=== PATIENT | male | born 1970 | race Caucasian/White ===

== ENCOUNTER 2016-10-27 08:25 | Day surgery (SDC) | payer BC, MEDICARE ==
[2016-10-22 11:30] VITALS: BMI 37.7
[~2016-10-27 08:25] MED LIST: LACTATED RINGERS 1,000 ML IV SCH
[2016-10-27 09:23] VITALS: TEMP 97.2
[2016-10-27] MEDS ORDERED: LIDOCAINE 1% 20 ML VIAL (10MG/ML) FOR IV START INTRADERMA ONE (09:33)
[2016-10-27] MEDS ORDERED: PROPOFOL 10 MG/ML 20 ML VIAL IV ONE (09:38)
[2016-10-27] MEDS ORDERED: fentaNYL (PF) 50 MCG/ML 2 ML AMP ONE (09:38)
[2016-10-27] MEDS ORDERED: LIDOCAINE 1% INJ 10MG/ML (20 ML MDV) ONE (09:38)
--- NOTE | 2016-10-27 10:22 | P.PCN ---
Date of Procedure: 10/27/16 Procedure(s) Performed: Procedures: 1. Esophagogastroduodenoscopy and biopsy. 2. Colonoscopy. Preoperative diagnosis: Gastroesophageal reflux disease and change in bowel habits. Postoperative diagnosis: 1. Mild antral gastritis. 2. Poor preparation, but no obvious pathology to the cecum. Preparation: HalfLytely prep. Sedation: Was provided by anesthesia. Brief clinical history: The patient is a 45-year-old male who is scheduled for this evaluation because of history of reflux and change in bowel habits and abdominal pains. Procedure: With the patient on his left lateral decubitus position and after informed consent and adequate sedation, I passed the Olympus-GIF 160 video upper endoscope through the cricopharyngeus down the esophagus. GE junction was around 42-43 cm from the incisors. The esophagus did not show any erosions , ulcers, strictures or Hanna's esophagus. There was no hiatal hernia. The endoscope was then passed into the stomach which was insufflated with air and inspected in detail including the retroflex view in the cardia. There was some mottling and erythema in the antrum but no ulcers or erosions. Pyloric channel , duodenal bulb, post bulbar area and descending duodenum appeared within normal limits. I obtained multiple biopsies from the duodenum, antrum and esophagus then the endoscope was withdrawn and I proceeded with the colonoscopy. Perianal area did not show any fissures or fistulas. There were no masses felt on digital rectal examination. The Olympus CFQ 160L video colonoscope was then inserted in the rectum in the usual fashion and advanced to the cecum. Unfortunately, the preparation was poor but I was able to get to the cecum and rule out any significant pathology such as tumors, obstruction or large polyps. Where visualized, the mucosa appeared healthy. No obvious diverticular disease or other pathology was noted. The patient tolerated the procedure well. Plan: I summarized the findings to the patient and to his family. Will await biopsy results from the upper endoscopy. As far as the colonoscopy is concerned , he would still need a screening exam after adequate preparation at some point before age 51, or sooner if he continues to be symptomatic. He will follow up with you as planned.
[2016-10-27 10:44] VITALS: BP 149/95; PULSE 67; RESP 18
== END 2016-10-27 11:09 | disposition home or self-care (01) ==
LOC: ORWHC2ENDO 08:25
DX: K29.70 Gastritis, unspecified, without bleeding (principal); K31.9 Disease of stomach and duodenum, unspecified; K21.0 Gastro-esophageal reflux disease with esophagitis; I10 Essential (primary) hypertension; E78.5 Hyperlipidemia, unspecified; I25.118 Atherosclerotic heart disease of native coronary artery with other forms of angina pectoris; G47.33 Obstructive sleep apnea (adult) (pediatric); I69.351 Hemiplegia and hemiparesis following cerebral infarction affecting right dominant side; Z79.82 Long term (current) use of aspirin; Z79.899 Other long term (current) drug therapy
CPT/HCPCS: 88305; 88342; 45378; 43239; J2001; J3010; J2704; 99153

== ENCOUNTER → 2016-12-22 | Outpatient (CLI) | payer MEDICARE, OTHER ==
[2016-12-22 07:07] LABS: Blood Urea Nitrogen 12 mg/dL (9-20); Non-African American GFR(MDRD) >60 (>60 ml/min/1.73 sqM)
== END | disposition home or self-care (01) ==
LOC: LABWHC1 06:33
PROVIDERS: ATTEND Psychiatry & Neurology Pain Medicine
DX: Z01.812 Encounter for preprocedural laboratory examination (principal); R51 Headache; I63.9 Cerebral infarction, unspecified
CPT/HCPCS: 36415; 82565; 84520

== ENCOUNTER → 2016-12-22 | Outpatient (CLI) | payer MEDICARE, OTHER ==
--- NOTE | 2016-12-22 09:22 | MR ---
PRE AND POSTCONTRAST ENHANCED MRI OF THE BRAIN: CLINICAL HISTORY: R51 Headaches I63.9 cerebral infarction COMPARISON: 03/15/2015 CONTRAST: 20 ML Multihance Multiplanar and multispin-echo imaging of the brain was performed both before and after the administr ation of contrast. The ventricles, basal cisterns and sulci overlying the cerebral convexities are mildly prominent for the patient's age. There is no evidence for midline shift or mass effect. Acute intracranial hemorrhage or extra-axial collection is not evident. Several small scattered foci of increased signal within the deep white matter of both cerebral hemisp heres may be related to chronic small vessel ischemic change. Following contrast administration, there is no evidence for pathologic enhancement or enhancing mass. Mild chronic maxillary sinusitis. IMPRESSION: 1. Mild generalized atrophic change. 2.Several small scattered foci of increased signal within the deep white matter of both cerebral marbella spheres may be related to chronic small vessel ischemia.
== END | disposition home or self-care (01) ==
LOC: RADMRIMAIN 06:11
PROVIDERS: ATTEND Psychiatry & Neurology Pain Medicine
DX: G31.9 Degenerative disease of nervous system, unspecified (principal); R90.82 White matter disease, unspecified
CPT/HCPCS: 70553; A9577

== ENCOUNTER → 2017-02-15 | Outpatient (CLI) | payer MEDICARE, OTHER ==
[2017-02-15 10:31] LABS: Basophils % (A) 0 %; CH 30.8; CHCM 34.5; Eosinophils # (A) 0.1 k/uL (0-0.7); Eosinophils % (A) 1 %; HCT 46.5 % (39.0-53.0); HDW 2.61; HGB 16.2 gm/dL (13.0-17.5); Luc # (Auto) 0.18; Luc % (Auto) 2; Lymphocytes # (A) 4.1 k/uL (1.0-4.8); Lymphocytes % (A) 36 %; MCH 31.2 pg (25.0-35.0); MCHC 34.8 g/dL (31.0-37.0); MCV 89.7 fL (80.0-100.0); Mean Platelet Volume 6.6; Monocytes # (A) 0.5 k/uL (0-1.0); Monocytes % (A) 5 %; Neutrophils # (A) 6.6 k/uL (1.3-7.7); Neutrophils % (A) 57 %; RBC 5.19 m/uL (4.30-5.90); RDW 13.3 % (11.5-15.5); WBC 11.5 k/uL (3.8-10.6); WBC (Perox) 11.51
[2017-02-15 10:58] LABS: ALT 50 U/L (21-72); AST 28 U/L (17-59); Alkaline Phosphatase 87 U/L (38-126); Anion Gap 8 mmol/L; Blood Urea Nitrogen 10 mg/dL (9-20); Calcium 9.5 mg/dL (8.4-10.2); Carbon Dioxide 24 mmol/L (22-30); Chloride 112 mmol/L (98-107); Glucose 96 mg/dL (74-99); Non-African American GFR(MDRD) >60 (>60 ml/min/1.73 sqM); Potassium 4.3 mmol/L (3.5-5.1); Sodium 144 mmol/L (137-145); Total Bilirubin 0.9 mg/dL (0.2-1.3); Total Protein 6.9 g/dL (6.3-8.2)
== END ==
LOC: LABWHC1 09:55
PROVIDERS: ATTEND Psychiatry & Neurology Pain Medicine
DX: E55.9 Vitamin D deficiency, unspecified (principal); R41.3 Other amnesia
CPT/HCPCS: 36415; 80053; 82306; 84439; 84443; 84481; 85025

== ENCOUNTER 2018-08-14 20:16 | Inpatient (IN) | payer BC, MEDICARE ==
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
[2018-08-14 21:17] LABS: Basophils % (A) 0 %; Eosinophils # (A) 0.1 k/uL (0-0.7); Eosinophils % (A) 1 %; HCT 45.4 % (39.0-53.0); Lymphocytes # (A) 3.9 k/uL (1.0-4.8); Lymphocytes % (A) 35 %; MCH 30.4 pg (25.0-35.0); MCHC 33.1 g/dL (31.0-37.0); Mean Platelet Volume 6.5; Monocytes # (A) 0.4 k/uL (0-1.0); Monocytes % (A) 4 %; Neutrophils # (A) 6.7 k/uL (1.3-7.7); Neutrophils % (A) 60 %; Platelet Count 285 k/uL (150-450); RBC 4.94 m/uL (4.30-5.90); RDW 13.3 % (11.5-15.5); WBC 11.2 k/uL (3.8-10.6)
--- NOTE | 2018-08-14 21:18 | XR ---
EXAMINATION TYPE: XR chest 2V DATE OF EXAM: 08/14/2018 COMPARISON: 07/25/2014 HISTORY: Chest pain TECHNIQUE: Frontal and lateral views of the chest are obtained. FINDINGS: Heart and mediastinum are normal. Lungs are clear. Diaphragm is normal. Bony thorax appear s normal. IMPRESSION: Normal chest. No change.
[2018-08-14 21:25] LABS: INR 1.1 (<1.2); Partial Thromboplastin Time 23.9 sec (22.0-30.0); Prothrombin Time 10.3 sec (9.0-12.0)
[2018-08-14 21:36] LABS: Albumin 4.2 g/dL (3.5-5.0); Calcium 9.6 mg/dL (8.4-10.2); Total Bilirubin 0.4 mg/dL (0.2-1.3)
[2018-08-14 21:50] LABS: Creatine Kinase MB 0.7 ng/mL (0.0-2.4)
[2018-08-14 21:56] LABS: Troponin I 0.069 ng/mL (0.000-0.034)
[2018-08-14] MEDS ORDERED: HEPARIN SODIUM,PORCINE 5,000 UNIT/ML 1 ML VIAL IV ONE (21:58)
[2018-08-14] MEDS ORDERED: HEPARIN SODIUM,PORCINE 5,000 UNIT/ML 1 ML VIAL IV PRN (21:58)
[2018-08-14] MEDS ORDERED: ASPIRIN 81 MG PO STA (21:59)
[2018-08-14] MEDS ORDERED: NITROGLYCERIN SL TABS 0.4 MG TAB SUBLINGUAL PRN (22:21)
[2018-08-14] MEDS: HEPARIN SOD,PORK IN 0.45% NACL 25,000 UNIT in 0.45% NACL 1 500ML.BAG IV SCH (22:28)
[2018-08-14] MEDS ORDERED: ACETAMINOPHEN TAB 325 MG TAB PO STA (22:33)
[2018-08-14 23:11] LABS: Cholesterol 168 mg/dL (<200); HDL Cholesterol 30 mg/dL (40-60); LDL Cholesterol,Calculated 101 mg/dL (0-99); Triglycerides 186 mg/dL (<150)
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
[2018-08-15 01:17] VITALS: BMI 33.9
[2018-08-15] MEDS: NITROGLYCERIN OINT 1 INCH/GM PACKET TOPICAL SCH ×5 (02:30→23:10)
[2018-08-15 02:59] LABS: HCT 43.8 % (39.0-53.0); HGB 14.7 gm/dL (13.0-17.5); MCH 30.8 pg (25.0-35.0); MCHC 33.5 g/dL (31.0-37.0); MCV 91.9 fL (80.0-100.0); Mean Platelet Volume 6.6; Platelet Count 242 k/uL (150-450); RBC 4.77 m/uL (4.30-5.90); RDW 13.3 % (11.5-15.5); WBC 11.5 k/uL (3.8-10.6)
[2018-08-15 03:27] LABS: ALT 36 U/L (21-72); AST 20 U/L (17-59); Albumin 3.8 g/dL (3.5-5.0); Alkaline Phosphatase 65 U/L (38-126); Anion Gap 6 mmol/L; Blood Urea Nitrogen 14 mg/dL (9-20); Calcium 9.2 mg/dL (8.4-10.2); Carbon Dioxide 23 mmol/L (22-30); Chloride 112 mmol/L (98-107); Glucose 99 mg/dL (74-99); Potassium 4.2 mmol/L (3.5-5.1); Sodium 141 mmol/L (137-145); Total Bilirubin 0.4 mg/dL (0.2-1.3); Total Protein 6.5 g/dL (6.3-8.2)
[2018-08-15 03:49] LABS: Creatine Kinase MB 0.8 ng/mL (0.0-2.4)
[2018-08-15 03:59] LABS: Troponin I 0.078 ng/mL (0.000-0.034)
[2018-08-15] MEDS: PANTOPRAZOLE 40 MG TABLET PO SCH (06:30)
[2018-08-15] MEDS: ATORVASTATIN 80 MG TAB PO SCH (07:48)
[2018-08-15] MEDS: ASPIRIN 325 MG TAB PO SCH (07:48)
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
[2018-08-15] MEDS ORDERED: LISINOPRIL 20 MG TAB PO SCH (09:00)
[2018-08-15] MEDS ORDERED: ALPRAZolam 0.25 MG TAB PO PRN (09:09)
[2018-08-15] MEDS ORDERED: SODIUM CHLORIDE 0.9% 1,000 ML in EMPTY BAG 1 BAG IV ONE (09:09)
[2018-08-15] MEDS ORDERED: ATORVASTATIN 80 MG TAB PO STA (09:09)
[2018-08-15] MEDS ORDERED: NITROGLYCERIN SL TABS 0.4 MG TAB SUBLINGUAL PRN (09:09)
[2018-08-15] MEDS ORDERED: ASPIRIN 325 MG TAB PO STA (09:09)
[2018-08-15] MEDS ORDERED: ALPRAZolam 0.5 MG TAB PO PRN (09:09)
--- NOTE | 2018-08-15 09:20 | P.PN ---
Progress Note - Text Progress Note Date: 08/15/18 This is an addendum to the cardiology consultation dictated earlier this morning. The patient's and sister are now present, details of cardiac catheterization were explained to them in detail. Patient did have a cardiac catheterization performed in 2006 and was told at that time to have normal coronary arteries. Patient has been seen and evaluated this morning by Dr. Shine, cardiac catheterization will be performed today. DNP note has been reviewed, I agree with a documented findings and plan of care. Patient was seen and examined.
[2018-08-15] MEDS ORDERED: IV FLUID CONTINUATION 175 ML IV ONE (09:32)
[2018-08-15] MEDS ORDERED: VERAPAMIL 2.5 MG/ML 2 ML AMP ONE (09:38)
[2018-08-15] MEDS ORDERED: MIDAZOLAM 2 MG/2 ML VIAL ONE (09:38)
[2018-08-15] MEDS ORDERED: MIDAZOLAM 2 MG/2 ML VIAL IV ONE (10:03)
[2018-08-15] MEDS ORDERED: LIDOCAINE 2% SYG (PF) 100 MG/5 ML MISCELLANE ONE (10:05)
[2018-08-15] MEDS ORDERED: LIDOCAINE 1% INJ 10MG/ML (20 ML MDV) SQ ONE (10:05)
[2018-08-15] MEDS: VERAPAMIL SYRINGE (5 MG/10 ML) INTRAARTER ONE ×2 (10:06→10:18)
[2018-08-15] MEDS ORDERED: HEPARIN SODIUM 1,000 UN/ML (10ML VL) ONE (10:06)
[2018-08-15] MEDS ORDERED: HEPARIN SODIUM 1,000 UN/ML (10ML VL) IV ONE (10:09)
[2018-08-15] MEDS ORDERED: IOPAMIDOL-370 125ML BTL INJ ONE (10:15)
[2018-08-15] MEDS ORDERED: RX INFO: IV CONTRAST WAS GIVEN 1 EACH MISC MISCELLANE PRN (10:23)
[2018-08-15] MEDS ORDERED: SODIUM CHLORIDE 0.9% 1,000 ML IV SCH (10:30)
--- NOTE | 2018-08-15 11:04 | ECHOF ---
Referral Reason:elevated troponins MEASUREMENTS -------- HEIGHT: 152.4 cm WEIGHT: 113.4 kg BP: RVIDd: 3.2 cm (< 3.3) IVSd: 1.4 cm (0.6 - 1.1) LVIDd: 4.2 cm (3.9 - 5.3) LVPWd: 1.3 cm (0.6 - 1.1) IVSs: 1.8 cm LVIDs: 3.3 cm LVPWs: 1.3 cm LA Diam: 3.5 cm (2.7 - 3.8) LAESV Index (A-L): 22.03 ml/m Ao Diam: 3.3 cm (2.0 - 3.7) AV Cusp: 2.1 cm (1.5 - 2.6) LA Diam: 3.4 cm (2.7 - 3.8) MV EXCURSION: 25.076 mm (> 18.000) MV EF SLOPE: 160 mm/s (70 - 150) EPSS: 0.7 cm MV E Evin: 0.85 m/s MV DecT: 178 ms MV A Evin: 0.58 m/s MV E/A Ratio: 1.46 RAP: 5.00 mmHg RVSP: 30.30 mmHg FINDINGS -------- Sinus rhythm. This was a technically adequate study. The left ventricular size is normal. There is moderate concentric left ventricular hypertrophy. O verall left ventricular systolic function is low-normal with, an EF between 50 - 55 %. The right ventricle is normal in size. The left atrial size is normal. Normal LA size by volume 22+/-6 ml/m2. The right atrial size is normal. The aortic valve is trileaflet, and appears structurally normal. No aortic stenosis or regurgitation. Mild mitral regurgitation is present. Mild tricuspid regurgitation present. There is no evidence of pulmonary hypertension. The right v entricular systolic pressure, as measured by Doppler, is 30.30mmHg. Trace/mild (physiologic) pulmonic regurgitation. The aortic root size is normal. There is no pericardial effusion. CONCLUSIONS -------- 1. The left ventricular size is normal. 2. There is moderate concentric left ventricular hypertrophy. 3. Overall left ventricular systolic function is low-normal with, an EF between 50 - 55 %. 4. The right ventricle is normal in size. 5. The left atrial size is normal. 6. The right atrial size is normal. 7. The aortic valve is trileaflet, and appears structurally normal. No aortic stenosis or regurgitati on. 8. Mild mitral regurgitation is present. 9. Mild tricuspid regurgitation present. 10. There is no evidence of pulmonary hypertension. 11. The right ventricular systolic pressure, as measured by Doppler, is 30.30mmHg. 12. Trace/mild (physiologic) pulmonic regurgitation. 13. The aortic root size is normal. 14. There is no pericardial effusion. DIRECTOR COMPENSATION: Maura West RDCS
[2018-08-15 11:29] LABS: Hemoglobin A1C 5.8 % (4.0-6.0)
--- NOTE | 2018-08-15 11:31 | CC ---
CARDIAC CATHETERIZATION REPORT DATE OF SERVICE: August 15, 2018 PERFORMING PHYSICIAN: Jimmy Mckeon MD, shopping centre manager. PROCEDURE PERFORMED: 1. Selective right and left coronary angiogram. 2. Left heart catheterization. INDICATION: This is a pleasant 47-year-old gentleman with hypertension and dyslipidemia who presented to the hospital with chest discomfort and ruled in for acute non ST elevation myocardial infarction. The decision was made toward heart catheterization to rule out any severe underlying CAD. APPROACH: Right radial artery. COMPLICATION: None LEVEL OF SEDATION: Moderate with sedation length of 15 minutes. PROCEDURE DESCRIPTION: After obtaining an informed consent, the patient was brought to cardiac odd job laborer. The right radial artery was cannulated using micropuncture technique and a micropuncture wire passed easily then I placed a 6-Belgian sheath in the right radial artery. After that I gave the patient 2 mg of verapamil IA and 10,000 units of heparin IV. I did selective right and left coronary angiogram using JR4 and JL3.5 catheters. Left heart catheterization was performed using 5-Belgian pigtail catheter. The procedure was completed without any complication. SELECTIVE CORONARY ANGIOGRAM: 1. The right coronary artery is a large caliber vessel. It is a dominant vessel. It is angiographically normal. It distally bifurcates into PDA and PLV branches both are angiographically normal. 2. The left main is angiographically normal. It bifurcates into left circumflex, ramus intermedius, and left anterior descending artery. 3. The left circumflex is a large caliber vessel. It is a nondominant vessel. The left circumflex is angiographically normal and the midportion gives rise into a large OM branch which appeared to be angiographically normal. 4. The ramus intermedius is angiographically normal. 5. The LAD: The proximal LAD is angiographically normal. It gives rise into first diagonal which appeared to be angiographically normal. The mid LAD is normal and the LAD distally is normal as well. HEMODYNAMICS: The left ventricular end-diastolic pressure was 12 mmHg and no gradient was identified across the aortic valve. CONCLUSION: 1. Normal coronary angiogram. 2. Normal left ventricular end-diastolic pressure. POSTPROCEDURE MANAGEMENT: 1. Follow up on the echocardiogram. 2. Follow up with the patient. MMODL / IJN: [id number] /
--- NOTE | 2018-08-15 11:32 | P.PN ---
Subjective Progress Note Date: 08/15/18 Principal diagnosis: Chest pain, NSTEMI Patient was seen and examined after cardiac cath. No acute events overnight. Patient continues to have chest pain but less so in intensity, /, burning in nature. Associated symptoms includes palpitations, dizziness, diaphoresis when the pain is bad. Objective - Vital Signs Vital signs: Vital Signs Temp 98.1 F 08/15/18 07:50 Pulse 66 08/15/18 10:30 Resp 16 08/15/18 10:30 BP 125/78 08/15/18 10:30 Pulse Ox 99 08/15/18 10:30 Intake & Output 08/14/18 08/15/18 08/15/18 18:59 06:59 18:59 Intake Total 164.333 75 Balance 164.333 75 Weight 113.5 kg Intake: IV 40 75 0.9 20 Heparin Sod,Pork in 0.45% 20 NaCl 25,000 unit In 0.45 % NaCl 1 500ml.bag @ 9 UNITS/KG/HR 20 mls/hr IV .Q24H [facility] Rx#:[id number] Intake, IV Titration 124.333 Amount Heparin Sod,Pork in 0.45% 124.333 NaCl 25,000 unit In 0.45 % NaCl 1 500ml.bag @ 9 UNITS/KG/HR 20 mls/hr IV .Q24H [facility] Rx#:[id number] Other: Voiding Method Toilet Toilet - Exam General: [non toxic], [no distress], [appears aged] Derm: [warm], [dry] Head: [atraumatic], [normocephalic], [symmetric] Eyes: [EOMI], [no lid lag], [anicteric sclera] Mouth: [no lip lesion], [mucus membranes moist] Cardiovascular: [S1S2 reg], [no murmur], [positive DP pulse bilateral] Lungs: [CTA bilateral], [no rhonchi, no rales] , [no accessory muscle use] Abdominal: [soft], [no guarding], [no appreciable organomegaly], [non tender to palpation] Ext: [no gross muscle atrophy], [no edema], [no contractures], [R wrist wrapped , no hematoma] Neuro: [4/5 RL and RUE, 5/5 LL and LUE] Psych: [Alert], [oriented], [appropriate affect] - Labs CBC & Chem 7: 08/15/18 02:48 08/15/18 02:48 Labs: Abnormal Lab Results - Last 24 Hours (Table) 08/14/18 08/14/18 08/14/18 Range/Units 21:00 21:00 21:00 WBC 11.2 H (3.8-10.6) k/uL Chloride 108 H (98-107) mmol/L Glucose 169 H (74-99) mg/dL Total Creatine Kinase 188 H (55-170) U/L Troponin I 0.069 H* (0.000-0.034) ng/mL Triglycerides (<150) mg/dL LDL Cholesterol, Calc (0-99) mg/dL HDL Cholesterol (40-60) mg/dL 08/14/18 08/15/18 08/15/18 Range/Units 21:00 02:48 02:48 WBC 11.5 H (3.8-10.6) k/uL Chloride (98-107) mmol/L Glucose (74-99) mg/dL Total Creatine Kinase 184 H (55-170) U/L Troponin I 0.078 H* (0.000-0.034) ng/mL Triglycerides 186 H (<150) mg/dL LDL Cholesterol, Calc 101 H (0-99) mg/dL HDL Cholesterol 30 L (40-60) mg/dL 08/15/18 Range/Units 02:48 WBC (3.8-10.6) k/uL Chloride 112 H (98-107) mmol/L Glucose (74-99) mg/dL Total Creatine Kinase (55-170) U/L Troponin I (0.000-0.034) ng/mL Triglycerides (<150) mg/dL LDL Cholesterol, Calc (0-99) mg/dL HDL Cholesterol (40-60) mg/dL Assessment and Plan Assessment: Assessment and Plan 1. NSTEMI: Chest pain typical. Trop 0.069, 0.078. EKG shows NSR. Cardiology consulted - cath today. Continue ASA 325 mg PO QD, Lipitor 80 mg PO QHS. Heparin drip pending cath. Telemetry monitoring. FU Cardiology 2. h/o CVA: Stable. Continue ASA 325 mg PO QD, Lipitor 80 mg PO QHS. 3. Hypertension: BP 126/82. On Amlodipine at home, will hold. Monitor vitals, adjust medication as necessary. 4. Sleep apnea: Stable. CPAP QHS. 5. DVT/GI Prophylaxis: Protonix 40 mg PO QAM. Heparin drip.
[2018-08-15 11:53] LABS: D-Dimer <0.17 mg/L FEU (<0.60)
[2018-08-15 12:02] LABS: Partial Thromboplastin Time >200.0 sec (22.0-30.0)
[2018-08-15 12:03] LABS: Creatine Kinase MB 0.7 ng/mL (0.0-2.4); Troponin I 0.033 ng/mL (0.000-0.034)
[2018-08-15] MEDS ORDERED: ACETAMINOPHEN TAB 325 MG TAB PO STA (21:25)
[2018-08-15] MEDS: HEPARIN SOD,PORK IN 0.45% NACL 25,000 UNIT in 0.45% NACL 1 500ML.BAG IV SCH (22:43)
[2018-08-16 06:04] VITALS: RESP 18; TEMP 98.2
[2018-08-16] MEDS: NITROGLYCERIN OINT 1 INCH/GM PACKET TOPICAL SCH ×2 (06:33→11:49)
[2018-08-16] MEDS: PANTOPRAZOLE 40 MG TABLET PO SCH (07:13)
[2018-08-16] MEDS: ATORVASTATIN 80 MG TAB PO SCH (07:32)
[2018-08-16] MEDS: ASPIRIN 325 MG TAB PO SCH (07:32)
[2018-08-16 07:38] VITALS: BP 136/87; PULSE 71
--- NOTE | 2018-08-16 10:01 | P.PN ---
Subjective Progress Note Date: 08/16/18 Principal diagnosis: Acute non-ST elevation [place] This is a pleasant 47-year-old gentleman with hypertension and dyslipidemia and history of stroke and significant family history of coronary artery disease presented to the hospital with chest discomfort and ruled in for acute non-ST patient myocardial infarction. He underwent heart catheterization and that revealed normal coronaries. He underwent an echocardiogram and that showed normal LV function with mild valvular abnormalities. On follow-up with him today, he remains asymptomatic from the cardiovascular standpoint overview. From a cardiac vascular standpoint the patient can be discharged home. Objective - Vital Signs Vital signs: Vital Signs Temp 98.2 F 08/16/18 07:34 Pulse 71 08/16/18 07:34 Resp 18 08/16/18 07:34 BP 136/87 08/16/18 07:34 Pulse Ox 98 08/16/18 07:34 Intake & Output 08/15/18 08/16/18 08/16/18 18:59 06:59 18:59 Intake Total 795 1300 360 Balance 795 1300 360 Weight 113.4 kg Intake: IV 75 Oral 720 1300 360 Other: Voiding Method Toilet Toilet Toilet # Voids 2 1 - Constitutional General appearance: Present: no acute distress - Respiratory Respiratory: bilateral: CTA - Cardiovascular Rhythm: regular Heart sounds: normal: S1, S2 - Labs CBC & Chem 7: 08/15/18 02:48 08/15/18 02:48 Labs: Abnormal Lab Results - Last 24 Hours (Table) 08/15/18 Range/Units 10:52 APTT >200.0 H* (22.0-30.0) sec Assessment and Plan Assessment: Assessment #1 acute non-ST elevation myocardial infarction #2 hypertension #3 dyslipidemia Plan #1 the heart catheterization revealed normal coronaries #2 the echo revealed normal LV function #3 the patient is chest pain-free this morning #4 he can be discharged home.
--- NOTE | 2018-08-17 01:01 | DS ---
DISCHARGE SUMMARY DATE OF ADMISSION: 08/14/2018. DATE OF DISCHARGE: 08/16/2018. FINAL DIAGNOSES: 1. Acute non-ST elevation myocardial infarction. 2. Essential hypertension. 3. Obstructive sleep apnea uses CPAP. 4. Obesity; BMI 33.9. 5. Gastroesophageal reflux disease. 6. Hyperlipidemia. 7. Anxiety and depression, not otherwise specified. HOSPITAL COURSE: This patient presented with acute MS. Cardiac cath showed normal coronaries. The patient's LDL was 101. The 2D echocardiogram showed EF of 50% to 55%. Today patient is up and about. No cardiac pain. PHYSICAL EXAMINATION: Temperature 98.2, pulse 71, respirations 16, blood pressure 136/87. Lungs fair entry. Cardiovascular 1st and 2nd sounds normal. LABS: LDL 101. CONSULTATIONS: Dr. Mckeon from Cardiology. Care was discussed with the patient. DISCHARGE MEDICATIONS: 1. Aspirin 81 mg p.o. b.i.d. 2. Vitamin D3, 1000 units p.o. daily. 3. Plavix 75 mg a day. 4. Multivitamin tab p.o. daily. 5. Omeprazole 20 mg p.o. b.i.d. 6. Zoloft 200 mg p.o. at bedtime. 7. Lipitor 40 mg p.o. daily. 8. Norvasc 5 mg p.o. daily. FOLLOWUP: 1. Follow up with Dr. Mckeon on 08/24/2018. 2. Follow up with Dr. Styles on 08/24/2018. MMSHARIL / IJN: [id number] /
== END 2018-08-16 13:05 | disposition home or self-care (01) | DRG 281 ==
LOC: EC 20:16 → 3SCARD 22:21
PROVIDERS: ADMIT Hospitalist; ATTEND Hospitalist
PROC: B2111ZZ Fluoroscopy of Multiple Coronary Arteries using Low Osmolar Contrast (ICD-10-PCS; 2018-08-15)
PROC: 4A023N7 Measurement of Cardiac Sampling and Pressure, Left Heart, Percutaneous Approach (ICD-10-PCS; principal; 2018-08-15 09:32)
DX: I21.4 Non-ST elevation (NSTEMI) myocardial infarction (principal); I69.351 Hemiplegia and hemiparesis following cerebral infarction affecting right dominant side; K21.9 Gastro-esophageal reflux disease without esophagitis; E78.5 Hyperlipidemia, unspecified; I10 Essential (primary) hypertension; G47.33 Obstructive sleep apnea (adult) (pediatric); Z68.33 Body mass index [BMI] 33.0-33.9, adult; E66.9 Obesity, unspecified; F43.10 Post-traumatic stress disorder, unspecified; F41.9 Anxiety disorder, unspecified; F32.9 Major depressive disorder, single episode, unspecified; Z91.19 Patient's noncompliance with other medical treatment and regimen; I69.398 Other sequelae of cerebral infarction; G43.909 Migraine, unspecified, not intractable, without status migrainosus; R25.1 Tremor, unspecified; Z87.820 Personal history of traumatic brain injury; R41.3 Other amnesia; Z79.01 Long term (current) use of anticoagulants; Z79.82 Long term (current) use of aspirin; Z79.899 Other long term (current) drug therapy; F17.210 Nicotine dependence, cigarettes, uncomplicated; D72.829 Elevated white blood cell count, unspecified; Z82.49 Family history of ischemic heart disease and other diseases of the circulatory system; R73.9 Hyperglycemia, unspecified; I25.2 Old myocardial infarction
CPT/HCPCS: 36415; 71046; 80053; 80061; 82550; 82553; 83036; 83690; 83735; 84484; 85025; 85027; 85379; 85610; 85730; 93005; 93306; 93458; 96365; 96366; 96376; 99285

== ENCOUNTER 2018-12-30 12:28 | Observation (INO) | payer OTHER, MEDICARE ==
[2018-12-30 13:14] LABS: Basophils # (A) 0.1 k/uL (0-0.2); Basophils % (A) 0 %; Eosinophils # (A) 0.1 k/uL (0-0.7); Eosinophils % (A) 1 %; HGB 17.2 gm/dL (13.0-17.5); Lymphocytes # (A) 4.3 k/uL (1.0-4.8); Lymphocytes % (A) 34 %; MCH 29.9 pg (25.0-35.0); MCHC 33.1 g/dL (31.0-37.0); MCV 90.2 fL (80.0-100.0); Mean Platelet Volume 6.3; Monocytes # (A) 0.5 k/uL (0-1.0); Monocytes % (A) 4 %; Neutrophils # (A) 7.7 k/uL (1.3-7.7); Neutrophils % (A) 60 %; Platelet Count 276 k/uL (150-450); RBC 5.76 m/uL (4.30-5.90); RDW 13.3 % (11.5-15.5); WBC 12.8 k/uL (3.8-10.6)
--- NOTE | 2018-12-30 13:17 | XR ---
EXAMINATION TYPE: XR chest 2V DATE OF EXAM: 12/30/2018 COMPARISON: 11/17/2018 HISTORY: Chest pressure with recent history of myocardial infarct TECHNIQUE: Frontal and lateral views of the chest are obtained. FINDINGS: There is no focal air space opacity, pleural effusion, or pneumothorax seen. The cardiac silhouette size is within normal limits. The osseous structures are intact. IMPRESSION: No acute cardiopulmonary process.
[2018-12-30 13:20] LABS: Albumin 5.1 g/dL (3.5-5.0); Calcium 9.9 mg/dL (8.4-10.2); Total Bilirubin 0.9 mg/dL (0.2-1.3); Total Protein 8.2 g/dL (6.3-8.2)
[2018-12-30 13:24] LABS: D-Dimer 0.22 mg/L FEU (<0.60); Partial Thromboplastin Time 27.2 sec (22.0-30.0); Prothrombin Time 10.9 sec (9.0-12.0)
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
[2018-12-30] MEDS: NITROGLYCERIN SL TABS 0.4 MG TAB SUBLINGUAL PRN ×3 (14:07→14:34)
[2018-12-30 14:12] LABS: Potassium 4.8 mmol/L (3.5-5.1)
[2018-12-30] MEDS ORDERED: HEPARIN SODIUM,PORCINE 5,000 UNIT/ML 1 ML VIAL IV PRN (14:50)
[2018-12-30] MEDS ORDERED: HEPARIN SODIUM,PORCINE 5,000 UNIT/ML 1 ML VIAL IV ONE (14:50)
[2018-12-30] MEDS ORDERED: NITROGLYCERIN OINT 1 INCH/GM PACKET TOPICAL STA (14:51)
[2018-12-30] MEDS ORDERED: ACETAMINOPHEN TAB 500 MG TAB PO STA (14:51)
[2018-12-30] MEDS ORDERED: NITROGLYCERIN SL TABS 0.4 MG TAB SUBLINGUAL PRN (14:59)
[2018-12-30] MEDS ORDERED: HEPARIN SOD,PORK IN 0.45% NACL 25,000 UNIT in 0.45% NACL 1 250ML.BAG IV SCH (15:00)
--- NOTE | 2018-12-30 15:03 | ED ---
Medical Decision Making - Lab Data Result diagrams: 12/30/18 12:44 12/30/18 12:44 Lab Results 12/30/18 12/30/18 12/30/18 Range/Units 12:44 12:44 12:44 WBC 12.8 H (3.8-10.6) k/uL RBC 5.76 (4.30-5.90) m/uL Hgb 17.2 (13.0-17.5) gm/dL Hct 52.0 (39.0-53.0) % MCV 90.2 (80.0-100.0) fL MCH 29.9 (25.0-35.0) pg MCHC 33.1 (31.0-37.0) g/dL RDW 13.3 (11.5-15.5) % Plt Count 276 (150-450) k/uL Neutrophils % 60 % Lymphocytes % 34 % Monocytes % 4 % Eosinophils % 1 % Basophils % 0 % Neutrophils # 7.7 (1.3-7.7) k/uL Lymphocytes # 4.3 (1.0-4.8) k/uL Monocytes # 0.5 (0-1.0) k/uL Eosinophils # 0.1 (0-0.7) k/uL Basophils # 0.1 (0-0.2) k/uL PT 10.9 (9.0-12.0) sec INR 1.0 (<1.2) APTT 27.2 (22.0-30.0) sec D-Dimer 0.22 (<0.60) mg/L FEU Sodium 141 (137-145) mmol/L Potassium 4.8 (3.5-5.1) mmol/L Chloride 107 (98-107) mmol/L Carbon Dioxide 24 (22-30) mmol/L Anion Gap 10 mmol/L BUN 16 (9-20) mg/dL Creatinine 1.18 (0.66-1.25) mg/dL Est GFR (CKD-EPI)AfAm 85 (>60 ml/min/1.73 sqM) Est GFR (CKD-EPI)NonAf 73 (>60 ml/min/1.73 sqM) Glucose 93 (74-99) mg/dL Calcium 9.9 (8.4-10.2) mg/dL Magnesium 2.0 (1.6-2.3) mg/dL Total Bilirubin 0.9 (0.2-1.3) mg/dL AST 32 (17-59) U/L ALT 48 (21-72) U/L Alkaline Phosphatase 71 (38-126) U/L Troponin I (0.000-0.034) ng/mL NT-Pro-B Natriuret Pep pg/mL Total Protein 8.2 (6.3-8.2) g/dL Albumin 5.1 H (3.5-5.0) g/dL Amylase 117 H (30-110) U/L Lipase 116 (23-300) U/L 12/30/18 12/30/18 Range/Units 12:44 12:44 WBC (3.8-10.6) k/uL RBC (4.30-5.90) m/uL Hgb (13.0-17.5) gm/dL Hct (39.0-53.0) % MCV (80.0-100.0) fL MCH (25.0-35.0) pg MCHC (31.0-37.0) g/dL RDW (11.5-15.5) % Plt Count (150-450) k/uL Neutrophils % % Lymphocytes % % Monocytes % % Eosinophils % % Basophils % % Neutrophils # (1.3-7.7) k/uL Lymphocytes # (1.0-4.8) k/uL Monocytes # (0-1.0) k/uL Eosinophils # (0-0.7) k/uL Basophils # (0-0.2) k/uL PT (9.0-12.0) sec INR (<1.2) APTT (22.0-30.0) sec D-Dimer (<0.60) mg/L FEU Sodium (137-145) mmol/L Potassium (3.5-5.1) mmol/L Chloride (98-107) mmol/L Carbon Dioxide (22-30) mmol/L Anion Gap mmol/L BUN (9-20) mg/dL Creatinine (0.66-1.25) mg/dL Est GFR (CKD-EPI)AfAm (>60 ml/min/1.73 sqM) Est GFR (CKD-EPI)NonAf (>60 ml/min/1.73 sqM) Glucose (74-99) mg/dL Calcium (8.4-10.2) mg/dL Magnesium (1.6-2.3) mg/dL Total Bilirubin (0.2-1.3) mg/dL AST (17-59) U/L ALT (21-72) U/L Alkaline Phosphatase (38-126) U/L Troponin I <0.012 (0.000-0.034) ng/mL NT-Pro-B Natriuret Pep <11 pg/mL Total Protein (6.3-8.2) g/dL Albumin (3.5-5.0) g/dL Amylase (30-110) U/L Lipase (23-300) U/L Disposition Clinical Impression: Unstable angina pectoris, Chest pain, Acute coronary syndrome Disposition: ADMITTED IP TO THIS HOSP Condition: Stable Referrals: Michael Styles MD [Primary Care Provider] - 1-2 days
[2018-12-30] MEDS ORDERED: ASPIRIN 81 MG PO STA (15:05)
[2018-12-30] MEDS: SODIUM CHLORIDE 0.9% 1,000 ML IV SCH (15:08)
[2018-12-30] MEDS: NITROGLYCERIN OINT 1 INCH/GM PACKET TOPICAL SCH ×2 (17:03→23:39)
[2018-12-30] MEDS ORDERED: ACETAMINOPHEN TAB 325 MG TAB PO PRN (20:19)
[2018-12-30] MEDS: DOXAZOSIN 4 MG TAB PO SCH (20:26)
[2018-12-30] MEDS: amLODIPine 5 MG TAB PO SCH (20:26)
[2018-12-30] MEDS: DONEPEZIL 5 MG TAB PO SCH (20:26)
[2018-12-30] MEDS ORDERED: SERTRALINE 100 MG TAB PO SCH (21:00)
[2018-12-30] MEDS ORDERED: ARIPiprazole 10 MG TAB PO SCH (21:00)
--- NOTE | 2018-12-30 23:37 | HP ---
HISTORY AND PHYSICAL DATE OF ADMISSION: 12/30/2018 DATE OF SERVICE: 12/30/2018 PRESENTING COMPLAINT: Chest pain. HISTORY OF PRESENTING COMPLAINT: This is a pleasant 48-year-old patient of Dr. Styles. The patient said he was up to work last year with chest pain, did undergo cardiac catheterization, following an acute non ST elevation myocardial infarction. Cardiac cath showed normal coronaries. EF was 50-55 percent. The patient other stable medical conditions include hypertension, obstructive sleep apnea, obesity, GERD, hyperlipidemia, anxiety, depression. The patient has continued to smoke. The patient had gone up for his appointment with neurologist. There he informed them that earlier he was having upper chest pain, felt like a pressure. He was dizzy. Perspiring, felt weak and was presented on and off this morning, with being nonsteroidal, he was dizzy, also went a little bit through his back, also radiating down the left arm. He was sent in to rule out a cardiac cause. REVIEW OF SYSTEMS: CONSTITUTIONAL: None. HEENT: None. RESPIRATORY: None. CARDIOVASCULAR: As above GASTROINTESTINAL: None. GENITOURINARY: None. MUSCULOSKELETAL: None. DERMATOLOGICAL/HEMATOLOGY/LYMPHATIC: none. PSYCHIATRY: A bit anxious. NEUROLOGICAL: None. PAST MEDICAL HISTORY: Of ST-elevation myocardial infarction in July 2018, hypertension, obstructive sleep apnea, obesity, GERD, hyperlipidemia, anxiety, depression. Some memory impairment and additionally patient actually has stopped using his CPAP machine, numbness and tingling in both the feet. PAST SURGICAL HISTORY: Cardiac catheterization, tonsillectomy, sinus surgery, dental extractions. PSYCH HISTORY: Depression, anxiety, PTSD. SOCIAL HISTORY: , sometimes uses a cane. His primary language is [place]nian. The patient is smoking half a day for close to 30 years. No alcohol. FAMILY HISTORY: Coronary artery disease. Father of a heart attack at age of 52. HOME MEDICATIONS: 1. Hytrin 5 mg b.i.d. 2. Zoloft 200 mg at bedtime. 3. Protonix 40 mg a day. 4. CO Q 10 200 mg a day. 5. Multivitamin 1 tablet p.o. daily. 6. Singulair 10 mg p.o. daily. 7. Claritin 10 mg p.o. daily. 8. Aricept 5 mg p.o. b.i.d. 9. Plavix 75 mg p.o. daily. 10.Lipitor 40 mg p.o. daily. 11.Aspirin 81 mg p.o. daily. 12.Norvasc 5 mg p.o. b.i.d. 13.Abilify 10 mg q.h.s. ALLERGIES: None. PHYSICAL EXAMINATION: VITAL SIGNS: Temperature 98.1, pulse 51, respiratory 18, blood pressure 143/89, pulse ox 97% on room air. GENERAL APPEARANCE: Well built, BMI 35.4. Lying in bed, somewhat anxious-appearing. EYES: Pupils equal. Conjunctivae normal. HEENT: External appearance of nose and ears normal. Oral cavity normal. NECK: JVD not raised. Mass not palpable. RESPIRATORY: Effort normal. LUNGS: Slightly decreased breath sounds. CARDIOVASCULAR: 1st and 2nd sounds normal. No edema. ABDOMEN: Soft, nontender. Liver and spleen not palpable. LYMPHATICS: No lymph nodes palpable in the neck or axilla. PSYCHIATRY: Alert and oriented x3. Mood and affect slightly anxious-appearing. NEUROLOGICAL: Pupils equal. Cranial nerves grossly intact. Power and sensation grossly intact. INVESTIGATIONS: Reviewed in the clinical context. White count 12.8, hemoglobin 17.2, potassium 4.8 BUN and creatinine normal. Troponin times 2- negative. EKG tracing personally reviewed by me shows normal sinus rhythm. Chest x-ray film personally reviewed by me shows lung hearn to be clear. ASSESSMENT: 1. This is a patient who presented with chest pain on and off since this morning. The patient who has had a non ST elevation myocardial infarction a few months ago with normal cardiac catheterization. We could be dealing with coronary vasospasms or underlying psychosomatic disorder given his underlying anxiety given that he had a doctor's appointment this morning. 2. Essential hypertension. 3. Obstructive sleep apnea, does not use a CPAP machine. 4. Obesity; BMI more than 30. 5. Gastroesophageal reflux disease. 6. Hyperlipidemia. 7. Anxiety and depression, not otherwise specified. 8. Peripheral neuropathy. PLAN: Home medications resumed. Patient is put on IV heparin, nitro paste. The patient is already on Norvasc that should help with any ways of spastic disease. Cardiology was consulted, will get their opinion. Copy to Dr. Styles. MMODL / IJN: [id number] /
[2018-12-30] MEDS ORDERED: MORPHINE SULFATE 2 MG/ML SYRINGE IVP STA (23:52)
[2018-12-31 04:05] VITALS: RESP 18
[2018-12-31 04:26] LABS: Basophils % (A) 0 %; Eosinophils # (A) 0.1 k/uL (0-0.7); Eosinophils % (A) 1 %; HCT 47.8 % (39.0-53.0); HGB 15.9 gm/dL (13.0-17.5); Lymphocytes # (A) 4.8 k/uL (1.0-4.8); Lymphocytes % (A) 50 %; MCH 30.1 pg (25.0-35.0); MCHC 33.4 g/dL (31.0-37.0); MCV 90.2 fL (80.0-100.0); Mean Platelet Volume 6.3; Monocytes # (A) 0.5 k/uL (0-1.0); Monocytes % (A) 5 %; Neutrophils # (A) 3.9 k/uL (1.3-7.7); Neutrophils % (A) 41 %; Platelet Count 240 k/uL (150-450); WBC 9.5 k/uL (3.8-10.6)
[2018-12-31] MEDS: NITROGLYCERIN OINT 1 INCH/GM PACKET TOPICAL SCH ×3 (04:32→10:33)
[2018-12-31 05:04] LABS: Cholesterol 148 mg/dL (<200); HDL Cholesterol 28 mg/dL (40-60); LDL Cholesterol,Calculated 88 mg/dL (0-99); Triglycerides 162 mg/dL (<150)
[2018-12-31] MEDS ORDERED: PANTOPRAZOLE 40 MG TABLET PO SCH (07:30)
[2018-12-31] MEDS ORDERED: NON-FORMULARY DRUG (Ubidecarenone [Co Q-10] 200 MG) PO SCH (09:00)
[2018-12-31] MEDS ORDERED: LORATADINE 10 MG TAB PO SCH (09:00)
[2018-12-31] MEDS ORDERED: MONTELUKAST 10 MG TAB PO SCH (09:00)
[2018-12-31] MEDS ORDERED: CLOPIDOGREL 75 MG TAB PO SCH (09:00)
[2018-12-31] MEDS ORDERED: ATORVASTATIN 40 MG TAB PO SCH (09:00)
[2018-12-31] MEDS ORDERED: ASPIRIN 325 MG TAB PO SCH (09:00)
[2018-12-31] MEDS: DOXAZOSIN 4 MG TAB PO SCH (09:45)
[2018-12-31] MEDS: DONEPEZIL 5 MG TAB PO SCH (09:45)
[2018-12-31] MEDS: amLODIPine 5 MG TAB PO SCH (09:45)
[2018-12-31] MEDS: SODIUM CHLORIDE 0.9% 1,000 ML IV SCH (10:33)
[2018-12-31] MEDS ORDERED: MULTIVITAMINS, THERA 1 EACH TAB PO SCH (12:00)
[2018-12-31 12:08] VITALS: TEMP 98.2
--- NOTE | 2018-12-31 12:26 | P.CRDCN ---
History of Present Illness History of present illness: This is a pleasant 48-year-old male past medical history significant for hypertension, dyslipidemia and recent myocardial infarction. He follows in the office with Dr. Mckeon. We have been asked to see him in consultation for chest pain. He complains of waking up yesterday morning getting up and going to the restroom developing a sharp pain in the left precordial region that radiated up into the left shoulder. He felt as though he was mildly short of breath and diaphoretic at that time. He denies palpitations, nausea or vomiting. Upon arrival to the emergency department he was continuing to have ongoing sharp discomfort in the left precordial region was not related to deep inspiration or movement of his torso. He was given nitroglycerin as well as morphine and his pain subsided. He is seen and examined resting comfortably in bed in no acute distress. She denies any ongoing symptoms of chest discomfort. EKG reveals sinus mechanism with no acute ST or T wave abnormalities noted. Chest x-ray is negative for acute cardiopulmonary process. Laboratory data reviewed, WBC on admission 12.8 repeat this morning 9.5, hemoglobin 15.9, platelets 240, d-dimer 0.22, sodium 141, potassium 4.8, creatinine 1.18, magnesium 2.0, cardiac enzymes negative 3, LDL 88, amylase 117. Current cardiac medications include amlodipine 5 mg twice a day, aspirin 81 mg daily, atorvastatin 40 mg daily, Plavix 75 mg daily. Most recent echocardiogram obtained July 2018 reveals preserved left ventricular systolic function with ejection fraction 50-55%. At the time of my exam: CONSTITUTIONAL: Denies fever. Denies chills. EYES: Denies blurred vision. Denies vision changes. Denies eye pain. EARS, NOSE, MOUTH & THROAT: Denies headache. Denies sore throat. Denies ear pain. CARDIOVASCULAR: Denies chest pain. Denies shortness of breath. Denies orthopnea. Denies PND. Denies palpitations. RESPIRATORY: Denies cough. GASTROINTESTINAL: Denies abdominal pain. Denies diarrhea. Denies constipation. Denies nausea. Denies vomiting. MUSCULOSKELETAL: Denies myalgias. INTEGUMENTARY: Denies pruitis. Denies rash. NEUROLOGIC: Denies numbness. Denies tingling. Denies weakness. PSYCHIATRIC: Denies anxiety. Denies depression. ENDOCRINE: Denies fatigue. Denies weight change. Denies polydipsia. Denies polyurina. GENITOURINARY: Denies burning, hematuria or urgency with micturation. HEMATOLOGIC: Denies history of anemia. Denies bleeding. Blood pressure 129/75 heart rate 91 afebrile maintaining oxygen saturation on room air GENERAL: This is a 48-year-old male in no apparent distress at the time of my examination. HEENT: Head is atraumatic, normocephalic. Pupils are equal, round. Sclerae anicteric. Conjunctivae are clear. Mucous membranes of the mouth are moist. Neck is supple. There is no jugular venous distention. No carotid bruit is heard. LUNGS: Clear to auscultation no wheezes, rales or rhonchi. No chest wall tenderness is noted on palpation or with deep breathing. HEART: Regular rate and rhythm without murmurs, rubs or gallops. S1 and S2 heard. ABDOMEN: Soft, nontender. Bowel sounds are heard. No organomegaly noted. EXTREMITIES: No evidence of peripheral edema and no calf tenderness noted. VASCULAR: Radial and dorsalis pedis pulses palpated, no evidence of clubbing. NEUROLOGIC: Patient is awake, alert and oriented x3. ASSESSMENT Chest pain, atypical for angina. Recent cardiac catheterization revealed normal coronary arteries. Hypertension Dyslipidemia Leukocytosis PLAN An acute coronary event has been ruled out with no EKG evidence of ischemia and negative cardiac enzymes. Check C-reactive protein and ESR. Repeat echocardiogram to assess for change in LV function. If normal he is stable from a cardiac perspective, follow-up with Dr. Mckeon upon discharge. Thank you kindly for this consultation. Nurse Practitioner note has been reviewed, I agree with a documented findings and plan of care. Patient was seen and examined. Past Medical History Past Medical History: Chest Pain / Angina, CVA/TIA, GERD/Reflux, Hyperlipidemia, Hypertension, Memory Impairment, Myocardial Infarction (HI), Sleep Apnea/C PAP/BIPAP Additional Past Medical History / Comment(s): CVAs -pt thinks 4 or 5 with R sided weakness, short term memory loss, balance issures/uses a cane, migraines, bilateral hand tremors, HILTON but no longer uses his device stating "it didn't help", occasional low back pain, numbness/tingling bilateral feet, bilateral carpal tunnel syndrome, recent fall with neck pain after/had cervical injections, sinus problems Last Myocardial Infarction Date:: 07/2018 History of Any Multi-Drug Resistant Organisms: None Reported Past Surgical History: Heart Catheterization, Tonsillectomy Additional Past Surgical History / Comment(s): 07/2018 cardiac cath, sinus surgery, colonoscopy, dental extractions. Past Anesthesia/Blood Transfusion Reactions: No Reported Reaction Smoking Status: Current every day smoker - Past Family History Mother Family Medical History: No Reported History Father Family Medical History: Coronary Artery Disease (CAD), Myocardial Infarction (HI) Additional Family Medical History / Comment(s): Father of a HI at the age of 52 yrs. Medications and Allergies Home Medications Medication Instructions Recorded Confirmed Type Clopidogrel [Plavix] 75 mg PO DAILY 08/15/18 12/30/18 History Sertraline [Zoloft] 200 mg PO HS 08/15/18 12/30/18 History Atorvastatin [Lipitor] 40 mg PO DAILY #30 tablet 08/16/18 12/30/18 Rx ARIPiprazole [Abilify] 10 mg PO HS 11/17/18 12/30/18 History Loratadine [Claritin] 10 mg PO DAILY 11/17/18 12/30/18 History Montelukast [Singulair] 10 mg PO DAILY 11/17/18 12/30/18 History Pantoprazole [Protonix] 40 mg PO DAILY 11/17/18 12/30/18 History amLODIPine [Norvasc] 5 mg PO BID 11/17/18 12/30/18 History Aspirin EC [Ecotrin Low Dose] 81 mg PO DAILY 12/30/18 12/30/18 History Donepezil HCl [Aricept] 5 mg PO BID 12/30/18 12/30/18 History Multivitamins, Thera [Multivitamin 1 tab PO DAILY 12/30/18 12/30/18 History (formulary)] Terazosin [Hytrin] 5 mg PO BID 12/30/18 12/30/18 History Ubidecarenone [Co Q-10] 200 mg PO DAILY 12/30/18 12/30/18 History Allergies Allergy/AdvReac Type Severity Reaction Status Date / Time No Known Allergies Allergy Verified 12/30/18 13:26 Physical Exam Vitals: Vital Signs Temp Pulse Pulse Resp BP BP Pulse Ox 12/31/18 12:00 98.2 F 91 18 129/75 98 12/31/18 08:00 97.9 F 85 18 117/73 98 12/31/18 04:00 97.7 F 79 18 124/85 95 12/31/18 03:30 16 12/31/18 00:00 98.1 F 77 16 116/79 97 12/30/18 20:00 18 12/30/18 19:59 98.2 F 59 L 18 126/77 97 12/30/18 16:00 18 12/30/18 15:35 98.1 F 61 18 143/89 97 12/30/18 15:00 62 11 L 115/95 97 12/30/18 14:30 82 25 H 131/98 98 12/30/18 14:00 63 8 L 133/95 97 12/30/18 13:30 70 12 128/98 97 12/30/18 13:00 71 14 126/100 95 12/30/18 12:42 13 150/103 97 12/30/18 12:32 97.9 F 86 18 146/100 100 Intake and Output 12/30/18 12/31/18 12/31/18 22:59 06:59 14:59 Intake Total 300.859 Balance 300.859 Intake: Intake, IV Titration 64.859 Amount Heparin Sod,Pork in 0.45% 64.859 NaCl 25,000 unit In 0.45 % NaCl 1 250ml.bag @ 8.45 UNITS/KG/HR 10.004 mls/ hr IV .Q24H [facility] Rx#: [id number] Oral 236 Other: Voiding Method Toilet Toilet Toilet # Voids 1 Results 12/31/18 03:58 12/30/18 12:44 Cardiac Enzymes 12/30/18 12/30/18 12/30/18 Range/Units 12:44 12:44 18:18 AST 32 (17-59) U/L Troponin I <0.012 <0.012 (0.000-0.034) ng/mL 12/31/18 Range/Units 00:26 AST (17-59) U/L Troponin I <0.012 (0.000-0.034) ng/mL Coagulation 12/30/18 12/30/18 12/31/18 Range/Units 12:44 21:05 03:58 PT 10.9 (9.0-12.0) sec APTT 27.2 39.0 H 50.5 H (22.0-30.0) sec Lipids 12/31/18 Range/Units 03:58 Triglycerides 162 H (<150) mg/dL Cholesterol 148 (<200) mg/dL HDL Cholesterol 28 L (40-60) mg/dL CBC 12/30/18 12/31/18 Range/Units 12:44 03:58 WBC 12.8 H 9.5 (3.8-10.6) k/uL RBC 5.76 5.30 (4.30-5.90) m/uL Hgb 17.2 15.9 (13.0-17.5) gm/dL Hct 52.0 47.8 (39.0-53.0) % Plt Count 276 240 (150-450) k/uL Comprehensive Metabolic Panel 12/30/18 Range/Units 12:44 Sodium 141 (137-145) mmol/L Potassium 4.8 (3.5-5.1) mmol/L Chloride 107 (98-107) mmol/L Carbon Dioxide 24 (22-30) mmol/L BUN 16 (9-20) mg/dL Creatinine 1.18 (0.66-1.25) mg/dL Glucose 93 (74-99) mg/dL Calcium 9.9 (8.4-10.2) mg/dL AST 32 (17-59) U/L ALT 48 (21-72) U/L Alkaline Phosphatase 71 (38-126) U/L Total Protein 8.2 (6.3-8.2) g/dL Albumin 5.1 H (3.5-5.0) g/dL Current Medications Generic Name Dose Route Start Last Admin Trade Name Freq PRN Reason Stop Dose Admin Acetaminophen 650 mg 12/30/18 20:19 12/30/18 20:25 Tylenol Tab PO 650 mg Q4HR PRN Administration Fever and/ or Pain Amlodipine Besylate 5 mg 12/30/18 21:00 12/31/18 09:45 Norvasc PO 5 mg BID AJITH Administration Aripiprazole 10 mg 12/30/18 21:00 12/30/18 20:26 Abilify PO 10 mg HS AJITH Administration Aspirin 325 mg 12/31/18 09:00 12/31/18 09:44 Aspirin PO 325 mg DAILY [facility] Administration Atorvastatin Calcium 40 mg 12/31/18 09:00 12/31/18 09:45 Lipitor PO 40 mg DAILY AJITH Administration Clopidogrel Bisulfate 75 mg 12/31/18 09:00 12/31/18 09:45 Plavix PO 75 mg DAILY AJITH Administration Donepezil HCl 5 mg 12/30/18 21:00 12/31/18 09:45 Aricept PO 5 mg BID AJITH Administration Doxazosin Mesylate 4 mg 12/30/18 21:00 12/31/18 09:45 Cardura PO 4 mg BID [facility] Administration Sodium Chloride 1,000 mls @ 20 mls/hr 12/30/18 15:00 12/31/18 10:33 Saline 0.9% IV Not Given .Q24H AJITH Loratadine 10 mg 12/31/18 09:00 12/31/18 09:45 Claritin PO 10 mg DAILY AJITH Administration Montelukast Sodium 10 mg 12/31/18 09:00 12/31/18 09:44 Singulair PO 10 mg DAILY [facility] Administration Multivitamins 1 each 12/31/18 12:00 12/31/18 09:44 Theragran PO 1 each DAILY@1200 [facility] Administration Nitroglycerin 0.4 mg 12/30/18 12:55 12/30/18 14:34 Nitrostat SUBLINGUAL 0.4 mg Q5M PRN Administration Chest Pain Nitroglycerin 1 inch 12/30/18 19:00 12/31/18 10:33 Nitro-Bid Oint TOPICAL Not Given Q6HR [facility] Non-Formulary Medication 200 mg 12/31/18 09:00 12/31/18 09:45 Ubidecarenone [Co Q-10] PO Not Given DAILY [facility] Pantoprazole Sodium 40 mg 12/31/18 07:30 12/31/18 09:45 Protonix PO 40 mg [id number] [facility] Administration Sertraline HCl 200 mg 12/30/18 21:00 12/30/18 20:25 Zoloft PO 200 mg HS [facility] Administration Intake and Output 12/30/18 12/31/18 12/31/18 22:59 06:59 14:59 Intake Total 300.859 Balance 300.859 Intake: Intake, IV Titration 64.859 Amount Heparin Sod,Pork in 0.45% 64.859 NaCl 25,000 unit In 0.45 % NaCl 1 250ml.bag @ 8.45 UNITS/KG/HR 10.004 mls/ hr IV .Q24H [facility] Rx#: [id number] Oral 236 Other: Voiding Method Toilet Toilet Toilet # Voids 1 12/31/18 03:58 12/30/18 12:44
[2018-12-31 16:01] VITALS: BP 131/80; PULSE 80
--- NOTE | 2018-12-31 17:14 | ECHOF ---
Referral Reason:cp MEASUREMENTS -------- HEIGHT: 182.9 cm WEIGHT: 118.4 kg BP: 117/73 RVIDd: 2.9 cm (< 3.3) IVSd: 1.2 cm (0.6 - 1.1) LVIDd: 4.9 cm (3.9 - 5.3) LVPWd: 1.1 cm (0.6 - 1.1) IVSs: 1.7 cm LVIDs: 3.4 cm LVPWs: 1.4 cm LA Diam: 3.4 cm (2.7 - 3.8) LAESV Index (A-L): 15.64 ml/m Ao Diam: 3.4 cm (2.0 - 3.7) AV Cusp: 2.5 cm (1.5 - 2.6) MV EXCURSION: 16.594 mm (> 18.000) MV EF SLOPE: 101 mm/s (70 - 150) EPSS: 0.5 cm MV E Evin: 0.86 m/s MV DecT: 225 ms MV A Evin: 0.63 m/s MV E/A Ratio: 1.35 FINDINGS -------- Sinus rhythm. This was a technically adequate study. The left ventricular size is normal. There is borderline concentric left ventricular hypertrophy. Overall left ventricular systolic function is normal with, an EF between 60 - 65 %. The right ventricle is normal in size. Normal LA size by volume 22+/-6 ml/m2. The right atrium is normal in size. The aortic valve is trileaflet and appears structurally normal. The mitral valve is normal. The tricuspid valve appears structurally normal. There is no pulmonic regurgitation present. The aortic root size is normal. IVC Not well visulized. There is no pericardial effusion. CONCLUSIONS -------- 1. Sinus rhythm. 2. This was a technically adequate study. 3. The left ventricular size is normal. 4. There is borderline concentric left ventricular hypertrophy. 5. Overall left ventricular systolic function is normal with, an EF between 60 - 65 %. 6. The right ventricle is normal in size. 7. Normal LA size by volume 22+/-6 ml/m2. 8. The right atrium is normal in size. 9. The aortic valve is trileaflet and appears structurally normal. 10. The mitral valve is normal. 11. The tricuspid valve appears structurally normal. 12. There is no pulmonic regurgitation present. 13. The aortic root size is normal. 14. IVC Not well visulized. 15. There is no pericardial effusion. LOOM OPERATOR: Shana Judge RDCS
--- NOTE | 2018-12-31 20:29 | PN ---
PROGRESS NOTE DATE OF ADMISSION: December 30, 2018 DATE OF DISCHARGE: December 31, 2018. FINAL DIAGNOSES: 1. Chest pain could be vasospasm or psychosomatic. 2. Essential hypertension. 3. Obstructive sleep apnea does not use CPAP machine. 4. Obesity; BMI more than 30. 5. Gastroesophageal reflux disease. 6. Hyperlipidemia. 7. Anxiety and depression, not otherwise specified. 8. Peripheral neuropathy. 9. Chronic nicotine dependence patient is a cigarette smoker. HOSPITAL COURSE: This patient presented anxious, some chest pain. Blood pressure running high when he had gone to see his neurologist when he came in. Symptoms appeared better. Blood pressure did come down. 2D echocardiogram showed EF of 60-65 percent. The patient was seen by Cardiology, Dr. Paniagua. The patient's recent cardiac catheterization a few months ago was normal. I did talk at length to the patient, his , sister, his son, cut back on smoking become a bit more active as some of the symptoms appear to be psychosomatic. PHYSICAL EXAMINATION: Temperature 98.2, pulse 80, respiratory 18, blood pressure 130/80, pulse ox 96% on room air. Lungs: Fair entry. Cardiovascular: 1st and 2nd sounds normal. INVESTIGATIONS: White count 9.5, LDL 88. Discussion and discharge planning more than 35 minutes. DISCHARGE MEDICATIONS: 1. Plavix 75 mg a day. 2. Zoloft 200 mg q.h.s. 3. Lipitor 40 mg p.o. daily. 4. Abilify 10 mg q.h.s. 5. Singulair 10 mg p.o. daily. 6. Protonix 40 mg p.o. daily. 7. Norvasc 5 mg p.o. b.i.d. 8. Aspirin 81 mg daily. 9. Aricept 5 mg b.i.d. 10.Multivitamin 1 tablet p.o. daily. 11.Hytrin 5 mg b.i.d. 12.COQ 10 200 mg p.o. daily. 13.Nicotine 21 mg patch. FOLLOWUP: Follow up with Dr. Mckeon in 1 week. Follow up with Dr. Styles in 3 days. Discussion and discharge planning more than [address] Styles. MMODL / IJN: [id number] /
== END 2018-12-31 16:58 | disposition home or self-care (01) ==
LOC: EC 12:28 → UNDOADMOB 14:59 → 1SOBS 14:59
PROVIDERS: ADMIT Hospitalist; ATTEND Hospitalist
DX: R07.89 Other chest pain (principal); D72.829 Elevated white blood cell count, unspecified; E66.9 Obesity, unspecified; Z68.35 Body mass index [BMI] 35.0-35.9, adult; E78.5 Hyperlipidemia, unspecified; F17.210 Nicotine dependence, cigarettes, uncomplicated; F32.9 Major depressive disorder, single episode, unspecified; G47.33 Obstructive sleep apnea (adult) (pediatric); F43.10 Post-traumatic stress disorder, unspecified; G62.9 Polyneuropathy, unspecified; I10 Essential (primary) hypertension; I25.2 Old myocardial infarction; K21.9 Gastro-esophageal reflux disease without esophagitis; Z71.6 Tobacco abuse counseling; Z79.02 Long term (current) use of antithrombotics/antiplatelets; Z79.82 Long term (current) use of aspirin; Z79.899 Other long term (current) drug therapy; Z82.49 Family history of ischemic heart disease and other diseases of the circulatory system; Z86.73 Personal history of transient ischemic attack (TIA), and cerebral infarction without residual deficits
CPT/HCPCS: 96366 ×2; 96375; 96376; 96365; 99291; 36415; 93005; 93306; 85379; 83880; 80061; 80053; 85652; 82150; 83690; 83735; 84484 ×2; 85025 ×2; 85610; 85730 ×2; 86140; 71046; G0378 ×2; J1644 ×2; J2270

== ENCOUNTER 2019-01-20 | Emergency (ER) | payer OTHER, MEDICARE ==
[2019-01-20] MEDS ORDERED: DIAZEPAM 5 MG TAB PO STA (01:03)
[2019-01-20] MEDS ORDERED: MORPHINE SULFATE 2 MG/ML SYRINGE IM STA (01:03)
--- NOTE | 2019-01-20 01:28 | ED ---
Back Pain HPI - General Source: patient Limitations: no limitations, language barrier <Bailee Dhaliwal - Last Filed: 01/20/19 02:19> <Rashmi Machado - Last Filed: 01/20/19 02:50> - General Chief Complaint: Back Pain/Injury Stated Complaint: Lower Back Pain Time Seen by Provider: 01/20/19 00:21 - History of Present Illness Initial Comments: 48-year-old male with past medical history of right low back pain presenting today for chief complaint of increased low back pain times one day. Patient states that yesterday he was working the yard, lifting various objects of weights, he states some more more heavy than others. Patient states later that evening he began experiencing bilateral low back pain that increased with rotation, induration or bending motions. Patient denies any numbness tingling loss sensation of the lower extremities he denied urinary retention loss of bowel bladder control or muscle weakness of the lower extremity's. Patient states he and bites he does have increased pain in the back. Patient states he's been taking [id number] ibuprofen and Tylenol he states this has not helped alleviate symptoms. When pain persisted and he was unable to sleep U presents emergency department for evaluation. Patient denies any fever, chills night sweats history of cancer, IV drug use. Remaining review of system negative, patient denies any recent shortness of breath, chest pain, back pain, abdominal pain, nausea or vomiting, numbness or tingling, dysuria or hematuria, constipation or diarrhea, headaches or visual changes, or any other complaints. (Bailee Dhaliwal) - Related Data Home Medications Medication Instructions Recorded Confirmed Clopidogrel [Plavix] 75 mg PO DAILY 08/15/18 12/30/18 Sertraline [Zoloft] 200 mg PO HS 08/15/18 12/30/18 ARIPiprazole [Abilify] 10 mg PO HS 11/17/18 12/30/18 Montelukast [Singulair] 10 mg PO DAILY 11/17/18 12/30/18 Pantoprazole [Protonix] 40 mg PO DAILY 11/17/18 12/30/18 amLODIPine [Norvasc] 5 mg PO BID 11/17/18 12/30/18 Aspirin EC [Ecotrin Low Dose] 81 mg PO DAILY 12/30/18 12/30/18 Donepezil HCl [Aricept] 5 mg PO BID 12/30/18 12/30/18 Multivitamins, Thera [Multivitamin 1 tab PO DAILY 12/30/18 12/30/18 (formulary)] Terazosin [Hytrin] 5 mg PO BID 12/30/18 12/30/18 Ubidecarenone [Co Q-10] 200 mg PO DAILY 12/30/18 12/30/18 Previous Rx's Medication Instructions Recorded Atorvastatin [Lipitor] 40 mg PO DAILY #30 tablet 08/16/18 Nicotine 21Mg/24Hr Patch [Habitrol] 1 each TRANSDERM DAILY #30 patch 12/31/18 Cyclobenzaprine [Flexeril] 10 mg PO TID 5 Days #15 tab 01/20/19 Allergies Allergy/AdvReac Type Severity Reaction Status Date / Time No Known Allergies Allergy Verified 01/20/19 00:06 Review of Systems ROS Other: All systems not noted in ROS Statement are negative. <Bailee Dhaliwal L - Last Filed: 01/20/19 02:19> ROS Other: All systems not noted in ROS Statement are negative. <Rashmi Machado P - Last Filed: 01/20/19 02:50> ROS Statement: Those systems with pertinent positive or pertinent negative responses have been documented in the HPI. Past Medical History Past Medical History: Chest Pain / Angina, CVA/TIA, GERD/Reflux, Hyperlipidemia, Hypertension, Memory Impairment, Myocardial Infarction ([place]), Sleep Apnea/CPAP/BIPAP Additional Past Medical History / Comment(s): CVAs -pt thinks 4 or 5 with R sided weakness, short term memory loss, balance issures/uses a cane, migraines, bilateral hand tremors, HILTON but no longer uses his device stating "it didn't help", occasional low back pain, numbness/tingling bilateral feet, bilateral carpal tunnel syndrome, recent fall with neck pain after/had cervical injections, sinus problems Last Myocardial Infarction Date:: 07/2018 History of Any Multi-Drug Resistant Organisms: None Reported Past Surgical History: Heart Catheterization, Tonsillectomy Additional Past Surgical History / Comment(s): 07/2018 cardiac cath, sinus surgery, colonoscopy, dental extractions. Past Anesthesia/Blood Transfusion Reactions: No Reported Reaction Past Psychological History: Anxiety, Depression, PTSD Smoking Status: Current every day smoker Past Alcohol Use History: None Reported Past Drug Use History: None Reported - Past Family History Mother Family Medical History: No Reported History Father Family Medical History: Coronary Artery Disease (CAD), Myocardial Infarction ([place]) Additional Family Medical History / Comment(s): Father of a [place] at the age of 52 yrs. <Bailee Dhaliwal - Last Filed: 01/20/19 02:19> General Exam Limitations: no limitations, language barrier <Bailee Dhaliwal - Last Filed: 01/20/19 02:19> - General Exam Comments Initial Comments: General: The patient is awake and alert, in no distress, and does not appear acutely ill. Eye: +3 mm pupils are equal, round and reactive to light, extra-ocular movements are intact. No nystagmus. There is normal conjunctiva bilaterally. No signs of icterus. Ears, nose, mouth and throat: There are moist mucous membranes and no oral lesions. Neck: The neck is supple, there is no tenderness or JVD. Cardiovascular: There is a regular rate and rhythm. No murmur, rub or gallop is appreciated. Respiratory: Lungs are clear to auscultation, respirations are non-labored, breath sounds are equal. No wheezes, stridor, rales, or rhonchi. Gastrointestinal: Soft, non-distended, non-tender abdomen without masses or organomegaly noted. There is no rebound or guarding present. Musculoskeletal: Upon inspection of the cervical lumbar and thoracic spine no acute abdomen mallet. Patient has tenderness in his paravertebral lumbar, no midline tenderness palpation. Normal ROM, no tenderness of the lower extremities equal and comparison bilaterally. Patient able to ambulate without difficulty. Strength 5/5 of the lower extremities equal comparison bilaterally. Sensation intact of the lower extremities including saddle region equal comparison bilaterally. DP pulses equal bilaterally 2+. No mild clonus or fasciculations. Obvious muscle spasm of the lumbar paravertebral muscles. Neurological: A&O x 3. CN II-XII intact, There are no obvious motor or sensory deficits. Coordination appears grossly intact. Speech is normal. Skin: Skin is warm and dry and no rashes or lesions are noted. Psychiatric: Cooperative, appropriate mood & affect, normal judgment. (MadhuriBailee L) Course Vital Signs 01/20/19 01/20/19 00:02 02:21 Temperature 98.3 F 97.7 F Pulse Rate 84 80 Respiratory 20 18 Rate Blood Pressure 146/94 143/80 O2 Sat by Pulse 98 99 Oximetry Medical Decision Making <Bailee Dhaliwal - Last Filed: 01/20/19 02:19> <Rashmi Machado - Last Filed: 01/20/19 02:50> - Medical Decision Making 48-year-old male presenting for increased low back pain after lifting objects yesterday. Patient has paravertebral tenderness consistent with muscle strain. Patient has no findings concerning for cauda equina. Patient able to ambulate without difficulty. Patient given morphine and Valium. Patient now walks around room instead of sitting in bed stating improvement of symptoms slightly. Patient requesting discharge. At this time feel patient is stable for discharge with low back strain. Patient given medications for pain as well as muscle spasm. I recommend patient follow-up with neurologist who follows him for chronic low back pain for orthopedic surgery for further evaluation and treatment. Patient is agreeable to plan discussed return parameters patient verbalized understanding. (Bailee Dhaliwal) I was available for consultation in the emergency department. The history and physical exam were done by the midlevel provider. I was consulted for this patient's care. I reviewed the case with the midlevel provider and based on their presentation of the patient, I agree with the assessment, medical decision making and plan of care as documented. (Rashmi Machado) Disposition Is patient prescribed a controlled substance at d/c from ED?: No Time of Disposition: 02:03 <Bailee Dhaliwal - Last Filed: 01/20/19 02:19> <Rashmi Machado - Last Filed: 01/20/19 02:50> Clinical Impression: Low back strain Disposition: HOME SELF-CARE Condition: Good Instructions (If sedation given, give patient instructions): Low Back Strain (ED), Acute Low Back Pain (ED) Additional Instructions: Please use medication as discussed. Please follow-up with family doctor in the next 2 days, please follow-up with orthopedic surgery if symptoms persist greater than 1 week. Please return to emergency room if the symptoms increase or worsen or for any other concerns. Prescriptions: Cyclobenzaprine [Flexeril] 10 mg PO TID 5 Days #15 tab Referrals: Michael Styles MD [Primary Care Provider] - 1-2 days Bipin Oliva DO [Doctor of Osteopathic Medicine] - 1-2 days
[2019-01-20] MEDS ORDERED: ACET/COD 300 MG/30 MG STARTER PACK 6 TAB BTL PO STA (02:03)
[2019-01-20 02:23] VITALS: BP 143/80; PULSE 80; RESP 18; TEMP 97.7
== END 2019-01-20 02:23 | disposition home or self-care (01) ==
LOC: EC
DX: S39.012A Strain of muscle, fascia and tendon of lower back, initial encounter (principal); K21.9 Gastro-esophageal reflux disease without esophagitis; E78.5 Hyperlipidemia, unspecified; I10 Essential (primary) hypertension; I25.2 Old myocardial infarction; F32.9 Major depressive disorder, single episode, unspecified; F43.10 Post-traumatic stress disorder, unspecified; F17.200 Nicotine dependence, unspecified, uncomplicated; Z86.73 Personal history of transient ischemic attack (TIA), and cerebral infarction without residual deficits; Z79.01 Long term (current) use of anticoagulants; Z79.82 Long term (current) use of aspirin; Z79.899 Other long term (current) drug therapy; Z95.818 Presence of other cardiac implants and grafts; X50.0XXA Overexertion from strenuous movement or load, initial encounter
CPT/HCPCS: 96372; 99283

== ENCOUNTER 2019-01-21 14:02 | Emergency (ER) | payer OTHER, MEDICARE ==
[2019-01-21] MEDS ORDERED: MORPHINE SULFATE 4 MG/ML SYRINGE IV STA (14:24)
[2019-01-21] MEDS ORDERED: SODIUM CHLORIDE 0.9% 1,000 ML IV STA ×2 (14:24)
--- NOTE | 2019-01-21 14:29 | ED ---
Back Pain HPI - General Chief Complaint: Back Pain/Injury Stated Complaint: back pain Time Seen by Provider: 01/21/19 14:19 Source: patient, family, RN notes reviewed, old records reviewed Limitations: no limitations - History of Present Illness Initial Comments: This is a 48-year-old male the ER for evaluation. Patient has a for evaluation of back pain. Patient was lifting some soil 3 days ago. The pain in his back, pain was worse the second day he came the ER the third day 0 medication did feel better. He woke up this morning and this afternoon the pain is persisted. No specific trauma no fevers no loss of bowel or bladder. Patient does have history of stroke with right-sided weakness. He is having difficulty walking secondary to the pain. MD Complaint: back pain, back injury (Lifting injury) -: days(s) (3) Place: home Radiation: none Severity: moderate Severity scale (1-10): 7 Quality: aching Consistency: constant Improves With: immobilization Worsens With: movement Context: while lifting, turning/twisting Associated Symptoms: denies other symptoms - Related Data Home Medications Medication Instructions Recorded Confirmed Clopidogrel [Plavix] 75 mg PO DAILY 08/15/18 01/21/19 Sertraline [Zoloft] 200 mg PO HS 08/15/18 01/21/19 ARIPiprazole [Abilify] 10 mg PO HS 11/17/18 01/21/19 Montelukast [Singulair] 10 mg PO DAILY 11/17/18 01/21/19 Pantoprazole [Protonix] 40 mg PO DAILY 11/17/18 01/21/19 amLODIPine [Norvasc] 5 mg PO BID 11/17/18 01/21/19 Aspirin EC [Ecotrin Low Dose] 81 mg PO DAILY 12/30/18 01/21/19 Donepezil HCl [Aricept] 5 mg PO BID 12/30/18 01/21/19 Multivitamins, Thera [Multivitamin 1 tab PO DAILY 12/30/18 01/21/19 (formulary)] Terazosin [Hytrin] 5 mg PO BID 12/30/18 01/21/19 Ubidecarenone [Co Q-10] 200 mg PO DAILY 12/30/18 01/21/19 Previous Rx's Medication Instructions Recorded Atorvastatin [Lipitor] 40 mg PO DAILY #30 tablet 08/16/18 Cyclobenzaprine [Flexeril] 10 mg PO TID 5 Days #15 tab 01/20/19 Allergies Allergy/AdvReac Type Severity Reaction Status Date / Time No Known Allergies Allergy Verified 01/21/19 14:22 Review of Systems ROS Statement: Those systems with pertinent positive or pertinent negative responses have been documented in the HPI. ROS Other: All systems not noted in ROS Statement are negative. Past Medical History Past Medical History: Chest Pain / Angina, CVA/TIA, GERD/Reflux, Hyperlipidemia, Hypertension, Memory Impairment, Myocardial Infarction ([place]), Sleep A pnea/CPAP/BIPAP Additional Past Medical History / Comment(s): CVAs -pt thinks 4 or 5 with R sided weakness, short term memory loss, balance issures/uses a cane, migraines, bilateral hand tremors, HIL[place] but no longer uses his device stating "it didn't help", occasional low back pain, numbness/tingling bilateral feet, bilateral carpal tunnel syndrome, recent fall with neck pain after/had cervical injections, sinus problems Last Myocardial Infarction Date:: 07/2018 History of Any Multi-Drug Resistant Organisms: None Reported Past Surgical History: Heart Catheterization, Tonsillectomy Additional Past Surgical History / Comment(s): 07/2018 cardiac cath, sinus surgery, colonoscopy, dental extractions. Past Anesthesia/Blood Transfusion Reactions: No Reported Reaction Past Psychological History: Anxiety, Depression, PTSD Smoking Status: Current every day smoker Past Alcohol Use History: None Reported Past Drug Use History: None Reported - Past Family History Mother Family Medical History: No Reported History Father Family Medical History: Coronary Artery Disease (CAD), Myocardial Infarction ([place]) Additional Family Medical History / Comment(s): Father of a [place] at the age of 52 yrs. General Exam - General Exam Comments Initial Comments: Back pain paraspinal tenderness Limitations: no limitations General appearance: alert, in no apparent distress Head exam: Present: atraumatic, normocephalic, normal inspection Eye exam: Present: normal appearance, PERRL, EOMI. Absent: scleral icterus, conjunctival injection, periorbital swelling ENT exam: Present: normal exam, mucous membranes moist Neck exam: Present: normal inspection. Absent: tenderness, meningismus, lymphadenopathy Respiratory exam: Present: normal lung sounds bilaterally. Absent: respiratory distress, wheezes, rales, rhonchi, stridor Cardiovascular Exam: Present: regular rate, normal rhythm, normal heart sounds. Absent: systolic murmur, diastolic murmur, rubs, gallop, clicks GI/Abdominal exam: Present: soft, normal bowel sounds. Absent: distended, tenderness, guarding, rebound, rigid Extremities exam: Present: normal inspection, full ROM, normal capillary refill. Absent: tenderness, pedal edema, joint swelling, calf tenderness Back exam: Present: normal inspection Neurological exam: Present: alert, oriented X3, CN II-XII intact Psychiatric exam: Present: normal affect, normal mood Skin exam: Present: warm, dry, intact, normal color. Absent: rash Course Vital Signs 01/21/19 01/21/19 14:08 15:26 Temperature 97.7 F Pulse Rate 89 73 Respiratory 16 18 Rate Blood Pressure 136/92 134/85 O2 Sat by Pulse 98 97 Oximetry - Reevaluation(s) Reevaluation #1: 01/21/19 14:28 Record and ER visit from yesterday is reviewed Reevaluation #2: 01/21/19 16:06 Patient currently able daily with pain improved Medical Decision Making - Medical Decision Making 48 male the ER for evaluation of back pain, back pain occurring while lifting. Second ER evaluation for same. Back pain is resolved. Patient can be discharged home - Lab Data Result diagrams: 01/21/19 14:44 01/21/19 14:44 Lab Results 01/21/19 01/21/19 01/21/19 Range/Units 14:44 14:44 14:44 WBC 7.8 (3.8-10.6) k/uL RBC 5.18 (4.30-5.90) m/uL Hgb 15.7 (13.0-17.5) gm/dL Hct 46.1 (39.0-53.0) % MCV 88.9 (80.0-100.0) fL MCH 30.3 (25.0-35.0) pg MCHC 34.1 (31.0-37.0) g/dL RDW 14.3 (11.5-15.5) % Plt Count 262 (150-450) k/uL Neutrophils % 53 % Lymphocytes % 39 % Monocytes % 4 % Eosinophils % 2 % Basophils % 0 % Neutrophils # 4.2 (1.3-7.7) k/uL Lymphocytes # 3.1 (1.0-4.8) k/uL Monocytes # 0.3 (0-1.0) k/uL Eosinophils # 0.1 (0-0.7) k/uL Basophils # 0.0 (0-0.2) k/uL Sodium 142 (137-145) mmol/L Potassium 4.1 (3.5-5.1) mmol/L Chloride 110 H (98-107) mmol/L Carbon Dioxide 24 (22-30) mmol/L Anion Gap 8 mmol/L BUN 11 (9-20) mg/dL Creatinine 0.93 (0.66-1.25) mg/dL Est GFR (CKD-EPI)AfAm >90 (>60 ml/min/1.73 sqM) Est GFR (CKD-EPI)NonAf >90 (>60 ml/min/1.73 sqM) Glucose 114 H (74-99) mg/dL Plasma Lactic Acid Fan 1.7 (0.7-2.0) mmol/L Calcium 9.8 (8.4-10.2) mg/dL Phosphorus 2.8 (2.5-4.5) mg/dL Magnesium 1.9 (1.6-2.3) mg/dL Total Bilirubin 0.6 (0.2-1.3) mg/dL AST 27 (17-59) U/L ALT 44 (21-72) U/L Alkaline Phosphatase 65 (38-126) U/L Total Protein 7.1 (6.3-8.2) g/dL Albumin 4.3 (3.5-5.0) g/dL Urine Color Urine Appearance (Clear) Urine pH (5.0-8.0) Ur Specific [place] (1.001-1.035) Urine Protein (Negative) Urine Glucose (UA) (Negative) Urine Ketones (Negative) Urine Blood (Negative) Urine Nitrite (Negative) Urine Bilirubin (Negative) Urine Urobilinogen (<2.0) mg/dL Ur Leukocyte Esterase (Negative) 01/21/19 Range/Units 15:23 WBC (3.8-10.6) k/uL RBC (4.30-5.90) m/uL Hgb (13.0-17.5) gm/dL Hct (39.0-53.0) % MCV (80.0-100.0) fL MCH (25.0-35.0) pg MCHC (31.0-37.0) g/dL RDW (11.5-15.5) % Plt Count (150-450) k/uL Neutrophils % % Lymphocytes % % Monocytes % % Eosinophils % % Basophils % % Neutrophils # (1.3-7.7) k/uL Lymphocytes # (1.0-4.8) k/uL Monocytes # (0-1.0) k/uL Eosinophils # (0-0.7) k/uL Basophils # (0-0.2) k/uL Sodium (137-145) mmol/L Potassium (3.5-5.1) mmol/L Chloride (98-107) mmol/L Carbon Dioxide (22-30) mmol/L Anion Gap mmol/L BUN (9-20) mg/dL Creatinine (0.66-1.25) mg/dL Est GFR (CKD-EPI)AfAm (>60 ml/min/1.73 sqM) Est GFR (CKD-EPI)NonAf (>60 ml/min/1.73 sqM) Glucose (74-99) mg/dL Plasma Lactic Acid Fan (0.7-2.0) mmol/L Calcium (8.4-10.2) mg/dL Phosphorus (2.5-4.5) mg/dL Magnesium (1.6-2.3) mg/dL Total Bilirubin (0.2-1.3) mg/dL AST (17-59) U/L ALT (21-72) U/L Alkaline Phosphatase (38-126) U/L Total Protein (6.3-8.2) g/dL Albumin (3.5-5.0) g/dL Urine Color Light Yellow Urine Appearance Clear (Clear) Urine pH 6.5 (5.0-8.0) Ur Specific [place] 1.014 (1.001-1.035) Urine Protein Negative (Negative) Urine Glucose (UA) Negative (Negative) Urine Ketones Negative (Negative) Urine Blood Negative (Negative) Urine Nitrite Negative (Negative) Urine Bilirubin Negative (Negative) Urine Urobilinogen <2.0 (<2.0) mg/dL Ur Leukocyte Esterase Negative (Negative) - Radiology Data Radiology results: report reviewed (CT abdomen pelvis is lumbosacral spine is negative for acute disease), image reviewed Disposition Clinical Impression: Mechanical back pain, Lumbar radiculopathy, Low back strain Disposition: HOME SELF-CARE Condition: Good Instructions (If sedation given, give patient instructions): Acute Low Back Pain (ED) Is patient prescribed a controlled substance at d/c from ED?: No Referrals: Michael Styles MD [Primary Care Provider] - 1-2 days
[2019-01-21 15:19] LABS: ALT 44 U/L (21-72); AST 27 U/L (17-59); Albumin 4.3 g/dL (3.5-5.0); Alkaline Phosphatase 65 U/L (38-126); Anion Gap 8 mmol/L; Blood Urea Nitrogen 11 mg/dL (9-20); Calcium 9.8 mg/dL (8.4-10.2); Carbon Dioxide 24 mmol/L (22-30); Chloride 110 mmol/L (98-107); Glucose 114 mg/dL (74-99); Magnesium 1.9 mg/dL (1.6-2.3); Phosphorus 2.8 mg/dL (2.5-4.5); Potassium 4.1 mmol/L (3.5-5.1); Sodium 142 mmol/L (137-145); Total Bilirubin 0.6 mg/dL (0.2-1.3); Total Protein 7.1 g/dL (6.3-8.2)
[2019-01-21 15:20] LABS: Basophils % (A) 0 %; Eosinophils # (A) 0.1 k/uL (0-0.7); Eosinophils % (A) 2 %; HCT 46.1 % (39.0-53.0); HGB 15.7 gm/dL (13.0-17.5); Lymphocytes # (A) 3.1 k/uL (1.0-4.8); Lymphocytes % (A) 39 %; MCH 30.3 pg (25.0-35.0); MCHC 34.1 g/dL (31.0-37.0); MCV 88.9 fL (80.0-100.0); Mean Platelet Volume 7.3; Monocytes # (A) 0.3 k/uL (0-1.0); Monocytes % (A) 4 %; Neutrophils # (A) 4.2 k/uL (1.3-7.7); Neutrophils % (A) 53 %; Platelet Count 262 k/uL (150-450); RBC 5.18 m/uL (4.30-5.90); RDW 14.3 % (11.5-15.5); WBC 7.8 k/uL (3.8-10.6)
[2019-01-21 15:26] VITALS: PULSE 73; RESP 18
--- NOTE | 2019-01-21 15:27 | CT ---
EXAMINATION TYPE: CT abdomen pelvis w con DATE OF EXAM: 01/21/2019 COMPARISON: None. HISTORY: Lower back pain CT DLP: 1634 mGycm Automated exposure control for dose reduction was used. TECHNIQUE: Helical acquisition of images was performed from the lung bases through the pelvis. CONTRAST: Performed without Oral Contrast and with IV Contrast, patient injected with 100 mL of Isovue 300. FINDINGS: LUNG BASES: No significant abnormality is appreciated. LIVER/GB: No significant abnormality is appreciated. PANCREAS: No significant abnormality is seen. SPLEEN: No significant abnormality is seen. ADRENALS: No significant abnormality is seen. KIDNEYS: No significant abnormality is seen. FREE AIR: No free air is visualized. RETROPERITONEAL ADENOPATHY: None visualized REPRODUCTIVE ORGANS: No significant abnormality is seen URINARY BLADDER: No significant abnormality is seen. PELVIC ADENOPATHY: None visualized. OSSEOUS STRUCTURES: No significant abnormality is seen. BOWEL: No significant abnormality is seen. Normal appendix. IMPRESSION: NO ACUTE INTRA-ABDOMINAL OR PELVIC PROCESS.
[2019-01-21 15:34] LABS: Appearance,Urine Clear (Clear); Bilirubin,Urine Negative (Negative); Blood,Urine Negative (Negative); Color,Urine Light Yellow; Glucose,Urine (UA) Negative (Negative); Ketones,Urine Negative (Negative); Leukocyte Esterase,Urine Negative (Negative); Nitrite,Urine Negative (Negative); PH, Urine 6.5 (5.0-8.0); Protein,Urine Negative (Negative); Specific Gravity,Urine 1.014 (1.001-1.035); Urobilinogen,Urine <2.0 mg/dL (<2.0)
[2019-01-21 16:39] VITALS: BP 120/81; TEMP 97.9
== END 2019-01-21 16:39 | disposition home or self-care (01) ==
LOC: EC 14:02
DX: S39.012A Strain of muscle, fascia and tendon of lower back, initial encounter (principal); M54.16 Radiculopathy, lumbar region; I10 Essential (primary) hypertension; I25.2 Old myocardial infarction; G47.30 Sleep apnea, unspecified; F32.9 Major depressive disorder, single episode, unspecified; F41.9 Anxiety disorder, unspecified; F43.10 Post-traumatic stress disorder, unspecified; F17.200 Nicotine dependence, unspecified, uncomplicated; Z79.02 Long term (current) use of antithrombotics/antiplatelets; Z79.82 Long term (current) use of aspirin; Z79.899 Other long term (current) drug therapy; Z95.5 Presence of coronary angioplasty implant and graft; Z86.73 Personal history of transient ischemic attack (TIA), and cerebral infarction without residual deficits; Z99.89 Dependence on other enabling machines and devices; X50.9XXA Other and unspecified overexertion or strenuous movements or postures, initial encounter
CPT/HCPCS: 36415; 80053; 83605; 83735; 84100; 85025; 81003; 74177; 99284; 96374; 96361 ×2; J2270; Q9967

== ENCOUNTER → 2019-01-27 | Outpatient (CLI) | payer OTHER, MEDICARE ==
--- NOTE | 2019-01-27 11:07 | US ---
EXAMINATION TYPE: US liver DATE OF EXAM: 01/27/2019 COMPARISON: Prior ultrasound 06/11/2011, CT abdomen pelvis 01/21/2019 CLINICAL HISTORY: R74.8 ABN LEVELS OF OTHER SERUM ENZYMES. Elevated liver enzymes EXAM MEASUREMENTS: Liver Length: 16.7 cm Gallbladder Wall: 0.2 cm CBD: 0.4 cm Right Kidney: 11.2 x 5.9 x 5.0 cm Technical limitations due to overlying bowel content Pancreas: Obscured by bowel gas Liver: attenuating, heterogeneous Gallbladder: no evidence of stones Evidence for sonographic Hernandez's sign: no CBD: appears wnl Right Kidney: no evidence of hydronephrosis No ascites. IMPRESSION: Somewhat limited exam. Findings suggest hepatic steatosis, liver at upper end of normal f or size
== END ==
LOC: RADUSWWP 08:05
PROVIDERS: ATTEND Family Medicine
DX: R74.8 Abnormal levels of other serum enzymes (principal)
CPT/HCPCS: 76705

== ENCOUNTER 2019-08-16 00:23 | Observation (INO) | payer OTHER, MEDICARE ==
[2019-08-16] MEDS ORDERED: ASPIRIN 81 MG PO STA (00:31)
--- NOTE | 2019-08-16 00:41 | ED ---
Chest Pain HPI - General Chief Complaint: Chest Pain Stated Complaint: Chest pain Time Seen by Provider: 08/16/19 00:31 Source: patient, RN notes reviewed Mode of arrival: wheelchair Limitations: no limitations - History of Present Illness Initial Comments: 48-year-old male presents emergency Department with chief complaint of chest pain. Patient states this started a few hours ago. Patient states the pain is worsened. Patient states that he does feel short of breath has pain with deep inspiration. He does admit that he had a heart attack approximately one year ago. Patient denies any vomiting states she's nauseated, diaphoretic. Patient has no mental abdominal pain no fevers chills denies any URI symptoms.patient has a history of hyperlipidemia, hypertension - Related Data Home Medications Medication Instructions Recorded Confirmed Clopidogrel [Plavix] 75 mg PO DAILY 08/15/18 01/21/19 Sertraline [Zoloft] 200 mg PO HS 08/15/18 01/21/19 ARIPiprazole [Abilify] 10 mg PO HS 11/17/18 01/21/19 Montelukast [Singulair] 10 mg PO DAILY 11/17/18 01/21/19 Pantoprazole [Protonix] 40 mg PO DAILY 11/17/18 01/21/19 amLODIPine [Norvasc] 5 mg PO BID 11/17/18 01/21/19 Aspirin EC [Ecotrin Low Dose] 81 mg PO DAILY 12/30/18 01/21/19 Donepezil HCl [Aricept] 5 mg PO BID 12/30/18 01/21/19 Multivitamins, Thera [Multivitamin 1 tab PO DAILY 12/30/18 01/21/19 (formulary)] Terazosin [Hytrin] 5 mg PO BID 12/30/18 01/21/19 Ubidecarenone [Co Q-10] 200 mg PO DAILY 12/30/18 01/21/19 Previous Rx's Medication Instructions Recorded Atorvastatin [Lipitor] 40 mg PO DAILY #30 tablet 08/16/18 Cyclobenzaprine [Flexeril] 10 mg PO TID 5 Days #15 tab 01/20/19 Allergies Allergy/AdvReac Type Severity Reaction Status Date / Time No Known Allergies Allergy Verified 08/16/19 00:29 Review of Systems ROS Statement: Those systems with pertinent positive or pertinent negative responses have been documented in the HPI. ROS Other: All systems not noted in ROS Statement are negative. EKG Findings - EKG Comments: EKG Findings:: EKG interpreted by me at 0:34 normal sinus rhythm rate of 94 LA 138 QRS 98 QT/QTC 360/450 Past Medical History Past Medical History: Chest Pain / Angina, CVA/TIA, GERD/Reflux, Hyperlipidemia, Hypertension, Memory Impairment, Myocardial Infarction (VT), Sleep Apnea/CPAP/BIPAP Additional Past Medical History / Comment(s): CVAs -pt thinks 4 or 5 with R sided weakness, short term memory loss, balance issures/uses a cane, migraines, bilateral hand tremors, HILTON but no longer uses his device stating "it didn't help", occasional low back pain, numbness/tingling bilateral feet, bilateral carpal tunnel syndrome, recent fall with neck pain after/had cervical injections, sinus problems Last Myocardial Infarction Date:: 07/2018 History of Any Multi-Drug Resistant Organisms: None Reported Past Surgical History: Heart Catheterization, Tonsillectomy Additional Past Surgical History / Comment(s): 07/2018 cardiac cath, sinus surgery, colonoscopy, dental extractions. Past Anesthesia/Blood Transfusion Reactions: No Reported Reaction Past Psychological History: Anxiety, Depression, PTSD Smoking Status: Current every day smoker Past Alcohol Use History: None Reported Past Drug Use History: None Reported - Past Family History Mother Family Medical History: No Reported History Father Family Medical History: Coronary Artery Disease (CAD), Myocardial Infarction (VT) Additional Family Medical History / Comment(s): Father of a VT at the age of 52 yrs. General Exam Limitations: no limitations General appearance: alert, in no apparent distress Head exam: Present: atraumatic, normocephalic, normal inspection Eye exam: Present: normal appearance, PERRL, EOMI. Absent: scleral icterus, conjunctival injection, periorbital swelling ENT exam: Present: normal exam, normal oropharynx, mucous membranes moist Neck exam: Present: normal inspection, full ROM. Absent: tenderness, meningismus, lymphadenopathy Respiratory exam: Present: normal lung sounds bilaterally. Absent: respiratory distress, wheezes, rales, rhonchi, stridor Cardiovascular Exam: Present: normal rhythm, tachycardia, normal heart sounds. Absent: systolic murmur, diastolic murmur, rubs, gallop, clicks GI/Abdominal exam: Present: soft, normal bowel sounds. Absent: distended, tenderness, guarding, rebound, rigid Neurological exam: Present: alert, oriented X3 Skin exam: Present: warm, dry, intact, normal color. 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 Patient has a significant past medical history for coronary artery disease. Patient be admitted on heparin. Patient will have repeat troponin, cardiology evaluation. Disposition Clinical Impression: Chest pain Disposition: ADMITTED IP TO THIS HOSP Condition: Fair Referrals: Michael Styles MD [Primary Care Provider] - 1-2 days
[2019-08-16 01:05] LABS: Basophils # (A) 0.2 k/uL (0-0.2); Basophils % (A) 2 %; Eosinophils # (A) 0.2 k/uL (0-0.7); Eosinophils % (A) 2 %; HCT 45.6 % (39.0-53.0); HGB 15.4 gm/dL (13.0-17.5); Lymphocytes # (A) 3.9 k/uL (1.0-4.8); Lymphocytes % (A) 41 %; MCHC 33.7 g/dL (31.0-37.0); MCV 88.8 fL (80.0-100.0); Monocytes # (A) 0.7 k/uL (0-1.0); Monocytes % (A) 7 %; Neutrophils # (A) 4.3 k/uL (1.3-7.7); Neutrophils % (A) 46 %; Platelet Count 285 k/uL (150-450); RBC 5.14 m/uL (4.30-5.90); WBC 9.4 k/uL (3.8-10.6)
--- NOTE | 2019-08-16 01:11 | XR ---
EXAMINATION TYPE: XR chest 2V DATE OF EXAM: 08/16/2019 COMPARISON: 12/30/2018 HISTORY: Chest pain TECHNIQUE: Frontal and lateral views of the chest are obtained. FINDINGS: Heart and mediastinum are normal. Lungs are clear. Diaphragm is normal. Bony thorax appear s normal. There are chest leads. IMPRESSION: Normal chest. No change.
[2019-08-16 01:14] LABS: Albumin 4.5 g/dL (3.5-5.0); Calcium 9.5 mg/dL (8.4-10.2); Magnesium 1.8 mg/dL (1.6-2.3); Total Bilirubin 0.4 mg/dL (0.2-1.3); Total Protein 7.3 g/dL (6.3-8.2)
[2019-08-16 01:21] LABS: D-Dimer 0.33 mg/L FEU (<0.60); Partial Thromboplastin Time 26.5 sec (22.0-30.0); Prothrombin Time 10.4 sec (9.0-12.0)
[2019-08-16] MEDS ORDERED: HEPARIN SODIUM,PORCINE 5,000 UNIT/ML 1 ML VIAL IV ONE (01:36)
[2019-08-16] MEDS ORDERED: NITROGLYCERIN SL TABS 0.4 MG TAB SUBLINGUAL PRN (01:36)
[2019-08-16] MEDS ORDERED: KETOROLAC 30 MG/ML 1 ML VIAL IVP STA (01:41)
[2019-08-16] MEDS ORDERED: HEPARIN SOD,PORK IN 0.45% NACL 25,000 UNIT in 0.45% NACL 1 250ML.BAG IV SCH (01:45)
[2019-08-16 03:06] VITALS: TEMP 97
[2019-08-16 07:00] LABS: Mean Platelet Volume 5.9; Platelet Count 251 k/uL (150-450)
[2019-08-16] MEDS ORDERED: HEPARIN SODIUM,PORCINE 5,000 UNIT/ML 1 ML VIAL IV PRN (07:59)
[2019-08-16] MEDS ORDERED: NON FORMULARY DRUG (Ubidecarenone [Co Q-10] 200 MG) PO SCH (09:00)
[2019-08-16] MEDS ORDERED: PANTOPRAZOLE 40 MG TABLET PO SCH (09:00)
[2019-08-16] MEDS ORDERED: CLOPIDOGREL 75 MG TAB PO SCH (09:00)
[2019-08-16] MEDS ORDERED: MULTIVITAMINS, THERA 1 EACH TAB PO SCH (09:00)
[2019-08-16] MEDS ORDERED: MONTELUKAST 10 MG TAB PO SCH (09:00)
[2019-08-16] MEDS ORDERED: DOXAZOSIN 4 MG TAB PO SCH (09:00)
[2019-08-16] MEDS ORDERED: amLODIPine 5 MG TAB PO SCH (09:00)
[2019-08-16] MEDS ORDERED: ATORVASTATIN 40 MG TAB PO SCH (09:00)
[2019-08-16] MEDS: CYCLOBENZAPRINE 10 MG TAB PO SCH ×2 (09:24→16:14)
[2019-08-16] MEDS: DONEPEZIL 5 MG TAB PO SCH (09:24)
--- NOTE | 2019-08-16 12:54 | P.STRESS ---
- Stress Test Note Stress Test Results/Findings: Exam Performed: stress echo exercise with con Exam Date: 08/16/19 Reason for Exam: CHEST PAIN / SOB Height: 6 ft Weight: 122.924 kg Protocol: GABRIELE Stage: 2 Duration of Exercise: 6:00 Resting Heart Rate: 63 Resting Blood Pressure: 109/64 Maximum Achieved Heart Rate: 153 Maximum Achieved Blood Pressure: 177/47 85% PMHR: 147 100% PMHR: 173 METS: 7.1 Technologist Comment: Stress Test Results/Findings: This is a 48-year-old man with history of hypercholesteremia, family history and smoking being evaluated for symptoms of chest pain and shortness of breath. Stress data: Baseline EKG showed sinus rhythm with normal ME interval, QRS duration with nonspecific ST-T changes. Blood pressure at rest is on 9/64 with pulse rate of 63. Patient exercised on Gabriele protocol for 6 minutes achieving a maximum rate of 153 with a blood pressure 177/47. EKGs taken during and after exercise did not reveal any changes of ischemia. Echo data: Baseline echo images showed normal wall motion and thickening. Exercise echo images showed augmentation of the wall motion and thickening in all the segments. Final impression: #1. Negative stress test #2. Negative stress echo.
[2019-08-16 13:44] VITALS: BP 108/63; PULSE 77; RESP 18
--- NOTE | 2019-08-16 16:29 | CT ---
EXAMINATION TYPE: CT chest angio for PE DATE OF EXAM: 08/16/2019 COMPARISON: CT chest November 17, 2018. HISTORY: Chest pain CT DLP: 1054.4 mGycm. Automated Exposure Control for Dose Reduction was Utilized. CONTRAST: CTA scan of the thorax is performed with IV Contrast, patient injected with 100 mL of Isovue 370, pul monary embolism protocol. MIP Images are created on CT scanner and reviewed. FINDINGS: LUNGS: Mild scattered linear atelectasis bilateral lower lungs is redemonstrated. There is no pleural effusion or pneumothorax seen. The tracheobronchial tree is patent. MEDIASTINUM: There is slightly suboptimal study with near equal contrast in right and left heart syst ems but there is no CT evidence for pulmonary embolism. There are no greater than 1 cm hilar or medi astinal lymph nodes. No cardiomegaly or pericardial effusion is seen. OTHER: Liver is diffusely low dense consistent with fatty infiltration. Bony lesion left T9 level cor onal image 117 favors hemangioma or other benign etiology. IMPRESSION: No CT evidence for acute pulmonary embolism. No suspicious acute pulmonary process. No si gnificant change from prior.
[2019-08-16] MEDS ORDERED: ARIPiprazole 10 MG TAB PO SCH (21:00)
[2019-08-16] MEDS ORDERED: SERTRALINE 100 MG TAB PO SCH (21:00)
--- NOTE | 2019-08-17 00:15 | P.HPIM ---
History of Present Illness H&P Date: 08/16/19 Chief Complaint: Sharp chest pain History of presenting complaint: This is a very pleasant 48-year-old patient who from [facility]. Chronic stable medical conditions include hypertension, GERD, hyperlipidemia and anxiety, peripheral neuropathy. In July 2018 patient is an acute [place]. Cardiac catheterization did show normal coronaries. Patient states he's under stress. Presented with sharp pains below the left breast area. Was a bit short of breath. Feels weak and is always the legs. Very anxious. No dizziness no lightheadedness. No perspiration. Presented to ER to rule out a cardiac cause. Review of systems: GEN.: None EYES: None HEENT: None NECK: None RESPIRATORY: None CARDIOVASCULAR: As above GASTROINTESTINAL: [facility] GENITOURINARY: None MUSCULOSKELETAL: None LYMPHATICS: None HEMATOLOGICAL: None PSYCHIATRY: [Anxious NEUROLOGICAL: None Past medical history to include: Hypertension, GERD, hyperlipidemia, anxiety, acute MO in July 2018, with a ne gative cardiac catheterization, peripheral neuropathy Social history: Smokes half a pack a day over 30 years, . No alcohol. Physical examination: VITAL SIGNS: 97.8, 64, 16, 142/88, 98% room air upon presentation GENERAL: BMI of 36.8, sitting up a bit anxious. EYES: Pupils equal. Conjunctiva normal. HEENT: External appearance of nose and ears normal, oral cavity grossly normal. NECK: JVD not raised; masses not palpable. HEART: First and second heart sounds are normal; no edema. LUNGS: Respiratory rate normal; clear to auscultation. ABDOMEN: Soft, nontender, liver spleen not palpable, no masses palpable. PSYCH: [Alert and oriented x3; mood and affect slightly anxious l. NEUROLOGICAL: Cranial nerves grossly intact; no facial asymmetry, power and sensation grossly intact. LYMPHATICS: No lymph nodes palpable in the axilla and neck INVESTIGATIONS, reviewed in the clinical context: White count 11.2 hemoglobin 15 potassium 4 creatinine 1.21 Troponin I 0.06%, 0.078, 0.033 LDL 101 EKG tracing personally reviewed by me-normal sinus rhythm Chest x-ray film personally reviewed by me-lung hearn clear Assessment: -Unstable angina in a patient with known acute MO in July 2018 with a negative cardiac catheterization -Obesity BMI 36.8 -Essential hypertension -GERD -Hyperlipidemia -Anxiety not otherwise specified -Peripheral neuropathy idiopathic -Chronic nicotine dependence patient cigarette smoker Plan: Patient started on IV heparin cardiogenic was consulted. They ordered a stress test. Care was discussed the patient and at the bedside. We'll also do a chest CTA to rule out PE. Smoke cessation counseling: This was done with the patient. Nicotine patch is being given. More than 3 minutes was spent for this Past Medical History Past Medical History: Chest Pain / Angina, CVA/TIA, GERD/Reflux, Hyperlipidemia, Hypertension, Memory Impairment, Myocardial Infarction ([place]), Sleep Apnea/CPAP/BIPAP Additional Past Medical History / Comment(s): CVAs -pt thinks 4 or 5 with R sided weakness, short term memory loss, balance issures/uses a cane, migraines, bilateral hand tremors, HILTON but no longer uses his device stating "it didn't help", occasional low back pain, numbness/tingling bilateral feet, bilateral carpal tunnel syndrome, recent fall with neck pain after/had cervical injecti ons, sinus problems Last Myocardial Infarction Date:: 07/2018 History of Any Multi-Drug Resistant Organisms: None Reported Past Surgical History: Heart Catheterization, Tonsillectomy Additional Past Surgical History / Comment(s): 07/2018 cardiac cath, sinus surgery, colonoscopy, dental extractions. Past Anesthesia/Blood Transfusion Reactions: No Reported Reaction Past Psychological History: Anxiety, Depression, PTSD Additional Psychological History / Comment(s): Pt resides with his spouse. He uses a cane to ambulate. He drives very little-his spouse drives. He speaks Bengali quite well. His primary language is Bosn[place] and [facility]. Smoking Status: Current every day smoker Past Alcohol Use History: None Reported Additional Past Alcohol Use History / Comment(s): Pt started smoking in 1988 and is a half ppd smoker. Past Drug Use History: None Reported - Past Family History Mother Family Medical History: No Reported History Father Family Medical History: Coronary Artery Disease (CAD), Myocardial Infarction (MO) Additional Family Medical History / Comment(s): Father of a MO at the age of 52 yrs. Medications and Allergies Home Medications Medication Instructions Recorded Confirmed Type Clopidogrel [Plavix] 75 mg PO DAILY 08/15/18 08/16/19 History Sertraline [Zoloft] 200 mg PO HS 08/15/18 08/16/19 History Atorvastatin [Lipitor] 40 mg PO DAILY #30 tablet 08/16/18 08/16/19 Rx ARIPiprazole [Abilify] 10 mg PO HS 11/17/18 08/16/19 History Montelukast [Singulair] 10 mg PO DAILY 11/17/18 08/16/19 History Pantoprazole [Protonix] 40 mg PO DAILY 11/17/18 08/16/19 History amLODIPine [Norvasc] 5 mg PO BID 11/17/18 08/16/19 History Aspirin EC [Ecotrin Low Dose] 81 mg PO DAILY 12/30/18 08/16/19 History Donepezil HCl [Aricept] 5 mg PO HS 12/30/18 08/16/19 History Multivitamins, Thera [Multivitamin 1 tab PO DAILY 12/30/18 08/16/19 History (formulary)] Terazosin [Hytrin] 5 mg PO BID 12/30/18 08/16/19 History Ubidecarenone [Co Q-10] 200 mg PO DAILY 12/30/18 08/16/19 History Cholecalciferol [Vitamin D3 (25 5,000 unit PO DAILY 08/16/19 08/16/19 History Mcg = 1000 Iu)] Cyclobenzaprine [Flexeril] 5 mg PO TID PRN 08/16/19 08/16/19 History Diazepam 10 mg PO DAILY PRN 08/16/19 08/16/19 History Loratadine 10 mg PO DAILY 08/16/19 08/16/19 History Vitamin E (Dl,Tocopheryl Acet) 400 unit PO DAILY 08/16/19 08/16/19 History [Vitamin E] buPROPion XL [Wellbutrin XL] 150 mg PO DAILY 08/16/19 08/16/19 History lamoTRIgine [LaMICtal] 25 mg PO DAILY 08/16/19 08/16/19 History Allergies Allergy/AdvReac Type Severity Reaction Status Date / Time No Known Allergies Allergy Verified 08/16/19 08:38 Physical Exam Vitals: Vital Signs Temp Pulse Pulse Resp BP BP Pulse Ox 08/16/19 17:54 97 F L 77 18 108/63 97 08/16/19 13:42 77 18 108/63 97 08/16/19 05:18 62 16 110/72 10/23/19 03:12 83 16 08/16/19 03:04 97 F L 83 16 116/76 99 08/16/19 00:34 92 08/16/19 00:27 99.3 F 112 H 22 168/106 98 Intake and Output 08/16/19 08/16/19 08/17/19 14:59 22:59 06:59 Intake Total 54.906 Balance 54.906 Intake: Intake, IV Titration 54.906 Amount Heparin Sod,Pork in 0.45% 54.906 NaCl 25,000 unit In 0.45 % NaCl 1 250ml.bag @ 8 UNITS/KG/HR 9.834 mls/hr IV .Q[facility] Rx#: [id number] Results CBC & Chem 7: 08/16/19 06:12 08/16/19 00:41 Labs: Abnormal Lab Results - Last 24 Hours (Table) 08/16/19 08/16/19 08/16/19 Range/Units 00:41 06:16 14:14 APTT 38.4 H 30.4 H (22.0-30.0) sec Chloride 110 H (98-107) mmol/L Glucose 107 H (74-99) mg/dL Thrombosis Risk Factor Assmnt - Choose All That Apply Each Factor Represents 1 point: Age 41-60 years Thrombosis Risk Factor Assessment Total Risk Factor Score: 1 Thrombosis Risk Factor Assessment Level: Low Risk
--- NOTE | 2019-08-17 00:19 | P.DS ---
Providers Date of admission: 08/16/19 02:04 Expected date of discharge: 08/16/19 Attending physician: Mike Veronica Consults: 08/16/19 01:36 Consult Physician Urgent Consulting Provider: Jimmy Mckeon Consult Reason/Comments: chest pain Do you want consulting provider notified?: Yes, Notify in am Primary care physician: Michael Styles [facility] Course: Chief Complaint: Sharp chest pain Hospital course: This is a very pleasant 48-year-old patient who from [facility]. Chronic stable medical conditions include hypertension, GERD, hyperlipidemia and anxiety, p eripheral neuropathy. In July 2018 patient is an acute [place]. Cardiac catheterization did show normal coronaries. Patient states he's under stress. Presented with sharp pains below the left breast area. Was a bit short of breath. Feels weak and is always the legs. Very anxious. No dizziness no lightheadedness. No perspiration. Presented to ER to rule out a cardiac cause.patient is a slight bump in troponin. Seen by cardiogenic Dr. Paniagua.patient had a negative stress echocardiogram. Okay to be discharged. Chest CT was negative for PE. Patient was counseled about weight loss and smoke cessation.patient will follow with cardiology as an outpatient. consultation: Dr. Paniagua from cardiology Physical examination: VITAL SIGNS:97, 77, 18, 108/63, 97% on room air GENERAL: BMI of 36.8, sitting up comfortables. EYES: Pupils equal. Conjunctiva normal. HEENT: External appearance of nose and ears normal, oral cavity grossly normal. NECK: JVD not raised; masses not palpable. HEART: First and second heart sounds are normal; no edema. LUNGS: Respiratory rate normal; clear to auscultation. ABDOMEN: Soft, nontender, liver spleen not palpable, no masses palpable. PSYCH: [Alert and oriented x3; mood and affect slightly anxious l. INVESTIGATIONS, reviewed in the clinical context: White count 11.2 hemoglobin 15 potassium 4 creatinine 1.21 Troponin I 0.06%, 0.078, 0.033 LDL 101 EKG tracing personally reviewed by me-normal sinus rhythm Chest x-ray film personally reviewed by me-lung hearn clear stress echocardiogram discharge diagnosis: -anterior chest wall pain could be musculoskeletal -Obesity BMI 36.8 -Essential hypertension -GERD -Hyperlipidemia -Anxiety not otherwise specified -Peripheral neuropathy idiopathic -Chronic nicotine dependence patient cigarette smoker disposition: Home Patient Condition at Discharge: Stable Plan - Discharge Summary New Discharge Prescriptions: Continue Clopidogrel [Plavix] 75 mg PO DAILY Sertraline [Zoloft] 200 mg PO HS Atorvastatin [Lipitor] 40 mg PO DAILY #30 tablet Montelukast [Singulair] 10 mg PO DAILY ARIPiprazole [Abilify] 10 mg PO HS Pantoprazole [Protonix] 40 mg PO DAILY amLODIPine [Norvasc] 5 mg PO BID Terazosin [Hytrin] 5 mg PO BID Ubidecarenone [Co Q-10] 200 mg PO DAILY Multivitamins, Thera [Multivitamin (formulary)] 1 tab PO DAILY Donepezil HCl [Aricept] 5 mg PO HS Aspirin EC [Ecotrin Low Dose] 81 mg PO DAILY buPROPion XL [Wellbutrin XL] 150 mg PO DAILY Diazepam 10 mg PO DAILY PRN PRN Reason: Anxiety Cholecalciferol [Vitamin D3 (25 Mcg = 1000 Iu)] 5,000 unit PO DAILY lamoTRIgine [LaMICtal] 25 mg PO DAILY Vitamin E (Dl,Tocopheryl Acet) [Vitamin E] 400 unit PO DAILY Loratadine 10 mg PO DAILY Cyclobenzaprine [Flexeril] 5 mg PO TID PRN PRN Reason: Muscle Spasm Discontinued Lisinopril [Zestril] 20 mg PO BID Labetalol HCl [Trandate] 600 mg PO BID Discharge Medication List Clopidogrel [Plavix] 75 mg PO DAILY 08/15/18 [History] Sertraline [Zoloft] 200 mg PO HS 08/15/18 [History] Atorvastatin [Lipitor] 40 mg PO DAILY #30 tablet 08/16/18 [Rx] ARIPiprazole [Abilify] 10 mg PO HS 11/17/18 [History] Montelukast [Singulair] 10 mg PO DAILY 11/17/18 [History] Pantoprazole [Protonix] 40 mg PO DAILY 11/17/18 [History] amLODIPine [Norvasc] 5 mg PO BID 11/17/18 [History] Aspirin EC [Ecotrin Low Dose] 81 mg PO DAILY 12/30/18 [History] Donepezil HCl [Aricept] 5 mg PO HS 12/30/18 [History] Multivitamins, Thera [Multivitamin (formulary)] 1 tab PO DAILY 12/30/18 [History] Terazosin [Hytrin] 5 mg PO BID 12/30/18 [History] Ubidecarenone [Co Q-10] 200 mg PO DAILY 12/30/18 [History] Cholecalciferol [Vitamin D3 (25 Mcg = 1000 Iu)] 5,000 unit PO DAILY 08/16/19 [History] Cyclobenzaprine [Flexeril] 5 mg PO TID PRN 08/16/19 [History] Diazepam 10 mg PO DAILY PRN 08/16/19 [History] Loratadine 10 mg PO DAILY 08/16/19 [History] Vitamin E (Dl,Tocopheryl Acet) [Vitamin E] 400 unit PO DAILY 08/16/19 [History] buPROPion XL [Wellbutrin XL] 150 mg PO DAILY 08/16/19 [History] lamoTRIgine [LaMICtal] 25 mg PO DAILY 08/16/19 [History] Follow up Appointment(s)/Referral(s): Michael Styles MD [Primary Care Provider] - 1-2 days (call tomorrow for appt) Ian Paniagua MD [STAFF PHYSICIAN] - 2 Weeks (call tomorrow for appt) Discharge Disposition: HOME SELF-CARE
[2019-08-17] MEDS ORDERED: ASPIRIN 325 MG TAB PO SCH (09:00)
[2019-08-17] MEDS ORDERED: ASPIRIN 81 MG PO SCH (09:00)
--- NOTE | 2019-08-17 12:32 | P.CRDCN ---
History of Present Illness History of present illness: This is Dr. Baca dictating a consult on this patient The patient was interviewed and examined by me IMPRESSION / ASSESSMENT: Progressive shortness of breath for several days Intermittent chest discomfort, no other associated symptoms like nausea or diaphoresis Known coronary artery disease Fluctuating blood pressures and complains of dizziness Initial blood pressure was elevated now his blood pressures in the normal range Cardiac enzymes are normal normal ECG PLAN: Blood pressure management Stress testing today HPI Patient presenting with shortness of breath on exertion with some chest discomfort number tightness fatigue on walking Fluctuating blood pressures Recurrent dizzy spells Pain is somewhat similar to what weeks. His last year prior to the coronary angiogram Lying comfortably in bed at this time ROS: No fever chills or rigors, no cough, phlegm or expectoration, no nausea, vomiting or diarrhea, no hematuria, dysuria, no musculoskeletal complaints, no strokes or seizures, no skin lesions. EXAMINATION: Elevated blood pressure readings Normal heart rates Breath sounds are clear no rhonchi no crackles Normal heart sounds no murmurs or gallop. Abdomen soft nontender Extremity is warm no edema No JVD REVIEW OF LABS, ECG & MEDICAL DATA Patient Dr. Mckeon Preserved LV systolic function in December 2018 Normal coronary angiogram last year with normal LVEDP Gen. [address] did not show any pulmonary embolism Normal white count normal hemoglobin and normal d-dimer Past Medical History Past Medical History: Chest Pain / Angina, CVA/TIA, GERD/Reflux, Hyperlipidemia, Hypertension, Memory Impairment, Myocardial Infarction (NE), Sleep Apnea/CPAP/BIPAP Additional Past Medical History / Comment(s): CVAs -pt thinks 4 or 5 with R sided weakness, short term memory loss, balance issures/uses a cane, migraines, bilateral hand tremors, HILTON but no longer uses his device stating "it didn't help", occasional low back pain, numbness/tingling bilateral feet, bilateral carpal tunnel syndrome, recent fall with neck pain after/had cervical injections, sinus problems Last Myocardial Infarction Date:: 07/2018 History of Any Multi-Drug Resistant Organisms: None Reported Past Surgical History: Heart Catheterization, Tonsillectomy Additional Past Surgical History / Comment(s): 07/2018 cardiac cath, sinus surgery, colonoscopy, dental extractions. Past Anesthesia/Blood Transfusion Reactions: No Reported Reaction Past Psychological History: Anxiety, Depression, PTSD Additional Psychological History / Comment(s): Pt resides with his spouse. He uses a cane to ambulate. He drives very little-his spouse drives. He speaks Slovak quite well. His primary language is Bosnian and prefers literature in Bosnian. Smoking Status: Current every day smoker Past Alcohol Use History: None Reported Additional Past Alcohol Use History / Comment(s): Pt started smoking in 1988 and is a half ppd smoker. Past Drug Use History: None Reported - Past Family History Mother Family Medical History: No Reported History Father Family Medical History: Coronary Artery Disease (CAD), Myocardial Infarction (NE) Additional Family Medical History / Comment(s): Father of a NE at the age of 52 yrs. Medications and Allergies Home Medications Medication Instructions Recorded Confirmed Type Clopidogrel [Plavix] 75 mg PO DAILY 08/15/18 08/16/19 History Sertraline [Zoloft] 200 mg PO HS 08/15/18 08/16/19 History Atorvastatin [Lipitor] 40 mg PO DAILY #30 tablet 08/16/18 08/16/19 Rx ARIPiprazole [Abilify] 10 mg PO HS 11/17/18 08/16/19 History Montelukast [Singulair] 10 mg PO DAILY 11/17/18 08/16/19 History Pantoprazole [Protonix] 40 mg PO DAILY 11/17/18 08/16/19 History amLODIPine [Norvasc] 5 mg PO BID 11/17/18 08/16/19 History Aspirin EC [Ecotrin Low Dose] 81 mg PO DAILY 12/30/18 08/16/19 History Donepezil HCl [Aricept] 5 mg PO HS 12/30/18 08/16/19 History Multivitamins, Thera [Multivitamin 1 tab PO DAILY 12/30/18 08/16/19 History (formulary)] Terazosin [Hytrin] 5 mg PO BID 12/30/18 08/16/19 History Ubidecarenone [Co Q-10] 200 mg PO DAILY 12/30/18 08/16/19 History Cholecalciferol [Vitamin D3 (25 5,000 unit PO DAILY 08/16/19 08/16/19 History Mcg = 1000 Iu)] Cyclobenzaprine [Flexeril] 5 mg PO TID PRN 08/16/19 08/16/19 History Diazepam 10 mg PO DAILY PRN 08/16/19 08/16/19 History Loratadine 10 mg PO DAILY 08/16/19 08/16/19 History Vitamin E (Dl,Tocopheryl Acet) 400 unit PO DAILY 08/16/19 08/16/19 History [Vitamin E] buPROPion XL [Wellbutrin XL] 150 mg PO DAILY 08/16/19 08/16/19 History lamoTRIgine [LaMICtal] 25 mg PO DAILY 08/16/19 08/16/19 History Allergies Allergy/AdvReac Type Severity Reaction Status Date / Time No Known Allergies Allergy Verified 08/16/19 08:38 Physical Exam Vitals: Vital Signs Temp Pulse Pulse Resp BP BP Pulse Ox 08/16/19 05:18 62 16 110/72 08/16/19 03:12 83 16 08/16/19 03:04 97 F L 83 16 116/76 99 08/16/19 00:34 92 08/16/19 00:27 99.3 F 112 H 22 168/106 98 Intake and Output 08/15/19 08/16/19 08/16/19 22:59 06:59 14:59 Intake Total 160 54.906 Balance 160 54.906 Intake: IV 160 0.9% Normal Saline KVO 160 Intake, IV Titration 54.906 Amount Heparin Sod,Pork in 0.45% 54.906 NaCl 25,000 unit In 0.45 % NaCl 1 250ml.bag @ 8 UNITS/KG/HR 9.834 mls/hr IV .Q24H [facility] Rx#: [id number] Other: Weight 122.924 kg Results 08/16/19 06:12 08/16/19 00:41 Cardiac Enzymes 08/16/19 08/16/19 08/16/19 Range/Units 00:41 00:41 06:12 AST 28 (17-59) U/L Troponin I <0.012 <0.012 (0.000-0.034) ng/mL Coagulation 08/16/19 08/16/19 Range/Units 00:41 06:16 PT 10.4 (9.0-12.0) sec APTT 26.5 38.4 H (22.0-30.0) sec CBC 08/16/19 08/16/19 Range/Units 00:41 06:12 WBC 9.4 (3.8-10.6) k/uL RBC 5.14 (4.30-5.90) m/uL Hgb 15.4 (13.0-17.5) gm/dL Hct 45.6 (39.0-53.0) % Plt Count 285 251 (150-450) k/uL Comprehensive Metabolic Panel 08/16/19 Range/Units 00:41 Sodium 141 (137-145) mmol/L Potassium 4.0 (3.5-5.1) mmol/L Chloride 110 H (98-107) mmol/L Carbon Dioxide 25 (22-30) mmol/L BUN 13 (9-20) mg/dL Creatinine 1.18 (0.66-1.25) mg/dL Glucose 107 H (74-99) mg/dL Calcium 9.5 (8.4-10.2) mg/dL AST 28 (17-59) U/L ALT 41 (21-72) U/L Alkaline Phosphatase 72 (38-126) U/L Total Protein 7.3 (6.3-8.2) g/dL Albumin 4.5 (3.5-5.0) g/dL Current Medications Generic Name Dose Route Start Last Admin Trade Name Freq PRN Reason Stop Dose Admin Amlodipine Besylate 5 mg 08/16/19 09:00 08/16/19 09:25 Norvasc PO 5 mg BID AJITH Administration Aripiprazole 10 mg 08/16/19 21:00 Abilify PO HS AJITH Atorvastatin Calcium 40 mg 08/16/19 09:00 08/16/19 09:25 Lipitor PO 40 mg DAILY AJITH Administration Clopidogrel Bisulfate 75 mg 08/16/19 09:00 08/16/19 09:24 Plavix PO 75 mg DAILY AJITH Administration Cyclobenzaprine HCl 10 mg 08/16/19 09:00 08/16/19 09:24 Flexeril PO 10 mg TID AJITH Administration Donepezil HCl 5 mg 08/16/19 09:00 08/16/19 09:24 Aricept PO 5 mg BID AJITH Administration Doxazosin Mesylate 8 mg 08/16/19 09:00 08/16/19 09:25 Cardura PO 8 mg DAILY AJITH Administration Heparin Sodium (Porcine) 0 unit 08/16/19 07:59 08/16/19 08:12 Heparin IV 4,000 unit PER PROTOCOL PRN Administration Low PTT Protocol Heparin Sodium/Sodium Chloride 250 mls @ 9.834 mls/hr 08/16/19 01:45 08/16/19 08:13 25,000 unit/ Sodium Chloride IV 11 units/kg/hr .Q24H AJITH 13.522 mls/hr Titration Protocol 8 UNITS/KG/HR Montelukast Sodium 10 mg 08/16/19 09:00 08/16/19 09:25 Singulair PO 10 mg DAILY AJITH Administration Multivitamins 1 each 08/16/19 09:00 08/16/19 09:25 Theragran PO 1 each DAILY AJITH Administration Nitroglycerin 0.4 mg 08/16/19 01:36 Nitrostat SUBLINGUAL Q5M PRN Chest Pain Pantoprazole Sodium 40 mg 08/16/19 09:00 08/16/19 09:25 Protonix PO 40 mg DAILY AJITH Administration Sertraline HCl 200 mg 08/16/19 21:00 Zoloft PO HS AJITH Intake and Output 08/15/19 08/16/19 08/16/19 22:59 06:59 14:59 Intake Total 160 54.906 Balance 160 54.906 Intake: IV 160 0.9% Normal Saline KVO 160 Intake, IV Titration 54.906 Amount Heparin Sod,Pork in 0.45% 54.906 NaCl 25,000 unit In 0.45 % NaCl 1 250ml.bag @ 8 UNITS/KG/HR 9.834 mls/hr IV .Q24H [facility] Rx#: [id number] Other: Weight 122.924 kg 08/16/19 06:12 08/16/19 00:41
--- NOTE | 2019-08-18 12:07 | ECHOS ---
- Stress Test Note Stress Test Results/Findings: Exam Performed: stress echo exercise with con Exam Date: 08/16/19 Reason for Exam: CHEST PAIN / SOB Height: 6 ft Weight: 122.924 kg Protocol: GABRIELE Stage: 2 Duration of Exercise: 6:00 Resting Heart Rate: 63 Resting Blood Pressure: 109/64 Maximum Achieved Heart Rate: 153 Maximum Achieved Blood Pressure: 177/47 85% PMHR: 147 100% PMHR: 173 METS: 7.1 Technologist Comment: Stress Test Results/Findings: This is a 48-year-old man with history of hypercholesteremia, family history and smoking being evaluated for symptoms of chest pain and shortness of breath. Stress data: Baseline EKG showed sinus rhythm with normal WA interval, QRS duration with nonspecific ST-T changes. Blood pressure at rest is on 9/64 with pulse rate of 63. Patient exercised on Gabriele protocol for 6 minutes achieving a maximum rate of 153 with a blood pressure 177/47. EKGs taken during and after exercise did not reveal any changes of ischemia. Echo data: Baseline echo images showed normal wall motion and thickening. Exercise echo images showed augmentation of the wall motion and thickening in all the segments. Final impression: #1. Negative stress test #2. Negative stress echo. JUANA
== END 2019-08-16 16:46 | disposition home or self-care (01) ==
LOC: EC 00:23 → 3SCARD 02:04
PROVIDERS: ADMIT Hospitalist; ATTEND Hospitalist
DX: R07.89 Other chest pain (principal); R06.02 Shortness of breath; R61 Generalized hyperhidrosis; R11.0 Nausea; R53.83 Other fatigue; I25.10 Atherosclerotic heart disease of native coronary artery without angina pectoris; I10 Essential (primary) hypertension; E66.9 Obesity, unspecified; Z68.36 Body mass index [BMI] 36.0-36.9, adult; I25.2 Old myocardial infarction; F17.210 Nicotine dependence, cigarettes, uncomplicated; E78.5 Hyperlipidemia, unspecified; G62.9 Polyneuropathy, unspecified; K21.9 Gastro-esophageal reflux disease without esophagitis; G47.33 Obstructive sleep apnea (adult) (pediatric); F32.9 Major depressive disorder, single episode, unspecified; F43.10 Post-traumatic stress disorder, unspecified; F41.9 Anxiety disorder, unspecified; M62.838 Other muscle spasm; R26.89 Other abnormalities of gait and mobility; G43.909 Migraine, unspecified, not intractable, without status migrainosus; G56.03 Carpal tunnel syndrome, bilateral upper limbs; R41.3 Other amnesia; R25.1 Tremor, unspecified; Z79.02 Long term (current) use of antithrombotics/antiplatelets; Z79.82 Long term (current) use of aspirin; Z79.899 Other long term (current) drug therapy; Z86.73 Personal history of transient ischemic attack (TIA), and cerebral infarction without residual deficits; Z82.49 Family history of ischemic heart disease and other diseases of the circulatory system
CPT/HCPCS: 96376; 96365; 96366; 96375; 99285; 36415; 93005; 93351; 85379; 83880; 80053; 83690; 83735; 84484; 85025; 85049; 85610; 85730; 71046; 71275; G0378; J1644 ×2; J1885; Q9950; Q9967

== ENCOUNTER 2019-08-28 06:10 | Observation (INO) | payer OTHER, MEDICARE ==
[2019-08-28] MEDS ORDERED: ASPIRIN 81 MG PO STA (06:23)
[2019-08-28] MEDS ORDERED: MAG HYDROX/AL HYDROX/SIMETH 30 ML, HYOSCYAMINE ELIXIR 10 ML PO STA ×2 (06:39)
[2019-08-28 06:52] LABS: Basophils # (A) 0.1 k/uL (0-0.2); Basophils % (A) 1 %; Eosinophils # (A) 0.3 k/uL (0-0.7); Eosinophils % (A) 2 %; HGB 15.6 gm/dL (13.0-17.5); Lymphocytes # (A) 4.9 k/uL (1.0-4.8); Lymphocytes % (A) 39 %; MCHC 34.7 g/dL (31.0-37.0); MCV 89.4 fL (80.0-100.0); Mean Platelet Volume 6.2; Monocytes # (A) 0.7 k/uL (0-1.0); Monocytes % (A) 5 %; Neutrophils # (A) 6.6 k/uL (1.3-7.7); Neutrophils % (A) 51 %; Platelet Count 286 k/uL (150-450); RBC 5.03 m/uL (4.30-5.90); WBC 12.8 k/uL (3.8-10.6)
[2019-08-28] MEDS ORDERED: amLODIPine 5 MG TAB PO STA (06:55)
[2019-08-28 06:59] LABS: ALT 57 U/L (21-72); AST 31 U/L (17-59); African American GFR (CKD) >90 (>60 ml/min/1.73 sqM); Albumin 4.3 g/dL (3.5-5.0); Alkaline Phosphatase 82 U/L (38-126); Anion Gap 9 mmol/L; Blood Urea Nitrogen 10 mg/dL (9-20); Calcium 9.7 mg/dL (8.4-10.2); Carbon Dioxide 25 mmol/L (22-30); Chloride 110 mmol/L (98-107); Glucose 109 mg/dL (74-99); Magnesium 1.9 mg/dL (1.6-2.3); Non-African American GFR(CKD) 80 (>60 ml/min/1.73 sqM); Potassium 4.3 mmol/L (3.5-5.1); Sodium 144 mmol/L (137-145); Total Bilirubin 0.4 mg/dL (0.2-1.3); Total Protein 7.3 g/dL (6.3-8.2)
--- NOTE | 2019-08-28 06:59 | ED ---
Chest Pain HPI - General Source: patient, RN notes reviewed Mode of arrival: ambulatory Limitations: no limitations <Praneeth Betancur - Last Filed: 08/28/19 07:55> <Vineet Terrazas - Last Filed: 08/28/19 08:30> - General Chief Complaint: Chest Pain Stated Complaint: abd pain Time Seen by Provider: 08/28/19 06:21 - History of Present Illness Initial Comments: 48-year-old male presents emergency Department with chief complaint of epigastric, chest pain. Patient states this started earlier this morning. Patient does have a history of an AR approximately one year ago. Patient also was admitted 2 weeks ago for similar complaints. Patient states the pain starts in his epigastric and radiates up into his chest denies any increased reflux does take medications for her. Patient states that he does feel short of breath at this time. Patient denies any nausea vomiting diarrhea constipation no fevers or chills. Patient has a history of hypertension and hyperlipidemia. (Praneeth Betancur) - Related Data Home Medications Medication Instructions Recorded Confirmed Clopidogrel [Plavix] 75 mg PO DAILY 08/15/18 08/28/19 Sertraline [Zoloft] 200 mg PO HS 08/15/18 08/28/19 ARIPiprazole [Abilify] 10 mg PO HS 11/17/18 08/28/19 Montelukast [Singulair] 10 mg PO DAILY 11/17/18 08/28/19 Pantoprazole [Protonix] 40 mg PO DAILY 11/17/18 08/28/19 amLODIPine [Norvasc] 5 mg PO BID 11/17/18 08/28/19 Aspirin EC [Ecotrin Low Dose] 81 mg PO DAILY 12/30/18 08/28/19 Donepezil HCl [Aricept] 5 mg PO HS 12/30/18 08/28/19 Multivitamins, Thera [Multivitamin 1 tab PO DAILY 12/30/18 08/28/19 (formulary)] Terazosin [Hytrin] 5 mg PO BID 12/30/18 08/28/19 Ubidecarenone [Co Q-10] 200 mg PO DAILY 12/30/18 08/28/19 Cholecalciferol [Vitamin D3 (25 5,000 unit PO DAILY 08/16/19 08/28/19 Mcg = 1000 Iu)] Cyclobenzaprine [Flexeril] 5 mg PO TID PRN 08/16/19 08/28/19 Diazepam 10 mg PO DAILY PRN 08/16/19 08/28/19 Loratadine 10 mg PO DAILY 08/16/19 08/28/19 Vitamin E (Dl,Tocopheryl Acet) 400 unit PO DAILY 08/16/19 08/28/19 [Vitamin E] buPROPion XL [Wellbutrin XL] 150 mg PO DAILY 08/16/19 08/28/19 lamoTRIgine [LaMICtal] 25 mg PO DAILY 08/16/19 08/28/19 Previous Rx's Medication Instructions Recorded Atorvastatin [Lipitor] 40 mg PO DAILY #30 tablet 08/16/18 Allergies Allergy/AdvReac Type Severity Reaction Status Date / Time No Known Allergies Allergy Verified 08/28/19 07:47 Review of Systems ROS Other: All systems not noted in ROS Statement are negative. <Praneeth Betancur - Last Filed: 08/28/19 07:55> ROS Other: All systems not noted in ROS Statement are negative. <Vineet Terrazas - Last Filed: 08/28/19 08:30> ROS Statement: Those systems with pertinent positive or pertinent negative responses have been documented in the HPI. EKG Findings - EKG Comments: EKG Findings:: EKG performed at 6:22 normal sinus rhythm with a rate of 72 GA 1:30 QRS 94 QT/QTC 390/[address] elevation or depression normal axis. <Praneeth Betancur - Last Filed: 08/28/19 07:55> Past Medical History Past Medical History: Chest Pain / Angina, CVA/TIA, GERD/Reflux, Hyperlipidemia, Hypertension, Memory Impairment, Myocardial Infarction (AR), Sleep Apnea/CPAP/BIPAP Additional Past Medical History / Comment(s): CVAs -pt thinks 4 or 5 with R sided weakness, short term memory loss, balance issures/uses a cane, migraines, bilateral hand tremors, HILTON but no longer uses his device stating "it didn't help", occasional low back pain, numbness/tingling bilateral feet, bilateral carpal tunnel syndrome, recent fall with neck pain after/had cervical injections, sinus problems Last Myocardial Infarction Date:: 07/2018 History of Any Multi-Drug Resistant Organisms: None Reported Past Surgical History: Heart Catheterization, Tonsillectomy Additional Past Surgical History / Comment(s): 07/2018 cardiac cath, sinus surgery, colonoscopy, dental extractions. Past Anesthesia/Blood Transfusion Reactions: No Reported Reaction Past Psychological History: Anxiety, Depression, PTSD Smoking Status: Current every day smoker Past Alcohol Use History: None Reported Past Drug Use History: None Reported - Past Family History Mother Family Medical History: No Reported History Father Family Medical History: Coronary Artery Disease (CAD), Myocardial Infarction (AR) Additional Family Medical History / Comment(s): Father of a AR at the age of 52 yrs. <Praneeth Betancur - Last Filed: 08/28/19 07:55> General Exam Limitations: no limitations General appearance: alert, in no apparent distress Head exam: Present: atraumatic, normocephalic, normal inspection Eye exam: Present: normal appearance, PERRL, EOMI. Absent: scleral icterus, conjunctival injection, periorbital swelling ENT exam: Present: normal exam, normal oropharynx, mucous membranes moist Neck exam: Present: normal inspection, full ROM. Absent: tenderness, meningismus, lymphadenopathy Respiratory exam: Present: normal lung sounds bilaterally. Absent: respiratory distress, wheezes, rales, rhonchi, stridor Cardiovascular Exam: Present: regular rate, normal rhythm, normal heart sounds. Absent: systolic murmur, diastolic murmur, rubs, gallop, clicks GI/Abdominal exam: Present: soft, tenderness (Mild epigastric), normal bowel sounds. Absent: distended, guarding, rebound, rigid Back exam: Absent: CVA tenderness (R), CVA tenderness (L) Neurological exam: Present: alert, oriented X3, CN II-XII intact Skin exam: Present: warm, dry, intact, normal color. Absent: rash <Praneeth Betancur - Last Filed: 08/28/19 07:55> Course <Vineet Terrazas - Last Filed: 08/28/19 08:30> Vital Signs 08/28/19 06:13 Temperature 98.1 F Pulse Rate 84 Respiratory 20 Rate Blood Pressure 151/103 O2 Sat by Pulse 98 Oximetry - Reevaluation(s) Reevaluation #1: 08/28/19 08:29 Patient reexamined and reevaluated by myself, Dr. Terrazas. I do agree with the findings. This includes diagnostic interpretation and treatment plan. Patient still has discomfort. Patient complains of discomfort in his chest as well as his back. Patient also has discomfort in the epigastric region. There is mild tenderness to palpation of the epigastric region. Patient still has some symptoms. Review previous visits were patient did have computed tomography scan and stress test done as well as previous visit from one year ago. Case was discussed in detail with Dr. morrison. Case was also discussed in detail with Dr. Comer who will have somebody evaluate patient in observation. (Vineet Terrazas) Chest Pain MDM <Praneeth Betancur - Last Filed: 08/28/19 07:55> - MDM Patient no improvement GI cocktail, chest pain is persistent. Patient will be admitted given significant past medical history. (Praneeth Betancur) Disposition <Praneeth Betancur - Last Filed: 08/28/19 07:55> <Vineet Terrazas - Last Filed: 08/28/19 08:30> Clinical Impression: Chest pain, Epigastric pain Disposition: ADMITTED IP TO THIS [facility] Condition: Fair Referrals: Michael Styles MD [Primary Care Provider] - 1-2 days
[2019-08-28 07:13] LABS: Partial Thromboplastin Time 25.7 sec (22.0-30.0); Prothrombin Time 10.6 sec (9.0-12.0)
--- NOTE | 2019-08-28 07:26 | XR ---
EXAMINATION TYPE: XR chest 2V DATE OF EXAM: 08/28/2019 COMPARISON: 08/16/2019 HISTORY: Chest pain TECHNIQUE: Frontal and lateral views of the chest are obtained. FINDINGS: There is no focal air space opacity, pleural effusion, or pneumothorax seen. The cardiac silhouette size is within normal limits. The osseous structures are intact. IMPRESSION: No acute cardiopulmonary process.
[2019-08-28] MEDS ORDERED: NITROGLYCERIN SL TABS 0.4 MG TAB SUBLINGUAL PRN (07:56)
[2019-08-28] MEDS ORDERED: HEPARIN SODIUM,PORCINE 5,000 UNIT/ML 1 ML VIAL IV ONE (07:56)
[2019-08-28] MEDS ORDERED: HEPARIN SOD,PORK IN 0.45% NACL 25,000 UNIT in 0.45% NACL 1 250ML.BAG IV SCH (08:00)
[2019-08-28] MEDS ORDERED: FAMOTIDINE 20 MG/2 ML VIAL IV STA (08:30)
--- NOTE | 2019-08-28 10:10 | CT ---
EXAMINATION TYPE: CT ChestAbdPelvis w con DATE OF EXAM: 08/28/2019 COMPARISON: 08/16/2019 and 01/21/2019 HISTORY: 48-year-old male epigastric pain TECHNIQUE: Contiguous axial scanning of the chest, abdomen, and pelvis performed with IV Contrast, pa tient injected with 100 mL of Isovue 300. Delayed images through the kidneys were obtained. Coronal/s agittal reconstructions performed. CT DLP: 2192.4 mGycm Automated exposure control for dose reduction was used. FINDINGS: CHEST: Heart normal size without pericardial effusion. Aorta normal caliber with conventional branching anatomy. No thoracic lymphadenopathy by CT size criteria. Some hazy dependent atelectasis. No consolidation or pleural effusion. ABDOMEN: Liver upper limits of normal in size at 17.8 cm with low attenuation. No focal liver lesion or biliar y ductal dilatation. Portal venous system is patent. Borderline distended gallbladder and 4.1 cm with a small amount of layering gravel. No surrounding in flammatory change seen. Adrenal glands, kidneys, spleen with hilar splenule, and pancreas appear within normal limits. No dilated small bowel, free fluid, or free air. No mesenteric or retroperitoneal lymphadenopathy. Normal appendix. Mild/moderate stool burden. No pericolonic inflammatory change. Pelvis: Bladder partially distended. Prostate gland measures 3.8 cm wide. Pelvic phleboliths particularly on the left. No abnormal fluid collection in the pelvis or pelvic lymphadenopathy. BONES: Mild degenerative changes of the hips. No osseous destructive process. IMPRESSION: 1. NO ACUTE INFLAMMATORY PROCESS IDENTIFIED IN THE CHEST, ABDOMEN, OR PELVIS TO EXPLAIN THE PATIENT'S SYMPTOMS. 2. BORDERLINE HEPATOMEGALY (17.8 CM) WITH LITTLE ATTENUATION SUGGESTING UNDERLYING FATTY INFILTRATION . 3. BORDERLINE HYDROPIC GALLBLADDER WITH SOME LAYERING GRAVEL. FINDINGS MAY RELATE TO FASTING STATE. I F CONCERN FOR EARLY ACUTE CHOLECYSTITIS, FOLLOW-UP ULTRASOUND OR HIDA SCAN.
[2019-08-28 16:14] VITALS: TEMP 97.3
[2019-08-28] MEDS ORDERED: CYCLOBENZAPRINE 5 MG TAB PO PRN (16:16)
[2019-08-28] MEDS ORDERED: DIAZEPAM 5 MG TAB PO PRN (16:16)
--- NOTE | 2019-08-28 16:32 | P.HPIM ---
History of Present Illness H&P Date: 08/28/19 Chief Complaint: Epigastric pain History of presenting complaint: This is a very pleasant 48-year-old patient originally from [facility]. Chronic stable medical conditions include hypertension, GERD, hyperlipidemia and anxiety, peripheral neuropathy. In July 2018 patient is an acute OR. Cardiac catheterization did show normal coronaries. Patient was here 2 weeks ago with chest pain. Had a negative stress echocardiogram. Every morning patient takes Protonix. Gets epigastric discomfort. Does feel better with Protonix. Patient is on aspirin and Plavix. This morning patient developed severe pain in the epigastrium. Going to the back. Some radiated chest tube. No fever or chills. No nausea vomiting. Presented to the ER. Patient does not remember when his last inhaler EGD. It feels more like a heartburn time. No precordial pain. Review of systems: GEN.: None EYES: None HEENT: None NECK: None RESPIRATORY: None CARDIOVASCULAR: As above GASTROINTESTINAL: As above GENITOURINARY: None MUSCULOSKELETAL: None LYMPHATICS: None HEMATOLOGICAL: None PSYCHIATRY: [Anxious NEUROLOGICAL: None Past medical history to include: Hypertension, GERD, hyperlipidemia, anxiety, acute OR in July 2018, with a negative cardiac catheterization, peripheral neuropathy Social history: Smokes half a pack a day over 30 years, . No alcohol. Physical examination: VITAL SIGNS: 98.1, 84, 20, 151/103, 98% room air GENERAL: BMI of 6.6, laying in bed, anxious. EYES: Pupils equal. Conjunctiva normal. HEENT: External appearance of nose and ears normal, oral cavity grossly normal. NECK: JVD not raised; masses not palpable. HEART: First and second heart sounds are normal; no edema. LUNGS: Respiratory rate normal; decreased breath sounds ABDOMEN: Soft, some epigastric tenderness, no guarding or rigidity, liver spleen not palpable, no masses palpable. PSYCH: Alert and oriented x3; mood and affect slightly anxious NEUROLOGICAL: Cranial nerves grossly intact; no facial asymmetry, power and sensation grossly intact. LYMPHATICS: No lymph nodes palpable in the axilla and neck INVESTIGATIONS, reviewed in the clinical context: White count 12.8 hemoglobin 15.6 potassium 4.3 crit 1.09 Troponin I 2 negative EKG tracing personally reviewed by me-normal sinus rhythm Chest x-ray film personally reviewed by me-lung hearn are clear Assessment: -Acute on chronic epigastric pain in a patient with known GERD. Patient does take aspirin and Plavix both and is a smoker. Most likely from flareup of gastritis the to rule out peptic ulcer disease. - acute OR in July 2018 with a negative cardiac catheterization. About 10 days ago patient had a negative stress echocardiogram. -Obesity BMI 36.8 -Essential hypertension -GERD -Hyperlipidemia -Anxiety not otherwise specified -Peripheral neuropathy idiopathic -Chronic nicotine dependence patient cigarette smoker Plan: Consultation is made to GI with view to EGD. Highly doubt this to be cardiac. Recent stress echocardiogram was negative. Care was discussed with the patient. Home medications reviewed. Both cardiology and GI were consulted. Past Medical History Past Medical History: Chest Pain / Angina, CVA/TIA, GERD/Reflux, Hyperlipidemia, Hypertension, Memory Impairment, Myocardial Infarction (OR), Sleep Apnea/CPAP/BIPAP Additional Past Medical History / Comment(s): Pt recently admitted to [facility] on 08/16/19 with anterior chest pain. Other hx: CVAs -pt thinks 4 or 5 with R sided weakness, short term memory loss, balance issures/uses a cane, migraines, bilateral hand tremors, HILTON but no longer uses his device stating "it didn't help", occasional low back pain, numbness/tingling bilateral hands/feet, bilateral carpal tunnel syndrome, sinus problems Last Myocardial Infarction Date:: 07/2018 History of Any Multi-Drug Resistant Organisms: None Reported Past Surgical History: Heart Catheterization, Tonsillectomy Additional Past Surgical History / Comment(s): 07/2018 cardiac cath-normal, sinus surgery, colonoscopy, dental extractions. Past Anesthesia/Blood Transfusion Reactions: No Reported Reaction Smoking Status: Current every day smoker - Past Family History Mother Family Medical History: No Reported History Additional Family Medical History / Comment(s): Mother is healthy Father Family Medical History: Coronary Artery Disease (CAD), Myocardial Infarction (OR) Additional Family Medical History / Comment(s): Father of a OR at the age of 52 yrs. Medications and Allergies Home Medications Medication Instructions Recorded Confirmed Type Clopidogrel [Plavix] 75 mg PO DAILY 08/15/18 08/28/19 History Sertraline [Zoloft] 200 mg PO HS 08/15/18 08/28/19 History Atorvastatin [Lipitor] 40 mg PO DAILY #30 tablet 08/16/18 08/28/19 Rx ARIPiprazole [Abilify] 10 mg PO HS 11/17/18 08/28/19 History Montelukast [Singulair] 10 mg PO DAILY 11/17/18 08/28/19 History Pantoprazole [Protonix] 40 mg PO DAILY 11/17/18 08/28/19 History amLODIPine [Norvasc] 5 mg PO BID 11/17/18 08/28/19 History Aspirin EC [Ecotrin Low Dose] 81 mg PO DAILY 12/30/18 08/28/19 History Donepezil HCl [Aricept] 5 mg PO HS 12/30/18 08/28/19 History Multivitamins, Thera [Multivitamin 1 tab PO DAILY 12/30/18 08/28/19 History (formulary)] Terazosin [Hytrin] 5 mg PO BID 12/30/18 08/28/19 History Ubidecarenone [Co Q-10] 200 mg PO DAILY 12/30/18 08/28/19 History Cholecalciferol [Vitamin D3 (25 5,000 unit PO DAILY 08/16/19 08/28/19 History Mcg = 1000 Iu)] Cyclobenzaprine [Flexeril] 5 mg PO TID PRN 08/16/19 08/28/19 History Diazepam 10 mg PO DAILY PRN 08/16/19 08/28/19 History Loratadine 10 mg PO DAILY 08/16/19 08/28/19 History Vitamin E (Dl,Tocopheryl Acet) 400 unit PO DAILY 08/16/19 08/28/19 History [Vitamin E] buPROPion XL [Wellbutrin XL] 150 mg PO DAILY 08/16/19 08/28/19 History lamoTRIgine [LaMICtal] 25 mg PO DAILY 08/16/19 08/28/19 History Allergies Allergy/AdvReac Type Severity Reaction Status Date / Time No Known Allergies Allergy Verified 08/28/19 07:47 Physical Exam Vitals: Vital Signs Temp Pulse Resp BP Pulse Ox 08/28/19 10:28 75 18 126/82 98 08/28/19 08:50 81 18 150/109 98 08/28/19 06:13 98.1 F 84 20 151/103 98 Intake and Output 08/27/19 08/28/19 08/28/19 22:59 06:59 14:59 Other: Weight 122.47 kg Results CBC & Chem 7: 08/28/19 06:33 08/28/19 06:33 Labs: Abnormal Lab Results - Last 24 Hours (Table) 08/28/19 08/28/19 Range/Units 06:33 06:33 WBC 12.8 H (3.8-10.6) k/uL Lymphocytes # 4.9 H (1.0-4.8) k/uL Chloride 110 H (98-107) mmol/L Glucose 109 H (74-99) mg/dL Thrombosis Risk Factor Assmnt - Choose All That Apply Any of the Below Risk Factors Present?: Yes Each Factor Represents 1 point: Age 41-60 years, Obesity (BMI >25) Other Risk Factors: No Other congenital or acquired thrombophilia - If yes, enter type in comment: No Thrombosis Risk Factor Assessment Total Risk Factor Score: 2 Thrombosis Risk Factor Assessment Level: Low Risk
[2019-08-28] MEDS: PANTOPRAZOLE 40 MG TABLET PO SCH (16:44)
[2019-08-28] MEDS: amLODIPine 5 MG TAB PO SCH (20:52)
[2019-08-28] MEDS ORDERED: FAMOTIDINE 20 MG TAB PO SCH (21:00)
[2019-08-28] MEDS ORDERED: DONEPEZIL 5 MG TAB PO SCH (21:00)
[2019-08-28] MEDS ORDERED: ARIPiprazole 10 MG TAB PO SCH (21:00)
[2019-08-28] MEDS ORDERED: DOXAZOSIN 4 MG TAB PO SCH (21:00)
[2019-08-28] MEDS ORDERED: SERTRALINE 100 MG TAB PO SCH (21:00)
--- NOTE | 2019-08-28 22:15 | CONS ---
CONSULTATION CHIEF COMPLAINT: Epigastric pain. Florian is a 48-year-old gentleman with history of hypertension, dyslipidemia who comes to hospital complaining of epigastric discomfort. He describes it as a pressure- like sensation in the epigastric area that spreads. up his chest in between his shoulder blades, mild intensity without clear-cut relieving or exacerbating factors. There is no prior history of coronary artery disease, congestive heart failure. The patient had a cardiac catheterization in 2018 when he presented with chest discomfort and apparently had mild troponin elevation. His cardiac catheterization revealed normal coronary. He had recently been admitted to hospital with chest pain and ruled out for myocardial infarction. He underwent a stress echo that was negative for ischemia. At the time of my evaluation, patient appears comfortable at rest. He has had a CT scan of the chest that was negative for pulmonary embolism at last admission. He had a CT scan of the abdomen and pelvis on this admission that was negative for any acute abnormalities. EKG does not reveal any ischemic changes. Cardiac enzymes have been negative. I am going to stop the IV heparin that the patient is on. PAST MEDICAL HISTORY: Significant for hypertension and dyslipidemia. MEDICATIONS: Include Zoloft, Aricept, Lamictal, Wellbutrin, Norvasc 5 b.i.d., Protonix, Singulair, Flexeril, Plavix, Lipitor and Abilify. ALLERGIES: There are no known drug allergies. FAMILY HISTORY: Negative for premature coronary artery disease. SOCIAL HISTORY: Negative for current smoking, EtOH abuse, or drug abuse. REVIEW OF SYSTEMS: HEENT is unremarkable. Cardiac as described above. Respiratory negative. GI negative. Genitourinary negative. Allergy/Immunology: None. Skin negative. Musculoskeletal negative. Endocrine negative. Derm negative. Constitutional: Negative. Oncological negative. Rest of the system review is not relevant. EXAM: Patient is comfortable at rest. Vital signs are stable. There is no jugular venous distention. Carotid upstroke is normal. There is no bruit. Chest exam reveals good air entry bilaterally. Heart exam reveals first and second heart sounds. No gallop. No murmur. No rub. Abdomen is soft, nontender. Exam of extremities did not reveal any edema. Peripheral pulses are felt. LAB: Show a hemoglobin of 15.6, platelet count is 286, potassium is 4.3, creatinine is 1. Tropes are negative. ASSESSMENT: 1. Atypical chest pain. 2. Hypertension. 3. Dyslipidemia. PLAN: Patient's chest discomfort is atypical, probably noncardiac. I am going to stop the IV heparin at this time. We will consult GI and hopefully patient can be discharged home tomorrow after an EGD if necessary. KEITH / DIVNIE: [id number] /
[2019-08-28 23:59] LABS: Cholesterol 171 mg/dL (<200); HDL Cholesterol 26 mg/dL (40-60); LDL Cholesterol,Calculated 95 mg/dL (0-99); Triglycerides 250 mg/dL (<150)
[2019-08-29] MEDS ORDERED: PROPOFOL 10 MG/ML 20 ML VIAL IV ONE (07:55)
[2019-08-29] MEDS ORDERED: MIDAZOLAM 2 MG/2 ML VIAL ONE (07:55)
[2019-08-29] MEDS ORDERED: fentaNYL (PF) 50 MCG/ML 2 ML AMP ONE (07:55)
[2019-08-29] MEDS ORDERED: LIDOCAINE 1% INJ 10MG/ML (20 ML MDV) ONE (07:55)
[2019-08-29] MEDS ORDERED: SODIUM CHLORIDE 0.9% 500 ML 500 ML IV ONE ×2 (07:59)
--- NOTE | 2019-08-29 08:22 | P.CONS ---
History of Present Illness - Reason for Consult Consult date: 08/29/19 Chest and abdominal pain Requesting physician: Mike Veronica - Chief Complaint Chest and abdominal pain - History of Present Illness Pleasant 48-year-old male with a medical history significant for hypertension, GERD, hyperlipidemia, anxiety and peripheral neuropathy who presented to the hospital with complaints of chest and epigastric pain. He reports pain starting earlier in the day. He states the pain was in the chest and epigastric region with radiation into his shoulder blades. He does report chronic medications including pantoprazole but is had intermittent episodes of this pain. He was recently admitted to the hospital with a negative cardiac evaluation including a stress test. On current admission is been seen by the cardiology service with feel this pain is atypical in nature. Currently he is denying any nausea or vomiting, change in bowel habits. He denies any prior endoscopic evaluation. Review of Systems REVIEW OF SYSTEMS: CONSTITUTIONAL: Denies any fevers, chills, weight change or fatigue. CARDIOVASCULAR: Denies any palpitations but does report chest pain and difficulty controlling his blood pressure. RESPIRATORY: Denies any shortness of breath, hemoptysis or cough. GENITOURINARY: No dysuria or hematuria. MUSCULOSKELETAL: No weakness reported. SKIN: Denies any new rashes or lesions, jaundice or pallor. PSYCHIATRIC: Denies any depression but does have a reported history of anxiety. NEUROLOGY: Denies headache, denies any new focal deficits. EARS/NOSE/THROAT: No recent hearing change, congestion, nasal discharge or sore throat. EYES: No pain in eyes, discharge or change in vision. GASTROINTESTINAL: As per HPI. Past Medical History Past Medical History: Chest Pain / Angina, CVA/TIA, GERD/Reflux, Hyperlipidemia, Hypertension, Memory Impairment, Myocardial Infarction (HI), Sleep Apnea/CPAP/BIPAP Additional Past Medical History / Comment(s): Pt recently admitted to [facility] on 08/16/19 with anterior chest pain. Other hx: CVAs -pt thinks 4 or 5 with R sided weakness, short term memory loss, balance issures/uses a cane, migraines, bilateral hand tremors, HILTON but no longer uses his device stating "it didn't help", occasional low back pain, numbness/tingling bilateral hands/feet, bilater al carpal tunnel syndrome, sinus problems Last Myocardial Infarction Date:: 07/2018 History of Any Multi-Drug Resistant Organisms: None Reported Past Surgical History: Heart Catheterization, Tonsillectomy Additional Past Surgical History / Comment(s): 07/2018 cardiac cath-normal, sinus surgery, colonoscopy, dental extractions. Past Anesthesia/Blood Transfusion Reactions: No Reported Reaction Smoking Status: Current every day smoker - Past Family History Mother Family Medical History: No Reported History Additional Family Medical History / Comment(s): Mother is healthy Father Family Medical History: Coronary Artery Disease (CAD), Myocardial Infarction (HI) Additional Family Medical History / Comment(s): Father of a HI at the age of 52 yrs. Medications and Allergies Home Medications Medication Instructions Recorded Confirmed Type Clopidogrel [Plavix] 75 mg PO DAILY 08/15/18 08/28/19 History Sertraline [Zoloft] 200 mg PO HS 08/15/18 08/28/19 History Atorvastatin [Lipitor] 40 mg PO DAILY #30 tablet 08/16/18 08/28/19 Rx ARIPiprazole [Abilify] 10 mg PO HS 11/17/18 08/28/19 History Montelukast [Singulair] 10 mg PO DAILY 11/17/18 08/28/19 History Pantoprazole [Protonix] 40 mg PO DAILY 11/17/18 08/28/19 History amLODIPine [Norvasc] 5 mg PO BID 11/17/18 08/28/19 History Aspirin EC [Ecotrin Low Dose] 81 mg PO DAILY 12/30/18 08/28/19 History Donepezil HCl [Aricept] 5 mg PO HS 12/30/18 08/28/19 History Multivitamins, Thera [Multivitamin 1 tab PO DAILY 12/30/18 08/28/19 History (formulary)] Terazosin [Hytrin] 5 mg PO BID 12/30/18 08/28/19 History Ubidecarenone [Co Q-10] 200 mg PO DAILY 12/30/18 08/28/19 History Cholecalciferol [Vitamin D3 (25 5,000 unit PO DAILY 08/16/19 08/28/19 History Mcg = 1000 Iu)] Cyclobenzaprine [Flexeril] 5 mg PO TID PRN 08/16/19 08/28/19 History Diazepam 10 mg PO DAILY PRN 08/16/19 08/28/19 History Loratadine 10 mg PO DAILY 08/16/19 08/28/19 History Vitamin E (Dl,Tocopheryl Acet) 400 unit PO DAILY 08/16/19 08/28/19 History [Vitamin E] buPROPion XL [Wellbutrin XL] 150 mg PO DAILY 08/16/19 08/28/19 History lamoTRIgine [LaMICtal] 25 mg PO DAILY 08/16/19 08/28/19 History Allergies Allergy/AdvReac Type Severity Reaction Status Date / Time No Known Allergies Allergy Verified 08/28/19 07:47 Physical Exam Vitals: Vital Signs Temp Pulse Pulse Resp BP BP Pulse Ox 08/29/19 04:00 87 16 117/71 100 08/29/19 00:00 59 L 08/28/19 20:00 65 16 109/71 96 08/28/19 16:00 97.3 F L 60 20 127/72 97 08/28/19 12:00 65 20 134/89 98 08/28/19 11:25 61 18 137/95 98 08/28/19 10:28 75 18 126/82 98 08/28/19 08:50 81 18 150/109 98 Intake and Output 08/28/19 08/29/19 08/29/19 22:59 06:59 14:59 Other: # Voids 1 2 Weight 122.2 kg On physical examination, patient appears comfortable in no apparent distress. HEAD: Normocephalic, atraumatic. EYES: No scleral icterus. No conjunctival injection. MOUTH: No lesions, tongue midline. NECK: Trachea midline, no gross abnormalities. CHEST: Clear to auscultation with no wheezing or rhonchi appreciated. HEART: Regular rate and rhythm. ABDOMEN: Soft, obese. Bowel sounds are positive. No organomegaly. No guarding o r rigidity. EXTREMITIES: No pedal edema. SKIN: No rashes, no jaundice. NEUROLOGIC: Alert and oriented x3. No focal deficits. Results CBC & Chem 7: 08/28/19 06:33 08/28/19 06:33 Labs: Abnormal Lab Results - Last 24 Hours (Table) 08/28/19 08/28/19 Range/Units 06:33 15:08 APTT 34.1 H (22.0-30.0) sec Triglycerides 250 H (<150) mg/dL HDL Cholesterol 26 L (40-60) mg/dL CT scan - abdomen: report reviewed (computed tomography scan of the abdomen with borderline hepatomegaly and evidence of possible hydropic gallbladder) Assessment and Plan (1) Epigastric pain Narrative/Plan: 48-year-old male who presented to the hospital due to chest and abdominal pain. He does have a history of gastroesophageal reflux disease and is on Protonix daily. He denies any nausea or vomiting. Pain was in the epigastric region and chest with radiation to her shoulder blades. He recently underwent cardiac evaluation including stress test which was negative for any ischemia. It is felt that his chest pain is atypical in nature. At this time unclear if secondary to reflux, functional bowel disorder, musculoskeletal or other etiology. Current Visit: Yes Status: Acute Code(s): R10.13 - EPIGASTRIC PAIN SNOMED Code(s): 55857709 (2) GERD (gastroesophageal reflux disease) Current Visit: Yes Status: Acute Code(s): K21.9 - GASTRO-ESOPHAGEAL REFLUX DISEASE WITHOUT ESOPHAGITIS SNOMED Code(s): 513631449 (3) Chest pain Current Visit: Yes Status: Acute Code(s): R07.9 - CHEST PAIN, UNSPECIFIED SNOMED Code(s): 94018561 Plan: supportive care Okay for diet Nothing by mouth for EGD Upper endoscopy for further evaluation We'll increase Protonix to twice daily Avoid NSAID use Thank you for allowing us to participate in the care of the patient we will c gee to follow
--- NOTE | 2019-08-29 08:26 | P.PCN ---
Date of Procedure: 08/29/19 Description of Procedure: BRIEF HISTORY: 48-year-old male with a medical history significant for hypertension, GERD, hyperlipidemia, anxiety and peripheral neuropathy who presented to the hospital with complaints of chest and epigastric pain. He reports pain starting earlier in the day. He states the pain was in the chest and epigastric region with radiation into his shoulder blades. He does report chronic medications including pantoprazole but is had intermittent episodes of this pain. He was recently admitted to the hospital with a negative cardiac evaluation including a stress test. On current admission is been seen by the cardiology service with feel this pain is atypical in nature. Currently he is denying any nausea or vomiting, change in bowel habits. He denies any prior endoscopic evaluation. PROCEDURE PERFORMED: Esophagogastroduodenoscopy with biopsy. PREOPERATIVE DIAGNOSIS: Epigastric abdominal. ESTIMATED BLOOD LOSS: Minimal. IV sedation per anesthesia. PROCEDURE: After informed consent was obtained, the patient was brought into the endoscopy unit. IV sedation was administered by Anesthesia under continuous monitoring. Initially the Olympus GIF-190 video endoscope was inserted into the mouth. Esophagus intubated without any difficulty. It was gradually advanced into the stomach and duodenum and carefully examined. The bulb and the second part of the duodenum appeared normal, with biopsy. The scope at this time was withdrawn to the stomach, adequately insufflated with air, and upon careful examination, mucosa of the antrum, body, cardia and the fundus appeared normal, except for moderate linear erythema in the antrum suggestive of moderate antritis with biopsies of antrum and body taken. The scope was then withdrawn into the esophagus. The GE junction was located at 45 cm from the incisors, biopsied. The esophagus appeared normal. There were no erosions or ulcerations seen and the patient tolerated the procedure well. IMPRESSION: 1. Moderate antritis, biopsies of antrum and body taken. 2. Biopsies of the duodenum and GE junction. RECOMMENDATIONS: The findings of this examination were discussed with the patient. Okay to resume diet. Would increase Protonix to twice daily. Await pathology from biopsies. Okay for discharge from gastroenterology standpoint if otherwise stable.
[2019-08-29] MEDS ORDERED: MONTELUKAST 10 MG TAB PO SCH (09:00)
[2019-08-29] MEDS ORDERED: ATORVASTATIN 40 MG TAB PO SCH (09:00)
[2019-08-29] MEDS ORDERED: ASPIRIN 81 MG PO SCH (09:00)
[2019-08-29] MEDS ORDERED: lamoTRIgine 25 MG TAB PO SCH (09:00)
[2019-08-29] MEDS ORDERED: CLOPIDOGREL 75 MG TAB PO SCH (09:00)
[2019-08-29] MEDS ORDERED: MULTIVITAMINS, THERA 1 EACH TAB PO SCH (09:00)
[2019-08-29] MEDS ORDERED: LORATADINE 10 MG TAB PO SCH (09:00)
[2019-08-29] MEDS ORDERED: ASPIRIN 325 MG TAB PO SCH (09:00)
[2019-08-29] MEDS ORDERED: buPROPion XL 150 MG TAB.ER.24H PO SCH (09:00)
[2019-08-29] MEDS: amLODIPine 5 MG TAB PO SCH (09:25)
[2019-08-29] MEDS: PANTOPRAZOLE 40 MG TABLET PO SCH (09:26)
--- NOTE | 2019-08-29 11:12 | P.PN ---
Subjective Progress Note Date: 08/29/19 This is a pleasant 48-year-old gentleman with history of hypertension, hyperlipidemia, who initially presented to the hospital with symptoms of epigastric discomfort. He also complains of some discomfort between his shoulder blades. He has no prior documented history of coronary artery disease, he had a cardiac catheterization performed in 2018 which revealed normal coronary arteries at that time. He also recently underwent a stress echo that was negative for any reversible ischemia. Patient was seen yesterday in consultation by Dr. Workman, recommendation was made for a GI consultation. His EKG did not reveal any ischemic changes. Troponins have been negative 3. Patient underwent a CT of the abdomen which did not reveal any acute inflammatory process in chest abdomen or pelvis, borderline hepatomegaly, 17.8 cm, with little attenuation suggesting underlying fatty infiltration. Borderline hydrophilic gallbladder with some layering, may suggest early acute cholecystitis. Patient also underwent an EGD with biopsy which revealed moderate antritis, biopsies of the antrum and body taken. Biopsies of the duodenum and GE junction also taken. Mild epigastric discomfort but does state that it's better than when he came in. He was initiated on some Protonix twice a day. He was also given IV Pepcid. Objective - Vital Signs Vital signs: Vital Signs Temp 97.3 F L 08/28/19 16:00 Pulse 74 08/29/19 08:00 Resp 17 08/29/19 08:00 BP 142/96 08/29/19 08:00 Pulse Ox 99 08/29/19 08:00 Intake & Output 08/28/19 08/29/19 08/29/19 18:59 06:59 18:59 Intake Total 150 Balance 150 Weight 122.2 kg Intake: IV 150 Other: # Voids 1 2 - Exam PHYSICAL EXAMINATION: GENERAL: 48-year-old gentleman in no acute distress at the time of my examination HEENT: Head is atraumatic, normocephalic. Pupils equal, round. Sclera anicter ic. Conjunctiva are clear. Mucous membranes of the mouth are moist. Neck is supple. There is no elevated jugular venous pressure. No carotid bruit is heard. HEART EXAMINATION: Heart S1, S2 normal. No murmur or gallop heard. CHEST EXAMINATION: Lungs are clear to auscultation and precussion. Mild midepigastric tenderness on palpation . ABDOMEN: Soft, nontender. Bowel sounds are heard. No organomegaly noted. EXTREMITIES: 2+ peripheral pulses with no evidence of peripheral edema and no calf tenderness noted. NEUROLOGIC patient is awake, alert and oriented 3 . . - Labs CBC & Chem 7: 08/28/19 06:33 08/28/19 06:33 Labs: Abnormal Lab Results - Last 24 Hours (Table) 08/28/19 08/28/19 Range/Units 06:33 15:08 APTT 34.1 H (22.0-30.0) sec Triglycerides 250 H (<150) mg/dL HDL Cholesterol 26 L (40-60) mg/dL Assessment and Plan Plan: Assessment and plan #1 atypical chest pain, troponins negative 3. EKG shows normal sinus rhythm with no acute changes. Patient had a cardiac catheterization in 2018 which revealed normal coronary arteries, and recently underwent a stress echo which was negative for any reversible ischemia. #2 epigastric discomfort, status post EGD of yesterday which revealed moderate antritis, biopsies of the antrum and body taken. Biopsies also taken of the duodenum and GE junction. Patient started on Protonix twice a day #3 hypertension #4 hyperlipidemia Plan Patient had an echocardiogram with Doppler study performed in December of this year which revealed a normal left ventricular systolic function. From cardiology's perspective, patient may be able to be discharged home once cleared by primary. Appointment in the office post discharge. DNP note has been reviewed, I agree with a documented findings and plan of care. Patient was seen and examined.
[2019-08-29 12:15] VITALS: BP 129/73; PULSE 71; RESP 20
--- NOTE | 2019-08-29 23:22 | P.DS ---
Providers Date of admission: 08/28/19 08:28 Expected date of discharge: 08/29/19 Attending physician: Mike Veronica Consults: 08/28/19 07:56 Consult Physician Urgent Consulting Provider: Jimmy Mckeon Consult Reason/Comments: chest pain Do you want consulting provider notified?: Yes 08/28/19 15:00 Consult Physician Urgent Consulting Provider: Rajni Workman Consult Reason/Comments: Abdominal pain relieved with GI [place] in ER. Do you want consulting provider notified?: Yes Primary care physician: [facility] Course: Chief Complaint: Epigastric pain History of presenting complaint: This is a very pleasant 48-year-old patient originally from [facility]. Chronic stable medical conditions include hypertension, GERD, hyperlipidemia and anxi ety, peripheral neuropathy. In July 2018 patient is an acute LA. Cardiac catheterization did show normal coronaries. Patient was here 2 weeks ago with chest pain. Had a negative stress echocardiogram. Every morning patient takes Protonix. Gets epigastric discomfort. Does feel better with Protonix. Patient is on aspirin and Plavix. This morning patient developed severe pain in the epigastrium. Going to the back.. No fever or chills. No nausea vomiting. Presented to the ER. Patient does not remember when his last EGD. It feels more like a heartburn time. No precordial pain. Patient did undergo EGD. Found to have significant antritis/gastritis. Presentation was not felt to be cardiac. Patient is again counseled heavily about not to smoke. Patient's Plavix is being discontinued. Consultation: Dr. Mares from GI Dr. Hector Workman from cardiology Physical examination: VITAL SIGNS: 97.3, 60, 16, 127% at 2, 97% room air GENERAL: Laying bed, comfortable EYES: Pupils equal. Conjunctiva normal. HEENT: External appearance of nose and ears normal, oral cavity grossly normal. NECK: JVD not raised; masses not palpable. HEART: First and second heart sounds are normal; no edema. LUNGS: Respiratory rate normal; decreased breath sounds ABDOMEN: Soft, some epigastric tenderness, no guarding or rigidity, liver spleen not palpable, no masses palpable. PSYCH: Alert and oriented x3; mood and affect slightly anxious INVESTIGATIONS, reviewed in the clinical context: White count 12.8 hemoglobin 15.6 potassium 4.3 crit 1.09 Troponin I 2 negative EKG tracing personally reviewed by me-normal sinus rhythm Chest x-ray film personally reviewed by me-lung hearn are clear EGD-showing antritis Assessment: -Acute on chronic epigastric pain from acute on chronic gastritis, secondary to patient taking aspirin and Plavix and also smoker.. - acute LA in July 2018 with a negative cardiac catheterization. About 10 days ago patient had a negative stress echocardiogram. -Obesity BMI 36.8 -Essential hypertension -GERD -Hyperlipidemia -Anxiety not otherwise specified -Peripheral neuropathy idiopathic -Chronic nicotine dependence patient cigarette smoker Disposition: Home Patient Condition at Discharge: Stable Plan - Discharge Summary Discharge Rx Participant: No New Discharge Prescriptions: Continue Sertraline [Zoloft] 200 mg PO HS Atorvastatin [Lipitor] 40 mg PO DAILY #30 tablet Montelukast [Singulair] 10 mg PO DAILY ARIPiprazole [Abilify] 10 mg PO HS amLODIPine [Norvasc] 5 mg PO BID Terazosin [Hytrin] 5 mg PO BID Ubidecarenone [Co Q-10] 200 mg PO DAILY Multivitamins, Thera [Multivitamin (formulary)] 1 tab PO DAILY Donepezil HCl [Aricept] 5 mg PO HS Aspirin EC [Ecotrin Low Dose] 81 mg PO DAILY buPROPion XL [Wellbutrin XL] 150 mg PO DAILY Diazepam 10 mg PO DAILY PRN PRN Reason: Anxiety Cholecalciferol [Vitamin D3 (25 Mcg = 1000 Iu)] 5,000 unit PO DAILY lamoTRIgine [LaMICtal] 25 mg PO DAILY Vitamin E (Dl,Tocopheryl Acet) [Vitamin E] 400 unit PO DAILY Loratadine 10 mg PO DAILY Cyclobenzaprine [Flexeril] 5 mg PO TID PRN PRN Reason: Muscle Spasm Changed Pantoprazole [Protonix] 40 mg PO BID #60 tab Discontinued Clopidogrel [Plavix] 75 mg PO DAILY Discharge Medication List Sertraline [Zoloft] 200 mg PO HS 08/15/18 [History] Atorvastatin [Lipitor] 40 mg PO DAILY #30 tablet 08/16/18 [Rx] ARIPiprazole [Abilify] 10 mg PO HS 11/17/18 [History] Montelukast [Singulair] 10 mg PO DAILY 11/17/18 [History] amLODIPine [Norvasc] 5 mg PO BID 11/17/18 [History] Aspirin EC [Ecotrin Low Dose] 81 mg PO DAILY 12/30/18 [History] Donepezil HCl [Aricept] 5 mg PO HS 12/30/18 [History] Multivitamins, Thera [Multivitamin (formulary)] 1 tab PO DAILY 12/30/18 [History] Terazosin [Hytrin] 5 mg PO BID 12/30/18 [History] Ubidecarenone [Co Q-10] 200 mg PO DAILY 12/30/18 [History] Cholecalciferol [Vitamin D3 (25 Mcg = 1000 Iu)] 5,000 unit PO DAILY 08/16/19 [History] Cyclobenzaprine [Flexeril] 5 mg PO TID PRN 08/16/19 [History] Diazepam 10 mg PO DAILY PRN 08/16/19 [History] Loratadine 10 mg PO DAILY 08/16/19 [History] Vitamin E (Dl,Tocopheryl Acet) [Vitamin E] 400 unit PO DAILY 08/16/19 [History] buPROPion XL [Wellbutrin XL] 150 mg PO DAILY 08/16/19 [History] lamoTRIgine [LaMICtal] 25 mg PO DAILY 08/16/19 [History] Pantoprazole [Protonix] 40 mg PO BID #60 tab 08/29/19 [Rx] Follow up Appointment(s)/Referral(s): Jimmy Mckeon MD [STAFF PHYSICIAN] - 09/25/19 9:45 am (Wednesday -previously scheduled appointment) Michael Styles MD [Primary Care Provider] - 09/01/19 8:45 am (Wednesday with PA) Fer Aguero MD [STAFF PHYSICIAN] - 09/26/19 1:45 pm (Wednesday -earliest available appointment) Patient Instructions/Handouts: Gastritis (DC), Upper Endoscopy (DC) Discharge Disposition: HOME SELF-CARE
== END 2019-08-29 13:47 | disposition home or self-care (01) ==
LOC: EC 06:10 → 1SOBS 08:28 → 3SCARD 11:42
PROVIDERS: ADMIT Hospitalist; ATTEND Hospitalist
DX: K29.00 Acute gastritis without bleeding (principal); R07.89 Other chest pain; K29.50 Unspecified chronic gastritis without bleeding; T39.015A Adverse effect of aspirin, initial encounter; T45.525A Adverse effect of antithrombotic drugs, initial encounter; F17.210 Nicotine dependence, cigarettes, uncomplicated; G89.29 Other chronic pain; K21.0 Gastro-esophageal reflux disease with esophagitis; Z68.36 Body mass index [BMI] 36.0-36.9, adult; I10 Essential (primary) hypertension; E66.9 Obesity, unspecified; E78.5 Hyperlipidemia, unspecified; F41.9 Anxiety disorder, unspecified; G60.9 Hereditary and idiopathic neuropathy, unspecified; G47.33 Obstructive sleep apnea (adult) (pediatric); I69.911 Memory deficit following unspecified cerebrovascular disease; I69.951 Hemiplegia and hemiparesis following unspecified cerebrovascular disease affecting right dominant side; Z99.89 Dependence on other enabling machines and devices; G56.03 Carpal tunnel syndrome, bilateral upper limbs; R25.1 Tremor, unspecified; G43.909 Migraine, unspecified, not intractable, without status migrainosus; F43.10 Post-traumatic stress disorder, unspecified; F32.9 Major depressive disorder, single episode, unspecified; I25.2 Old myocardial infarction; Z79.02 Long term (current) use of antithrombotics/antiplatelets; Z79.82 Long term (current) use of aspirin; Z79.899 Other long term (current) drug therapy; Z82.49 Family history of ischemic heart disease and other diseases of the circulatory system
CPT/HCPCS: 96366 ×3; 96376; 96365; 96375; 99285; 36415; 93005; 88305; 80061; 80053; 83690; 83735; 84484; 85025; 85610; 85730; 71046; 71260; 74177; 43239; G0378 ×3; J2250; J1644 ×2; J2001; J3010; J2704; Q9967

== ENCOUNTER 2019-09-02 07:45 | Observation (INO) | payer OTHER, MEDICARE ==
[2019-09-02] MEDS ORDERED: HYDROmorphone 0.5 MG/0.5 ML SYRINGE IVP STA (08:05)
[2019-09-02] MEDS ORDERED: SODIUM CHLORIDE 0.9% 1,000 ML IV STA (08:05)
[2019-09-02] MEDS ORDERED: ONDANSETRON 4 MG/2 ML VIAL IVP STA (08:05)
--- NOTE | 2019-09-02 08:13 | ED ---
Abdominal Pain HPI - General Chief Complaint: Abdominal Pain Stated Complaint: Stomach pain Time Seen by Provider: 09/02/19 07:51 Source: patient, RN notes reviewed Mode of arrival: ambulatory Limitations: no limitations - History of Present Illness Initial Comments: 48-year-old male presents emergency Department chief complaint of right upper quadrant, chest pain. Patient states it woke him up around 4 AM. Patient states severe pain but does wax and wane. Patient states that he was admitted a few days ago for similar complaints for chest pain rule out chest pain observation along with an EGD and biopsies. Patient found to have gastritis no evidence of cancer, there is also evidence of esophagitis. Patient's Protonix was increased to twice a day. Patient denies any back pain. Patient denies any chest pain, shortness breath he does state that he feels pressure stomach states is the way he felt the other day. Patient denies any diarrhea, constipation does admit to nausea vomiting as well. Patient denies any prior cholecystectomy. - Related Data Home Medications Medication Instructions Recorded Confirmed Sertraline [Zoloft] 200 mg PO HS 08/15/18 08/28/19 ARIPiprazole [Abilify] 10 mg PO HS 11/17/18 08/28/19 Montelukast [Singulair] 10 mg PO DAILY 11/17/18 08/28/19 amLODIPine [Norvasc] 5 mg PO BID 11/17/18 08/28/19 Aspirin EC [Ecotrin Low Dose] 81 mg PO DAILY 12/30/18 08/28/19 Donepezil HCl [Aricept] 5 mg PO HS 12/30/18 08/28/19 Multivitamins, Thera [Multivitamin 1 tab PO DAILY 12/30/18 08/28/19 (formulary)] Terazosin [Hytrin] 5 mg PO BID 12/30/18 08/28/19 Ubidecarenone [Co Q-10] 200 mg PO DAILY 12/30/18 08/28/19 Cholecalciferol [Vitamin D3 (25 5,000 unit PO DAILY 08/16/19 08/28/19 Mcg = 1000 Iu)] Cyclobenzaprine [Flexeril] 5 mg PO TID PRN 08/16/19 08/28/19 Diazepam 10 mg PO DAILY PRN 08/16/19 08/28/19 Loratadine 10 mg PO DAILY 08/16/19 08/28/19 Vitamin E (Dl,Tocopheryl Acet) 400 unit PO DAILY 08/16/19 08/28/19 [Vitamin E] buPROPion XL [Wellbutrin XL] 150 mg PO DAILY 08/16/19 08/28/19 lamoTRIgine [LaMICtal] 25 mg PO DAILY 08/16/19 08/28/19 Previous Rx's Medication Instructions Recorded Atorvastatin [Lipitor] 40 mg PO DAILY #30 tablet 08/16/18 Pantoprazole [Protonix] 40 mg PO BID #60 tab 08/29/19 Allergies Allergy/AdvReac Type Severity Reaction Status Date / Time No Known Allergies Allergy Verified 09/02/19 07:46 Review of Systems ROS Statement: Those systems with pertinent positive or pertinent negative responses have been documented in the HPI. ROS Other: All systems not noted in ROS Statement are negative. Past Medical History Past Medical History: Chest Pain / Angina, CVA/TIA, GERD/Reflux, Hyperlipidemia, Hypertension, Memory Impairment, Myocardial Infarction (AR), Sleep Apnea/CPAP/BIPAP Additional Past Medical History / Comment(s): Pt recently admitted to [facility] on 08/16/19 with anterior chest pain. Other hx: CVAs -pt thinks 4 or 5 with R sided weakness, short term memory loss, balance issures/uses a cane, migraines, bilateral hand tremors, HILTON but no longer uses his device stating "it didn't help", occasional low back pain, numbness/tingling bilateral hands/feet, bilateral carpal tunnel syndrome, sinus problems Last Myocardial Infarction Date:: 07/2018 History of Any Multi-Drug Resistant Organisms: None Reported Past Surgical History: Heart Catheterization, Tonsillectomy Additional Past Surgical History / Comment(s): 07/2018 cardiac cath-normal, sinus surgery, colonoscopy, dental extractions. Past Anesthesia/Blood Transfusion Reactions: No Reported Reaction Past Psychological History: Anxiety, Depression, PTSD Smoking Status: Current every day smoker - Past Family History Mother Family Medical History: No Reported History Additional Family Medical History / Comment(s): Mother is healthy Father Family Medical History: Coronary Artery Disease (CAD), Myocardial Infarction (AR) Additional Family Medical History / Comment(s): Father of a AR at the age of 52 yrs. General Exam Limitations: no limitations General appearance: alert, in no apparent distress Head exam: Present: atraumatic, normocephalic, normal inspection ENT exam: Present: normal exam, mucous membranes moist Neck exam: Present: normal inspection, full ROM. Absent: tenderness, meningismus, lymphadenopathy Respiratory exam: Present: normal lung sounds bilaterally. Absent: respiratory distress, wheezes, rales, rhonchi, stridor Cardiovascular Exam: Present: regular rate, normal rhythm, normal heart sounds. Absent: systolic murmur, diastolic murmur, rubs, gallop, clicks GI/Abdominal exam: Present: soft, tenderness (Moderate right upper quadrant epigastric tenderness), normal bowel sounds. Absent: distended, guarding, rebound, rigid Back exam: Absent: CVA tenderness (R), CVA tenderness (L) Neurological exam: Present: alert, oriented X3 Skin exam: Present: warm, dry, intact, normal color. Absent: rash Course Vital Signs 09/02/19 09/02/19 07:46 08:25 Temperature 98 F Pulse Rate 90 71 Respiratory 18 16 Rate Blood Pressure 180/90 138/90 O2 Sat by Pulse 100 99 Oximetry Medical Decision Making - Medical Decision Making Labs, ultrasound and urinalysis were reviewed. SHOWS POSSIBILITY OF ACALCULOUS CHOLECYSTITIS. CASE DISCUSSED WITH DR. HENDERSON WHO WILL ADMIT THE PATIENT ON ANTIBIOTICS, NOTHING BY MOUTH. - Lab Data Result diagrams: 09/02/19 08:03 09/02/19 08:03 Lab Results 09/02/19 09/02/19 09/02/19 Range/Units 08:03 08:03 08:03 WBC 12.5 H (3.8-10.6) k/uL RBC 5.31 (4.30-5.90) m/uL Hgb 15.9 (13.0-17.5) gm/dL Hct 47.6 (39.0-53.0) % MCV 89.6 (80.0-100.0) fL MCH 29.9 (25.0-35.0) pg MCHC 33.4 (31.0-37.0) g/dL RDW 13.1 (11.5-15.5) % Plt Count 277 (150-450) k/uL Neutrophils % 60 % Lymphocytes % 31 % Monocytes % 5 % Eosinophils % 2 % Basophils % 1 % Neutrophils # 7.5 (1.3-7.7) k/uL Lymphocytes # 3.9 (1.0-4.8) k/uL Monocytes # 0.6 (0-1.0) k/uL Eosinophils # 0.2 (0-0.7) k/uL Basophils # 0.1 (0-0.2) k/uL Sodium 141 (137-145) mmol/L Potassium 4.2 (3.5-5.1) mmol/L Chloride 107 (98-107) mmol/L Carbon Dioxide 23 (22-30) mmol/L Anion Gap 11 mmol/L BUN 14 (9-20) mg/dL Creatinine 1.14 (0.66-1.25) mg/dL Est GFR (CKD-EPI)AfAm 89 (>60 ml/min/1.73 sqM) Est GFR (CKD-EPI)NonAf 77 (>60 ml/min/1.73 sqM) Glucose 138 H (74-99) mg/dL Plasma Lactic Acid Fan 1.9 (0.7-2.0) mmol/L Calcium 9.9 (8.4-10.2) mg/dL Total Bilirubin 0.5 (0.2-1.3) mg/dL AST 37 (17-59) U/L ALT 56 (21-72) U/L Alkaline Phosphatase 81 (38-126) U/L Troponin I (0.000-0.034) ng/mL Total Protein 7.4 (6.3-8.2) g/dL Albumin 4.5 (3.5-5.0) g/dL Amylase 105 (30-110) U/L Lipase 152 (23-300) U/L Urine Color Urine Appearance (Clear) Urine pH (5.0-8.0) Ur Specific Murdock (1.001-1.035) Urine Protein (Negative) Urine Glucose (UA) (Negative) Urine Ketones (Negative) Urine Blood (Negative) Urine Nitrite (Negative) Urine Bilirubin (Negative) Urine Urobilinogen (<2.0) mg/dL Ur Leukocyte Esterase (Negative) 09/02/19 09/02/19 Range/Units 08:03 08:54 WBC (3.8-10.6) k/uL RBC (4.30-5.90) m/uL Hgb (13.0-17.5) gm/dL Hct (39.0-53.0) % MCV (80.0-100.0) fL MCH (25.0-35.0) pg MCHC (31.0-37.0) g/dL RDW (11.5-15.5) % Plt Count (150-450) k/uL Neutrophils % % Lymphocytes % % Monocytes % % Eosinophils % % Basophils % % Neutrophils # (1.3-7.7) k/uL Lymphocytes # (1.0-4.8) k/uL Monocytes # (0-1.0) k/uL Eosinophils # (0-0.7) k/uL Basophils # (0-0.2) k/uL Sodium (137-145) mmol/L Potassium (3.5-5.1) mmol/L Chloride (98-107) mmol/L Carbon Dioxide (22-30) mmol/L Anion Gap mmol/L BUN (9-20) mg/dL Creatinine (0.66-1.25) mg/dL Est GFR (CKD-EPI)AfAm (>60 ml/min/1.73 sqM) Est GFR (CKD-EPI)NonAf (>60 ml/min/1.73 sqM) Glucose (74-99) mg/dL Plasma Lactic Acid Fan (0.7-2.0) mmol/L Calcium (8.4-10.2) mg/dL Total Bilirubin (0.2-1.3) mg/dL AST (17-59) U/L ALT (21-72) U/L Alkaline Phosphatase (38-126) U/L Troponin I <0.012 (0.000-0.034) ng/mL Total Protein (6.3-8.2) g/dL Albumin (3.5-5.0) g/dL Amylase (30-110) U/L Lipase (23-300) U/L Urine Color Yellow Urine Appearance Clear (Clear) Urine pH 6.0 (5.0-8.0) Ur Specific [place] 1.019 (1.001-1.035) Urine Protein Negative (Negative) Urine Glucose (UA) Negative (Negative) Urine Ketones Negative (Negative) Urine Blood Negative (Negative) Urine Nitrite Negative (Negative) Urine Bilirubin Negative (Negative) Urine Urobilinogen 2.0 (<2.0) mg/dL Ur Leukocyte Esterase Negative (Negative) Disposition Clinical Impression: Acute acalculous cholecystitis Disposition: ADMITTED IP TO THIS HOSP Condition: Stable Referrals: Michael Styles MD [Primary Care Provider] - 1-2 days
[2019-09-02 08:21] LABS: Basophils # (A) 0.1 k/uL (0-0.2); Basophils % (A) 1 %; Eosinophils # (A) 0.2 k/uL (0-0.7); Eosinophils % (A) 2 %; HCT 47.6 % (39.0-53.0); HGB 15.9 gm/dL (13.0-17.5); Lymphocytes # (A) 3.9 k/uL (1.0-4.8); Lymphocytes % (A) 31 %; MCH 29.9 pg (25.0-35.0); MCHC 33.4 g/dL (31.0-37.0); MCV 89.6 fL (80.0-100.0); Mean Platelet Volume 6.6; Monocytes # (A) 0.6 k/uL (0-1.0); Monocytes % (A) 5 %; Neutrophils # (A) 7.5 k/uL (1.3-7.7); Neutrophils % (A) 60 %; Platelet Count 277 k/uL (150-450); RBC 5.31 m/uL (4.30-5.90); RDW 13.1 % (11.5-15.5); WBC 12.5 k/uL (3.8-10.6)
[2019-09-02 08:29] LABS: Albumin 4.5 g/dL (3.5-5.0); Calcium 9.9 mg/dL (8.4-10.2); Potassium 4.2 mmol/L (3.5-5.1); Total Bilirubin 0.5 mg/dL (0.2-1.3); Total Protein 7.4 g/dL (6.3-8.2)
--- NOTE | 2019-09-02 08:57 | US ---
EXAMINATION TYPE: US gallbladder DATE OF EXAM: 09/02/2019 COMPARISON: Previous study dated 01/27/2019. CLINICAL HISTORY: pain. epigastric pain EXAM MEASUREMENTS: Liver Length: 16.1 cm Gallbladder Wall: 0.2 cm CBD: 0.5 cm Right Kidney: 11.3 x 6.4 x 5.2 cm Pancreas: not well visualized due to midline bowel gas Liver: difficult to penetrate Gallbladder: measures 9.1 cm, no stones seen. Evidence for sonographic Hernandez's sign: Yes CBD: wnl Right Kidney: No hydronephrosis or masses seen Very Limited views of the pancreas are unremarkable. The liver is normal in size without biliary dilatation. It is difficult to penetrate and may be fatty infiltrated. The gallbladder is unremarkable without evidence cholelithiasis. The distal common hepatic duct measu res 5 mm. The gallbladder wall measures 2 mm. There is a positive sonographic Hernandez's sign. Right kidney is unremarkable. IMPRESSION: SLIGHTLY DISTENDED AND TENDER GALLBLADDER WITHOUT DEFINITE CHOLELITHIASIS. CONSIDER ACALCULOUS CHOLEC YSTITIS.
[2019-09-02 09:17] LABS: Appearance,Urine Clear (Clear); Bilirubin,Urine Negative (Negative); Blood,Urine Negative (Negative); Color,Urine Yellow; Glucose,Urine (UA) Negative (Negative); Ketones,Urine Negative (Negative); Leukocyte Esterase,Urine Negative (Negative); Nitrite,Urine Negative (Negative); Protein,Urine Negative (Negative); Specific Gravity,Urine 1.019 (1.001-1.035)
[2019-09-02] MEDS ORDERED: PIPERACILLIN-TAZOBACTAM 3.375 GM in SODIUM CHLORIDE 0.9% 100 ML IVPB STA (10:28)
[2019-09-02] MEDS ORDERED: ONDANSETRON 4 MG/2 ML VIAL IVP PRN (10:29)
[2019-09-02] MEDS ORDERED: NALOXONE 0.4 MG/ML 1 ML VIAL IV PRN (10:29)
[2019-09-02] MEDS ORDERED: HYDROmorphone 0.5 MG/0.5 ML SYRINGE IVP PRN (10:29)
[2019-09-02] MEDS: SODIUM CHLORIDE 0.9% 1,000 ML IV SCH (10:51)
[2019-09-02 11:45] VITALS: BMI 36.7
[2019-09-02] MEDS: HYDROmorphone 1 MG/ML 1 ML SYRINGE IVP PRN ×2 (12:15→23:27)
[2019-09-02] MEDS ORDERED: INDOCYANINE GREEN 25 MG VIAL IV STA (14:51)
--- NOTE | 2019-09-02 14:51 | P.GSHP ---
History of Present Illness H&P Date: 09/02/19 CHIEF COMPLAINT: Cholecystitis HISTORY OF PRESENT ILLNESS: The patient is a 48-year-old male who presented acutely to the emergency room secondary to epigastric and right upper quadrant pain stabbing in nature nature after eating fatty foods. He has previous workup less than one month ago for similar chest pain whereby his complete cardiac workup was unremarkable for acute myocardial infarction. He has a baseline history of previous strokes. He has a family history of gallbladder disease in his grandmother. He had additional studies done in the emergency room now consistent with acute cholecystitis. He has been admitted for acute cholecystitis. PAST MEDICAL HISTORY: Please see list PAST SURGICAL HISTORY: Please see list MEDICATIONS: Please see list ALLERGIES: Denies. SOCIAL HISTORY: Please see list FAMILY HISTORY: Pertinent for gallbladder disease REVIEW OF ORGAN SYSTEMS: CONSTITUTIONAL: No reports of fevers or chills. HEENT: Denies any troubles with the vision or hearing. ENDOCRINE: No reports of hypothyroidism. No diabetes. RESPIRATORY: No recent pneumonias. Has obstructive sleep apnea. CARDIOVASCULAR: Denies chest pain or palpitations GI: No blood in stools or constipation. MUSCULOSKELETAL: Has occasional joint pain including back pain. NEURO: No seizure disorders or headaches. Past transient ischemic attack PSYCH: No depression or suicidal ideation. Has memory impairment. GENITOURINARY: No active blood in urine. No urinary hesitancy. HEMATOLOGIC: No personal or family history of DVTs or pulmonary emboli. SKIN: No skin cancer. PHYSICAL EXAM: VITAL SIGNS: Afebrile vital signs stable GENERAL: Well-developed pleasant in no acute distress. HEENT: No scleral icterus. Extraocular movements grossly intact. Moist buccal mucosa. NECK: Supple without lymphadenopathy. CHEST: Unlabored respirations. Equal bilateral excursions. CARDIOVASCULAR: Regular rate regular rhythm rhythm. Distal 2+ pulses. ABDOMEN: Soft, nondistended. Tender along the epigastrium and right upper quadrant. MUSCULOSKELETAL: No clubbing, cyanosis, or edema. NEURO: Cranial nerves II to XII within normal limits. No focal or lateralizing signs. PSYCH: Alert and oriented to person, place and time. SKIN: Well-perfused good skin turgor. STUDIES: Ultrasound of gallbladder independent review demonstrated taking gallbladder wall consistent with acute cholecystitis. ASSESSMENT: 1. Epigastric and right upper quadrant abdominal pain 2. Acute cholecystitis 3. Symptomatic gallstones. 4. Negative cardiac workup for atypical chest pain PLAN: 1. Will need a robotic cholecystectomy possible open. Benefits and risks were described. 2. Heparin for DVT prophylaxis 5000 units. 3. Antibiotic prophylaxis. Past Medical History Past Medical History: Chest Pain / Angina, CVA/TIA, GERD/Reflux, Hyperlipidemia, Hypertension, Memory Impairment, Myocardial Infarction (HI), Sleep Apnea/CPAP/BIPAP Additional Past Medical History / Comment(s): Pt recently admitted to [facility] on 08/16/19 with anterior chest pain. Other hx: CVAs -pt thinks 4 or 5 with R sided weakness, short term memory loss, balance issures/uses a cane, migraines, bilateral hand tremors, HILTON but no longer uses his device stating "it didn't help", occasional low back pain, numbness/tingling bilateral hands/feet, bilateral carpal tunnel syndrome, sinus problems Last Myocardial Infarction Date:: 07/2018 History of Any Multi-Drug Resistant Organisms: None Reported Past Surgical History: Heart Catheterization, Tonsillectomy Additional Past Surgical History / Comment(s): 07/2018 cardiac cath-normal, sinus surgery, colonoscopy, dental extractions. Past Anesthesia/Blood Transfusion Reactions: No Reported Reaction Past Psychological History: Anxiety, Depression, PTSD Additional Psychological History / Comment(s): Pt resides with his spouse. He uses a cane to ambulate. He drives very little-his spouse drives. He speaks Micronesian quite well. His primary language is Bos[place]ian and prefers literature in [facility]. Smoking Status: Current every day smoker Past Alcohol Use History: None Reported Additional Past Alcohol Use History / Comment(s): Pt started smoking in 1988 and is a half ppd smoker. Past Drug Use History: None Reported - Past Family History Mother Family Medical History: No Reported History Additional Family Medical History / Comment(s): Mother is healthy Father Family Medical History: Coronary Artery Disease (CAD), Myocardial Infarction (HI) Additional Family Medical History / Comment(s): Father of a HI at the age of 52 yrs. Medications and Allergies Home Medications Medication Instructions Recorded Confirmed Type Sertraline [Zoloft] 200 mg PO HS 08/15/18 09/02/19 History Atorvastatin [Lipitor] 40 mg PO DAILY #30 tablet 08/16/18 09/02/19 Rx ARIPiprazole [Abilify] 10 mg PO HS 11/17/18 09/02/19 History Montelukast [Singulair] 10 mg PO DAILY 11/17/18 09/02/19 History amLODIPine [Norvasc] 5 mg PO BID 11/17/18 09/02/19 History Aspirin EC [Ecotrin Low Dose] 81 mg PO DAILY 12/30/18 09/02/19 History Terazosin [Hytrin] 5 mg PO BID 12/30/18 09/02/19 History Cyclobenzaprine [Flexeril] 5 mg PO TID PRN 08/16/19 09/02/19 History Loratadine 10 mg PO DAILY 08/16/19 09/02/19 History buPROPion XL [Wellbutrin XL] 150 mg PO DAILY 08/16/19 09/02/19 History lamoTRIgine [LaMICtal] 25 mg PO DAILY 08/16/19 09/02/19 History Pantoprazole [Protonix] 40 mg PO BID #60 tab 08/29/19 09/02/19 Rx Donepezil HCl [Aricept] 5 mg PO BID 09/02/19 09/02/19 History Allergies Allergy/AdvReac Type Severity Reaction Status Date / Time No Known Allergies Allergy Verified 09/02/19 10:34 Surgical - Exam Vital Signs Temp Pulse Resp BP Pulse Ox 98 F 90 18 180/90 100 09/02/19 07:46 09/02/19 07:46 09/02/19 07:46 09/02/19 07:46 09/02/19 07:46 Results - Labs 09/02/19 08:03 09/02/19 08:03 Abnormal Lab Results - Last 24 Hours (Table) 09/02/19 09/02/19 Range/Units 08:03 08:03 WBC 12.5 H (3.8-10.6) k/uL Glucose 138 H (74-99) mg/dL Diabetes panel 09/02/19 Range/Units 08:03 Sodium 141 (137-145) mmol/L Potassium 4.2 (3.5-5.1) mmol/L Chloride 107 (98-107) mmol/L Carbon Dioxide 23 (22-30) mmol/L BUN 14 (9-20) mg/dL Creatinine 1.14 (0.66-1.25) mg/dL Glucose 138 H (74-99) mg/dL Calcium 9.9 (8.4-10.2) mg/dL AST 37 (17-59) U/L ALT 56 (21-72) U/L Alkaline Phosphatase 81 (38-126) U/L Total Protein 7.4 (6.3-8.2) g/dL Albumin 4.5 (3.5-5.0) g/dL Calcium panel 09/02/19 Range/Units 08:03 Calcium 9.9 (8.4-10.2) mg/dL Albumin 4.5 (3.5-5.0) g/dL Pituitary panel 09/02/19 Range/Units 08:03 Sodium 141 (137-145) mmol/L Potassium 4.2 (3.5-5.1) mmol/L Chloride 107 (98-107) mmol/L Carbon Dioxide 23 (22-30) mmol/L BUN 14 (9-20) mg/dL Creatinine 1.14 (0.66-1.25) mg/dL Glucose 138 H (74-99) mg/dL Calcium 9.9 (8.4-10.2) mg/dL Adrenal panel 09/02/19 Range/Units 08:03 Sodium 141 (137-145) mmol/L Potassium 4.2 (3.5-5.1) mmol/L Chloride 107 (98-107) mmol/L Carbon Dioxide 23 (22-30) mmol/L BUN 14 (9-20) mg/dL Creatinine 1.14 (0.66-1.25) mg/dL Glucose 138 H (74-99) mg/dL Calcium 9.9 (8.4-10.2) mg/dL Total Bilirubin 0.5 (0.2-1.3) mg/dL AST 37 (17-59) U/L ALT 56 (21-72) U/L Alkaline Phosphatase 81 (38-126) U/L Total Protein 7.4 (6.3-8.2) g/dL Albumin 4.5 (3.5-5.0) g/dL Assessment and Plan (1) Acute acalculous cholecystitis Current Visit: Yes Status: Acute Code(s): K81.0 - ACUTE CHOLECYSTITIS SNOMED Code(s): 93843044
[2019-09-02] MEDS ORDERED: SODIUM CHLORIDE 0.9% 2,000 ML IV ONE (14:52)
[2019-09-02] MEDS ORDERED: CYCLOBENZAPRINE 5 MG TAB PO PRN (14:53)
[2019-09-02] MEDS ORDERED: HEPARIN SODIUM,PORCINE 5,000 UNIT/ML 1 ML VIAL SQ ONE (15:00)
[2019-09-02] MEDS ORDERED: ceFAZolin 3 GM in SODIUM CHLORIDE 0.9% 100 ML IVPB ONE (15:00)
[2019-09-02] MEDS ORDERED: LIDOCAINE 1% 20 ML VIAL (10MG/ML) FOR IV START INTRADERMA PRN (16:14)
[2019-09-02] MEDS ORDERED: METOCLOPRAMIDE 5 MG/ML 2 ML VIAL IVP PRN (16:14)
[2019-09-02] MEDS ORDERED: DEXAMETHASONE SOD PHOSPHATE 10 MG/ML 1 ML VIAL IV ONE (16:14)
[2019-09-02] MEDS ORDERED: ONDANSETRON 4 MG/2 ML VIAL IVP ONE (16:14)
[2019-09-02] MEDS ORDERED: LACTATED RINGERS 1,000 ML IV SCH (16:15)
[2019-09-02] MEDS ORDERED: KETOROLAC 30 MG/ML 1 ML VIAL IVP SCH (18:00)
[2019-09-02] MEDS ORDERED: GLYCOPYRROLATE 0.2 MG/ML 2 ML VIAL ONE (18:16)
[2019-09-02] MEDS ORDERED: NEOSTIGMINE 1 MG/ML 10 ML VIAL ONE (18:16)
[2019-09-02] MEDS ORDERED: hydrALAZINE HCL 20 MG/ML 1 ML VIAL ONE (18:16)
[2019-09-02] MEDS ORDERED: PROPOFOL 10 MG/ML 20 ML VIAL IV ONE (18:16)
[2019-09-02] MEDS ORDERED: MIDAZOLAM 2 MG/2 ML VIAL ONE (18:16)
[2019-09-02] MEDS ORDERED: KETOROLAC 30 MG/ML 1 ML VIAL ONE (18:16)
[2019-09-02] MEDS ORDERED: ROCURONIUM BROMIDE 10 MG/ML 10 ML VIAL IV ONE (18:16)
[2019-09-02] MEDS ORDERED: LIDOCAINE 1% INJ 10MG/ML (20 ML MDV) ONE (18:16)
[2019-09-02] MEDS ORDERED: fentaNYL (PF) 50 MCG/ML 2 ML AMP ONE (18:16)
[2019-09-02] MEDS ORDERED: IV FLUID CONTINUATION 800 ML IV ONE (18:18)
[2019-09-02] MEDS ORDERED: BUPIVACAINE (PF) 0.25% 30 ML VIAL SQ ONE (18:45)
[2019-09-02] MEDS ORDERED: LACTATED RINGERS 1,000 ML IV ONE ×3 (19:15→21:00)
[2019-09-02] MEDS ORDERED: ACETAMINOPHEN IV (For NPO) 1,000 MG in EMPTY BAG 1 BAG IVPB ONE (20:12)
[2019-09-02] MEDS ORDERED: ACETAMINOPHEN TAB 325 MG TAB PO PRN (20:12)
[2019-09-02] MEDS ORDERED: HYDROcodone/APAP 5-325MG 1 EACH TAB PO PRN (20:12)
--- NOTE | 2019-09-02 20:12 | P.OP ---
Date of Procedure: 09/02/19 Estimated Blood Loss (ml): 30 Description of Procedure: SURGEON: KUN BEONIT MD PREOPERATIVE DIAGNOSES: 1. Right upper quadrant abdominal pain 2. Acute cholecystitis 3. Gallstones 4. Depressive disorder 5. Seizure disorder 6. Hypertensive heart disease 7. Gastroesophageal reflux disease 8. Chronic obstructive pulmonary disease 9. Hyperlipidemia 10. Memory impairment 11. History of angina 12. History of myocardial infarction 13. Obstructive sleep apnea 14. Morbid obesity due to excess calories, BMI 36.8 15. Anxiety 16. Posttraumatic stress disorder POSTOPERATIVE DIAGNOSES: 1. Right upper quadrant abdominal pain 2. Acute cholecystitis 3. Gallstones 4. Depressive disorder 5. Seizure disorder 6. Hypertensive heart disease 7. Gastroesophageal reflux disease 8. Chronic obstructive pulmonary disease 9. Hyperlipidemia 10. Memory impairment 11. History of angina 12. History of myocardial infarction 13. Obstructive sleep apnea 14. Morbid obesity due to excess calories, BMI 36.8 15. Anxiety 16. Posttraumatic stress disorder 17. Fatty liver disease with hepatomegaly OPERATION: Robotic-assisted da Deloris Xi laparoscopic cholecystectomy, multiport with FIREFLY COMPLICATIONS: None. Anesthesia: GETA local Estimated Blood Loss (ml): 30 Pathology: other (Gallbladder) Condition: stable Disposition: floor Description of Procedure: 1. Moderately distended gallbladder with pericholecystic edema and fluid consistent with acute cholecystitis 2. Moderate inflammation including omental adhesions at the body infundibulum and cystic structures of the gallbladder 3. Indocyanine green used to illuminate gallbladder and cystic duct identified 4. Dome down technique performed for safe removal of gallbladder including critical view obtained 5. Case contaminated INDICATIONS: The patient is a 48-year-old male who presents with cholelcystitis. Surgical intervention with a laparoscopic cholecystectomy was described at length including injury to the biliary tree, bleeding, infection, need for further surgery. Informed consent was obtained. Robotic assisted laparoscopic approach was described. Benefits and risks of the procedure including but not limited to bleeding, infection, injury to the biliary tree was described. Informed consent was obtained. DESCRIPTION OF PROCEDURE: Patient was brought to the operating room, placed in supine position. After general induction, the abdomen had been prepped and draped in standard sterile fashion. The robotic da Deloris XI system was primed. After a timeout protocol was performed, the patient had been prepped and draped in standard sterile fashion. The patient was injected with indocyanine green. A 5 mm 0 degrees laparoscopic trocar entry was performed along the left upper quadrant. The abdomen insufflated to 15 mmHg pressure which was tolerated well. Diagnostic laparoscopy demonstrated no injury to bowel viscera or mesentery. The liver surface was remarkable for fatty liver disease and hepatomegaly. Next, two 8 mm robotic ports were placed along the right upper abdomen. The camera 8- mm port was maintained along the epigastrium. Another 8 mm port was placed along the left upper abdominal wall after exchanging the 5 mm port. Please note that the ports were placed at least 10 to 15 cm away from the target anatomy of the gallbladder. The robot was docked along the left lateral abdomen. The patient was repositioned in reverse Trendelenburg position. Using a grasper for arm 3, a grasper for arm 4, including hook cautery for arm 1, the robotic system was docked and primed as described. Instruments were interchanged by the medical records assistant including hook cautery, Bovie cautery and clip appliers. I had sat at the console. A dome down technique was performed. Features found include moderately distended gallbladder with pericholecystic edema and fluid consistent with acute cholecystitis. Moderate inflammation including omental adhesions at the body, infundibulum and cystic structures of the gallbladder were found. Indocyanine green was used to illuminate the gallbladder and cystic duct that was identified. The dome down technique was performed for safe removal of gallbladder including critical view obtained. The gallbladder fundus was retracted over the dome of the liver. Attention was brought to the infundibulum which was gently retracted in the inferior lateral approach. Using a grasper, the cystic duct including the cystic artery was carefully skeletonized. FIREFLY was used to identify the cystic artery and cystic structures. A critical view of safety was obtained. Large PLASTIC clips were used throughout the entire case. Using a clip community services coordinator 2 clips were placed proximally, and 1 clip was placed between the infundibulum and cystic duct and divided using cautery. Next, the cystic artery was similarly clipped and cauterized. Electro-Bovie cautery was used to remove the gallbladder from the hepatic fossa. Hemostasis was checked and found to be adequate. The robot was undocked. I re-scrubbed into the case. Using a 10 mm Endo Catch bag via the left upper quadrant incision, the specimen was removed from the abdominal cavity. All pneumoperitoneum instruments were evacuated from the abdominal cavity. The incisions were reapproximated using 4-0 Monocryl in an interrupted subcuticular fashion. The fascia on the left upper quadrant was widened 2 to 3 cm to accommodate the removal of large gallbladder. Lauri Mendes and 0 Vicryl was used to close the fascia. Please note along the trocar sites, local anesthetic was placed as a field block prior to insertion of all instruments. Liquid glue was applied to the skin. At the end of the procedure needle, sponge, and instrument count had been verified correct by the surgical corsetier. The patient was transferred to postanesthesia care unit in stable condition. Intraoperative films were shared with the patient's family who were very pleased with the level of care.
[2019-09-02] MEDS: HYDROmorphone 0.5 MG/0.5 ML SYRINGE IVP PRN ×2 (20:22→20:29)
[2019-09-02] MEDS ORDERED: PROMETHAZINE INJ 25 MG/ML 1 ML VIAL IVPB ONE (20:38)
[2019-09-02] MEDS ORDERED: DEXAMETHASONE SOD PHOSPHATE 10 MG/ML 1 ML VIAL IV PRN (20:45)
[2019-09-02] MEDS ORDERED: SERTRALINE 100 MG TAB PO SCH (21:00)
[2019-09-02] MEDS ORDERED: SCOPOLAMINE 1.5MG/72HR PATCH TRANSDERM SCH (21:00)
[2019-09-02] MEDS ORDERED: ARIPiprazole 10 MG TAB PO SCH (21:00)
[2019-09-02] MEDS ORDERED: PANTOPRAZOLE 40 MG/10 ML VIAL IV SCH (21:00)
[2019-09-02] MEDS: PANTOPRAZOLE 40 MG TABLET PO SCH (21:09)
[2019-09-02] MEDS: PIPERACILLIN-TAZOBACTAM 3.375 GM in SODIUM CHLORIDE 0.9% 100 ML IVPB SCH (21:39)
[2019-09-02] MEDS: amLODIPine 5 MG TAB PO SCH (22:20)
[2019-09-02] MEDS: DONEPEZIL 5 MG TAB PO SCH (22:20)
[2019-09-02] MEDS: DEXAMETHASONE SOD PHOSPHATE 4 MG/ML 1 ML VIAL IV SCH (23:24)
[2019-09-03] MEDS ORDERED: DEXAMETHASONE SOD PHOSPHATE 4 MG/ML 1 ML VIAL IV SCH
[2019-09-03] MEDS: SODIUM CHLORIDE 0.9% 1,000 ML IV SCH ×2 (01:06→14:43)
[2019-09-03 02:22] VITALS: RESP 16
[2019-09-03] MEDS: PIPERACILLIN-TAZOBACTAM 3.375 GM in SODIUM CHLORIDE 0.9% 100 ML IVPB SCH ×2 (04:13→14:42)
[2019-09-03] MEDS: HYDROmorphone 1 MG/ML 1 ML SYRINGE IVP PRN (04:18)
[2019-09-03] MEDS: DEXAMETHASONE SOD PHOSPHATE 4 MG/ML 1 ML VIAL IV SCH ×2 (05:35→14:42)
[2019-09-03 07:28] LABS: Basophils % (A) 0 %; Eosinophils % (A) 0 %; HCT 44.8 % (39.0-53.0); HGB 14.8 gm/dL (13.0-17.5); Lymphocytes # (A) 0.9 k/uL (1.0-4.8); Lymphocytes % (A) 9 %; MCH 30.1 pg (25.0-35.0); MCV 91.2 fL (80.0-100.0); Mean Platelet Volume 6.5; Monocytes # (A) 0.1 k/uL (0-1.0); Monocytes % (A) 1 %; Neutrophils # (A) 9.1 k/uL (1.3-7.7); Neutrophils % (A) 90 %; Platelet Count 255 k/uL (150-450); RBC 4.91 m/uL (4.30-5.90); RDW 13.2 % (11.5-15.5); WBC 10.2 k/uL (3.8-10.6)
[2019-09-03 07:38] LABS: Calcium 9.6 mg/dL (8.4-10.2); Potassium 4.6 mmol/L (3.5-5.1); Total Bilirubin 0.9 mg/dL (0.2-1.3); Total Protein 6.9 g/dL (6.3-8.2)
[2019-09-03] MEDS ORDERED: TAMSULOSIN 0.4 MG CAP.ER.24H PO SCH (08:30)
[2019-09-03] MEDS: PANTOPRAZOLE 40 MG TABLET PO SCH (08:44)
[2019-09-03] MEDS: DONEPEZIL 5 MG TAB PO SCH (08:46)
[2019-09-03] MEDS: ASPIRIN 81 MG PO SCH ×2 (08:46→08:47)
[2019-09-03] MEDS: amLODIPine 5 MG TAB PO SCH (08:47)
[2019-09-03] MEDS ORDERED: LORATADINE 10 MG TAB PO SCH (09:00)
[2019-09-03] MEDS ORDERED: buPROPion XL 150 MG TAB.ER.24H PO SCH (09:00)
[2019-09-03] MEDS ORDERED: DOXAZOSIN 4 MG TAB PO SCH (09:00)
[2019-09-03] MEDS ORDERED: MONTELUKAST 10 MG TAB PO SCH (09:00)
[2019-09-03] MEDS ORDERED: lamoTRIgine 25 MG TAB PO SCH (09:00)
[2019-09-03] MEDS ORDERED: ENOXAPARIN 30 MG/0.3 ML SYRINGE SQ SCH (09:00)
[2019-09-03] MEDS ORDERED: ATORVASTATIN 40 MG TAB PO SCH (09:00)
[2019-09-03 10:17] VITALS: BP 127/71; PULSE 95; TEMP 98.2
--- NOTE | 2019-09-03 10:59 | P.PN ---
Subjective Progress Note Date: 09/03/19 CHIEF COMPLAINT: Acute hydrops cholecystitis HISTORY OF PRESENT ILLNESS: The patient is a 48-year-old male postop day 1 status post cholecystectomy for acute cholecystitis. "I feel very good today." Moderate improvement of right upper quadrant epigastric abdominal pain compared to yesterday. He only complains of mild incisional pain of the left upper quadrant to be expected. He only required 1 dose of pain meds. Nausea completely resolved. He is urinating and ambulating. He's tolerating diet. He wants to go home. ROS: No reports of nausea and vomiting. No bowel movements. No fevers or ch ills. No new chest pain. No productive sputum PHYSICAL EXAM: VITAL SIGNS: Reviewed CONSTITUTIONAL: Well developed and in no acute distress. EYES: Conjuctivae without sclera icterus. Extraocular movements grossly intact. HEAD, EARS, NOSE, THROAT: Moist buccal mucosa. Head is atraumatic, normo cephalic. Hears conversational speech. No nasal drainage. NECK: Supple. No thyroidomegaly. RESPIRATORY: Non-labored respirations and equal bilateral excursions. CARDIOVASCULAR: Palpable 2+ radial pulses. ABDOMEN: Dressing clean dry and intact. Minimal tenderness left upper quadrant to be expected. MUSCULOSKELETAL: No gross deformity of the lower extremities noted. No clubbing. No cyanosis. SKIN: Good skin turgor. Well perfused. NEUROLOGIC: Cranial nerves I through XII grossly intact. No focal or lateralizing signs. PSYCH: Appropriate affect. Alert and oriented to person, place and time. LABS: Reviewed with mild elevation of AST ALT and liver enzymes. ASSESSMENT: 1. Acute cholecystitis with cystic duct obstruction PLAN: 1. Continue IV antibiotics. 2. February discharge after lunch. 3. Dressing instructions including follow-up in the office in 48-72 hours described. Objective - Vital Signs Vital signs: Vital Signs Temp 98.2 F 09/03/19 07:00 Pulse 95 09/03/19 07:00 Resp 16 09/03/19 07:00 BP 127/71 09/03/19 07:00 Pulse Ox 96 09/03/19 07:00 Intake & Output 09/02/19 09/03/19 09/03/19 18:59 06:59 18:59 Intake Total 1050 1000 750 Output Total 95 Balance 1050 905 750 Weight 122.924 kg Intake: IV 900 1000 Intake, IV Titration 150 750 Amount Sodium Chloride 0.9% 1, 150 750 000 ml @ 75 mls/hr IV . [id number] [facility] Rx#:[id number] Output: Urine 75 Estimated Blood Loss 20 Other: # Voids 2 2 - Labs CBC & Chem 7: 09/03/19 06:27 09/03/19 06:27 Labs: Abnormal Lab Results - Last 24 Hours (Table) 09/03/19 09/03/19 Range/Units 06:27 06:27 Neutrophils # 9.1 H (1.3-7.7) k/uL Lymphocytes # 0.9 L (1.0-4.8) k/uL Chloride 108 H (98-107) mmol/L Glucose 119 H (74-99) mg/dL AST 63 H (17-59) U/L ALT 121 H (21-72) U/L Assessment and Plan (1) Acute acalculous cholecystitis Status: Acute Code(s): K81.0 - ACUTE CHOLECYSTITIS SNOMED Code(s): 03947859 (2) Morbid obesity due to excess calories Status: Acute Code(s): E66.01 - MORBID (SEVERE) OBESITY DUE TO EXCESS CALORIES SNOMED Code(s): 493758899 (3) BMI 36.0-36.9,adult Status: Acute Code(s): Z68.36 - BODY MASS INDEX (BMI) 36.0-36.9, ADULT SN OMED Code(s): 057278858 (4) Fatty liver Status: Acute Code(s): K76.0 - FATTY (CHANGE OF) LIVER, NOT ELSEWHERE CLASSIFI ED SNOMED Code(s): 903113561 (5) Hepatomegaly Status: Acute Code(s): R16.0 - HEPATOMEGALY, NOT ELSEWHERE CLASSIFIED SNOMED Code(s): 46105345 (6) Depression Status: Acute Code(s): F32.9 - MAJOR DEPRESSIVE DISORDER, SINGLE EPISODE, UNSPECIFIED SNOMED Code(s): 84801085 (7) Epigastric pain Status: Acute Code(s): R10.13 - EPIGASTRIC PAIN SNOMED Code(s): 16792391 (8) GERD (gastroesophageal reflux disease) Status: Acute Code(s): K21.9 - GASTRO-ESOPHAGEAL REFLUX DISEASE WITHOUT ESOPHAGITIS SNOMED Code(s): 714244839 (9) Hyperlipidemia Status: Acute Code(s): E78.5 - HYPERLIPIDEMIA, UNSPECIFIED SNOMED Code(s): 64216644
--- NOTE | 2019-09-03 11:05 | P.DS ---
Providers Date of admission: 09/02/19 10:29 Expected date of discharge: 09/03/19 Attending physician: Lisbeth Boykin Primary care physician: Michael Styles - Discharge Diagnosis(es) (1) Acute acalculous cholecystitis Status: Acute (2) BMI 36.0-36.9,adult Status: Acute (3) Chest pain Status: Acute (4) Epigastric pain Status: Acute (5) Fatty liver Status: Acute (6) GERD (gastroesophageal reflux disease) Status: Acute (7) Hepatomegaly Status: Acute (8) Hyperlipidemia Status: Acute (9) Hypertension Status: Acute (10) Morbid obesity due to excess calories Status: Acute Hospital Course: POSTOPERATIVE DIAGNOSES: 1. Right upper quadrant abdominal pain 2. Acute cholecystitis 3. Gallstones 4. Depressive disorder 5. Seizure disorder 6. Hypertensive heart disease 7. Gastroesophageal reflux disease 8. Chronic obstructive pulmonary disease 9. Hyperlipidemia 10. Memory impairment 11. History of angina 12. History of myocardial infarction 13. Obstructive sleep apnea 14. Morbid obesity due to excess calories, BMI 36.8 15. Anxiety 16. Posttraumatic stress disorder 17. Fatty liver disease with hepatomegaly COURSE: The patient is a 48-year-old male who presented with acute cholelcystiti s. He underwent robotic cholecystectomy for acute cholecystitis. Post op, he was tolerating diet. He was able to ambulate. Pain was controlled. Procedures: OPERATION: Robotic-assisted da Deloris Xi laparoscopic cholecystectomy, multiport with FIREFLY Patient Condition at Discharge: Stable Plan - Discharge Summary Discharge Rx Participant: Yes New Discharge Prescriptions: New Ibuprofen [Motrin] 600 mg PO Q8HR PRN #30 tab PRN Reason: Pain Acetaminophen [Tylenol] 325 mg PO Q4H #30 tab Continue Sertraline [Zoloft] 200 mg PO HS Atorvastatin [Lipitor] 40 mg PO DAILY #30 tablet Montelukast [Singulair] 10 mg PO DAILY ARIPiprazole [Abilify] 10 mg PO HS amLODIPine [Norvasc] 5 mg PO BID Terazosin [Hytrin] 5 mg PO BID Aspirin EC [Ecotrin Low Dose] 81 mg PO DAILY buPROPion XL [Wellbutrin XL] 150 mg PO DAILY lamoTRIgine [LaMICtal] 25 mg PO DAILY Loratadine 10 mg PO DAILY Cyclobenzaprine [Flexeril] 5 mg PO TID PRN PRN Reason: Muscle Spasm Pantoprazole [Protonix] 40 mg PO BID #60 tab Donepezil HCl [Aricept] 5 mg PO BID Discharge Medication List Sertraline [Zoloft] 200 mg PO HS 08/15/18 [History] Atorvastatin [Lipitor] 40 mg PO DAILY #30 tablet 08/16/18 [Rx] ARIPiprazole [Abilify] 10 mg PO HS 11/17/18 [History] Montelukast [Singulair] 10 mg PO DAILY 11/17/18 [History] amLODIPine [Norvasc] 5 mg PO BID 11/17/18 [History] Aspirin EC [Ecotrin Low Dose] 81 mg PO DAILY 12/30/18 [History] Terazosin [Hytrin] 5 mg PO BID 12/30/18 [History] Cyclobenzaprine [Flexeril] 5 mg PO TID PRN 08/16/19 [History] Loratadine 10 mg PO DAILY 08/16/19 [History] buPROPion XL [Wellbutrin XL] 150 mg PO DAILY 08/16/19 [History] lamoTRIgine [LaMICtal] 25 mg PO DAILY 08/16/19 [History] Pantoprazole [Protonix] 40 mg PO BID #60 tab 08/29/19 [Rx] Donepezil HCl [Aricept] 5 mg PO BID 09/02/19 [History] Acetaminophen [Tylenol] 325 mg PO Q4H #30 tab 09/03/19 [Rx] Ibuprofen [Motrin] 600 mg PO Q8HR PRN #30 tab 09/03/19 [Rx] Follow up Appointment(s)/Referral(s): Michael Styles MD [Primary Care Provider] - 1-2 days (Office closed at time of discharge. Please call to make appointment) Lisbeth Boykin MD [STAFF PHYSICIAN] - 09/05/19 (office closed at tiem of discharge. Please call to make appointment.) Patient Instructions/Handouts: Cholecystitis (GEN), Laparoscopic Cholecystectomy (DC) Activity/Diet/Wound Care/Special Instructions: No lifting over 10 pounds in 2 weeks, until September 16. May shower. No bath tub soaks until September 16. Diet as tolerated. DO NOT REMOVE DRESSING. Surgeon to remove in office WednesdaySep 05. Discharge Disposition: HOME SELF-CARE
== END 2019-09-03 13:37 | disposition home or self-care (01) ==
LOC: EC 07:45 → 4SSUR 10:29
PROVIDERS: ADMIT Surgery Plastic and Reconstructive Surgery; ATTEND Surgery Plastic and Reconstructive Surgery
DX: K81.2 Acute cholecystitis with chronic cholecystitis (principal); K83.1 Obstruction of bile duct; I11.9 Hypertensive heart disease without heart failure; I25.10 Atherosclerotic heart disease of native coronary artery without angina pectoris; K82.1 Hydrops of gallbladder; K66.0 Peritoneal adhesions (postprocedural) (postinfection); K29.70 Gastritis, unspecified, without bleeding; K21.0 Gastro-esophageal reflux disease with esophagitis; E78.5 Hyperlipidemia, unspecified; G47.33 Obstructive sleep apnea (adult) (pediatric); G40.909 Epilepsy, unspecified, not intractable, without status epilepticus; J44.9 Chronic obstructive pulmonary disease, unspecified; R25.1 Tremor, unspecified; G43.909 Migraine, unspecified, not intractable, without status migrainosus; G56.03 Carpal tunnel syndrome, bilateral upper limbs; I69.951 Hemiplegia and hemiparesis following unspecified cerebrovascular disease affecting right dominant side; I69.911 Memory deficit following unspecified cerebrovascular disease; F43.10 Post-traumatic stress disorder, unspecified; F32.9 Major depressive disorder, single episode, unspecified; F17.210 Nicotine dependence, cigarettes, uncomplicated; K76.0 Fatty (change of) liver, not elsewhere classified; Z99.89 Dependence on other enabling machines and devices; Z68.36 Body mass index [BMI] 36.0-36.9, adult; E66.01 Morbid (severe) obesity due to excess calories; R20.2 Paresthesia of skin; R20.0 Anesthesia of skin; Z79.82 Long term (current) use of aspirin; Z79.899 Other long term (current) drug therapy; I25.2 Old myocardial infarction; Z82.49 Family history of ischemic heart disease and other diseases of the circulatory system; Z83.79 Family history of other diseases of the digestive system
CPT/HCPCS: 47562; S2900; 36415; 76705; 80053; 81003; 82150; 83605; 83690; 84484; 85025; 88304; 96361; 96372; 96374; 96375; 99285

== ENCOUNTER → 2020-10-31 | Outpatient (CLI) | payer OTHER, MEDICARE ==
[2020-10-31 18:07] LABS: African American GFR (CKD) 91.5 (60.0-200.0); Anion Gap 9.1 mmol/L (4.00-12.00); BUN/Creat Ratio 14.55 Ratio (12.00-20.00); Calcium 9.2 mg/dL (8.7-10.3); Carbon Dioxide 22.9 mmol/L (21.6-31.8); Potassium 4.2 mmol/L (3.5-5.5)
== END | disposition home or self-care (01) ==
LOC: LABWHC1 08:31
PROVIDERS: ATTEND Nurse Practitioner Adult Health
DX: I10 Essential (primary) hypertension (principal)
CPT/HCPCS: 36415; 80048; 83735

== ENCOUNTER 2021-02-22 23:41 | Observation (INO) | payer OTHER, MEDICARE ==
[2021-02-22] MEDS ORDERED: NITROGLYCERIN SL TABS 0.4 MG TAB SUBLINGUAL STA (23:55)
[2021-02-22] MEDS ORDERED: ASPIRIN 81 MG PO STA (23:55)
[2021-02-23] MEDS ORDERED: METOPROLOL TARTRATE 25 MG TAB PO STA (00:15)
--- NOTE | 2021-02-23 00:15 | ED ---
Chest Pain HPI - General Chief Complaint: Chest Pain Stated Complaint: Chest pain Time Seen by Provider: 02/22/21 23:49 Source: patient Mode of arrival: wheelchair Limitations: no limitations - History of Present Illness Initial Comments: Patient is a 50-year-old man with history of previous OR/stenting. He presents with a couple of days of progressive substernal and left chest discomfort. He notes that he has some exertional dyspnea. Tonight he was also having some sweating and nausea associated. MD Complaint: chest pain Onset/Timin -: days(s) Onset: during rest Pain Location: substernal, left chest Pain Radiation: none Severity: moderate Quality: tightness Consistency: constant Improves With: nothing Worsens With: exertion Anginal Symptoms: nausea, diaphoresis, dyspnea Treatments Prior to Arrival: none - Related Data Home Medications Medication Instructions Recorded Confirmed Montelukast [Singulair] 10 mg PO DAILY 11/17/18 02/23/21 Loratadine 10 mg PO DAILY 08/16/19 02/23/21 Atorvastatin [Lipitor] 80 mg PO HS 02/23/21 02/23/21 Clopidogrel Bisulfate [Plavix] 75 mg PO DAILY 02/23/21 02/23/21 DULoxetine HCL [Cymbalta] 60 mg PO DAILY 02/23/21 02/23/21 Fluocinolone Acetonide [Lidex Soln] 1 applic TOPICAL HS PRN 02/23/21 02/23/21 Ketoconazole 2% Shampoo [Nizoral] 1 applic TOPICAL Q48H 02/23/21 02/23/21 Labetalol HCl [Trandate] 300 mg PO BID 02/23/21 02/23/21 Valsartan/Hydrochlorothiazide 1 tab PO DAILY 02/23/21 02/23/21 [Valsartan-Hctz 320-25 mg Tab] Vitamin D3(Unknown) 1 tab PO DAILY 02/23/21 02/23/21 lamoTRIgine [LaMICtal Xr] 50 mg PO BID 02/23/21 02/23/21 Previous Rx's Medication Instructions Recorded Pantoprazole [Protonix] 40 mg PO BID #60 tab 08/29/19 Allergies Allergy/AdvReac Type Severity Reaction Status Date / Time No Known Allergies Allergy Verified 02/23/21 08:24 Review of Systems ROS Statement: Those systems with pertinent positive or pertinent negative responses have been documented in the HPI. ROS Other: All systems not noted in ROS Statement are negative. Constitutional: Denies: fever, chills Respiratory: Reports: dyspnea. Denies: cough Cardiovascular: Reports: chest pain, dyspnea on exertion. Denies: palpitations, edema, syncope Gastrointestinal: Reports: nausea. Denies: abdominal pain, vomiting, diarrhea, melena, hematochezia Genitourinary: Denies: dysuria, hematuria Musculoskeletal: Denies: back pain Skin: Denies: rash Neurological: Denies: headache, weakness, numbness EKG Findings - EKG Results: EKG: interpreted by ERMD, sinus rhythm (Rate 88 bpm), normal axis, normal QRS, normal ST/T, no acute changes Past Medical History Past Medical History: Chest Pain / Angina, CVA/TIA, GERD/Reflux, Hyperlipidemia, Hypertension, Memory Impairment, Myocardial Infarction (OR), Sleep Apnea/CPAP/BIPAP Additional Past Medical History / Comment(s): Pt recently admitted to [facility] on 08/16/19 with anterior chest pain. Other hx: CVAs -pt thinks 4 or 5 with R sided weakness, short term memory loss, balance issures/uses a cane, migraines, bilateral hand tremors, [place] but no longer uses his device stating "it didn't help", occasional low back pain, numbness/tingling bilateral hands/feet, bilateral carpal tunnel syndrome, sinus problems Last Myocardial Infarction Date:: 07/2018 History of Any Multi-Drug Resistant Organisms: None Reported Past Surgical History: Cholecystectomy, Heart Catheterization, Tonsillectomy Additional Past Surgical History / Comment(s): 07/2018 cardiac cath-normal, sinus surgery, colonoscopy, dental extractions. Past Anesthesia/Blood Transfusion Reactions: No Reported Reaction Past Psychological History: Anxiety, Depression, PTSD Smoking Status: Former smoker Past Alcohol Use History: None Reported Past Drug Use History: None Reported - Past Family History Mother Family Medical History: No Reported History Additional Family Medical History / Comment(s): Mother is healthy Father Family Medical History: Coronary Artery Disease (CAD), Myocardial Infarction (OR) Additional Family Medical History / Comment(s): Father of a OR at the age of 52 yrs. General Exam Limitations: no limitations General appearance: alert, in no apparent distress Head exam: Present: atraumatic, normocephalic Eye exam: Present: normal appearance. Absent: scleral icterus, conjunctival injection ENT exam: Present: normal oropharynx Neck exam: Present: normal inspection Respiratory exam: Present: normal lung sounds bilaterally. Absent: respiratory distress, wheezes, rales, rhonchi, stridor Cardiovascular Exam: Present: regular rate, normal rhythm, normal heart sounds. Absent: systolic murmur, diastolic murmur, rubs, gallop GI/Abdominal exam: Present: soft. Absent: distended, tenderness, guarding, rebound, rigid, mass Extremities exam: Present: normal inspection, normal capillary refill. Absent: pedal edema, calf tenderness Back exam: Present: normal inspection Neurological exam: Present: alert Skin exam: Present: warm, dry, intact, normal color. Absent: rash Course Vital Signs 02/22/21 02/23/21 02/23/21 23:45 01:47 02:12 Temperature 97.8 F Pulse Rate 102 H 80 Respiratory 18 18 16 Rate Blood Pressure 183/124 129/83 O2 Sat by Pulse 97 98 98 Oximetry Disposition Clinical Impression: Chest pain, COVID-19 Disposition: ADMITTED IP TO THIS HOSP Condition: Stable
[2021-02-23 00:16] LABS: Basophils # (A) 0.1 k/uL (0-0.2); Basophils % (A) 1 %; Eosinophils # (A) 0.2 k/uL (0-0.7); Eosinophils % (A) 2 %; HCT 44.3 % (39.0-53.0); HGB 15.7 gm/dL (13.0-17.5); Lymphocytes # (A) 4.7 k/uL (1.0-4.8); Lymphocytes % (A) 39 %; MCH 31.8 pg (25.0-35.0); MCHC 35.5 g/dL (31.0-37.0); MCV 89.7 fL (80.0-100.0); Mean Platelet Volume 6.9; Monocytes # (A) 0.7 k/uL (0-1.0); Monocytes % (A) 6 %; Neutrophils # (A) 6.4 k/uL (1.3-7.7); Neutrophils % (A) 53 %; Platelet Count 257 k/uL (150-450); RBC 4.94 m/uL (4.30-5.90); RDW 12.8 % (11.5-15.5); WBC 12.1 k/uL (3.8-10.6)
[2021-02-23] MEDS ORDERED: MORPHINE SULFATE 4 MG/ML SYRINGE IV STA (00:16)
[2021-02-23 00:30] LABS: Albumin 4.5 g/dL (3.5-5.0); Calcium 10.1 mg/dL (8.4-10.2); Potassium 4.1 mmol/L (3.5-5.1); Total Bilirubin 0.3 mg/dL (0.2-1.3); Total Protein 7.4 g/dL (6.3-8.2)
--- NOTE | 2021-02-23 00:34 | XR ---
EXAM: XR Chest, 2 Views CLINICAL HISTORY: ITS.REASON XR Reason: Chest Pain TECHNIQUE: Frontal and lateral views of the chest. COMPARISON: 10/09/2020. FINDINGS: Lungs: No consolidative change or pleural Pleural space: Unremarkable. No pneumothorax. Heart: Cardiomediastinal silhouette unremarkable. Mediastinum: See above. Bones/joints: Osteopenia. Mild to moderate degenerative disc disease of the thoracic spine. Other findings: Mild hypoaeration. IMPRESSION: 1. Mild hypoaeration. 2. No active disease. 3. Osteopenia.
[2021-02-23] MEDS ORDERED: NITROGLYCERIN OINT 1 INCH/GM PACKET TOPICAL STA (01:28)
[2021-02-23 01:31] LABS: D-Dimer 0.34 mg/L FEU (<0.60); Partial Thromboplastin Time 24.2 sec (22.0-30.0); Prothrombin Time 10.3 sec (9.0-12.0)
[2021-02-23] MEDS ORDERED: NITROGLYCERIN SL TABS 0.4 MG TAB SUBLINGUAL PRN (01:57)
--- NOTE | 2021-02-23 02:59 | P.HPIM ---
History of Present Illness H&P Date: 02/23/21 Patient is a 50-year-old male with a PMH of coronary artery disease status post [place] 1 stent (2017), history of CVA with residual right-sided deficits (2013), hypertension, and hyperlipidemia who presented to the emergency room with complaints of chest pain. The patient reports that he initially noticed a substernal sharp and pressure-like discomfort 3 days ago gradually worsened. He reports that today, he noticed that the pain was constant, 7 out of 10, nonradiating, with associated shortness of breath. He notes that his symptoms are far milder than his initial AZ and somewhat different since there is also a sharp nature to his chest discomfort. Patient also noted that roughly 10 days ago he had 1-2 days of mild to moderate right upper quadrant abdominal pain which resolved spontaneously. He denied alleviating or exacerbating features to the pain. Denied additional complaints. Denied dizziness, weakness, numbness, tingling. Denied fever, chills, cough, abdominal pain, diarrhea. He underwent an extensive evaluation in the emergency room with EKG showing normal sinus rhythm at [address]/T-wave changes noted as reviewed by me. Chest x-ray revealed a mild hypoaeration with osteopenia with no acute intrathoracic abnormalities. Laboratory evaluation was remarkable for WBC count 12.1, ALT 54, troponin less than 0.012, d-dimer 0.34, and lipase 328. Review of Systems Pertinent positives and negatives as discussed in HPI, a complete review of systems was performed and all other systems are negative. Past Medical History Past Medical History: Chest Pain / Angina, CVA/TIA, GERD/Reflux, Hyperlipidemia, Hypertension, Memory Impairment, Myocardial Infarction ([place]), Sleep Apnea/CPAP/BIPAP Additional Past Medical History / Comment(s): Pt recently admitted to [facility] on 08/16/19 with anterior chest pain. Other hx: CVAs -pt thinks 4 or 5 with R sided weakness, short term memory loss, balance issures/uses a cane, migraines, bilateral hand tremors, HILTON but no longer uses his device stating "it didn't help", occasional low back pain, numbness/tingling bilateral hands/feet, bilateral carpal tunnel syndrome, sinus problems Last Myocardial Infarction Date:: 07/2018 History of Any Multi-Drug Resistant Organisms: None Reported Past Surgical History: Cholecystectomy, Heart Catheterization, Tonsillectomy Additional Past Surgical History / Comment(s): 07/2018 cardiac cath-normal, sinus surgery, colonoscopy, dental extractions. Past Anesthesia/Blood Transfusion Reactions: No Reported Reaction Past Psychological History: Anxiety, Depression, PTSD Smoking Status: Former smoker Past Alcohol Use History: None Reported Past Drug Use History: None Reported - Past Family History Mother Family Medical History: No Reported History Additional Family Medical History / Comment(s): Mother is healthy Father Family Medical History: Coronary Artery Disease (CAD), Myocardial Infarction ([place]) Additional Family Medical History / Comment(s): Father of a [place] at the age of 52 yrs. Medications and Allergies Home Medications Medication Instructions Recorded Confirmed Type Sertraline [Zoloft] 200 mg PO HS 08/15/18 09/02/19 History Atorvastatin [Lipitor] 40 mg PO DAILY #30 tablet 08/16/18 09/02/19 Rx ARIPiprazole [Abilify] 10 mg PO HS 11/17/18 09/02/19 History Montelukast [Singulair] 10 mg PO DAILY 11/17/18 09/02/19 History amLODIPine [Norvasc] 5 mg PO BID 11/17/18 09/02/19 History Aspirin EC [Ecotrin Low Dose] 81 mg PO DAILY 12/30/18 09/02/19 History Terazosin [Hytrin] 5 mg PO BID 12/30/18 09/02/19 History Cyclobenzaprine [Flexeril] 5 mg PO TID PRN 08/16/19 09/02/19 History Loratadine 10 mg PO DAILY 08/16/19 09/02/19 History buPROPion XL [Wellbutrin XL] 150 mg PO DAILY 08/16/19 09/02/19 History lamoTRIgine [LaMICtal] 25 mg PO DAILY 08/16/19 09/02/19 History Pantoprazole [Protonix] 40 mg PO BID #60 tab 08/29/19 09/02/19 Rx Donepezil HCl [Aricept] 5 mg PO BID 09/02/19 09/02/19 History Acetaminophen [Tylenol] 325 mg PO Q4H #30 tab 09/03/19 Rx Ibuprofen [Motrin] 600 mg PO Q8HR PRN #30 tab 09/03/19 Rx Allergies Allergy/AdvReac Type Severity Reaction Status Date / Time No Known Allergies Allergy Verified 02/22/21 23:48 Physical Exam Vitals: Vital Signs Temp Pulse Resp BP Pulse Ox 02/23/21 01:47 80 18 129/83 98 02/22/21 23:45 97.8 F 102 H 18 183/124 97 Intake and Output 02/22/21 02/22/21 02/23/21 14:59 22:59 06:59 Other: Weight 108.862 kg General: non toxic, no distress, appears at stated age, morbidly obese Derm: no unusual rashes/lesions no unusual ecchymoses, warm, dry Head: atraumatic, normocephalic, symmetric Eyes: EOMI, no lid lag, anicteric sclera, pupils equal round reactive to light ENT: Nose and ears atraumatic, no thrush, no pharyngeal erythema Neck: No thyromegaly, no cervical lymphadenopathy, trachea midline, supple Mouth: no lip lesion, mucus membranes moist Cardiovascular: S1S2 reg, no murmur, positive posterior tibial pulse bilateral, no edema, capillary refill less than 2 seconds Lungs: CTA bilateral, no rhonchi, no rales , no accessory muscle use Abdominal: soft, nontender to palpation, no guarding, no appreciable organomegaly, normal bowel sounds Ext: no gross muscle atrophy, muscle strength 4 out of 5 in right upper and lower extremities, with strength 5 out of 5 in the left extremities, no contractures Neuro: CN II-XI grossly intact, light touch intact all 4 extremities, finger to nose within normal limits, Psych: Alert, oriented, appropriate affect Results CBC & Chem 7: 02/23/21 00:07 02/23/21 00:07 Labs: Abnormal Lab Results - Last 24 Hours (Table) 02/23/21 02/23/21 Range/Units 00:07 00:07 WBC 12.1 H (3.8-10.6) k/uL Chloride 108 H (98-107) mmol/L Glucose 100 H (74-99) mg/dL ALT 54 H (4-49) U/L Amylase 142 H (30-110) U/L Lipase 328 H (23-300) U/L Assessment and Plan Plan: Chest pain with atypical features -Trend troponin -Cardiac monitoring -Cardiology consult -Continue with aspirin -Nitroglycerin prn Leukocytosis -Likely secondary to acute stressor -No signs of active infection at this time Elevated lipase and ALT -Possibly due to a gallstone that passed -Monitor for now Chronic conditions: Hypertension, history of CVA -Continue with home meds DVT prophylaxis -Heparin subq The patient is admitted with an anticipated less than 2 midnight stay for evaluation of chest pain CODE STATUS: Full Code Discussed with: Patient Anticipated discharge date: in am Anticipated discharge place: home A total of 40 minutes was spent on the care of this complex patient more than 50% of the time was spent in counseling and care coordination.
[2021-02-23] MEDS: ACETAMINOPHEN TAB 325 MG TAB PO PRN ×2 (03:40→13:49)
[2021-02-23] MEDS: NITROGLYCERIN OINT 1 INCH/GM PACKET TOPICAL SCH ×4 (05:45→21:53)
[2021-02-23] MEDS: HEPARIN SODIUM,PORCINE/PF 5,000 UNIT/0.5 ML SYRINGE SQ SCH ×3 (09:29→21:44)
[2021-02-23] MEDS: METOPROLOL TARTRATE 25 MG TAB PO SCH ×2 (09:29→21:43)
[2021-02-23 09:36] LABS: HCT 42.7 % (39.6-50.0); HGB 14.2 g/dL (13.0-17.0); MCH 30.3 pg (27.0-32.0); MCHC 33.3 g/dL (32.0-37.0); MCV 91.2 fL (80.0-97.0); Platelet Count 270 X 10*3/uL (140-440); RBC 4.68 X 10*6/uL (4.40-5.60); RDW 13.6 % (11.5-14.5); WBC 11.64 X 10*3/uL (4.50-10.00)
[2021-02-23 09:49] LABS: African American GFR (CKD) 74.3 (60.0-200.0); Albumin 4.4 g/dL (3.80-4.90); Albumin/Globulin Ratio 2.1 (1.60-3.17); Anion Gap 5.2 mmol/L (4.00-12.00); BUN/Creat Ratio 13.85 Ratio (12.00-20.00); Calcium 9.2 mg/dL (8.7-10.3); Carbon Dioxide 27.8 mmol/L (21.6-31.8); Chol/HDL Ratio 5.7; Globulin 2.1 g/dL (1.6-3.3); LDL Cholesterol,Calculated 115.6 mg/dL (0.0-131.0); Non-African American GFR(CKD) 64.1 (60.0-200.0); Potassium 4.6 mmol/L (3.5-5.5); Total Bilirubin 0.4 mg/dL (0.2-1.2); Total Protein 6.5 g/dL (6.2-8.2); VLDL Calculation 39.4 mg/dL (5.00-40.00)
--- NOTE | 2021-02-23 09:59 | P.CRDCN ---
History of Present Illness Consult date: 02/23/21 History of present illness: This is a 50-year-old gentleman with history of previous admission for chest pain. Patient had a cardiac cath in 2018 and was not found to have any obstructive coronary artery disease. He had a normal stress echo in 2019. Patient is admitted to the hospital with complaints of chest pain and abdominal pain. There were no aggravating or relieving factors. Denies any dizziness, weakness and tingling and numbness. No fever chills or diarrhea. EKG did not reveal any acute changes. Cardiac enzyme studies are negative. His COVID came back positive. Chest x-ray was reported not showing any significant pathology. Given his history of abnormal cardiac And normal stress test and negative EKGs and cardiac enzymes, it doesn't appear to be cardiac in nature. I will continue treatment for his Covid infection. We'll negative echocardiogram to assess LV function. This patient is not personally examined. Most of the information is gathered from chart and also from consultants notes. Nurses were contacted and advised to contact me if there are any changes. Review of Systems Not obtained Past Medical History Past Medical History: Chest Pain / Angina, CVA/TIA, GERD/Reflux, Hyperlipidemia, Hypertension, Memory Impairment, Myocardial Infarction ([place]), Sleep Apne a/CPAP/BIPAP Additional Past Medical History / Comment(s): Pt recently admitted to [facility] on 08/16/19 with anterior chest pain. Other hx: CVAs -pt thinks 4 or 5 with R sided weakness, short term memory loss, balance issures/uses a cane, migraines, bilateral hand tremors, HIL[place] but no longer uses his device stating "it didn't help", occasional low back pain, numbness/tingling bilateral hands/feet, bilateral carpal tunnel syndrome, sinus problems Last Myocardial Infarction Date:: 07/2018 History of Any Multi-Drug Resistant Organisms: None Reported Past Surgical History: Cholecystectomy, Heart Catheterization, Tonsillectomy Additional Past Surgical History / Comment(s): 07/2018 cardiac cath-normal, sinus surgery, colonoscopy, dental extractions. Past Anesthesia/Blood Transfusion Reactions: No Reported Reaction Past Psychological History: Anxiety, Depression, PTSD Smoking Status: Former smoker Past Alcohol Use History: None Reported Past Drug Use History: None Reported - Past Family History Mother Family Medical History: No Reported History Additional Family Medical History / Comment(s): Mother is healthy Father Family Medical History: Coronary Artery Disease (CAD), Myocardial Infarction ([place]) Additional Family Medical History / Comment(s): Father of a [place] at the age of 52 yrs. Medications and Allergies Home Medications Medication Instructions Recorded Confirmed Type Montelukast [Singulair] 10 mg PO DAILY 11/17/18 02/23/21 History Loratadine 10 mg PO DAILY 08/16/19 02/23/21 History Pantoprazole [Protonix] 40 mg PO BID #60 tab 08/29/19 02/23/21 Rx Atorvastatin [Lipitor] 80 mg PO HS 02/23/21 02/23/21 History Clopidogrel Bisulfate [Plavix] 75 mg PO DAILY 02/23/21 02/23/21 History DULoxetine HCL [Cymbalta] 60 mg PO DAILY 02/23/21 02/23/21 History Fluocinolone Acetonide [Lidex Soln] 1 applic TOPICAL HS PRN 02/23/21 02/23/21 History Ketoconazole 2% Shampoo [Nizoral] 1 applic TOPICAL Q48H 02/23/21 02/23/21 History Labetalol HCl [Trandate] 300 mg PO BID 02/23/21 02/23/21 History Meloxicam [Mobic] 15 mg PO BID 02/23/21 02/23/21 History Valsartan/Hydrochlorothiazide 1 tab PO DAILY 02/23/21 02/23/21 History [Valsartan-Hctz 320-25 mg Tab] Vitamin D3(Unknown) 1 tab PO DAILY 02/23/21 02/23/21 History lamoTRIgine [LaMICtal Xr] 50 mg PO BID 02/23/21 02/23/21 History Allergies Allergy/AdvReac Type Severity Reaction Status Date / Time No Known Allergies Allergy Verified 02/23/21 08:24 Physical Exam Vitals: Vital Signs Temp Pulse Pulse Resp BP BP Pulse Ox 02/23/21 07:00 97.7 F 73 16 105/66 99 02/23/21 02:12 16 98 02/23/21 01:47 80 18 129/83 98 02/22/21 23:45 97.8 F 102 H 18 183/124 97 Intake and Output 05/01/21 05/02/21 05/02/21 22:59 06:59 14:59 Other: # Voids 2 Weight 108.862 kg This patient has not personally examined. Information is gathered from the consultants notes Results 02/23/21 06:06 02/23/21 06:06 Cardiac Enzymes 02/23/21 02/23/21 02/23/21 Range/Units 00:07 00:07 02:22 AST 40 (17-59) U/L Troponin I <0.012 <0.012 (0.000-0.034) ng/mL 02/23/21 02/23/21 Range/Units 06:06 06:06 AST 36 H (17-59) U/L Troponin I <0.012 (0.000-0.034) ng/mL Coagulation 02/23/21 Range/Units 00:07 PT 10.3 (9.0-12.0) sec APTT 24.2 (22.0-30.0) sec Lipids 02/23/21 Range/Units 06:06 Triglycerides 197.0 H (0.0-149.0) mg/dL Cholesterol 188 (0-200) mg/dL HDL Cholesterol 33.0 L (40.0-60.0) mg/dL Cholesterol/HDL Ratio 5.70 CBC 02/23/21 02/23/21 Range/Units 00:07 06:06 WBC 12.1 H 11.64 H (3.8-10.6) k/uL RBC 4.94 4.68 (4.30-5.90) m/uL Hgb 15.7 14.2 (13.0-17.5) gm/dL Hct 44.3 42.7 (39.0-53.0) % Plt Count 257 270 (150-450) k/uL Comprehensive Metabolic Panel 02/23/21 02/23/21 Range/Units 00:07 06:06 Sodium 142 143 (137-145) mmol/L Potassium 4.1 4.6 (3.5-5.1) mmol/L Chloride 108 H 110 H (98-107) mmol/L Carbon Dioxide 26 27.8 (22-30) mmol/L BUN 16 18.0 (9-20) mg/dL Creatinine 1.24 1.3 (0.66-1.25) mg/dL Glucose 100 H 93 (74-99) mg/dL Calcium 10.1 9.2 (8.4-10.2) mg/dL AST 40 36 H (17-59) U/L ALT 54 H 56 H (4-49) U/L Alkaline Phosphatase 88 82 (38-126) U/L Total Protein 7.4 6.5 (6.3-8.2) g/dL Albumin 4.5 4.40 (3.5-5.0) g/dL Current Medications Generic Name Dose Route Start Last Admin Trade Name Freq PRN Reason Stop Dose Admin Acetaminophen 650 mg 02/23/21 03:31 02/23/21 03:40 Acetaminophen Tab 325 Mg Tab PO 650 mg Q6HR PRN Administration Fever and/ or Pain Aspirin 325 mg 02/24/21 09:00 Aspirin 325 Mg Tab PO DAILY AJITH Heparin Sodium (Porcine) 5,000 unit 02/23/21 08:00 02/23/21 09:29 Heparin Sodium,Porcine/Pf 5,000 Unit/0.5 Ml Syringe SQ 5,000 unit Q8HR AJITH Administration Metoprolol Tartrate 25 mg 02/23/21 09:00 02/23/21 09:29 Metoprolol Tartrate 25 Mg Tab PO 25 mg BID AJITH Administration Nitroglycerin 0.4 mg 02/23/21 01:57 Nitroglycerin Sl Tabs 0.4 Mg Tab SUBLINGUAL Q5M PRN Chest Pain Nitroglycerin 1 inch 02/23/21 06:00 02/23/21 05:45 Nitroglycerin Oint 1 Inch/Gm Packet TOPICAL Not Given Q6HR AJITH Intake and Output 02/22/21 02/23/21 02/23/21 22:59 06:59 14:59 Other: # Voids 2 Weight 108.862 kg 02/23/21 06:06 02/23/21 06:06 EKG Interpretations (text) Sinus rhythm Assessment and Plan (1) COVID-19 Current Visit: Yes Status: Acute Code(s): U07.1 - COVID-19 SNOMED Code(s): 997131236 (2) Atypical chest pain Current Visit: Yes Status: Acute Code(s): R07.89 - OTHER CHEST PAIN SNOMED Code(s): 430122484 Plan: Continue treatment for COVID infection. Echocardiogram. Further recom mendations depend upon clinical course
[2021-02-23] MEDS ORDERED: BETAMETHASONE DIPROPIONATE 0.05% OINTMENT 45 GM TUBE TOPICAL PRN (15:02)
--- NOTE | 2021-02-23 15:04 | P.PN ---
Subjective Progress Note Date: 02/23/21 (delayed charting seen at 1145) Principal diagnosis: chest pain Patient is a 50-year-old male complex medical history consistent of prior coronary artery disease with 1 stent in 2018, CVA with residual right-sided deficits, hypertension and dyslipidemia who presented to the emergency department with complaints of chest pain. Patient had cold-like symptoms approximately 4-6 weeks ago when his , daughter, and mother were POSITIVE for COVID. He did not proceed with testing at that point in time. When tested for COVID-19 infection in our ER he came back positive, I believe this is secondary to prolonged viral shedding and not pocketed COVID-19 infection. Initial EKG was nonischemic and troponin was negative. He is admitted for chest pain observation. The remainder of the troponins were negative. He was seen by cardiology who recommended echocardiogram. Patient seen and examined at bedside. He denies any further chest pain, no shortness of breath, no cough, no nausea, no vomiting, no diarrhea, no recent fevers. He is surprised that he tested positive for Covid in the emergency department. He states he assumed he had an infection approximately one month ago to 6 weeks ago. At that point in time his daughter was exposed to Covid at school and subsequently tested positive, his mother and and both developed Covid. He then had symptoms but never went for testing and assumed he had Covid. At this point in time his taste and smell has returned and he is not having any prolonged shortness of breath or cough. General: non toxic, no distress, appears at stated age, obese Derm: warm, dry Head: atraumatic, normocephalic, symmetric Eyes: EOMI, no lid lag, anicteric sclera Mouth: no lip lesion, mucus membranes moist Cardiovascular: S1S2 reg, no murmur, positive posterior tibial pulse bilateral, Lungs: CTA bilateral, no rhonchi, no rales , no accessory muscle use Abdominal: soft, nontender to palpation, no guarding, no appreciable organom egaly Ext: no gross muscle atrophy, no edema, no contractures Neuro: CN II-XI grossly intact, no focal neuro deficits Psych: Alert, oriented, appropriate affect Chest pain with history of coronary artery disease and PCI 1 -Acute coronary syndrome ruled out with 3 negative troponins a nonischemic EKG -Aspirin, statin -Cardiology recommendations: Echocardiogram in a.m. Recent COVID-19 infection - Patient had Covid infection approximately 4-6 weeks ago. -Assumed positive is from prolonged viral shedding Hypertension, controlled -Continue with Lopressor -Follow blood pressures Dyslipidemia -statin at mas dose with inadeuqte control - outpatient follow-up with cardio Chronic: History of multiple CVA GERD Objective - Vital Signs Vital signs: Vital Signs Temp 97.6 F 02/23/21 14:21 Pulse 69 02/23/21 14:21 Resp 20 02/23/21 14:21 BP 103/53 02/23/21 14:21 Pulse Ox 97 02/23/21 14:21 Intake & Output 02/22/21 02/23/21 02/23/21 18:59 06:59 18:59 Intake Total 240 Balance 240 Weight 108.862 kg Intake: Oral 240 Other: # Voids 2 1 - Labs CBC & Chem 7: 02/23/21 06:06 02/23/21 06:06 Labs: Abnormal Lab Results - Last 24 Hours (Table) 02/23/21 02/23/21 02/23/21 Range/Units 00:07 00:07 02:12 WBC 12.1 H (3.8-10.6) k/uL Absolute Nucleated RBC (0.00-0.00) X 10*3/uL NRBC/100 WBC Diff (0.0-0.0) /100 WBCS Chloride 108 H (98-107) mmol/L Glucose 100 H (74-99) mg/dL AST (14-35) U/L ALT 54 H (4-49) U/L Triglycerides (0.0-149.0) mg/dL HDL Cholesterol (40.0-60.0) mg/dL Amylase 142 H (30-110) U/L Lipase 328 H (23-300) U/L SARS-CoV-2 (PCR) Detected A (Not Detectd) 02/23/21 02/23/21 Range/Units 06:06 06:06 WBC 11.64 H (3.8-10.6) k/uL Absolute Nucleated RBC 0.02 H (0.00-0.00) X 10*3/uL NRBC/100 WBC Diff 0.2 H (0.0-0.0) /100 WBCS Chloride 110 H (98-107) mmol/L Glucose (74-99) mg/dL AST 36 H (14-35) U/L ALT 56 H (4-49) U/L Triglycerides 197.0 H (0.0-149.0) mg/dL HDL Cholesterol 33.0 L (40.0-60.0) mg/dL Amylase (30-110) U/L Lipase (23-300) U/L SARS-CoV-2 (PCR) (Not Detectd)
[2021-02-23] MEDS ORDERED: ATORVASTATIN 80 MG TAB PO SCH (21:00)
[2021-02-23] MEDS: lamoTRIgine 25 MG TAB PO SCH (21:43)
[2021-02-23] MEDS: PANTOPRAZOLE 40 MG TABLET PO SCH (21:43)
[2021-02-23] MEDS ORDERED: DULoxetine HCL 60 MG CAPSULE.DR PO STA (22:42)
[2021-02-24] MEDS: NITROGLYCERIN OINT 1 INCH/GM PACKET TOPICAL SCH ×2 (06:10→12:28)
[2021-02-24] MEDS ORDERED: hydroCHLOROthiazide 25 MG TAB PO SCH (09:00)
[2021-02-24] MEDS ORDERED: ZINC SULFATE 220 MG CAP PO SCH (09:00)
[2021-02-24] MEDS ORDERED: LORATADINE 10 MG TAB PO SCH (09:00)
[2021-02-24] MEDS ORDERED: DULoxetine HCL 60 MG CAPSULE.DR PO SCH (09:00)
[2021-02-24] MEDS ORDERED: MONTELUKAST 10 MG TAB PO SCH (09:00)
[2021-02-24] MEDS ORDERED: CLOPIDOGREL 75 MG TAB PO SCH (09:00)
[2021-02-24] MEDS ORDERED: ASPIRIN 325 MG TAB PO SCH (09:00)
[2021-02-24] MEDS ORDERED: ASCORBIC ACID 500 MG TAB PO SCH (09:00)
[2021-02-24] MEDS ORDERED: CHOLECALCIFEROL 25 MCG (1000 IU) TABLET PO SCH (09:00)
[2021-02-24] MEDS ORDERED: VALSARTAN 160 MG TAB PO SCH (09:00)
[2021-02-24 09:18] LABS: Chol/HDL Ratio 6.45; LDL Cholesterol,Calculated 117.8 mg/dL (0.0-131.0); VLDL Calculation 51.2 mg/dL (5.00-40.00)
[2021-02-24] MEDS: PANTOPRAZOLE 40 MG TABLET PO SCH (09:36)
[2021-02-24] MEDS: METOPROLOL TARTRATE 25 MG TAB PO SCH (09:37)
[2021-02-24] MEDS: lamoTRIgine 25 MG TAB PO SCH (09:38)
[2021-02-24] MEDS: HEPARIN SODIUM,PORCINE/PF 5,000 UNIT/0.5 ML SYRINGE SQ SCH (09:40)
[2021-02-24 15:39] VITALS: BP 131/70; PULSE 16; RESP 16; TEMP 98
--- NOTE | 2021-02-24 19:36 | P.DS ---
Providers Date of admission: 02/23/21 01:59 Expected date of discharge: 02/24/21 Attending physician: Katharina Viramontes MD Consults: 02/23/21 01:58 Consult Physician Routine Consulting Provider: Ian Paniagua Consult Reason/Comments: Chest pain Do you want consulting provider notified?: Yes Primary care physician: Michael Styles Hospital Course: Discharge Diagnosis: Chest pain Recent COVID-19 infection HTN HLD Hx of CVA GERD Mild lipase elevation Hospital Course: Patient is a 50-year-old male complex medical history consistent of prior coronary artery disease with 1 stent in 2018, CVA with residual right-sided deficits, hypertension and dyslipidemia who presented to the emergency department with complaints of chest pain. Patient had cold-like symptoms approximately 4-6 weeks ago when his , daughter, and mother were POSITIVE for COVID. He did not proceed with testing at that point in time. When tested for COVID-19 infection in our ER he came back positive, I believe this is secondary to prolonged viral shedding and not active COVID-19 infection. During this stay his troponins remiened negative, EKG was non ischemic. He was seen by cardiology who felt this was best addressed with an echo given he was positive for COVID-19. Verbal report echo was normal.Arian did not have any recurrent chest pain during his hospital stay. Follow-up: Dr. Styles 1-[address] Mckeon in 1 week. Return if chest pain recurs. Patient seen and examined at bedside. No additional chest pain, no nuasea, no shortness of breath. Feeling well and agreeable to discharge. Vital signs reviewed and stable. General: non toxic, no distress, appears at stated age Derm: warm, dry Head: atraumatic, normocephalic, symmetric Eyes: EOMI, no lid lag, anicteric sclera Mouth: no lip lesion, mucus membranes moist Cardiovascular: S1S2 reg, no murmur, positive posterior tibial pulse bilateral, chest pain no reproducible Lungs: CTA bilateral, no rhonchi, no rales , no accessory muscle use Abdominal: soft, nontender to palpation, no guarding, no appreciable organomegaly Ext: no gross muscle atrophy, no edema, no contractures Neuro: CN II-XI grossly intact, no focal neuro deficits Psych: Alert, oriented, appropriate affect A total of 25 minutes of time were spent preparing this complex discharge summary . Patient Condition at Discharge: Stable Plan - Discharge Summary Discharge Rx Participant: No New Discharge Prescriptions: Continue Montelukast [Singulair] 10 mg PO DAILY Loratadine 10 mg PO DAILY Pantoprazole [Protonix] 40 mg PO BID #60 tab Labetalol HCl [Trandate] 300 mg PO BID Ketoconazole 2% Shampoo [Nizoral] 1 applic TOPICAL Q48H Fluocinolone Acetonide [Lidex Soln] 1 applic TOPICAL HS PRN PRN Reason: SCALP DULoxetine HCL [Cymbalta] 60 mg PO DAILY Clopidogrel Bisulfate [Plavix] 75 mg PO DAILY Atorvastatin [Lipitor] 80 mg PO HS Valsartan/Hydrochlorothiazide [Valsartan-Hctz 320-25 mg Tab] 1 tab PO DAILY lamoTRIgine [LaMICtal Xr] 50 mg PO BID Vitamin D3(Unknown) 1 tab PO DAILY Discontinued Meloxicam [Mobic] 15 mg PO BID Discharge Medication List Montelukast [Singulair] 10 mg PO DAILY 11/17/18 [History] Loratadine 10 mg PO DAILY 08/16/19 [History] Pantoprazole [Protonix] 40 mg PO BID #60 tab 08/29/19 [Rx] Atorvastatin [Lipitor] 80 mg PO HS 02/23/21 [History] Clopidogrel Bisulfate [Plavix] 75 mg PO DAILY 02/23/21 [History] DULoxetine HCL [Cymbalta] 60 mg PO DAILY 02/23/21 [History] Fluocinolone Acetonide [Lidex Soln] 1 applic TOPICAL HS PRN 02/23/21 [History] Ketoconazole 2% Shampoo [Nizoral] 1 applic TOPICAL Q48H 02/23/21 [History] Labetalol HCl [Trandate] 300 mg PO BID 02/23/21 [History] Valsartan/Hydrochlorothiazide [Valsartan-Hctz 320-25 mg Tab] 1 tab PO DAILY 02/23/21 [History] Vitamin D3(Unknown) 1 tab PO DAILY 02/23/21 [History] lamoTRIgine [LaMICtal Xr] 50 mg PO BID 02/23/21 [History] Follow up Appointment(s)/Referral(s): Jimmy Mckeon MD [STAFF PHYSICIAN] - 1 Week Michael Styles MD [Primary Care Provider] - 1-2 days Patient Instructions/Handouts: Chest Pain (DC) Discharge Disposition: HOME SELF-CARE
--- NOTE | 2021-02-25 07:36 | ECHOF ---
Referral Reason:chest pain MEASUREMENTS -------- HEIGHT: 182.9 cm WEIGHT: 108.9 kg BP: 108/66 IVSd: 1.3 cm (0.6 - 1.1) LVIDd: 4.0 cm (3.9 - 5.3) LVPWd: 1.5 cm (0.6 - 1.1) IVSs: 1.8 cm LVIDs: 2.8 cm LVPWs: 2.1 cm LAESV Index (A-L): 23.59 ml/m Ao Diam: 2.5 cm (2.0 - 3.7) AV Cusp: 1.8 cm (1.5 - 2.6) MV E Evin: 0.84 m/s MV DecT: 235 ms MV A Evin: 0.42 m/s MV E/A Ratio: 2.01 RAP: 5.00 mmHg RVSP: 21.75 mmHg FINDINGS -------- Sinus rhythm. This was a technically difficult study with suboptimal views. The left ventricular size is normal. There is mild concentric left ventricular hypertrophy. Overa ll left ventricular systolic function is normal with, an EF between 55 - 60 %. The diastolic fillin g pattern is normal for the age of the patient 10.15. The right ventricle is normal in size. Normal LA size by volume 22+/-6 ml/m2. The right atrium was not well visualized. 5.0mg of Lumason was utilized for enhancement of images Interatrial and interventricular septum intact. The aortic valve was not well visualized. There is no evidence of aortic regurgitation. There is no evidence of aortic stenosis. The mitral valve is normal. No mitral regurgitation. The tricuspid valve appears structurally normal. Mild tricuspid regurgitation present. Right vent ricular systolic pressure is normal at < 35 mmHg. The right ventricular systolic pressure, as measu red by Doppler, is 21.75mmHg. The pulmonic valve was not well visualized. There is no pulmonic regurgitation present. The aortic root size is normal. IVC Not well visulized. There is no pericardial effusion. CONCLUSIONS -------- 1. This was a technically difficult study with suboptimal views. 2. There is mild concentric left ventricular hypertrophy. 3. Overall left ventricular systolic function is normal with, an EF between 55 - 60 %. 4. The diastolic filling pattern is normal for the age of the patient 10.15 5. Normal LA size by volume 22+/-6 ml/m2. 6. Mild tricuspid regurgitation present. NEURO OPHTHALMOLOGIST: Kassie Gonzalez RDCS
== END 2021-02-24 16:48 | disposition home or self-care (01) ==
LOC: EC 23:41 → 6NMEDSUR 02-23 01:59
PROVIDERS: ADMIT Internal Medicine; ATTEND Internal Medicine
DX: R07.89 Other chest pain (principal); U07.1 COVID-19; I10 Essential (primary) hypertension; I25.10 Atherosclerotic heart disease of native coronary artery without angina pectoris; E78.5 Hyperlipidemia, unspecified; K21.9 Gastro-esophageal reflux disease without esophagitis; G47.33 Obstructive sleep apnea (adult) (pediatric); G43.909 Migraine, unspecified, not intractable, without status migrainosus; I69.951 Hemiplegia and hemiparesis following unspecified cerebrovascular disease affecting right dominant side; M85.80 Other specified disorders of bone density and structure, unspecified site; D72.829 Elevated white blood cell count, unspecified; R74.8 Abnormal levels of other serum enzymes; G56.03 Carpal tunnel syndrome, bilateral upper limbs; M51.34 Other intervertebral disc degeneration, thoracic region; I69.911 Memory deficit following unspecified cerebrovascular disease; R25.1 Tremor, unspecified; M54.5 Low back pain; R26.9 Unspecified abnormalities of gait and mobility; R20.0 Anesthesia of skin; R20.2 Paresthesia of skin; F32.9 Major depressive disorder, single episode, unspecified; F43.10 Post-traumatic stress disorder, unspecified; F41.9 Anxiety disorder, unspecified; Z79.02 Long term (current) use of antithrombotics/antiplatelets; Z79.1 Long term (current) use of non-steroidal anti-inflammatories (NSAID); Z79.82 Long term (current) use of aspirin; Z79.899 Other long term (current) drug therapy; Z99.89 Dependence on other enabling machines and devices; I25.2 Old myocardial infarction; Z95.5 Presence of coronary angioplasty implant and graft; Z90.49 Acquired absence of other specified parts of digestive tract; Z87.891 Personal history of nicotine dependence; Z98.890 Other specified postprocedural states; Z82.49 Family history of ischemic heart disease and other diseases of the circulatory system; Z91.19 Patient's noncompliance with other medical treatment and regimen
CPT/HCPCS: 96372 ×2; 93005 ×2; 96374; 99285; 36415; 93306; 85379; 83880; 80061 ×2; 80053; 82150; 83690; 83735; 84484; 85025; 85027; 85610; 85730; 87636; 71046; G0378 ×2; J2270; Q9950; J1644 ×2

== ENCOUNTER 2021-06-25 15:08 | Emergency (ER) | payer OTHER, MEDICARE ==
[2021-06-25 15:36] VITALS: BP 161/95; PULSE 96; RESP 20; TEMP 98.1
[2021-06-25] MEDS ORDERED: KETOROLAC 15 MG/ML 1 ML VIAL IM STA (16:07)
--- NOTE | 2021-06-25 16:11 | ED ---
General Adult HPI - General Chief complaint: ENT Stated complaint: Bilateral Ear Pain Time Seen by Provider: 06/25/21 15:58 Source: patient, family, RN notes reviewed, Caregiver Mode of arrival: ambulatory Limitations: no limitations - History of Present Illness Initial comments: 50-year-old well-appearing white male presents to the emergency room alert and oriented complaining of hearing loss in his right ear for the past couple of days. Patient denies any pain or drainage. He denies any headaches or recent head injuries. Does have a history of strokes x5, hypertension, sinus problems and memory impairment. He is a nonsmoker. -: days(s) (2) Radiation: non-radiation Severity scale (1-10): 0 Consistency: constant Improves with: none Worsens with: none Associated Symptoms: denies other symptoms Treatments Prior to Arrival: none - Related Data Home Medications Medication Instructions Recorded Confirmed Montelukast [Singulair] 10 mg PO DAILY 11/17/18 02/23/21 Loratadine 10 mg PO DAILY 08/16/19 02/23/21 Atorvastatin [Lipitor] 80 mg PO HS 02/23/21 02/23/21 Clopidogrel Bisulfate [Plavix] 75 mg PO DAILY 02/23/21 02/23/21 DULoxetine HCL [Cymbalta] 60 mg PO DAILY 02/23/21 02/23/21 Fluocinolone Acetonide [Lidex 1 applic TOPICAL HS PRN 02/23/21 02/23/21 0.01% Soln] Ketoconazole 2% Shampoo [Nizoral] 1 applic TOPICAL Q48H 02/23/21 02/23/21 Labetalol HCl [Trandate] 300 mg PO BID 02/23/21 02/23/21 Valsartan/Hydrochlorothiazide 1 tab PO DAILY 02/23/21 02/23/21 [Valsartan-Hctz 320-25 mg Tab] Vitamin D3(Unknown) 1 tab PO DAILY 02/23/21 02/23/21 lamoTRIgine [LaMICtal Xr] 50 mg PO BID 02/23/21 02/23/21 Previous Rx's Medication Instructions Recorded Pantoprazole [Protonix] 40 mg PO BID #60 tab 08/29/19 Allergies Allergy/AdvReac Type Severity Reaction Status Date / Time No Known Allergies Allergy Verified 06/25/21 15:34 Review of Systems ROS Statement: Those systems with pertinent positive or pertinent negative responses have been documented in the HPI. ROS Other: All systems not noted in ROS Statement are negative. Past Medical History Past Medical History: Chest Pain / Angina, CVA/TIA, GERD/Reflux, Hyperlipidemia, Hypertension, Memory Impairment, Myocardial Infarction ([place]), Sleep Apnea/CPAP/BIPAP Additional Past Medical History / Comment(s): Pt recently admitted to [facility] on 08/16/19 with anterior chest pain. Other hx: CVAs -pt thinks 4 or 5 with R sided weakness, short term memory loss, balance issures/uses a cane, migraines, bilateral hand tremors, HILTON but no longer uses his device stating "it didn't help", occasional low back pain, numbness/tingling bilateral hands/feet, bilateral carpal tunnel syndrome, sinus problems Last Myocardial Infarction Date:: 07/2018 History of Any Multi-Drug Resistant Organisms: None Reported Past Surgical History: Cholecystectomy, Heart Catheterization, Tonsillectomy Additional Past Surgical History / Comment(s): 07/2018 cardiac cath-normal, sinus surgery, colonoscopy, dental extractions. Past Anesthesia/Blood Transfusion Reactions: No Reported Reaction Past Psychological History: Anxiety, Depression, PTSD Smoking Status: Former smoker Past Alcohol Use History: None Reported Past Drug Use History: None Reported - Past Family History Mother Family Medical History: No Reported History Additional Family Medical History / Comment(s): Mother is healthy Father Family Medical History: Coronary Artery Disease (CAD), Myocardial Infarction ([place]) Additional Family Medical History / Comment(s): Father of a [place] at the age of 52 yrs. General Exam Limitations: no limitations General appearance: alert, in no apparent distress Head exam: Present: atraumatic, normocephalic, normal inspection Eye exam: Present: normal appearance, PERRL, EOMI. Absent: scleral icterus, conjunctival injection, periorbital swelling ENT exam: Present: normal exam, normal oropharynx, mucous membranes moist, TM's normal bilaterally, normal external ear exam Neck exam: Present: normal inspection, full ROM. Absent: tenderness, meningismus, lymphadenopathy Respiratory exam: Present: normal lung sounds bilaterally. Absent: respiratory distress, wheezes, rales, rhonchi, stridor, chest wall tenderness, accessory muscle use, decreased breath sounds Cardiovascular Exam: Present: regular rate, normal rhythm, normal heart sounds. Absent: systolic murmur, diastolic murmur, rubs, gallop, clicks GI/Abdominal exam: Present: soft, normal bowel sounds. Absent: distended, tenderness, guarding, rebound, rigid Extremities exam: Present: normal inspection, full ROM, normal capillary refill. Absent: tenderness, pedal edema, joint swelling, calf tenderness Back exam: Present: normal inspection, full ROM. Absent: tenderness, CVA tenderness (R), CVA tenderness (L), muscle spasm, paraspinal tenderness, vertebral tenderness, rash noted Neurological exam: Present: alert, CN II-XII intact, normal gait Psychiatric exam: Present: normal affect, normal mood Skin exam: Present: warm, dry, intact, normal color. Absent: rash, cyanosis, diaphoretic, erythema, petechiae, pallor, mottled Course Vital Signs 06/25/21 15:34 Temperature 98.1 F Pulse Rate 96 Respiratory 20 Rate Blood Pressure 161/95 O2 Sat by Pulse 98 Oximetry Medical Decision Making - Medical Decision Making Patient presents to the emergency room with hearing loss in his right ear for the past 2 days. He denies any pain or discharge. There is no fevers. He sustained no head trauma. He does have a history of strokes. Bilateral tympanic membranes are clear without erythema or effusion. He'll be referred to ENT for sensory hearing loss. Case discussed with Dr. Red Disposition Clinical Impression: Hearing loss Disposition: HOME SELF-CARE Condition: Good Instructions (If sedation given, give patient instructions): Hearing Loss (ED) Additional Instructions: Return to the emergency room with any new or worsening symptoms including drainage, fever or pain. Follow-up with ear, nose and throat doctor this week. Is patient prescribed a controlled substance at d/c from ED?: No Referrals: Michael Styles MD [Primary Care Provider] - 1-2 days Leo Wagner MD [STAFF PHYSICIAN] - 1-2 days Time of Disposition: 16:12
== END 2021-06-25 16:30 | disposition home or self-care (01) ==
LOC: EC 15:08
DX: H91.91 Unspecified hearing loss, right ear (principal); I10 Essential (primary) hypertension; I25.2 Old myocardial infarction; J45.909 Unspecified asthma, uncomplicated; E78.5 Hyperlipidemia, unspecified; Z87.891 Personal history of nicotine dependence; Z86.73 Personal history of transient ischemic attack (TIA), and cerebral infarction without residual deficits; Z79.51 Long term (current) use of inhaled steroids; Z79.899 Other long term (current) drug therapy
CPT/HCPCS: 99282; 96372; J1885

== ENCOUNTER 2021-07-08 13:11 | Observation (INO) | payer OTHER, MEDICARE ==
[2021-07-08] MEDS ORDERED: SODIUM CHLORIDE 0.9% 500 ML 500 ML IV STA (13:34)
[2021-07-08] MEDS ORDERED: NITROGLYCERIN OINT 1 INCH/GM PACKET TOPICAL STA (13:34)
[2021-07-08] MEDS ORDERED: ASPIRIN 81 MG PO STA (13:34)
--- NOTE | 2021-07-08 13:37 | ED ---
General Adult HPI - General Chief complaint: Chest Pain Stated complaint: chest pain Time Seen by Provider: 07/08/21 13:15 Source: patient, RN notes reviewed, old records reviewed Mode of arrival: wheelchair Limitations: no limitations - History of Present Illness Initial comments: This is a 50-year-old male with a past medical history significant for stroke with right-sided residual deficit. Patient also had a heart attack in 2018. He denies any stents. Patient comes in today because about 3 hours ago started having chest pain became diaphoretic and was very short of breath. Patient states his right arm started feeling somewhat different when the chest pain started he doesn't think it's any weaker than normal but he states it's difficult to tell. Patient denies any nausea vomiting. Patient denies any recent fever chills or cough. Patient denies being lightheaded or dizzy. Patient denies abdominal pain patient denies nausea vomiting or diarrhea. - Related Data Home Medications Medication Instructions Recorded Confirmed Montelukast [Singulair] 10 mg PO DAILY 11/17/18 07/08/21 Loratadine 10 mg PO DAILY 08/16/19 07/08/21 Atorvastatin [Lipitor] 80 mg PO DAILY 02/23/21 07/08/21 Clopidogrel Bisulfate [Plavix] 75 mg PO DAILY 02/23/21 07/08/21 DULoxetine HCL [Cymbalta] 60 mg PO DAILY 02/23/21 07/08/21 Valsartan/Hydrochlorothiazide 1 tab PO DAILY 02/23/21 07/08/21 [Valsartan-Hctz 320-25 mg Tab] ARIPiprazole [Abilify] 10 mg PO DAILY 07/08/21 07/08/21 Aspirin EC [Ecotrin Low Dose] 81 mg PO DAILY 07/08/21 07/08/21 Cholecalciferol (Vitamin D3) 125 mcg PO DAILY 07/08/21 07/08/21 [Vitamin D3 (125 MCG = 5,000 IU)] Fluticasone Nasal [place] [Flonase 1 spr EA NOSTRIL DAILY 07/08/21 07/08/21 Nasal [place]] Multivitamins, Thera [Multivitamin 1 tab PO DAILY 07/08/21 07/08/21 (formulary)] Pantoprazole [Protonix] 40 mg PO DAILY 07/08/21 07/08/21 Umeclidinium Brm/Vilanterol Tr 1 puff INHALATION RT-DAILY 07/08/21 07/08/21 [Anoro Ellipta 62.5-25 Mcg INH] amLODIPine [Norvasc] 5 mg PO BID 07/08/21 07/08/21 busPIRone HCL [Buspar] 30 mg PO BID 07/08/21 07/08/21 lamoTRIgine [LaMICtal] 25 mg PO DAILY 07/08/21 07/08/21 Allergies Allergy/AdvReac Type Severity Reaction Status Date / Time No Known Allergies Allergy Verified 07/08/21 13:14 Review of Systems ROS Statement: Those systems with pertinent positive or pertinent negative responses have been documented in the HPI. ROS Other: All systems not noted in ROS Statement are negative. Past Medical History Past Medical History: Chest Pain / Angina, CVA/TIA, GERD/Reflux, Hyperlipidemia, Hypertension, Memory Impairment, Myocardial Infarction ([place]), Sleep Apnea/C PAP/BIPAP Additional Past Medical History / Comment(s): Pt recently admitted to [facility] on 08/16/19 with anterior chest pain. Other hx: CVAs -pt thinks 4 or 5 with R sided weakness, short term memory loss, balance issures/uses a cane, migraines, bilateral hand tremors, [place] but no longer uses his device stating "it didn't help", occasional low back pain, numbness/tingling bilateral hands/feet, bilateral carpal tunnel syndrome, sinus problems Last Myocardial Infarction Date:: 07/2018 History of Any Multi-Drug Resistant Organisms: None Reported Past Surgical History: Cholecystectomy, Heart Catheterization, Tonsillectomy Additional Past Surgical History / Comment(s): 07/2018 cardiac cath-normal, sinus surgery, colonoscopy, dental extractions. Past Anesthesia/Blood Transfusion Reactions: No Reported Reaction Past Psychological History: Anxiety, Depression, PTSD Smoking Status: Former smoker Past Alcohol Use History: None Reported Past Drug Use History: None Reported - Past Family History Mother Family Medical History: No Reported History Additional Family Medical History / Comment(s): Mother is healthy Father Family Medical History: Coronary Artery Disease (CAD), Myocardial Infarction ([place]) Additional Family Medical History / Comment(s): Father of a [place] at the age of 52 yrs. General Exam - General Exam Comments Initial Comments: GENERAL: Patient is well-developed and well-nourished. Patient is nontoxic and well-hydrated and is in mild distress. ENT: Neck is soft and supple. No significant lymphadenopathy is noted. Oropharynx is clear. Moist mucous membranes. Neck has full range of motion without eliciting any pain. EYES: The sclera were anicteric and conjunctiva were pink and moist. Extraocular movements were intact and pupils were equal round and reactive to light. Eyelids were unremarkable. PULMONARY: Unlabored respirations. Good breath sounds bilaterally. No audible rales rhonchi or wheezing was noted. CARDIOVASCULAR: There is a regular rate and rhythm without any murmurs gallops or rubs. ABDOMEN: Soft and nontender with normal bowel sounds. SKIN: Skin is clear with no lesions or rashes and otherwise unremarkable. NEUROLOGIC: Patient is alert and oriented x3. Cranial nerves II through XII are grossly intact. Patient has some weakness on the right side arm with the shellfish sorter and it is about a 4 out of 5 and the dorsi and plantar flexion are somewhat weaker compared to the left side again probably 4-5 however patient states this is typical for him and he thinks he is at his baseline.. Normal speech, volume and content. Symmetrical smile. MUSCULOSKELETAL: Normal extremities with adequate strength and full range of motion. No lower extremity swelling or edema. No calf tenderness. LYMPHATICS: No significant lymphadenopathy is noted PSYCHIATRIC: Normal psychiatric evaluation. Limitations: no limitations Course Vital Signs 07/08/21 07/08/21 07/08/21 13:12 13:35 15:00 Temperature 98.2 F Pulse Rate 99 89 66 Respiratory 20 20 18 Rate Blood Pressure 144/94 120/85 O2 Sat by Pulse 98 97 98 Oximetry Medical Decision Making - Medical Decision Making EKG shows normal sinus rhythm at 84 bpm IN interval is 156 QRS is 90 QT interval 360 QTC is 434. Patient's EKG shows no ST segment elevation or depression. CT of the brain shows no acute abnormality. Chest x-ray shows no acute abnormality. I spoke with some physicians agreed to admit the patient admitted the patient wrote admitting orders. I started the patient on heparin because the unstable angina picture. I continued heparin Nitropaste and floor. - Lab Data Result diagrams: 07/08/21 13:39 07/08/21 13:39 Lab Results 09/14/21 09/14/21 09/14/21 Range/Units 13:39 13:39 13:39 WBC 9.5 (3.8-10.6) k/uL RBC 5.14 (4.30-5.90) m/uL Hgb 16.6 (13.0-17.5) gm/dL Hct 47.2 (39.0-53.0) % MCV 91.9 (80.0-100.0) fL MCH 32.2 (25.0-35.0) pg MCHC 35.1 (31.0-37.0) g/dL RDW 12.5 (11.5-15.5) % Plt Count 248 (150-450) k/uL MPV 7.3 Neutrophils % 54 % Lymphocytes % 38 % Monocytes % 5 % Eosinophils % 1 % Basophils % 0 % Neutrophils # 5.1 (1.3-7.7) k/uL Lymphocytes # 3.6 (1.0-4.8) k/uL Monocytes # 0.5 (0-1.0) k/uL Eosinophils # 0.1 (0-0.7) k/uL Basophils # 0.0 (0-0.2) k/uL PT 10.8 (9.0-12.0) sec INR 1.0 (<1.2) APTT 24.2 (22.0-30.0) sec Sodium 141 (137-145) mmol/L Potassium 4.0 (3.5-5.1) mmol/L Chloride 109 H (98-107) mmol/L Carbon Dioxide 23 (22-30) mmol/L Anion Gap 9 mmol/L BUN 9 (9-20) mg/dL Creatinine 1.05 (0.66-1.25) mg/dL Est GFR (CKD-EPI)AfAm >90 (>60 ml/min/1.73 sqM) Est GFR (CKD-EPI)NonAf 84 (>60 ml/min/1.73 sqM) Glucose 107 H (74-99) mg/dL Calcium 9.6 (8.4-10.2) mg/dL Magnesium 1.9 (1.6-2.3) mg/dL Total Bilirubin 0.8 (0.2-1.3) mg/dL AST 50 (17-59) U/L ALT 68 H (4-49) U/L Alkaline Phosphatase 79 (38-126) U/L Troponin I (0.000-0.034) ng/mL Total Protein 7.3 (6.3-8.2) g/dL Albumin 4.4 (3.5-5.0) g/dL 07/08/21 Range/Units 13:39 WBC (3.8-10.6) k/uL RBC (4.30-5.90) m/uL Hgb (13.0-17.5) gm/dL Hct (39.0-53.0) % MCV (80.0-100.0) fL MCH (25.0-35.0) pg MCHC (31.0-37.0) g/dL RDW (11.5-15.5) % Plt Count (150-450) k/uL MPV Neutrophils % % Lymphocytes % % Monocytes % % Eosinophils % % Basophils % % Neutrophils # (1.3-7.7) k/uL Lymphocytes # (1.0-4.8) k/uL Monocytes # (0-1.0) k/uL Eosinophils # (0-0.7) k/uL Basophils # (0-0.2) k/uL PT (9.0-12.0) sec INR (<1.2) APTT (22.0-30.0) sec Sodium (137-145) mmol/L Potassium (3.5-5.1) mmol/L Chloride (98-107) mmol/L Carbon Dioxide (22-30) mmol/L Anion Gap mmol/L BUN (9-20) mg/dL Creatinine (0.66-1.25) mg/dL Est GFR (CKD-EPI)AfAm (>60 ml/min/1.73 sqM) Est GFR (CKD-EPI)NonAf (>60 ml/min/1.73 sqM) Glucose (74-99) mg/dL Calcium (8.4-10.2) mg/dL Magnesium (1.6-2.3) mg/dL Total Bilirubin (0.2-1.3) mg/dL AST (17-59) U/L ALT (4-49) U/L Alkaline Phosphatase (38-126) U/L Troponin I <0.012 (0.000-0.034) ng/mL Total Protein (6.3-8.2) g/dL Albumin (3.5-5.0) g/dL Critical Care Time Critical Care Time: Yes Total Critical Care Time: 35 Disposition Clinical Impression: Unstable angina Disposition: ADMITTED IP TO THIS HOSP Referrals: Michael Styles MD [Primary Care Provider] - 1-2 days Time of Disposition: 16:15
[2021-07-08 13:57] LABS: Basophils % (A) 0 %; Eosinophils # (A) 0.1 k/uL (0-0.7); Eosinophils % (A) 1 %; HCT 47.2 % (39.0-53.0); HGB 16.6 gm/dL (13.0-17.5); Lymphocytes # (A) 3.6 k/uL (1.0-4.8); Lymphocytes % (A) 38 %; MCH 32.2 pg (25.0-35.0); MCHC 35.1 g/dL (31.0-37.0); MCV 91.9 fL (80.0-100.0); Mean Platelet Volume 7.3; Monocytes # (A) 0.5 k/uL (0-1.0); Monocytes % (A) 5 %; Neutrophils # (A) 5.1 k/uL (1.3-7.7); Neutrophils % (A) 54 %; Platelet Count 248 k/uL (150-450); RBC 5.14 m/uL (4.30-5.90); RDW 12.5 % (11.5-15.5); WBC 9.5 k/uL (3.8-10.6)
[2021-07-08 14:07] LABS: ALT 68 U/L (4-49); AST 50 U/L (17-59); African American GFR (CKD) >90 (>60 ml/min/1.73 sqM); Albumin 4.4 g/dL (3.5-5.0); Alkaline Phosphatase 79 U/L (38-126); Anion Gap 9 mmol/L; Blood Urea Nitrogen 9 mg/dL (9-20); Calcium 9.6 mg/dL (8.4-10.2); Carbon Dioxide 23 mmol/L (22-30); Chloride 109 mmol/L (98-107); Glucose 107 mg/dL (74-99); Magnesium 1.9 mg/dL (1.6-2.3); Non-African American GFR(CKD) 84 (>60 ml/min/1.73 sqM); Partial Thromboplastin Time 24.2 sec (22.0-30.0); Prothrombin Time 10.8 sec (9.0-12.0); Sodium 141 mmol/L (137-145); Total Bilirubin 0.8 mg/dL (0.2-1.3); Total Protein 7.3 g/dL (6.3-8.2)
--- NOTE | 2021-07-08 14:08 | XR ---
EXAMINATION TYPE: XR chest 2V DATE OF EXAM: 07/08/2021 COMPARISON: 02/23/2021 TECHNIQUE: PA and lateral views submitted. HISTORY: Chest pain FINDINGS: The lungs are clear and there is no pneumothorax, pleural effusion, or focal pneumonia. Slightly coa rsened interstitium. Biapical pleural thickening. Heart size normal. Hypertrophic change of the spine . IMPRESSION: 1. Slightly coarsened interstitium could be associated with a bronchitis or interstitial pneumonitis.
--- NOTE | 2021-07-08 14:13 | CT ---
EXAMINATION TYPE: CT brain wo con DATE OF EXAM: 07/08/2021 COMPARISON: CT brain 10/15/2016 HISTORY: Rt sided weakness CT DLP: 1099.4 mGycm. Automated Exposure Control for Dose Reduction was Utilized. TECHNIQUE: CT scan of the head is performed without contrast. FINDINGS: There is no acute intracranial hemorrhage, mass effect, or midline shift identified. The ventricles and sulci are within normal limits in size. The globes are intact and the visualized sin uses are remarkable for some inflammatory change in the frontal ethmoidal region. There are basal renny glia calcifications noted incidentally. IMPRESSION: No acute intracranial hemorrhage, mass effect, or midline shift is seen.
[2021-07-08] MEDS ORDERED: ACETAMINOPHEN TAB 500 MG TAB PO PRN (14:51)
[2021-07-08] MEDS ORDERED: HEPARIN SODIUM 1,000 UN/ML (10ML VL) IV ONE (16:13)
[2021-07-08] MEDS ORDERED: HEPARIN SOD,PORK IN 0.45% NACL 25,000 UNIT in 0.45% NACL 1 250ML.BAG IV SCH (16:15)
[2021-07-08] MEDS ORDERED: NITROGLYCERIN SL TABS 0.4 MG TAB SUBLINGUAL PRN (16:16)
--- NOTE | 2021-07-08 16:18 | P.HPIM ---
<Varinder Stack - Last Filed: 07/08/21 16:25> History of Present Illness H&P Date: 07/08/21 History of Presenting Illness: Patient is a 50-year-old male with a past medical history of CAD with previous RI, hypertension, hyperlipidemia, COPD/chronic bronchitis, history of CVA with right-sided deficits on dual antiplatelet therapy with aspirin and Plavix. Patient presented to the emergency department with a chief complaint of chest pain, shortness of breath, and diaphoresis. Patient reports this chest pain initially began last night accompanied by increased weakness and a tingling almost like a "loss of power" in his right upper extremity. Patient reports that he does have a slight weakness in his right upper extremity due to his previous CVA and goes to physical therapy for treatment, but this feeling was different. patient states these symptoms seem to somewhat improve last night, but states came back with a vengeance this morning. Patient reports upon awakening this morning his chest pain was much worse and describes it as a pressure-like to his left anterior chest. Patient states this pain was accompanied by shortness of breath and diaphoresis and so he came to the emergency department for evaluation. In the emergency department an EKG was completed revealing normal sinus rhythm. Troponins were negative. Patient underwent a chest x-ray revealing bronchitis versus interstitial pneumonitis and a CT on his head without contrast which was negative for acute intracranial process. patient was given aspirin, nitroglycerin paste and started on heparin infusion for treatment of unstable angina. Patient admitted under our services with consultation to cardiology and neurology. Upon physical examination patient reports improvement of his chest pain since receiving nitro paste. Patient reports pain has improved from previous 8 out of 10 to now 5 out of 10 but remains a pressure-like nonradiating feeling to his left anterior chest. Patient reports shortness of breath and diaphoresis have subsided. Patient reports he continues to have a strange feeling in his right hand and arm different from how he felt with his previous stroke. Patient denies having any headache, lightheadedness, dizziness, changes in his vision or hearing, dysphagia, changes in her difficulties with his speech, palpitations, abdominal pain, nausea, vomiting, or experiencing any other numbness/tingling/weakness in his extremities. Review of systems: Pertinent positives and negatives as discussed in HPI, a complete review of systems was performed and all other systems are negative. Physical exam: Vital signs reviewed and stable. General: Nontoxic, no distress and appears stated age. Derm: Skin warm and dry, normal coloration for ethnicity. Head: Atraumatic, normocephalic and symmetric. Eyes: EOMs intact, no lid lag, and anicteric sclera Mouth: no lip lesions, mucus membranes moist Cardiovascular: regular rate and rhythm with normal S1S2, no murmur, positive posterior tibial pulses bilaterally, and cap refill < 2 seconds. Lungs: Respirations even, regular, and unlabored on room air. Lungs CTA bilaterally, no rhonchi, no rales, no wheezing, and no accessory muscle usage. Abdominal: soft, nontender to palpation, no guarding, no appreciable organomegaly Ext: ROM intact. No gross muscle atrophy, no edema, no contractures. patient with full range of motion in bilateral upper and lower extremities. Negative arm drop. Patient does have slight weakness in right upper extremity when compared to left. Neuro: Speech clear, face symmetrical and CN II-XII grossly intact with no noted focal neuro deficits Psych: Alert and oriented to person, place, time, and situation. Appropriate and pleasant affect. Assessment and Plan of Care: Chest pain accompanied by shortness of breath and diaphoresis in patient with history of CAD and previous RI -Cardiology consult -initial EKG normal sinus rhythm and troponin negative at less than 0.012 -Telemetry monitoring -Trend troponins -Echocardiogram -Cardiac diet, NPO At midnight -Aspirin, atorvastatin, and metoprolol -Continuation of daily medications including: aspirin, atorvastatin, Plavix, valsartan, hydrochlorothiazide, and amlodipine -Lipid profile and Hgb A1c with a.m. labs. previous lipid profile drawn 02/24/21 revealed an elevated VLDL of 51.20 and triglycerides of 256. Increased tingling/weakness in right upper extremity with history of CVA with right-sided deficits -CT brain without contrast negative for acute intracranial process. -Neurology consult -Neuro checks every 4 hours. -Continue daily aspirin, atorvastatin, and Plavix. -Echocardiogram -Lipid profile and Hgb A1c with a.m. labs. previous lipid profile drawn 02/24/21 revealed an elevated VLDL of 51.20 and triglycerides of 256. Hypertension Monitor vital signs and continue daily medication regimen. Hyperlipidemia Continue daily medication regimen with atorvastatin 80 mg nightly. -Lipid profile with a.m. labs. -Heart healthy diet. COPD/chronic bronchitis -Continue daily medication regimen with Ellipta and Singulair. The patient is admitted with an anticipated less than 2 midnight stay for evaluation of Chest pain. CODE STATUS: full code DVT prophylaxis: Heparin Discussed with: Patient and RN Anticipated discharge date: 1-[address]: Home A total of 45 minutes was spent on the care of this complex patient more than 50% of the time was spent in counseling and care coordination. Past Medical History Past Medical History: Chest Pain / Angina, CVA/TIA, GERD/Reflux, Hyperlipidemia, Hypertension, Memory Impairment, Myocardial Infarction ([place]), Sleep Apnea/CPAP/BIPAP Additional Past Medical History / Comment(s): Pt recently admitted to [facility] on 08/16/19 with anterior chest pain. Other hx: CVAs -pt thinks 4 or 5 with R sided weakness, short term memory loss, balance issures/uses a cane, migraines, bilateral hand tremors, HILTON but no longer uses his device stating "it didn't help", occasional low back pain, numbness/tingling bilateral hands/feet, bilateral carpal tunnel syndrome, sinus problems Last Myocardial Infarction Date:: 07/2018 History of Any Multi-Drug Resistant Organisms: None Reported Past Surgical History: Cholecystectomy, Heart Catheterization, Tonsillectomy Additional Past Surgical History / Comment(s): 07/2018 cardiac cath-normal, sinus surgery, colonoscopy, dental extractions. Past Anesthesia/Blood Transfusion Reactions: No Reported Reaction Past Psychological History: Anxiety, Depression, PTSD Smoking Status: Former smoker Past Alcohol Use History: None Reported Past Drug Use History: None Reported - Past Family History Mother Family Medical History: No Reported History Additional Family Medical History / Comment(s): Mother is healthy Father Family Medical History: Coronary Artery Disease (CAD), Myocardial Infarction ([place]) Additional Family Medical History / Comment(s): Father of a RI at the age of 52 yrs. Medications and Allergies Home Medications Medication Instructions Recorded Confirmed Type Montelukast [Singulair] 10 mg PO DAILY 11/17/18 07/08/21 History Loratadine 10 mg PO DAILY 08/16/19 07/08/21 History Atorvastatin [Lipitor] 80 mg PO DAILY 02/23/21 07/08/21 History Clopidogrel Bisulfate [Plavix] 75 mg PO DAILY 02/23/21 07/08/21 History DULoxetine HCL [Cymbalta] 60 mg PO DAILY 02/23/21 07/08/21 History Valsartan/Hydrochlorothiazide 1 tab PO DAILY 02/23/21 07/08/21 History [Valsartan-Hctz 320-25 mg Tab] ARIPiprazole [Abilify] 10 mg PO DAILY 07/08/21 07/08/21 History Aspirin EC [Ecotrin Low Dose] 81 mg PO DAILY 07/08/21 07/08/21 History Cholecalciferol (Vitamin D3) 125 mcg PO DAILY 07/08/21 07/08/21 History [Vitamin D3 (125 MCG = 5,000 IU)] Fluticasone Nasal [place] [Flonase 1 spr EA NOSTRIL DAILY 07/08/21 07/08/21 History Nasal [place]] Multivitamins, Thera [Multivitamin 1 tab PO DAILY 07/08/21 07/08/21 History (formulary)] Pantoprazole [Protonix] 40 mg PO DAILY 07/08/21 07/08/21 History Umeclidinium Brm/Vilanterol Tr 1 puff INHALATION RT-DAILY 07/08/21 07/08/21 His tory [Anoro Ellipta 62.5-25 Mcg INH] amLODIPine [Norvasc] 5 mg PO BID 07/08/21 07/08/21 History busPIRone HCL [Buspar] 30 mg PO BID 07/08/21 07/08/21 History lamoTRIgine [LaMICtal] 25 mg PO DAILY 07/08/21 07/08/21 History Allergies Allergy/AdvReac Type Severity Reaction Status Date / Time No Known Allergies Allergy Verified 07/08/21 13:14 Physical Exam Vitals: Vital Signs Temp Pulse Resp BP Pulse Ox 07/08/21 15:00 66 18 120/85 98 07/08/21 13:35 89 20 97 07/08/21 13:12 98.2 F 99 20 144/94 98 Intake and Output 07/08/21 07/08/21 07/08/21 06:59 14:59 22:59 Other: Weight 117.934 kg Results CBC & Chem 7: 07/08/21 13:39 07/08/21 13:39 Labs: Abnormal Lab Results - Last 24 Hours (Table) 07/08/21 Range/Units 13:39 Chloride 109 H (98-107) mmol/L Glucose 107 H (74-99) mg/dL ALT 68 H (4-49) U/L <Sarah Norris - Last Filed: 07/08/21 18:53> History of Present Illness Chief Complaint: chest pain Physical Exam Osteopathic Statement: *. No significant issues noted on an osteopathic structural exam other than those noted in the History and Physical/Consult. Vitals: Vital Signs Temp Pulse Pulse Resp BP BP Pulse Ox 07/08/21 18:05 97.6 F 73 17 109/70 98 07/08/21 17:25 70 20 100/65 98 07/08/21 15:00 66 18 120/85 98 07/08/21 13:35 89 20 97 07/08/21 13:12 98.2 F 99 20 144/94 98 Intake and Output 07/08/21 07/08/21 07/08/21 06:59 14:59 22:59 Other: Weight 117.934 kg 117.934 kg Results CBC & Chem 7: 07/08/21 13:39 07/08/21 13:39 Labs: Abnormal Lab Results - Last 24 Hours (Table) 07/08/21 Range/Units 13:39 Chloride 109 H (98-107) mmol/L Glucose 107 H (74-99) mg/dL ALT 68 H (4-49) U/L Assessment and Plan Assessment: Patient seen and evaluated by me independently. Patient was also seen by MACKENZIE, the original author of this note. I am in agreement with the subjective, physical exam, and assessment and plan as documented with the addition/changes of my exam and assessment below. Gen: awake, alert HEENT: normocephalic, atraumatic, good hearing acuity, moist mucous membranes Resp: good air exchange, breathing comfortably with no accessory muscle use, clear to auscultation bilaterally no wheezes no crackles CVS: good distal perfusion x 4, regular rate and rhythm without murmurs GI: soft, NTTP, ND : no SPT, no CVAT, link catheter not present MSK: no pitting edema, no clubbing Neuro: non-focal, moving all extremities Psych: cooperative, euthymic mood Plan: Trend troponins Azithromycin 500 daily Cardiology consult
[2021-07-08] MEDS: NITROGLYCERIN OINT 1 INCH/GM PACKET TOPICAL SCH ×2 (17:23→23:14)
[2021-07-08] MEDS: amLODIPine 5 MG TAB PO SCH (20:49)
[2021-07-08] MEDS: busPIRone HCl 10 MG TAB PO SCH (20:49)
[2021-07-08 21:45] VITALS: RESP 18
[2021-07-09] MEDS: NITROGLYCERIN OINT 1 INCH/GM PACKET TOPICAL SCH ×2 (05:26→12:45)
[2021-07-09 06:31] LABS: African American GFR (CKD) >90 (>60 ml/min/1.73 sqM); Anion Gap 6 mmol/L; Blood Urea Nitrogen 10 mg/dL (9-20); Calcium 9.2 mg/dL (8.4-10.2); Carbon Dioxide 26 mmol/L (22-30); Chloride 110 mmol/L (98-107); Glucose 114 mg/dL (74-99); Non-African American GFR(CKD) 86 (>60 ml/min/1.73 sqM); Potassium 4.4 mmol/L (3.5-5.1); Sodium 142 mmol/L (137-145)
[2021-07-09] MEDS: IPRATROPIUM 0.5 MG/2.5 ML NEBU INHALATION SCH ×3 (07:45→15:37)
[2021-07-09] MEDS ORDERED: FORMOTEROL FUMARATE 20 MCG/2 ML NEBU INHALATION SCH (08:00)
[2021-07-09] MEDS ORDERED: CAFFEINE CITRATE 60 MG/3 ML VIAL IV PRN (08:27)
[2021-07-09] MEDS ORDERED: AMINOPHYLLINE 500 MG/20 ML VIAL IV PRN (08:27)
[2021-07-09] MEDS ORDERED: REGADENOSON 0.4 MG/5 ML SYRINGE IV PRN (08:27)
--- NOTE | 2021-07-09 08:29 | P.CRDCN ---
History of Present Illness Consult date: 07/09/21 Chief complaint: Chest pain History of present illness: This is 50-year-old gentleman with hypertension and dyslipidemia and history of CVA as well as history of sleep apnea was admitted to the hospital with a chest discomfort. The patient describes intermittent episodes of chest discomfort, in the middle of the chest, as a sharp kind of discomfort, without any radiation to the arms or neck or shoulders and without any associated symptoms. No shortness of breath or dizziness or lightheadedness or any feeling of heart racing or fluttering or bruit syncope or syncope. The chest discomfort started a few days ago. He underwent a workup came in to be unremarkable. The chest x-ray did not show any acute abnormalities. The EKG showed sinus rhythm without any significant ST or T-wave abnormalities. The troponin came in to be unremarkable as well. He underwent a heart catheterization in 2018 and that revealed normal coronaries. The patient is concerned about his chest discomfort. I do feel that the chest discomfort is not cardiac related but I'm going to obtain a stress test to rule out severe CAD giving the patient's own concern. Past Medical History Past Medical History: Chest Pain / Angina, CVA/TIA, GERD/Reflux, Hyperlipidemia, Hypertension, Memory Impairment, Myocardial Infarction ([place]), Sleep Apnea/CPAP/BIPAP Additional Past Medical History / Comment(s): Pt recently admitted to [facility] on 08/16/19 with anterior chest pain. Other hx: CVAs -pt thinks 4 or 5 with R sided weakness, short term memory loss, balance issures/uses a cane, migraines, bilateral hand tremors, HIL[place] but no longer uses his device stating "it didn't help", occasional low back pain, numbness/tingling bilateral hands/feet, bilateral carpal tunnel syndrome, sinus problems Last Myocardial Infarction Date:: 07/2018 History of Any Multi-Drug Resistant Organisms: None Reported Past Surgical History: Cholecystectomy, Heart Catheterization, Tonsillectomy Additional Past Surgical History / Comment(s): 07/2018 cardiac cath-normal, sinus surgery, colonoscopy, dental extractions. Past Anesthesia/Blood Transfusion Reactions: No Reported Reaction Past Psychological History: Anxiety, Depression, PTSD Additional Psychological History / Comment(s): Pt resides with his spouse. He uses a cane to ambulate. He drives very little-his spouse drives. He speaks Ukrainian quite well. His primary language is [place]ian and prefers literature in [facility]. Smoking Status: Current some day smoker Past Alcohol Use History: None Reported Additional Past Alcohol Use History / Comment(s): Pt started smoking in 1988 and is a half ppd smoker. Past Drug Use History: None Reported - Past Family History Mother Family Medical History: No Reported History Additional Family Medical History / Comment(s): Mother is healthy Father Family Medical History: Coronary Artery Disease (CAD), Myocardial Infarction ([place]) Additional Family Medical History / Comment(s): Father of a [place] at the age of 52 yrs. Medications and Allergies Home Medications Medication Instructions Recorded Confirmed Type Montelukast [Singulair] 10 mg PO DAILY 11/17/18 07/08/21 History Loratadine 10 mg PO DAILY 08/16/19 07/08/21 History Atorvastatin [Lipitor] 80 mg PO DAILY 02/23/21 07/08/21 History Clopidogrel Bisulfate [Plavix] 75 mg PO DAILY 02/23/21 07/08/21 History DULoxetine HCL [Cymbalta] 60 mg PO DAILY 02/23/21 07/08/21 History Valsartan/Hydrochlorothiazide 1 tab PO DAILY 02/23/21 07/08/21 History [Valsartan-Hctz 320-25 mg Tab] ARIPiprazole [Abilify] 10 mg PO DAILY 07/08/21 07/08/21 History Aspirin EC [Ecotrin Low Dose] 81 mg PO DAILY 07/08/21 07/08/21 History Cholecalciferol (Vitamin D3) 125 mcg PO DAILY 07/08/21 07/08/21 History [Vitamin D3 (125 MCG = 5,000 IU)] Fluticasone Nasal [place] [Flonase 1 spr EA NOSTRIL DAILY 07/08/21 07/08/21 History Nasal [place]] Multivitamins, Thera [Multivitamin 1 tab PO DAILY 07/08/21 07/08/21 History (formulary)] Pantoprazole [Protonix] 40 mg PO DAILY 07/08/21 07/08/21 History Umeclidinium Brm/Vilanterol Tr 1 puff INHALATION RT-DAILY 07/08/21 07/08/21 History [Anoro Ellipta 62.5-25 Mcg INH] amLODIPine [Norvasc] 5 mg PO BID 07/08/21 07/08/21 History busPIRone HCL [Buspar] 30 mg PO BID 07/08/21 07/08/21 History lamoTRIgine [LaMICtal] 25 mg PO DAILY 07/08/21 07/08/21 History Allergies Allergy/AdvReac Type Severity Reaction Status Date / Time No Known Allergies Allergy Verified 07/08/21 13:14 Physical Exam Vitals: Vital Signs Temp Pulse Pulse Pulse Resp BP BP 07/09/21 08:04 89 07/09/21 07:58 88 07/09/21 07:57 88 07/09/21 07:49 88 07/09/21 07:00 97.5 F L 67 18 110/62 07/09/21 00:23 97.8 F 69 18 105/64 07/08/21 19:54 98.6 F 72 18 117/68 07/08/21 18:05 97.6 F 73 17 109/70 07/08/21 17:25 70 20 100/65 07/08/21 15:00 66 18 120/85 07/08/21 13:35 89 20 07/08/21 13:12 98.2 F 99 20 144/94 Pulse Ox 07/09/21 08:04 07/09/21 07:58 07/09/21 07:57 07/09/21 07:49 07/09/21 07:00 98 07/09/21 00:23 97 07/08/21 19:54 97 07/08/21 18:05 98 07/08/21 17:25 98 07/08/21 15:00 98 07/08/21 13:35 97 07/08/21 13:12 98 Intake and Output 07/08/21 07/09/21 07/09/21 22:59 06:59 14:59 Intake Total 236 Balance 236 Intake: Oral 236 Other: Voiding Method Toilet Toilet # Voids 1 2 Weight 117.934 kg - Constitutional General appearance: no acute distress - Respiratory Respiratory: bilateral: CTA - Cardiovascular Rhythm: regular Heart sounds: normal: S1, S2 Results 07/08/21 13:39 07/09/21 05:29 Cardiac Enzymes 07/08/21 07/08/21 07/08/21 Range/Units 13:39 13:39 17:10 AST 50 (17-59) U/L Troponin I <0.012 <0.012 (0.000-0.034) ng/mL 07/08/21 Range/Units 20:11 AST (17-59) U/L Troponin I <0.012 (0.000-0.034) ng/mL Coagulation 07/08/21 07/09/21 Range/Units 13:39 05:29 PT 10.8 (9.0-12.0) sec APTT 24.2 30.0 (22.0-30.0) sec CBC 07/08/21 Range/Units 13:39 WBC 9.5 (3.8-10.6) k/uL RBC 5.14 (4.30-5.90) m/uL Hgb 16.6 (13.0-17.5) gm/dL Hct 47.2 (39.0-53.0) % Plt Count 248 (150-450) k/uL Comprehensive Metabolic Panel 07/08/21 07/09/21 Range/Units 13:39 05:29 Sodium 141 142 (137-145) mmol/L Potassium 4.0 4.4 (3.5-5.1) mmol/L Chloride 109 H 110 H (98-107) mmol/L Carbon Dioxide 23 26 (22-30) mmol/L BUN 9 10 (9-20) mg/dL Creatinine 1.05 1.02 (0.66-1.25) mg/dL Glucose 107 H 114 H (74-99) mg/dL Calcium 9.6 9.2 (8.4-10.2) mg/dL AST 50 (17-59) U/L ALT 68 H (4-49) U/L Alkaline Phosphatase 79 (38-126) U/L Total Protein 7.3 (6.3-8.2) g/dL Albumin 4.4 (3.5-5.0) g/dL Current Medications Generic Name Dose Route Start Last Admin Trade Name Freq PRN Reason Stop Dose Admin Acetaminophen 1,000 mg 07/08/21 14:51 07/08/21 14:58 Acetaminophen Tab 500 Mg Tab PO 1,000 mg Q6HR PRN Administration Fever and/ or Pain Amlodipine Besylate 5 mg 07/08/21 21:00 07/08/21 20:49 Amlodipine 5 Mg Tab PO 5 mg BID [facility] Administration Aripiprazole 10 mg 07/09/21 09:00 Aripiprazole 10 Mg Tab PO DAILY [facility] Aspirin 81 mg 07/09/21 09:00 Aspirin 81 Mg PO DAILY [facility] Atorvastatin Calcium 80 mg 07/09/21 09:00 Atorvastatin 80 Mg Tab PO DAILY [facility] Azithromycin 500 mg 07/09/21 09:00 Azithromycin 500 Mg Tab PO DAILY [facility] Buspirone HCl 30 mg 07/08/21 21:00 07/08/21 20:49 Buspirone Hcl 10 Mg Tab PO 30 mg BID [facility] Administration Cholecalciferol 125 mcg 07/09/21 09:00 Cholecalciferol 25 Mcg (1000 Iu) Tablet PO DAILY [facility] Clopidogrel Bisulfate 75 mg 07/09/21 09:00 Clopidogrel 75 Mg Tab PO DAILY [facility] Duloxetine HCl 60 mg 07/09/21 09:00 Duloxetine Hcl 60 Mg Capsule.Dr PO DAILY [facility] Fluticasone Propionate 1 spray 07/09/21 09:00 Fluticasone 50mcg/Letts Nasal 16gm EA NOSTRIL DAILY [facility] Formoterol Fumarate 20 mcg 07/09/21 08:00 07/09/21 07:45 Formoterol Fumarate 20 Mcg/2 Ml Nebu INHALATION 20 mcg RT-BID [facility] Administration Hydrochlorothiazide 25 mg 07/09/21 09:00 Hydrochlorothiazide 25 Mg Tab PO DAILY [facility] Heparin Sodium/Sodium Chloride 250 mls @ 10.001 mls/hr 07/08/21 16:15 07/08/21 16:47 25,000 unit/ Sodium Chloride IV 8.48 units/kg/hr .Q24H AJITH 10.001 mls/hr Administration Protocol 8.48 UNITS/KG/HR Ipratropium [place] 0.5 mg 07/09/21 08:00 07/09/21 07:45 Ipratropium 0.5 Mg/2.5 Ml Nebu INHALATION 0.5 mg RT-QID [facility] Administration Lamotrigine 25 mg 07/09/21 09:00 Lamotrigine 25 Mg Tab PO DAILY [facility] Montelukast Sodium 10 mg 07/09/21 09:00 Montelukast 10 Mg Tab PO DAILY [facility] Multivitamins 1 each 07/09/21 09:00 Multivitamins, Thera 1 Each Tab PO DAILY [facility] Nitroglycerin 0.4 mg 07/08/21 16:16 Nitroglycerin Sl Tabs 0.4 Mg Tab SUBLINGUAL Q5M PRN Chest Pain Nitroglycerin 1 inch 07/08/21 18:00 07/09/21 05:26 Nitroglycerin Oint 1 Inch/Gm Packet TOPICAL Not Given Q6HR [facility] Pantoprazole Sodium 40 mg 07/09/21 09:00 Pantoprazole 40 Mg Tablet PO DAILY [facility] Valsartan 320 mg 07/09/21 09:00 Valsartan 160 Mg Tab PO DAILY [facility] Intake and Output 07/08/21 07/09/21 07/09/21 22:59 06:59 14:59 Intake Total 236 Balance 236 Intake: Oral 236 Other: Voiding Method Toilet Toilet # Voids 1 2 Weight 117.934 kg 07/08/21 13:39 07/09/21 05:29 Assessment and Plan Assessment: Assessment #1 atypical chest discomfort #2 history of stroke #3 hypertension #4 dyslipidemia Plan #1 acute coronary event was ruled out #2 I will obtain Lexiscan R Stress test #3 further recommendation to follow that
[2021-07-09] MEDS ORDERED: CLOPIDOGREL 75 MG TAB PO SCH (09:00)
[2021-07-09] MEDS ORDERED: ATORVASTATIN 80 MG TAB PO SCH (09:00)
[2021-07-09] MEDS ORDERED: VALSARTAN 160 MG TAB PO SCH (09:00)
[2021-07-09] MEDS ORDERED: PANTOPRAZOLE 40 MG TABLET PO SCH (09:00)
[2021-07-09] MEDS ORDERED: MULTIVITAMINS, THERA 1 EACH TAB PO SCH (09:00)
[2021-07-09] MEDS ORDERED: hydroCHLOROthiazide 25 MG TAB PO SCH (09:00)
[2021-07-09] MEDS ORDERED: ARIPiprazole 10 MG TAB PO SCH (09:00)
[2021-07-09] MEDS ORDERED: ASPIRIN 325 MG TAB PO SCH (09:00)
[2021-07-09] MEDS ORDERED: ASPIRIN 81 MG PO SCH (09:00)
[2021-07-09] MEDS ORDERED: CHOLECALCIFEROL 25 MCG (1000 IU) TABLET PO SCH (09:00)
[2021-07-09] MEDS ORDERED: DULoxetine HCL 60 MG CAPSULE.DR PO SCH (09:00)
[2021-07-09] MEDS ORDERED: AZITHROMYCIN 500 MG TAB PO SCH (09:00)
[2021-07-09] MEDS ORDERED: MONTELUKAST 10 MG TAB PO SCH (09:00)
[2021-07-09] MEDS ORDERED: lamoTRIgine 25 MG TAB PO SCH (09:00)
[2021-07-09] MEDS ORDERED: FLUTICASONE 50MCG/SPRAY NASAL 16GM EA NOSTRIL SCH (09:00)
[2021-07-09] MEDS: amLODIPine 5 MG TAB PO SCH (09:01)
[2021-07-09 09:42] LABS: HCT 44.3 % (39.6-50.0); HGB 14.6 g/dL (13.0-17.0); MCH 30.7 pg (27.0-32.0); MCV 93.1 fL (80.0-97.0); Platelet Count 239 X 10*3/uL (140-440); RBC 4.76 X 10*6/uL (4.40-5.60); RDW 13.1 % (11.5-14.5); WBC 7.95 X 10*3/uL (4.50-10.00)
[2021-07-09 11:08] LABS: Chol/HDL Ratio 6.52; Cholesterol 176 mg/dL (0-200); LDL Cholesterol,Calculated 111.6 mg/dL (0.0-131.0)
--- NOTE | 2021-07-09 11:35 | ECHOF ---
Referral Reason:CP, RUE numbness tingling hx CVA w/ r-side deficit MEASUREMENTS -------- HEIGHT: 180.3 cm WEIGHT: 117.9 kg BP: RVIDd: 3.2 cm (< 3.3) IVSd: 1.3 cm (0.6 - 1.1) LVIDd: 3.3 cm (3.9 - 5.3) LVPWd: 1.9 cm (0.6 - 1.1) IVSs: 1.9 cm LVIDs: 1.8 cm LVPWs: 2.2 cm Ao Diam: 3.6 cm (2.0 - 3.7) AV Cusp: 2.4 cm (1.5 - 2.6) LA Diam: 3.1 cm (2.7 - 3.8) MV EXCURSION: 29.848 mm (> 18.000) MV EF SLOPE: 91 mm/s (70 - 150) EPSS: 1.5 cm MV E Evin: 0.82 m/s MV DecT: 222 ms MV A Evin: 0.59 m/s MV E/A Ratio: 1.38 RAP: 5.00 mmHg RVSP: 14.31 mmHg FINDINGS -------- This was a technically difficult study with suboptimal views. The left ventricular size is normal. There is moderate concentric left ventricular hypertrophy. O verall left ventricular systolic function is normal with, an EF between 55 - 60 %. The right ventricle is normal in size. The left atrial size is normal. The right atrial size is normal. Lumason used The aortic valve is trileaflet and appears structurally normal. The mitral valve is normal. There is trace mitral regurgitation. The tricuspid valve appears structurally normal. Trace tricuspid regurgitation present. Right allison tricular systolic pressure is normal at < 35 mmHg. There is no pulmonic regurgitation present. The aortic root size is normal. IVC Not well visulized. There is no pericardial effusion. CONCLUSIONS -------- 1. The left ventricular size is normal. 2. There is moderate concentric left ventricular hypertrophy. 3. Overall left ventricular systolic function is normal with, an EF between 55 - 60 %. 4. There is trace mitral regurgitation. 5. Trace tricuspid regurgitation present. 6. There is no pericardial effusion. CONTRACTS ANALYST: Soniya Fontenot [facility]
[2021-07-09 12:41] LABS: Hemoglobin A1C 5.5 % (4.0-6.0)
[2021-07-09] MEDS: busPIRone HCl 10 MG TAB PO SCH (12:43)
--- NOTE | 2021-07-09 13:41 | NM ---
EXAMINATION TYPE: NM stress lexiscan cardiolite DATE OF EXAM: 07/09/2021 COMPARISON: NONE HISTORY: Chest pain TECHNIQUE: After the intravenous administration of 9.7 mCi Tc 99m Sestamibi - Cardiolite resting SPE CT images acquired 45 minutes post injection. The patient received 0.4mg Lexiscan, 22.6 mCi Tc 99m Sestamibi - Stress images obtained [address] injection FINDINGS: Review of stress and rest SPECT images demonstrates no distinct perfusion abnormality. Gated analysi s shows normal wall motion with an estimated left ventricular ejection fraction of 52 %. IMPRESSION: No scintigraphic evidence for reversible ischemia.
--- NOTE | 2021-07-09 14:07 | EST ---
EXERCISE STRESS DATE OF STUDY: 07/09/2021 AGE: 50 SEX: M HT: 6' WT: 259 lbs. PROTOCOL: Lexiscan Cardiolite STAGE: NA DURATION OF EXERCISE: NA HEART RATE REST: 57 BLOOD PRESSURE REST: 130/84 MAXIMUM HEART RATE ACHIEVED: 96 MAXIMUM BLOOD PRESSURE: 134/89 85% MPHR: 96 100% MPHR: 171 METS: NA INDICATIONS: Chest pain CLINICAL INFORMATION: STRESS DATA: Heart rate 57, pressure 130/84 mmHg. Baseline EKG showed sinus mechanism. Lexiscan in the amount of 0.4 mg was given over 15 seconds per protocol. Max heart rate was 96 beats per minute. Maximum pressure was 134/89 mmHg. Clinically the patient did not have any symptoms. The EKG did not show any significant ST or T-wave abnormalities concerning for ischemia. CONCLUSION: 1. Nondiagnostic electrocardiogram stress testing in response to Lexiscan. 2. Please follow up on the Cardiolite portion in a separate report from Radiology Department. MMODL / IJN: [id number] /
[2021-07-09 14:19] VITALS: BP 103/62; TEMP 97.4
[2021-07-09] MEDS ORDERED: methylPREDNISolone SOD SUCCI 40 MG/ML 1 ML VIAL IV STA (15:13)
[2021-07-09 15:48] VITALS: PULSE 88
--- NOTE | 2021-07-09 17:04 | CT ---
EXAMINATION TYPE: CT angio head neck DATE OF EXAM: 07/09/2021 COMPARISON: None HISTORY: Worsening RT side deficit resolved CT DLP: 488.30 mGycm Automated exposure control for dose reduction was used. CONTRAST: Performed with IV Contrast, patient injected with 65 mL of Isovue 370. Images obtained from the aortic arch to the vertex of the brain with IV contrast. There are 3-D post processed images. There is normal branching pattern of the great vessels on the aortic arch. There is bilateral arteria l flow in the subclavian arteries. There is arterial flow in the common internal and external carotid arteries bilaterally. There is arterial flow in the vertebral arteries bilaterally. Left vertebral a rtery is larger than the right. There is wide patency of the carotid artery bifurcations. There is arterial flow in the vertebrobasilar artery system. Basilar artery fills mostly from the lef t side. There is arterial flow in the anterior middle and posterior cerebral arteries. There is no mass effec t. I see no evidence of intracranial aneurysm or neovascularity. I see no intracranial arterial steno sis. There is no mass effect. There is normal enhancement of the venous sinuses. IMPRESSION: Negative CT angiogram of the neck. Negative CT angiogram of the brain.
--- NOTE | 2021-07-09 18:21 | P.DS ---
<Varinder Stack - Last Filed: 07/09/21 18:04> Providers Expected date of discharge: 07/09/21 Hospital Course: Discharge Diagnosis: Atypical chest pain, acute coronary event ruled out. Increased tingling/weakness in right upper extremity with history of CVA with right-sided deficits, resolved Cervical arthritis Hypertension Hyperlipidemia COPD/chronic bronchitis History of CAD with previous TX Hospital Course: Patient is a 50-year-old male with a past medical history of CAD with previous TX, hypertension, hyperlipidemia, COPD/chronic bronchitis, history of CVA with right-sided deficits on dual antiplatelet therapy with aspirin and Plavix. Patient presented to the emergency department with a chief complaint of chest pain, shortness of breath, and diaphoresis. Patient reports this chest pain ini tially began last night accompanied by increased weakness and a tingling almost like a "loss of power" in his right upper extremity. Patient reports that he does have a slight weakness in his right upper extremity due to his previous CVA and goes to physical therapy for treatment, but this feeling was different. patient states these symptoms seem to somewhat improve last night, but states came back with a vengeance this morning. Patient reports upon awakening this morning his chest pain was much worse and describes it as a pressure-like to his left anterior chest. Patient states this pain was accompanied by shortness of breath and diaphoresis and so he came to the emergency department for evaluation. In the emergency department an EKG was completed revealing normal sinus rhythm. Troponins were negative. Patient underwent a chest x-ray revealing bronchitis versus interstitial pneumonitis and a CT on his head without contrast which was negative for acute intracranial process. patient was given aspirin, nitroglycerin paste and started on heparin infusion for treatment of unstable angina. Patient admitted under our services with consultation to cardiology. Troponins trended 3 negative at less than 0.012. Lipid profile revealing hypertriglyceridemia with triglyceride level of 187. Echocardiogram revealing a normal EF between 55 and 60% with no significant valvular abnorma lities. Complex computed tomography scan stress test negative for any abnormalities concerning for ischemia. Patient cleared from cardiology standpoint for discharge home. CTA head and neck negative. Discussed case with neurologist recommending outpatient follow-up with neurology. Patient also noted to have significant cervical pain states long-standing history of cervical arthritis currently under treatment receiving steroid injections and physical therapy. Patient also reported prior to coming in he was doing some yard work and using right arm more than usual. Increased tingling/weakness in right upper extremity believed to be secondary to results of cervical arthritis. Patient given steroids resulting in improvement of pain. Patient's condition is stable at this time. Patient instructed to follow up with PCP in 2 days along with cardiology and neurology in 1 week. Patient being discharged home on 5 day course of azithromycin for COPD/chronic bronchitis exacerbation as well as Medrol taper for treatment of COPD/chronic bronchitis exacerbation and all along with cervical arthritis. Physical exam: Vital signs reviewed and stable. General: Nontoxic, no distress and appears stated age. Derm: Skin warm and dry, normal coloration for ethnicity. Head: Atraumatic, normocephalic and symmetric. Eyes: EOMs intact, no lid lag, and anicteric sclera Mouth: no lip lesions, mucus membranes moist Cardiovascular: regular rate and rhythm with normal S1S2, no murmur, positive posterior tibial pulses bilaterally, and cap refill < 2 seconds. Lungs: Respirations even, regular, and unlabored on room air. Lungs CTA bilaterally, no rhonchi, no rales, no wheezing, and no accessory muscle usage. Abdominal: soft, nontender to palpation, no guarding, no appreciable organomegaly Ext: ROM intact. No gross muscle atrophy, no edema, no contractures. patient with full range of motion in bilateral upper and lower extremities. Negative arm drop. Patient does have slight weakness in right upper extremity when compared to left. Neuro: Speech clear, face symmetrical and CN II-XII grossly intact with no noted focal neuro deficits Psych: Alert and oriented to person, place, time, and situation. Appropriate and pleasant affect. A total of 45 minutes of time were spent preparing this complex discharge summary. Patient Condition at Discharge: Stable Plan - Discharge Summary Discharge Rx Participant: No New Discharge Prescriptions: New methylPREDNISolone Dose Pack [Medrol Dose Pack] 4 mg PO DIRECTED #21 tab Azithromycin [Zithromax Z-pack (6 tabs)] 0 mg PO DIRECTED 5 Days #6 tab Continue Montelukast [Singulair] 10 mg PO DAILY Loratadine 10 mg PO DAILY DULoxetine HCL [Cymbalta] 60 mg PO DAILY Clopidogrel Bisulfate [Plavix] 75 mg PO DAILY Atorvastatin [Lipitor] 80 mg PO DAILY Valsartan/Hydrochlorothiazide [Valsartan-Hctz 320-25 mg Tab] 1 tab PO DAILY Pantoprazole [Protonix] 40 mg PO DAILY Multivitamins, Thera [Multivitamin (formulary)] 1 tab PO DAILY Cholecalciferol (Vitamin D3) [Vitamin D3 (125 MCG = 5,000 IU)] 125 mcg PO DAILY busPIRone HCL [Buspar] 30 mg PO BID ARIPiprazole [Abilify] 10 mg PO DAILY amLODIPine [Norvasc] 5 mg PO BID lamoTRIgine [LaMICtal] 25 mg PO DAILY Fluticasone Nasal Marilla [Flonase Nasal Marilla] 1 spr EA NOSTRIL DAILY Umeclidinium Brm/Vilanterol Tr [Anoro Ellipta 62.5-25 Mcg INH] 1 puff INHALATION RT-DAILY Aspirin EC [Ecotrin Low Dose] 81 mg PO DAILY Discharge Medication List Montelukast [Singulair] 10 mg PO DAILY 11/17/18 [History] Loratadine 10 mg PO DAILY 08/16/19 [History] Atorvastatin [Lipitor] 80 mg PO DAILY 02/23/21 [History] Clopidogrel Bisulfate [Plavix] 75 mg PO DAILY 02/23/21 [History] DULoxetine HCL [Cymbalta] 60 mg PO DAILY 02/23/21 [History] Valsartan/Hydrochlorothiazide [Valsartan-Hctz 320-25 mg Tab] 1 tab PO DAILY 02/23/21 [History] ARIPiprazole [Abilify] 10 mg PO DAILY 07/08/21 [History] Aspirin EC [Ecotrin Low Dose] 81 mg PO DAILY 07/08/21 [History] Cholecalciferol (Vitamin D3) [Vitamin D3 (125 MCG = 5,000 IU)] 125 mcg PO DAILY 07/08/21 [History] Fluticasone Nasal Marilla [Flonase Nasal Marilla] 1 spr EA NOSTRIL DAILY 07/08/21 [History] Multivitamins, Thera [Multivitamin (formulary)] 1 tab PO DAILY 07/08/21 [History] Pantoprazole [Protonix] 40 mg PO DAILY 07/08/21 [History] Umeclidinium Brm/Vilanterol Tr [Anoro Ellipta 62.5-25 Mcg INH] 1 puff INHALATION RT-DAILY 07/08/21 [History] amLODIPine [Norvasc] 5 mg PO BID 07/08/21 [History] busPIRone HCL [Buspar] 30 mg PO BID 07/08/21 [History] lamoTRIgine [LaMICtal] 25 mg PO DAILY 07/08/21 [History] Azithromycin [Zithromax Z-pack (6 tabs)] 0 mg PO DIRECTED 5 Days #6 tab 07/09/21 [Rx] methylPREDNISolone Dose Pack [Medrol Dose Pack] 4 mg PO DIRECTED #21 tab 07/09/21 [Rx] Follow up Appointment(s)/Referral(s): Jimmy Mckeon MD [STAFF PHYSICIAN] - 1 Week Michael Styles MD [Primary Care Provider] - 1-2 days Vanita Dobbins MD [REFERRING] - 1 Week Discharge Disposition: HOME SELF-CARE <Kaitlin Ventura - Last Filed: 07/09/21 21:08> Providers Date of admission: 07/08/21 16:16 Attending physician: Kaitlin Ventura DO Primary care physician: Michael Styles Hospital Course: Patient seen and examined independently. Patient was also seen by Varinder Stack NP and case was discussed. I am in agreement with discharge diagnosis, hospital course, and physical exam as written above and amended below. Patient seen and examined. He states that he has cervical arthritis. He sees Dr. Kaur [facility] and undergoes injections and have CAT scans done. He is due to have a nerve block done seen. Positive Spurling's test on the right. Suspect that patient has acute flare of cervical arthritis possible discitis. He will have a Medrol dose pack secondary to acute arthritis flare. General: non toxic, no distress, appears older than stated age Derm: warm, dry Head: atraumatic, normocephalic, symmetric Eyes: EOMI, no lid lag, anicteric sclera Mouth: no lip lesion, mucus membranes moist Cardiovascular: S1S2 reg, no murmur, positive posterior tibial pulse bilateral, Lungs: CTA bilateral, no rhonchi, no rales , no accessory muscle use Neuro: CN II-XI grossly intact, no focal neuro deficits, pain to palpation over the right scapular area, pain to axilla load with tingling down right arm. Psych: Alert, oriented, appropriate affect Additional diagnosis: Acute flare of cervical arthritis
== END 2021-07-09 18:22 | disposition home or self-care (01) ==
LOC: EC 13:11 → 6NMEDSUR 16:16
PROVIDERS: ADMIT Internal Medicine; ATTEND Internal Medicine
DX: R07.89 Other chest pain (principal); R20.2 Paresthesia of skin; R53.1 Weakness; R06.02 Shortness of breath; R61 Generalized hyperhidrosis; Z20.822 Contact with and (suspected) exposure to COVID-19; E78.1 Pure hyperglyceridemia; E78.5 Hyperlipidemia, unspecified; I25.10 Atherosclerotic heart disease of native coronary artery without angina pectoris; F17.200 Nicotine dependence, unspecified, uncomplicated; F32.9 Major depressive disorder, single episode, unspecified; F43.10 Post-traumatic stress disorder, unspecified; I10 Essential (primary) hypertension; I25.2 Old myocardial infarction; I69.30 Unspecified sequelae of cerebral infarction; J44.9 Chronic obstructive pulmonary disease, unspecified; M19.90 Unspecified osteoarthritis, unspecified site; M47.812 Spondylosis without myelopathy or radiculopathy, cervical region; Z79.02 Long term (current) use of antithrombotics/antiplatelets; Z79.82 Long term (current) use of aspirin; Z79.899 Other long term (current) drug therapy
CPT/HCPCS: 96366 ×2; 96375; 96376; 96365; 99291; 36415; 94640 ×2; 93005; 93017; 93306; 80061; 80053; 80048; 83735 ×2; 84484; 85025; 85027; 85610; 85730 ×2; 83036; 87635; 71046; 70496; 70450; 70498; 78452; G0378 ×2; A9500; J2920; J1644 ×2; J2785; Q9950; Q9967

== ENCOUNTER 2022-06-05 13:45 | Observation (INO) | payer OTHER, MEDICARE ==
[2022-06-05 14:38] LABS: Basophils # (A) 0.1 k/uL (0-0.2); Basophils % (A) 1 %; Eosinophils # (A) 0.1 k/uL (0-0.7); Eosinophils % (A) 1 %; HCT 51.6 % (39.0-53.0); HGB 17.3 gm/dL (13.0-17.5); Lymphocytes # (A) 3.9 k/uL (1.0-4.8); Lymphocytes % (A) 33 %; MCH 30.5 pg (25.0-35.0); MCHC 33.5 g/dL (31.0-37.0); Monocytes # (A) 0.7 k/uL (0-1.0); Monocytes % (A) 6 %; Neutrophils # (A) 6.9 k/uL (1.3-7.7); Neutrophils % (A) 58 %; Platelet Count 287 k/uL (150-450); RBC 5.67 m/uL (4.30-5.90); RDW 12.7 % (11.5-15.5); WBC 11.9 k/uL (3.8-10.6)
[2022-06-05 14:46] LABS: Albumin 5.1 g/dL (3.5-5.0); Calcium 10.1 mg/dL (8.4-10.2); Potassium 4.3 mmol/L (3.5-5.1); Total Bilirubin 0.6 mg/dL (0.2-1.3); Total Protein 8.5 g/dL (6.3-8.2)
[2022-06-05 14:51] LABS: Partial Thromboplastin Time 25.9 sec (22.0-30.0); Prothrombin Time 11.1 sec (9.0-12.0)
--- NOTE | 2022-06-05 14:55 | XR ---
EXAMINATION TYPE: XR chest 2V DATE OF EXAM: 06/05/2022 COMPARISON: 07/08/2021 HISTORY: Shortness of breath TECHNIQUE: Frontal and lateral views of the chest are obtained. FINDINGS: Scattered senescent parenchymal changes noted. Hyperinflation compatible with COPD. No evidence for infiltrate. No evidence for atelectasis. Heart size is stable. Mediastinal structures are stable and grossly unremarkable. No evidence for hilar prominence. Degenerative changes dorsal spine. IMPRESSION: 1. No evidence for acute pulmonary disease.
--- NOTE | 2022-06-05 15:01 | ED ---
General Adult HPI - General Chief complaint: Chest Pain Stated complaint: Chest pain,HBP Time Seen by Provider: 06/05/22 14:03 Source: patient, RN notes reviewed, old records reviewed Mode of arrival: wheelchair Limitations: no limitations - History of Present Illness Initial comments: 51-year-old male presents for evaluation of central chest pain which he describes as a pressure. This is been present for the past 20 hours. This is worse with exertion. He does report some associated dyspnea. No vomiting. No diaphoresis. - Related Data Home Medications Medication Instructions Recorded Confirmed Montelukast [Singulair] 10 mg PO DAILY 11/17/18 06/05/22 Loratadine 10 mg PO DAILY 08/16/19 06/05/22 Atorvastatin [Lipitor] 80 mg PO DAILY 02/23/21 06/05/22 Clopidogrel Bisulfate [Plavix] 75 mg PO DAILY 02/23/21 06/05/22 DULoxetine HCL [Cymbalta] 60 mg PO DAILY 02/23/21 06/05/22 ARIPiprazole [Abilify] 10 mg PO DAILY 07/08/21 06/05/22 Pantoprazole [Protonix] 40 mg PO DAILY 07/08/21 06/05/22 amLODIPine [Norvasc] 5 mg PO BID 07/08/21 06/05/22 busPIRone HCL [Buspar] 30 mg PO BID 07/08/21 06/05/22 lamoTRIgine [LaMICtal] 50 mg PO TID 07/08/21 06/05/22 Cyclobenzaprine [Flexeril] 5 mg PO TID 06/05/22 06/05/22 Labetalol HCl [Trandate] 600 mg PO BID 06/05/22 06/05/22 Pregabalin [Lyrica] 50 mg PO BID 06/05/22 06/05/22 Tamsulosin HCl [Flomax] 0.4 mg PO DAILY 06/05/22 06/05/22 Triamterene/Hydrochlorothiazid 1 tab PO DAILY 06/05/22 06/05/22 [Triamterene-Hctz 75-50 mg Tab] Valsartan 320 mg PO DAILY 06/05/22 06/05/22 Allergies Allergy/AdvReac Type Severity Reaction Status Date / Time No Known Allergies Allergy Verified 06/05/22 15:06 Review of Systems ROS Statement: Those systems with pertinent positive or pertinent negative responses have been documented in the HPI. ROS Other: All systems not noted in ROS Statement are negative. Past Medical History Past Medical History: Chest Pain / Angina, CVA/TIA, GERD/Reflux, Hyperlipidemia, Hypertension, Memory Impairment, Myocardial Infarction ([place]), Sleep Apnea/CPAP/BIPAP Additional Past Medical History / Comment(s): Pt recently admitted to [facility] on 08/16/19 with anterior chest pain. Other hx: CVAs -pt thinks 4 or 5 with R sided weakness, short term memory loss, balance issures/uses a cane, migraines, bilateral hand tremors, [place] but no longer uses his device stating "it didn't help", occasional low back pain, numbness/tingling bilateral hands/feet, bilateral carpal tunnel syndrome, sinus problems Last Myocardial Infarction Date:: 07/2018 History of Any Multi-Drug Resistant Organisms: None Reported Past Surgical History: Cholecystectomy, Heart Catheterization, Tonsillectomy Additional Past Surgical History / Comment(s): 07/2018 cardiac cath-normal, sinus surgery, colonoscopy, dental extractions. Past Anesthesia/Blood Transfusion Reactions: No Reported Reaction Past Psychological History: Anxiety, Depression, PTSD Smoking Status: Current some day smoker Past Alcohol Use History: None Reported Past Drug Use History: None Reported - Past Family History Mother Family Medical History: No Reported History Additional Family Medical History / Comment(s): Mother is healthy Father Family Medical History: Coronary Artery Disease (CAD), Myocardial Infarction ([place]) Additional Family Medical History / Comment(s): Father of a [place] at the age of 52 yrs. General Exam Limitations: no limitations General appearance: alert, in no apparent distress Head exam: Present: atraumatic, normocephalic Eye exam: Present: normal appearance, PERRL Neck exam: Present: normal inspection. Absent: tenderness, meningismus Respiratory exam: Present: normal lung sounds bilaterally. Absent: respiratory distress, wheezes Cardiovascular Exam: Present: regular rate, normal rhythm GI/Abdominal exam: Present: soft. Absent: distended, tenderness, guarding Extremities exam: Present: normal inspection, normal capillary refill. Absent: pedal edema, calf tenderness Neurological exam: Present: alert, oriented X3, CN II-XII intact. Absent: motor sensory deficit Psychiatric exam: Present: normal affect, normal mood Skin exam: Present: warm, dry, intact, normal color. Absent: cyanosis, diaphoretic Course Vital Signs 06/05/22 06/05/22 13:46 14:15 Temperature 97.8 F Pulse Rate 91 Pulse Rate [ 96 [employer] ] Respiratory 18 Rate Blood Pressure 144/94 O2 Sat by Pulse 100 Oximetry EKG Findings - EKG Comments: EKG Findings:: Sinus tachycardia, rate of 112, ID interval 136, QRS duration 98, QTC [address] segment elevation. Medical Decision Making - Medical Decision Making 51-year-old male presenting with central chest pain over the past 20 hours. EKG is sinus tachycardia without ST segment elevation. Chest x-ray negative for pneumothorax, no focal pneumonia. Patient has a mild leukocytosis, normal hemoglobin, negative d-dimer, negative troponin. Normal electrolytes. Given the patient's risk factors he will be placed in observation for serial cardiac enzymes, telemetry, cardiology consultation. Case discussed with Dr. Norris - Lab Data Result diagrams: 06/05/22 14:23 06/05/22 14:23 Lab Results 06/05/22 06/05/22 06/05/22 Range/Units 14:23 14:23 14:23 WBC 11.9 H (3.8-10.6) k/uL RBC 5.67 (4.30-5.90) m/uL Hgb 17.3 (13.0-17.5) gm/dL Hct 51.6 (39.0-53.0) % MCV 91.0 (80.0-100.0) fL MCH 30.5 (25.0-35.0) pg MCHC 33.5 (31.0-37.0) g/dL RDW 12.7 (11.5-15.5) % Plt Count 287 (150-450) k/uL MPV 7.0 Neutrophils % 58 % Lymphocytes % 33 % Monocytes % 6 % Eosinophils % 1 % Basophils % 1 % Neutrophils # 6.9 (1.3-7.7) k/uL Lymphocytes # 3.9 (1.0-4.8) k/uL Monocytes # 0.7 (0-1.0) k/uL Eosinophils # 0.1 (0-0.7) k/uL Basophils # 0.1 (0-0.2) k/uL PT 11.1 (9.0-12.0) sec INR 1.0 (<1.2) APTT 25.9 (22.0-30.0) sec D-Dimer 0.25 (<0.60) mg/L FEU Sodium 139 (137-145) mmol/L Potassium 4.3 (3.5-5.1) mmol/L Chloride 101 (98-107) mmol/L Carbon Dioxide 24 (22-30) mmol/L Anion Gap 14 mmol/L BUN 17 (9-20) mg/dL Creatinine 1.17 (0.66-1.25) mg/dL Est GFR (CKD-EPI)AfAm 84 (>60 ml/min/1.73 sqM) Est GFR (CKD-EPI)NonAf 72 (>60 ml/min/1.73 sqM) Glucose 90 (74-99) mg/dL Calcium 10.1 (8.4-10.2) mg/dL Magnesium 2.0 (1.6-2.3) mg/dL Total Bilirubin 0.6 (0.2-1.3) mg/dL AST 39 (17-59) U/L ALT 45 (4-49) U/L Alkaline Phosphatase 105 (38-126) U/L Troponin I (0.000-0.034) ng/mL NT-Pro-B Natriuret Pep pg/mL Total Protein 8.5 H (6.3-8.2) g/dL Albumin 5.1 H (3.5-5.0) g/dL Lipase 258 (23-300) U/L 06/05/22 06/05/22 Range/Units 14:23 14:23 WBC (3.8-10.6) k/uL RBC (4.30-5.90) m/uL Hgb (13.0-17.5) gm/dL Hct (39.0-53.0) % MCV (80.0-100.0) fL MCH (25.0-35.0) pg MCHC (31.0-37.0) g/dL RDW (11.5-15.5) % Plt Count (150-450) k/uL MPV Neutrophils % % Lymphocytes % % Monocytes % % Eosinophils % % Basophils % % Neutrophils # (1.3-7.7) k/uL Lymphocytes # (1.0-4.8) k/uL Monocytes # (0-1.0) k/uL Eosinophils # (0-0.7) k/uL Basophils # (0-0.2) k/uL PT (9.0-12.0) sec INR (<1.2) APTT (22.0-30.0) sec D-Dimer (<0.60) mg/L FEU Sodium (137-145) mmol/L Potassium (3.5-5.1) mmol/L Chloride (98-107) mmol/L Carbon Dioxide (22-30) mmol/L Anion Gap mmol/L BUN (9-20) mg/dL Creatinine (0.66-1.25) mg/dL Est GFR (CKD-EPI)AfAm (>60 ml/min/1.73 sqM) Est GFR (CKD-EPI)NonAf (>60 ml/min/1.73 sqM) Glucose (74-99) mg/dL Calcium (8.4-10.2) mg/dL Magnesium (1.6-2.3) mg/dL Total Bilirubin (0.2-1.3) mg/dL AST (17-59) U/L ALT (4-49) U/L Alkaline Phosphatase (38-126) U/L Troponin I <0.012 (0.000-0.034) ng/mL NT-Pro-B Natriuret Pep <11 pg/mL Total Protein (6.3-8.2) g/dL Albumin (3.5-5.0) g/dL Lipase (23-300) U/L Disposition Clinical Impression: Chest pain Disposition: ADMITTED IP TO THIS HOSP Condition: Stable Is patient prescribed a controlled substance at d/c from ED?: No Referrals: Michael Styles MD [Primary Care Provider] - 1-2 days Time of Disposition: 15:24
[2022-06-05] MEDS ORDERED: SODIUM CHLORIDE 0.9% 500 ML 500 ML IV ONE (15:07)
[2022-06-05] MEDS ORDERED: ASPIRIN 325 MG TAB PO STA (15:07)
[2022-06-05] MEDS ORDERED: ACETAMINOPHEN TAB 325 MG TAB PO PRN (15:25)
[2022-06-05] MEDS ORDERED: NALOXONE 0.4 MG/ML 1 ML VIAL IV PRN (15:25)
[2022-06-05] MEDS ORDERED: NALOXONE 0.4 MG/ML 10 ML VIAL IVP PRN (16:22)
[2022-06-05] MEDS ORDERED: NITROGLYCERIN SL TABS 0.4 MG TAB SUBLINGUAL STA (16:23)
[2022-06-05] MEDS ORDERED: NITROGLYCERIN SL TABS 0.4 MG TAB SUBLINGUAL PRN (16:23)
--- NOTE | 2022-06-05 17:58 | P.HPIM ---
History of Present Illness H&P Date: 06/05/22 Chief Complaint: Chest pain 51-year-old man with medical history of CAD, history of CVAs, hypertension, hyperlipidemia, COPD/chronic bronchitis presented to the emergency room with chief complaint of chest pain, shortness of breath, diaphoresis. He has had previous visits for the same. He says his pain started 2 days ago but got acutely worse today causing concern that he was having another heart attack. Therefore, he comes to the emergency room for further evaluation. He says his symptoms were associated with nausea, but not vomiting, also associated with sweats. He denies palpitations, fevers, chills, syncope, presyncope, cough. He does report increased dyspnea on exertion as well. He denies abdominal pain, constipation, diarrhea, dysuria, dyschezia, numbness/weakness of extremities. In the emergency room, patient was afebrile, 144/94, heart rate 91, 100% on room air. CBC had a mild leukocytosis at 11.9, otherwise unremarkable. Chemistries are unremarkable. Liver function tests were unremarkable. Initial troponin was less than 0.012. Initial BNP was less than 11. Coags were unremarkable. D- dimer was 0.25. Chest x-ray demonstrated chronic changes of hyperinflation and senescent parenchymal changes compatible with COPD, but no evidence of acute pulmonary disease. EKG demonstrated sinus tachycardia with T-wave inversions in the inferior leads. All Systems reviewed and pertinent positives and negatives noted in HPI, all other symptoms are negative Gen: in no apparent distress, resting comfortably in bed Eyes: PERRL, no scleral injection or icterus HENT: normocephalic, atraumatic, good hearing acuity, moist mucous membranes Neck: no tracheal deviation, full range of motion Resp: good air exchange, breathing comfortably with no accessory muscle use, no tactile fremitus CVS: good distal perfusion x 4, no pitting edema GI: soft, NTTP, ND, no hepatosplenomegaly : no suprapubic tenderness, no CVAT, link catheter not present MSK: no clubbing, no cyanosis, no noted contractures of extremities Skin: no noted rashes, petechiae; temperature of skin is appropriate Neuro: moving all extremities without signs of weakness, CN II-XII intact Psych: cooperative, euthymic mood, insight and judgment intact Labs and imaging as above Assessment/plan: Chest pain Shortness of breath on exertion History of CAD/CVA -Admit to observation, telemetry -Cardiology consult -Aspirin, Plavix, statin -Nitro when necessary for chest pain -Trend troponins -Echocardiogram Hypertension Hyperlipidemia COPD without exacerbation -Home medications reviewed and reconciled Past Medical History Past Medical History: Chest Pain / Angina, CVA/TIA, GERD/Reflux, Hyperlipidemia, Hypertension, Memory Impairment, Myocardial Infarction ([place]), Sleep Apnea/CPAP/BIPAP Additional Past Medical History / Comment(s): CVAs -pt thinks 4 or 5 with R sided weakness, short term memory loss, balance issures/uses a cane, migraines, bilateral hand tremors, HILTON but no longer uses his device stating "it didn't help", occasional low back pain, numbness/tingling bilateral hands/feet, bilateral carpal tunnel syndrome, sinus problems Last Myocardial Infarction Date:: 07/2018 History of Any Multi-Drug Resistant Organisms: None Reported Past Surgical History: Cholecystectomy, Heart Catheterization, Tonsillectomy Additional Past Surgical History / Comment(s): 07/2018 cardiac cath-normal, sinus surgery, colonoscopy, dental extractions. Past Anesthesia/Blood Transfusion Reactions: No Reported Reaction Past Psychological History: Anxiety, Depression, PTSD Additional Psychological History / Comment(s): Pt resides with his spouse. He uses a cane to ambulate. He drives very little-his spouse drives. He speaks [place] quite well. His primary language is [place] but states while hospitalized he perfers to communicate in [place] and literature in [place]. Smoking Status: Former smoker Past Alcohol Use History: None Reported Additional Past Alcohol Use History / Comment(s): Pt started smoking in 1988 and was a very light smoker. He has not smoked at all for about 8 months. Past Drug Use History: None Reported - Past Family History Mother Family Medical History: No Reported History Additional Family Medical History / Comment(s): Mother is healthy Father Family Medical History: Coronary Artery Disease (CAD), Myocardial Infarction (LA) Additional Family Medical History / Comment(s): Father of a [place] at the age of 52 yrs. Medications and Allergies Home Medications Medication Instructions Recorded Confirmed Type Montelukast [Singulair] 10 mg PO DAILY 11/17/18 06/05/22 History Loratadine 10 mg PO DAILY 08/16/19 06/05/22 History Atorvastatin [Lipitor] 80 mg PO DAILY 02/23/21 06/05/22 History Clopidogrel Bisulfate [Plavix] 75 mg PO DAILY 02/23/21 06/05/22 History DULoxetine HCL [Cymbalta] 60 mg PO DAILY 02/23/21 06/05/22 History ARIPiprazole [Abilify] 10 mg PO DAILY 07/08/21 06/05/22 History Pantoprazole [Protonix] 40 mg PO DAILY 07/08/21 06/05/22 History amLODIPine [Norvasc] 5 mg PO BID 07/08/21 06/05/22 History busPIRone HCL [Buspar] 30 mg PO BID 07/08/21 06/05/22 History lamoTRIgine [LaMICtal] 50 mg PO TID 07/08/21 06/05/22 History Cyclobenzaprine [Flexeril] 5 mg PO TID 06/05/22 06/05/22 History Labetalol HCl [Trandate] 600 mg PO BID 06/05/22 06/05/22 History Pregabalin [Lyrica] 50 mg PO BID 06/05/22 06/05/22 History Tamsulosin HCl [Flomax] 0.4 mg PO DAILY 06/05/22 06/05/22 History Triamterene/Hydrochlorothiazid 1 tab PO DAILY 06/05/22 06/05/22 History [Triamterene-Hctz 75-50 mg Tab] Valsartan 320 mg PO DAILY 06/05/22 06/05/22 History Allergies Allergy/AdvReac Type Severity Reaction Status Date / Time No Known Allergies Allergy Verified 06/05/22 15:06 Physical Exam Osteopathic Statement: *. No significant issues noted on an osteopathic structural exam other than those noted in the History and Physical/Consult. Vitals: Vital Signs Temp Pulse Pulse Resp BP Pulse Ox 06/05/22 17:26 110 H 18 136/91 95 06/05/22 17:16 98.2 F 80 18 135/98 98 06/05/22 14:15 96 06/05/22 13:46 97.8 F 91 18 144/94 100 Intake and Output 06/05/22 06/05/22 06/05/22 06:59 14:59 22:59 Other: Weight 108.862 kg 108.862 kg Results CBC & Chem 7: 06/05/22 14:23 06/05/22 14:23 Labs: Abnormal Lab Results - Last 24 Hours (Table) 06/05/22 06/05/22 Range/Units 14:23 14:23 WBC 11.9 H (3.8-10.6) k/uL Total Protein 8.5 H (6.3-8.2) g/dL Albumin 5.1 H (3.5-5.0) g/dL Thrombosis Risk Factor Assmnt - Choose All That Apply Any of the Below Risk Factors Present?: Yes Each Factor Represents 1 point: Age 41-60 years, Obesity (BMI >25) Other Risk Factors: No Other congenital or acquired thrombophilia - If yes, enter type in comment: No Thrombosis Risk Factor Assessment Total Risk Factor Score: 2 Thrombosis Risk Factor Assessment Level: Low Risk
[2022-06-05] MEDS: amLODIPine 5 MG TAB PO SCH (20:27)
[2022-06-05] MEDS: LABETALOL 200 MG TAB PO SCH (20:27)
[2022-06-05] MEDS: lamoTRIgine 25 MG TAB PO SCH (20:27)
[2022-06-05] MEDS: PREGABALIN 50 MG CAP PO SCH (20:28)
[2022-06-05] MEDS: busPIRone HCl 10 MG TAB PO SCH (20:28)
[2022-06-05] MEDS: CYCLOBENZAPRINE 5 MG TAB PO SCH (20:28)
[2022-06-06 04:59] LABS: Basophils # (A) 0.1 k/uL (0-0.2); Basophils % (A) 1 %; Eosinophils # (A) 0.2 k/uL (0-0.7); Eosinophils % (A) 2 %; HCT 50.7 % (39.0-53.0); HGB 16.5 gm/dL (13.0-17.5); Lymphocytes # (A) 4.2 k/uL (1.0-4.8); Lymphocytes % (A) 40 %; MCH 29.7 pg (25.0-35.0); MCHC 32.5 g/dL (31.0-37.0); MCV 91.5 fL (80.0-100.0); Mean Platelet Volume 6.8; Monocytes # (A) 0.6 k/uL (0-1.0); Monocytes % (A) 6 %; Neutrophils # (A) 5.2 k/uL (1.3-7.7); Neutrophils % (A) 49 %; Platelet Count 275 k/uL (150-450); RBC 5.54 m/uL (4.30-5.90); RDW 12.8 % (11.5-15.5); WBC 10.5 k/uL (3.8-10.6)
[2022-06-06 05:13] LABS: African American GFR (CKD) >90 (>60 ml/min/1.73 sqM); Anion Gap 14 mmol/L; Blood Urea Nitrogen 18 mg/dL (9-20); Calcium 9.2 mg/dL (8.4-10.2); Carbon Dioxide 25 mmol/L (22-30); Chloride 100 mmol/L (98-107); Glucose 118 mg/dL (74-99); Magnesium 1.9 mg/dL (1.6-2.3); Non-African American GFR(CKD) 78 (>60 ml/min/1.73 sqM); Potassium 3.7 mmol/L (3.5-5.1); Sodium 139 mmol/L (137-145)
[2022-06-06] MEDS ORDERED: PANTOPRAZOLE 40 MG TABLET PO SCH (07:30)
[2022-06-06 08:00] VITALS: BP 121/80; PULSE 82; RESP 20; TEMP 97.6
[2022-06-06] MEDS ORDERED: VALSARTAN 160 MG TAB PO SCH (09:00)
[2022-06-06] MEDS ORDERED: MONTELUKAST 10 MG TAB PO SCH (09:00)
[2022-06-06] MEDS ORDERED: CLOPIDOGREL 75 MG TAB PO SCH (09:00)
[2022-06-06] MEDS ORDERED: LORATADINE 10 MG TAB PO SCH (09:00)
[2022-06-06] MEDS ORDERED: TRIAMTERENE-HCTZ 75-50MG 1 EACH TAB PO SCH (09:00)
[2022-06-06] MEDS ORDERED: DULoxetine HCL 60 MG CAPSULE.DR PO SCH (09:00)
[2022-06-06] MEDS ORDERED: TAMSULOSIN 0.4 MG CAP.ER.24H PO SCH (09:00)
[2022-06-06] MEDS ORDERED: ARIPiprazole 10 MG TAB PO SCH (09:00)
[2022-06-06] MEDS ORDERED: ATORVASTATIN 80 MG TAB PO SCH (09:00)
[2022-06-06] MEDS: PREGABALIN 50 MG CAP PO SCH (09:38)
[2022-06-06] MEDS: amLODIPine 5 MG TAB PO SCH (09:38)
[2022-06-06] MEDS: CYCLOBENZAPRINE 5 MG TAB PO SCH (09:41)
[2022-06-06] MEDS: busPIRone HCl 10 MG TAB PO SCH (09:41)
[2022-06-06] MEDS: LABETALOL 200 MG TAB PO SCH (09:41)
[2022-06-06] MEDS: lamoTRIgine 25 MG TAB PO SCH (09:42)
[2022-06-06 09:51] LABS: LDL Cholesterol,Calculated 108.7 mg/dL (0.0-131.0)
--- NOTE | 2022-06-06 12:21 | P.CRDCN ---
History of Present Illness Consult date: 06/06/22 Requesting physician: Sarah Norris Reason for Consult (text): chest pain Chief complaint: chest pain History of present illness: This pleasant 51-year-old gentleman who follows in the office with Dr. Shine. He has a history of hypertension, hyperlipidemia and multiple strokes in the past with minimal residual right-sided weakness. In 2017 he presented to the hospital with complaints of chest discomfort with troponin elevation at that time cardiac catheterization revealed normal coronaries. He has a history of smoking and quit about 6-7 years ago. History of sleep apnea and is non compliant with use of the CPAP stating he just does not work. Presented to the emergency department with complaints of chest discomfort ongoing for 2 days worse with deep breathing. He was prompted to the present emergency department because his blood pressure was 161/80. He is apparently been having fluctuations recently and his blood pressure. He says he is compliant with low sodium diet however had a Burger Sukh At the bedside. In June 2021 he was in the hospital with complaints of chest discomfort and at that time a Lexiscan Cardiolite showed no evidence of ischemia and his echocardiogram showed a normal LV systolic function. EKG on admission showed sinus mechanism with nonspecific ST-T wave abnormalities unchanged from previous. Cardiac enzymes have been unremarkable. Blood pressure has been ranging from 117/82 to 144/94. He is currently on amlodipine 5 mg by mouth twice a day, labetalol which the doses uncertain office notes a 300 mg twice a day but home medications listed in hospital records show 600 mg twice a day, valsartan 320 mg daily and Maxzide one tablet daily. He has on Plavix at home for history of CVA. Upon examination the patient is resting in bed and does not appear to be in any acute distress. Continues to complain of chest discomfort rated about a 4 out of 10, constant with worsening with deep inspiration. Denies any shortness of breath. He does have palpitations when he lays on his right or left side. Denies any dizziness or syncope or near syncope. Denies any edema orthopnea or PND. Did have a diaphoretic episode yesterday but otherwise no complaints of diaphoresis. Past Medical History Past Medical History: Chest Pain / Angina, CVA/TIA, GERD/Reflux, Hyperlipidemia, Hypertension, Memory Impairment, Myocardial Infarction ([place]), Sleep Apnea/CPAP/BIPAP Additional Past Medical History / Comment(s): CVAs -pt thinks 4 or 5 with R sided weakness, short term memory loss, balance issures/uses a cane, migraines, bilateral hand tremors, HILTON but no longer uses his device stating "it didn't help", occasional low back pain, numbness/tingling bilateral hands/feet, bila teral carpal tunnel syndrome, sinus problems Last Myocardial Infarction Date:: 07/2018 History of Any Multi-Drug Resistant Organisms: None Reported Past Surgical History: Cholecystectomy, Heart Catheterization, Tonsillectomy Additional Past Surgical History / Comment(s): 07/2018 cardiac cath-normal, sinus surgery, colonoscopy, dental extractions. Past Anesthesia/Blood Transfusion Reactions: No Reported Reaction Past Psychological History: Anxiety, Depression, PTSD Additional Psychological History / Comment(s): Pt resides with his spouse. He uses a cane to ambulate. He drives very little-his spouse drives. He speaks [place] quite well. His primary language is Bosnian but states while hospitalized he perfers to communicate in [place] and literature in [place]. Smoking Status: Former smoker Past Alcohol Use History: None Reported Additional Past Alcohol Use History / Comment(s): Pt started smoking in 1988 and was a very light smoker. He has not smoked at all for about 8 months. Past Drug Use History: None Reported - Past Family History Mother Family Medical History: No Reported History Additional Family Medical History / Comment(s): Mother is healthy Father Family Medical History: Coronary Artery Disease (CAD), Myocardial Infarction ([place]) Additional Family Medical History / Comment(s): Father of a [place] at the age of 52 yrs. Medications and Allergies Home Medications Medication Instructions Recorded Confirmed Type Montelukast [Singulair] 10 mg PO DAILY 11/17/18 06/05/22 History Loratadine 10 mg PO DAILY 08/16/19 06/05/22 History Atorvastatin [Lipitor] 80 mg PO DAILY 02/23/21 06/05/22 History Clopidogrel Bisulfate [Plavix] 75 mg PO DAILY 02/23/21 06/05/22 History DULoxetine HCL [Cymbalta] 60 mg PO DAILY 02/23/21 06/05/22 History ARIPiprazole [Abilify] 10 mg PO DAILY 07/08/21 06/05/22 History Pantoprazole [Protonix] 40 mg PO DAILY 07/08/21 06/05/22 History amLODIPine [Norvasc] 5 mg PO BID 07/08/21 06/05/22 History busPIRone HCL [Buspar] 30 mg PO BID 07/08/21 06/05/22 History lamoTRIgine [LaMICtal] 50 mg PO TID 07/08/21 06/05/22 History Cyclobenzaprine [Flexeril] 5 mg PO TID 06/05/22 06/05/22 History Labetalol HCl [Trandate] 600 mg PO BID 06/05/22 06/05/22 History Pregabalin [Lyrica] 50 mg PO BID 06/05/22 06/05/22 History Tamsulosin HCl [Flomax] 0.4 mg PO DAILY 06/05/22 06/05/22 History Triamterene/Hydrochlorothiazid 1 tab PO DAILY 06/05/22 06/05/22 History [Triamterene-Hctz 75-50 mg Tab] Valsartan 320 mg PO DAILY 06/05/22 06/05/22 History Allergies Allergy/AdvReac Type Severity Reaction Status Date / Time No Known Allergies Allergy Verified 06/05/22 15:06 Physical Exam Vitals: Vital Signs Temp Pulse Pulse Resp BP BP Pulse Ox 06/06/22 07:28 97 06/06/22 07:00 97.6 F 82 20 121/80 95 06/06/22 02:50 97.9 F 83 17 142/81 99 06/05/22 20:27 97.4 F L 82 18 142/86 98 06/05/22 18:12 97.7 F 82 18 117/80 98 06/05/22 17:26 110 H 18 136/91 95 06/05/22 17:16 98.2 F 80 18 135/98 98 06/05/22 14:15 96 06/05/22 13:46 97.8 F 91 18 144/94 100 Intake and Output 06/05/22 06/06/22 06/06/22 22:59 06:59 14:59 Intake Total 240 Balance 240 Intake: Oral 240 Other: # Voids 1 2 Weight 108.862 kg PHYSICAL EXAMINATION: This is a 51-year-old male in no apparent distress at the time of my examination. VITAL SIGNS: Blood pressure 121/80, heart rate 82, respirations 18, temp 97.6F. Patient is 97 % on room air. HEENT: Head is atraumatic, normocephalic. Pupils are equal, round. Sclerae anicteric. Conjunctivae are clear. Mucous membranes of the mouth are moist. Neck is supple. There is no elevated jugular venous pressure. No carotid bruit is heard. CHEST EXAMINATION: Clear to auscultation bilaterally. No wheezes rales or rhonchi. Respirations even and nonlabored. HEART EXAMINATION: Heart regular, positive S1 and S2. No S3. No S4. No clicks, rubs or murmurs. ABDOMEN: Soft, nontender. Bowel sounds are heard. No organomegaly noted. EXTREMITIES: 2+ peripheral pulses with no evidence of peripheral edema and no calf tenderness noted. NEUROLOGIC EXAMINATION: Patient is awake, alert and oriented x3. Results 06/06/22 04:39 06/06/22 04:39 Cardiac Enzymes 06/05/22 06/05/22 06/05/22 Range/Units 14:23 14:23 17:44 AST 39 (17-59) U/L Troponin I <0.012 <0.012 (0.000-0.034) ng/mL 06/05/22 Range/Units 20:27 AST (17-59) U/L Troponin I <0.012 (0.000-0.034) ng/mL Coagulation 06/05/22 Range/Units 14:23 PT 11.1 (9.0-12.0) sec APTT 25.9 (22.0-30.0) sec CBC 06/05/22 06/06/22 Range/Units 14:23 04:39 WBC 11.9 H 10.5 (3.8-10.6) k/uL RBC 5.67 5.54 (4.30-5.90) m/uL Hgb 17.3 16.5 (13.0-17.5) gm/dL Hct 51.6 50.7 (39.0-53.0) % Plt Count 287 275 (150-450) k/uL Comprehensive Metabolic Panel 06/05/22 06/06/22 Range/Units 14:23 04:39 Sodium 139 139 (137-145) mmol/L Potassium 4.3 3.7 (3.5-5.1) mmol/L Chloride 101 100 (98-107) mmol/L Carbon Dioxide 24 25 (22-30) mmol/L BUN 17 18 (9-20) mg/dL Creatinine 1.17 1.10 (0.66-1.25) mg/dL Glucose 90 118 H (74-99) mg/dL Calcium 10.1 9.2 (8.4-10.2) mg/dL AST 39 (17-59) U/L ALT 45 (4-49) U/L Alkaline Phosphatase 105 (38-126) U/L Total Protein 8.5 H (6.3-8.2) g/dL Albumin 5.1 H (3.5-5.0) g/dL Current Medications Generic Name Dose Route Start Last Admin Trade Name Freq PRN Reason Stop Dose Admin Acetaminophen 650 mg 06/05/22 15:25 Acetaminophen Tab 325 Mg Tab PO Q6HR PRN Mild Pain or Fever > 100.5 Amlodipine Besylate 5 mg 06/05/22 21:00 06/05/22 20:27 Amlodipine 5 Mg Tab PO 5 mg BID AJITH Administration Aripiprazole 10 mg 06/06/22 09:00 Aripiprazole 10 Mg Tab PO DAILY [facility] Atorvastatin Calcium 80 mg 06/06/22 09:00 Atorvastatin 80 Mg Tab PO DAILY [facility] Buspirone HCl 30 mg 06/05/22 21:00 06/05/22 20:28 Buspirone Hcl 10 Mg Tab PO 30 mg BID AJITH Administration Clopidogrel Bisulfate 75 mg 06/06/22 09:00 Clopidogrel 75 Mg Tab PO DAILY [facility] Cyclobenzaprine HCl 5 mg 06/05/22 22:00 06/05/22 20:28 Cyclobenzaprine 5 Mg Tab PO 5 mg TID AJITH Administration Duloxetine HCl 60 mg 06/06/22 09:00 Duloxetine Hcl 60 Mg Capsule.Dr PO DAILY [facility] Labetalol HCl 600 mg 06/05/22 21:00 06/05/22 20:27 Labetalol 200 Mg Tab PO 600 mg BID AJITH Administration Lamotrigine 50 mg 06/05/22 22:00 06/05/22 20:27 Lamotrigine 25 Mg Tab PO 50 mg TID [facility] Administration Loratadine 10 mg 06/06/22 09:00 Loratadine 10 Mg Tab PO DAILY [facility] Montelukast Sodium 10 mg 06/06/22 09:00 Montelukast 10 Mg Tab PO DAILY AJITH Naloxone HCl 0.2 mg 06/05/22 15:25 Naloxone 0.4 Mg/Ml 1 Ml Vial IV Q2M PRN Opioid Reversal Nitroglycerin 0.4 mg 06/05/22 16:23 Nitroglycerin Sl Tabs 0.4 Mg Tab SUBLINGUAL Q5M PRN Chest Pain Pantoprazole Sodium 40 mg 06/06/22 07:30 Pantoprazole 40 Mg Tablet PO AC-BRKFST AJITH Pregabalin 50 mg 06/05/22 21:00 06/05/22 20:28 Pregabalin 50 Mg Cap PO 50 mg BID AJITH Administration Tamsulosin HCl 0.4 mg 06/06/22 09:00 Tamsulosin 0.4 Mg Cap.Er.24h PO DAILY AJITH Triamterene/Hydrochlorothiazide 1 each 06/06/22 09:00 Triamterene-Hctz 75-50mg 1 Each Tab PO DAILY AJITH Valsartan 320 mg 06/06/22 09:00 Valsartan 160 Mg Tab PO DAILY AJITH Intake and Output 06/05/22 06/06/22 06/06/22 22:59 06:59 14:59 Intake Total 240 Balance 240 Intake: Oral 240 Other: # Voids 1 2 Weight 108.862 kg 06/06/22 04:39 06/06/22 04:39 EKG Interpretations (text) Sinus rhythm with nonspecific ST-T wave abnormalities Assessment and Plan Assessment: #1 symptoms chest discomfort, for 2 days, acute coronary event has been ruled out, troponins negative 3, EKG shows no acute changes, history of normal coronaries in 2018 with normal stress test less than a year ago #2 hypertension #3 hyperlipidemia #4 multiple CVAs #5 prior nicotine dependence #6 noncompliance Plan: From cardiology's perspective will obtain a 2-D echo with Doppler to assess c ardiac structure and function. The discomfort appears to be noncardiac in nature. Discussed with the patient importance of low sodium diet. He does not seem willing to try to use his CPAP. If there are no significant abnormalities noted on echo patient may be discharged home and follow-up as and outpatient with Dr. Mckeon. CERTIFIED REHABILITATION COUNSELOR note has been reviewed, I agree with a documented findings and plan of care. Patient was seen and examined.
--- NOTE | 2022-06-06 12:48 | CA ---
Transthoracic Echo Report Name: Florian Egan Age: 51 Gender: M : 1970 Exam Date: 06/06/2022 11:09 Exam Location: [facility] Ht (in): 72 Wt (lb): 240 Ordering Physician: Sarah Norris MD Attending/Referring Phys: Spectrograph Operator Kassie Gonzalez RDCS Procedure CPT: Indications: Chest Pain Cardiac Hx: Technical Quality: Technically difficult study Contrast 1: Lumason Total Dose (mL): 4 Contrast 2: Total Dose (mL): MEASUREMENTS (Male / Female) Normal Values 2D ECHO LV Diastolic Diameter PLAX 3.4 cm 4.2 - 5.9 / 3.9 - 5.3 cm LV Systolic Diameter PLAX 2.3 cm IVS Diastolic Thickness 1.2 cm 0.6 - 1.0 / 0.6 - 0.9 cm LVPW Diastolic Thickness 1.2 cm 0.6 - 1.0 / 0.6 - 0.9 cm LV Relative Wall Thickness 0.7 DOPPLER AV Peak Velocity 113.5 cm/s AV Peak Gradient 5.1 mmHg LVOT Peak Velocity 90.9 cm/s LVOT Peak Gradient 3.3 mmHg MV Area PHT 3.3 cm??? Mitral E Point Velocity 58.6 cm/s Mitral A Point Velocity 51.1 cm/s Mitral E to A Ratio 1.1 MV Deceleration Time 226.8 ms MV E' Velocity 7.9 cm/s Mitral E to MV E' Ratio 7.4 TR Peak Velocity 188.0 cm/s TR Peak Gradient 14.1 mmHg Right Ventricular Systolic Press 19.1 mmHg FINDINGS Left Ventricle Mildly increased left ventricular wall thickness. Normal left ventricular systolic function with no obvious regional wall motion abnormalities. Left ventricular ejection fraction is estimated at 55-60 %. Right Ventricle Right ventricle not well visualized. Right ventricular systolic pressure within normal limits. Right Atrium Right atrium not well visualized. Left Atrium Left atrium not well visualized. Mitral Valve No mitral stenosis, regurgitation or prolapse. Mitral valve appears to be normal Aortic Valve No aortic valve stenosis or regurgitation. Not well visualized Tricuspid Valve Mild tricuspid regurgitation. Tricuspid valve appears to be normal Pulmonic Valve Not well visualized Pericardium No pericardial effusion. Aorta Aortic root and proximal ascending aorta not well visualized. CONCLUSIONS 1. Technically difficult study 2. Normal size and systolic function 3. Inability to visualized valvular structure well Previewed by: Dr. Ladan Sung MD (Electronically Signed) Final Date: 06 June 2022 12:47
--- NOTE | 2022-06-06 13:17 | P.DS ---
Providers Date of admission: 06/05/22 15:25 Expected date of discharge: 06/06/22 Attending physician: Sarah Norris MD Consults: 06/05/22 15:25 Consult Physician Routine Consulting Provider: Ladan Sung Consult Reason/Comments: CP Do you want consulting provider notified?: Yes Primary care physician: Michael [facility] Course: Chest pain Shortness of breath on exertion History of CAD/CVA Hypertension Hyperlipidemia COPD without exacerbation 51-year-old man with medical history of CAD, history of CVAs, hypertension, hyperlipidemia, COPD/chronic bronchitis presented to the emergency room with chief complaint of chest pain, shortness of breath, diaphoresis. In the emergency room, patient was afebrile, 144/94, heart rate 91, 100% on room air. CBC had a mild leukocytosis at 11.9, otherwise unremarkable. Chemistries are unremarkable. Liver function tests were unremarkable. Initial troponin was less than 0.012. Initial BNP was less than 11. Coags were unremarkable. D- dimer was 0.25. Chest x-ray demonstrated chronic changes of hyperinflation and senescent parenchymal changes compatible with COPD, but no evidence of acute pulmonary disease. EKG demonstrated sinus tachycardia with T-wave inversions in the inferior leads. Patient seen in consultation by cardiology. Troponins remained negative. Patient underwent echocardiogram which was a technically limited study because of difficult windows due to COPD. Patient's chest pain however didn't resolve completely without any elevation of troponin as previously mentioned. Therefore, patient was asked to follow up outpatient with cardiology for further evaluation is required. Gen: in no apparent distress, resting comfortably in bed Eyes: PERRL, no scleral injection or icterus HENT: normocephalic, atraumatic, good hearing acuity, moist mucous membranes Neck: no tracheal deviation, full range of motion Resp: good air exchange, breathing comfortably with no accessory muscle use, no tactile fremitus CVS: good distal perfusion x 4, no pitting edema GI: soft, NTTP, ND, no hepatosplenomegaly : no suprapubic tenderness, no CVAT, link catheter not present MSK: no clubbing, no cyanosis, no noted contractures of extremities Skin: no noted rashes, petechiae; temperature of skin is appropriate Neuro: moving all extremities without signs of weakness, CN II-XII intact Psych: cooperative, euthymic mood, insight and judgment intact Patient Condition at Discharge: Stable Plan - Discharge Summary Discharge Rx Participant: No New Discharge Prescriptions: New Acetaminophen Tab [Tylenol] 650 mg PO Q6HR PRN tab PRN Reason: Mild Pain Or Fever > 100.5 Continue Montelukast [Singulair] 10 mg PO DAILY Loratadine 10 mg PO DAILY DULoxetine HCL [Cymbalta] 60 mg PO DAILY Clopidogrel Bisulfate [Plavix] 75 mg PO DAILY Atorvastatin [Lipitor] 80 mg PO DAILY Pantoprazole [Protonix] 40 mg PO DAILY busPIRone HCL [Buspar] 30 mg PO BID ARIPiprazole [Abilify] 10 mg PO DAILY amLODIPine [Norvasc] 5 mg PO BID Labetalol HCl [Trandate] 600 mg PO BID Tamsulosin HCl [Flomax] 0.4 mg PO DAILY lamoTRIgine [LaMICtal] 50 mg PO TID Pregabalin [Lyrica] 50 mg PO BID Valsartan 320 mg PO DAILY Triamterene/Hydrochlorothiazid [Triamterene-Hctz 75-50 mg Tab] 1 tab PO DAILY Cyclobenzaprine [Flexeril] 5 mg PO TID Discharge Medication List Montelukast [Singulair] 10 mg PO DAILY 11/17/18 [History] Loratadine 10 mg PO DAILY 08/16/19 [History] Atorvastatin [Lipitor] 80 mg PO DAILY 02/23/21 [History] Clopidogrel Bisulfate [Plavix] 75 mg PO DAILY 02/23/21 [History] DULoxetine HCL [Cymbalta] 60 mg PO DAILY 02/23/21 [History] ARIPiprazole [Abilify] 10 mg PO DAILY 07/08/21 [History] Pantoprazole [Protonix] 40 mg PO DAILY 07/08/21 [History] amLODIPine [Norvasc] 5 mg PO BID 07/08/21 [History] busPIRone HCL [Buspar] 30 mg PO BID 07/08/21 [History] lamoTRIgine [LaMICtal] 50 mg PO TID 07/08/21 [History] Cyclobenzaprine [Flexeril] 5 mg PO TID 06/05/22 [History] Labetalol HCl [Trandate] 600 mg PO BID 06/05/22 [History] Pregabalin [Lyrica] 50 mg PO BID 06/05/22 [History] Tamsulosin HCl [Flomax] 0.4 mg PO DAILY 06/05/22 [History] Triamterene/Hydrochlorothiazid [Triamterene-Hctz 75-50 mg Tab] 1 tab PO DAILY 06/05/22 [History] Valsartan 320 mg PO DAILY 06/05/22 [History] Acetaminophen Tab [Tylenol] 650 mg PO Q6HR PRN tab 06/06/22 [Rx] Follow up Appointment(s)/Referral(s): Jimmy Mckeon MD [STAFF PHYSICIAN] - 1 Week Michael Styles MD [Primary Care Provider] - 1-2 days Patient Instructions/Handouts: Chest Pain (DC) Discharge Disposition: HOME SELF-CARE
== END 2022-06-06 13:25 | disposition home or self-care (01) ==
LOC: EC 13:45 → 6NMEDSUR 15:25
PROVIDERS: ADMIT Internal Medicine; ATTEND Internal Medicine
DX: R07.89 Other chest pain (principal); J44.9 Chronic obstructive pulmonary disease, unspecified; R00.0 Tachycardia, unspecified; R61 Generalized hyperhidrosis; D72.829 Elevated white blood cell count, unspecified; I10 Essential (primary) hypertension; E78.5 Hyperlipidemia, unspecified; I25.2 Old myocardial infarction; G47.33 Obstructive sleep apnea (adult) (pediatric); K21.9 Gastro-esophageal reflux disease without esophagitis; G43.909 Migraine, unspecified, not intractable, without status migrainosus; I69.951 Hemiplegia and hemiparesis following unspecified cerebrovascular disease affecting right dominant side; I69.911 Memory deficit following unspecified cerebrovascular disease; G56.03 Carpal tunnel syndrome, bilateral upper limbs; R25.1 Tremor, unspecified; F32.A Depression, unspecified; F43.10 Post-traumatic stress disorder, unspecified; F41.9 Anxiety disorder, unspecified; E66.9 Obesity, unspecified; Z68.32 Body mass index [BMI] 32.0-32.9, adult; Z91.19 Patient's noncompliance with other medical treatment and regimen; Z79.02 Long term (current) use of antithrombotics/antiplatelets; Z79.899 Other long term (current) drug therapy; Z90.49 Acquired absence of other specified parts of digestive tract; Z87.891 Personal history of nicotine dependence; Z82.49 Family history of ischemic heart disease and other diseases of the circulatory system
CPT/HCPCS: 99285; 36415; 94760; 93005; 93306; 85379; 83880; 80061; 80053; 80048; 84443; 83690; 83735 ×2; 84484; 85025 ×2; 85610; 85730; 83036; 71046; G0378 ×2; Q9950

== ENCOUNTER → 2022-07-17 | Outpatient (CLI) | payer OTHER, MEDICARE ==
[2022-07-17 14:42] LABS: African American GFR (CKD) 80.4 (60.0-200.0); Anion Gap 12.2 mmol/L (10.00-18.00); BUN/Creat Ratio 13.31 Ratio (12.00-20.00); Blood Urea Nitrogen 16.1 mg/dL (9.0-27.0); Calcium 9.3 mg/dL (8.7-10.3); Carbon Dioxide 22.9 mmol/L (20.0-27.5); Non-African American GFR(CKD) 69.4 (60.0-200.0); Potassium 4.4 mmol/L (3.5-5.5)
== END | disposition home or self-care (01) ==
LOC: LABWHC1 10:15
PROVIDERS: ATTEND Internal Medicine Interventional Cardiology
DX: N18.9 Chronic kidney disease, unspecified (principal)
CPT/HCPCS: 36415; 80048

== ENCOUNTER 2022-09-25 23:54 | Observation (INO) | payer OTHER, MEDICARE ==
[2022-09-25 23:59] VITALS: TEMP 97.9
--- NOTE | 2022-09-26 00:20 | ED ---
Chest Pain [facility] - General Chief Complaint: Chest Pain Stated Complaint: Chest Pain Time Seen by Provider: 09/26/22 00:20 Source: family, RN notes reviewed, old records reviewed Mode of arrival: wheelchair Limitations: no limitations - History of Present Illness Initial Comments: This is a 51-year-old male to the emergency department for evaluation. Patient presents today for evaluation of shortness of breath MD Complaint: chest pain, other (Shortness of breath) -: hour(s) Onset: during rest, during exertion Pain Location: left chest Pain Radiation: LUE Severity: mild Severity scale (1-10): 3 Quality: tightness, heaviness Consistency: intermittent Improves With: nothing Worsens With: nothing Anginal Symptoms: dyspnea, sense of impending doom Other Symptoms: palpitations Treatments Prior to Arrival: none - Related Data Home Medications Medication Instructions Recorded Confirmed Montelukast [Singulair] 10 mg PO DAILY 11/17/18 06/05/22 Loratadine 10 mg PO DAILY 08/16/19 06/05/22 Atorvastatin [Lipitor] 80 mg PO DAILY 02/23/21 06/05/22 Clopidogrel Bisulfate [Plavix] 75 mg PO DAILY 02/23/21 06/05/22 DULoxetine HCL [Cymbalta] 60 mg PO DAILY 02/23/21 06/05/22 ARIPiprazole [Abilify] 10 mg PO DAILY 07/08/21 06/05/22 Pantoprazole [Protonix] 40 mg PO DAILY 07/08/21 06/05/22 amLODIPine [Norvasc] 5 mg PO BID 07/08/21 06/05/22 busPIRone HCL [Buspar] 30 mg PO BID 07/08/21 06/05/22 lamoTRIgine [LaMICtal] 50 mg PO TID 07/08/21 06/05/22 Cyclobenzaprine [Flexeril] 5 mg PO TID 06/05/22 06/05/22 Labetalol HCl [Trandate] 600 mg PO BID 06/05/22 06/05/22 Pregabalin [Lyrica] 50 mg PO BID 06/05/22 06/05/22 Tamsulosin HCl [Flomax] 0.4 mg PO DAILY 06/05/22 06/05/22 Triamterene/Hydrochlorothiazid 1 tab PO DAILY 06/05/22 06/05/22 [Triamterene-Hctz 75-50 mg Tab] Valsartan 320 mg PO DAILY 06/05/22 06/05/22 Previous Rx's Medication Instructions Recorded Acetaminophen Tab [Tylenol] 650 mg PO Q6HR PRN tab 06/06/22 Allergies Allergy/AdvReac Type Severity Reaction Status Date / Time No Known Allergies Allergy Verified 09/25/22 23:59 Review of Systems ROS Statement: Those systems with pertinent positive or pertinent negative responses have been documented in the HPI. ROS Other: All systems not noted in ROS Statement are negative. EKG Findings - EKG Comments: EKG Findings:: EKG is sinus tachycardia 120 NE 131 QRS 88 QTc 420 Past Medical History Past Medical History: Chest Pain / Angina, CVA/TIA, GERD/Reflux, Hyperlipidemia, Hypertension, Memory Impairment, Myocardial Infarction (ND), Sleep Apnea/CPAP/BIPAP Additional Past Medical History / Comment(s): CVAs -pt thinks 4 or 5 with R sided weakness, short term memory loss, balance issures/uses a cane, migraines, bilateral hand tremors, HIL[place] but no longer uses his device stating "it didn't help", occasional low back pain, numbness/tingling bilateral hands/feet, bilateral carpal tunnel syndrome, sinus problems Last Myocardial Infarction Date:: 07/2018 History of Any Multi-Drug Resistant Organisms: None Reported Past Surgical History: Cholecystectomy, Heart Catheterization, Tonsillectomy Additional Past Surgical History / Comment(s): 07/2018 cardiac cath-normal, sinus surgery, colonoscopy, dental extractions. Past Anesthesia/Blood Transfusion Reactions: No Reported Reaction Past Psychological History: Anxiety, Depression, PTSD Smoking Status: Former smoker Past Alcohol Use History: None Reported Past Drug Use History: None Reported - Past Family History Mother Family Medical History: No Reported History Additional Family Medical History / Comment(s): Mother is healthy Father Family Medical History: Coronary Artery Disease (CAD), Myocardial Infarction (ND) Additional Family Medical History / Comment(s): Father of a ND at the age of 52 yrs. General Exam - General Exam Comments Initial Comments: Pruritic raised erythematous rash to chest face arm Limitations: no limitations General appearance: alert, in no apparent distress Head exam: Present: atraumatic, normocephalic, normal inspection Eye exam: Present: normal appearance, PERRL, EOMI. Absent: scleral icterus, conjunctival injection, periorbital swelling ENT exam: Present: normal exam, mucous membranes moist Neck exam: Present: normal inspection. Absent: tenderness, meningismus, lymphadenopathy Respiratory exam: Present: normal lung sounds bilaterally. Absent: respiratory distress, wheezes, rales, rhonchi, stridor Cardiovascular Exam: Present: normal rhythm, tachycardia, normal heart sounds. Absent: systolic murmur, diastolic murmur, rubs, gallop, clicks GI/Abdominal exam: Present: soft, normal bowel sounds. Absent: distended, tenderness, guarding, rebound, rigid Extremities exam: Present: normal inspection, full ROM, normal capillary refill. Absent: tenderness, pedal edema, joint swelling, calf tenderness Back exam: Present: normal inspection Neurological exam: Present: alert, oriented X3, CN II-XII intact Psychiatric exam: Present: normal affect, normal mood Skin exam: Present: warm, dry, intact, normal color. Absent: rash Course Vital Signs 09/25/22 23:55 Temperature 97.9 F Pulse Rate 140 H Respiratory 20 Rate Blood Pressure 185/110 O2 Sat by Pulse 96 Oximetry - Reevaluation(s) Reevaluation #1: 09/26/22 01:46 Medical record is reviewed Reevaluation #2: 09/26/22 02:58 Patient informed results and questions answered Reevaluation #3: 09/26/22 02:58 Mild improvement but not complete resolution - Consultations Consultation #1: Spoke with sound who agrees to admit this patient Chest Pain MDM - MDM Female DF for evaluation of chest pain patient also complaining of diffuse urticarial rash itchy rasheyes hands chest. Patient be admitted for chest pain observation and management of urticarial rash Disposition Clinical Impression: Chest pain, Urticaria Disposition: ADMITTED IP TO THIS [facility] Condition: Good Is patient prescribed a controlled substance at d/c from ED?: No Referrals: Michael Styles MD [Primary Care Provider] - 1-2 days Time of Disposition: 03:00
[2022-09-26 00:41] LABS: Basophils # (A) 0.1 k/uL (0-0.2); Basophils % (A) 0 %; Eosinophils # (A) 0.2 k/uL (0-0.7); Eosinophils % (A) 1 %; HCT 51.3 % (39.0-53.0); HGB 16.9 gm/dL (13.0-17.5); Lymphocytes # (A) 3.7 k/uL (1.0-4.8); Lymphocytes % (A) 16 %; MCH 30.2 pg (25.0-35.0); MCHC 32.9 g/dL (31.0-37.0); MCV 91.7 fL (80.0-100.0); Mean Platelet Volume 7.7; Monocytes # (A) 2.2 k/uL (0-1.0); Monocytes % (A) 9 %; Neutrophils # (A) 17.1 k/uL (1.3-7.7); Neutrophils % (A) 72 %; Platelet Count 305 k/uL (150-450); RBC 5.59 m/uL (4.30-5.90); RDW 13.5 % (11.5-15.5); WBC 23.6 k/uL (3.8-10.6)
[2022-09-26 00:52] LABS: Prothrombin Time 10.6 sec (9.0-12.0)
[2022-09-26 00:57] LABS: ALT 50 U/L (4-49); AST 32 U/L (17-59); African American GFR (CKD) >90 (>60 ml/min/1.73 sqM); Albumin 4.9 g/dL (3.5-5.0); Alkaline Phosphatase 103 U/L (38-126); Anion Gap 13 mmol/L; Blood Urea Nitrogen 15 mg/dL (9-20); Calcium 9.6 mg/dL (8.4-10.2); Carbon Dioxide 19 mmol/L (22-30); Chloride 107 mmol/L (98-107); Glucose 297 mg/dL (74-99); Lipase 280 U/L (23-300); Magnesium 1.8 mg/dL (1.6-2.3); Non-African American GFR(CKD) >90 (>60 ml/min/1.73 sqM); Potassium 4.3 mmol/L (3.5-5.1); Sodium 139 mmol/L (137-145); Total Bilirubin 0.5 mg/dL (0.2-1.3); Total Protein 7.9 g/dL (6.3-8.2)
--- NOTE | 2022-09-26 01:05 | XR ---
EXAMINATION TYPE: XR chest 1V portable DATE OF EXAM: 09/26/2022 COMPARISON: 06/05/2022 HISTORY: Chest pain TECHNIQUE: Single view FINDINGS: Heart and mediastinum are normal. Lungs are clear. Diaphragm is normal. Bony thorax is inta ct. IMPRESSION: Normal chest. No adverse change.
[2022-09-26] MEDS ORDERED: FAMOTIDINE 20 MG/2 ML VIAL IV STA (01:23)
[2022-09-26] MEDS ORDERED: SODIUM CHLORIDE 0.9% 500 ML 500 ML IV STA (01:23)
[2022-09-26] MEDS ORDERED: SODIUM CHLORIDE 0.9% 1,000 ML IV STA (01:23)
[2022-09-26] MEDS ORDERED: diphenhydrAMINE 50 MG/ML 1 ML VIAL IVP STA (01:23)
[2022-09-26] MEDS ORDERED: DEXAMETHASONE SOD PHOSPHATE 10 MG/ML 1 ML VIAL IVP STA (01:23)
[2022-09-26] MEDS ORDERED: KETOROLAC 15 MG/ML 1 ML VIAL IVP STA (01:23)
[2022-09-26] MEDS: SODIUM CHLORIDE 0.9% 1,000 ML IV SCH ×4 (02:28→12:47)
[2022-09-26] MEDS ORDERED: NALOXONE 0.4 MG/ML 1 ML VIAL IV PRN (02:56)
[2022-09-26] MEDS ORDERED: hydrOXYzine HCL 25 MG TAB PO STA (02:57)
[2022-09-26] MEDS ORDERED: diphenhydrAMINE 50 MG/ML 1 ML VIAL IVP PRN (02:57)
--- NOTE | 2022-09-26 04:42 | P.HPIM ---
History of Present Illness H&P Date: 09/26/22 The patient is a 51-year-old male with a PMH of hypertension, hyperlipidemia, coronary artery disease, history of CVAs, and COPD who presents to the emergency room with complaints of chest pain and rash. The patient reports that he initially noticed pruritus with a rash on his right thigh 36 hours ago which quickly progressed to involve most of his body. At time of interview, the patie nt states that his rash has essentially resolved. He denied consuming any new foods, starting any new skin care products or any new medications. Reports that earlier today, he became anxious due to his worsening rash and had some burning like chest discomfort, intermittent, which resolved quickly with resolution of his rash. Denies experiencing shortness of breath, nausea, vomiting, diaphoresis, or palpitations. EKG in the emergency room revealed sinus rhythm at [address]/T-wave changes noted as reviewed by me. Chest x-ray was unremarkable. Laboratory evaluation was remarkable for leukocytosis of 23.6, glucose 297, and troponin less than 0.012. Review of systems: Pertinent positives and negatives as discussed in HPI, a complete review of systems was performed and all other systems are negative. Physical examination: General: non toxic, no distress, appears at stated age, morbidly obese Derm: no unusual rashes/lesions, warm Head: atraumatic, normocephalic, symmetric Eyes: EOMI, no lid lag, anicteric sclera, pupils equal round reactive to light ENT: Nose and ears atraumatic Neck: No cervical lymphadenopathy, trachea midline, supple Mouth: no lip lesion, mucus membranes moist Cardiovascular: S1S2 reg, no murmur, positive dorsalis pedis pulse bilateral, no edema Lungs: CTA bilateral, no rhonchi, no rales, no accessory muscle use Abdominal: soft, nontender to palpation, no guarding Ext: muscle strength 5 out of 5 in all 4 extremities grossly, no gross muscle atrophy, no contractures, Neuro: CN II-XI grossly intact, no gross focal neuro deficits Psych: Alert, oriented, appropriate affect Assessment/plan Chest pain with atypical features -Cardiotomy consulted -Cardiac monitoring -Trend troponin Urticarial rash -Unclear etiology -Resolved with Benadryl, Decadron, and Atarax in the emergency room Chronic conditions: CAD, hypertension, hyperlipidemia, COPD -Continue with home meds DVT prophylaxis -Heparin subq The patient is admitted with an anticipated less than 2 midnight stay for evaluation of chest pain CODE STATUS: Full Code Discussed with: Patient Anticipated discharge date: in am Anticipated discharge place: Home Past Medical History Past Medical History: Chest Pain / Angina, CVA/TIA, GERD/Reflux, Hyperlipidemia, Hypertension, Memory Impairment, Myocardial Infarction (ND), Sleep [employer] Techn[employer] ea/CPAP/BIPAP Additional Past Medical History / Comment(s): CVAs -pt thinks 4 or 5 with R sided weakness, short term memory loss, balance issures/uses a cane, migraines, bilateral hand tremors, [place] but no longer uses his device stating "it didn't help", occasional low back pain, numbness/tingling bilateral hands/feet, bilateral carpal tunnel syndrome, sinus problems Last Myocardial Infarction Date:: 07/2018 History of Any Multi-Drug Resistant Organisms: None Reported Past Surgical History: Cholecystectomy, Heart Catheterization, Tonsillectomy Additional Past Surgical History / Comment(s): 07/2018 cardiac cath-normal, sinus surgery, colonoscopy, dental extractions. Past Anesthesia/Blood Transfusion Reactions: No Reported Reaction Past Psychological History: Anxiety, Depression, PTSD Smoking Status: Former smoker Past Alcohol Use History: None Reported Past Drug Use History: None Reported - Past Family History Mother Family Medical History: No Reported History Additional Family Medical History / Comment(s): Mother is healthy Father Family Medical History: Coronary Artery Disease (CAD), Myocardial Infarction (ND) Additional Family Medical History / Comment(s): Father of a ND at the age of 52 yrs. Medications and Allergies Home Medications Medication Instructions Recorded Confirmed Type Montelukast [Singulair] 10 mg PO DAILY 11/17/18 06/05/22 History Loratadine 10 mg PO DAILY 08/16/19 06/05/22 History Atorvastatin [Lipitor] 80 mg PO DAILY 02/23/21 06/05/22 History Clopidogrel Bisulfate [Plavix] 75 mg PO DAILY 02/23/21 06/05/22 History DULoxetine HCL [Cymbalta] 60 mg PO DAILY 02/23/21 06/05/22 History ARIPiprazole [Abilify] 10 mg PO DAILY 07/08/21 06/05/22 History Pantoprazole [Protonix] 40 mg PO DAILY 07/08/21 06/05/22 History amLODIPine [Norvasc] 5 mg PO BID 07/08/21 06/05/22 History busPIRone HCL [Buspar] 30 mg PO BID 07/08/21 06/05/22 History lamoTRIgine [LaMICtal] 50 mg PO TID 07/08/21 06/05/22 History Cyclobenzaprine [Flexeril] 5 mg PO TID 06/05/22 06/05/22 History Labetalol HCl [Trandate] 600 mg PO BID 06/05/22 06/05/22 History Pregabalin [Lyrica] 50 mg PO BID 06/05/22 06/05/22 History Tamsulosin HCl [Flomax] 0.4 mg PO DAILY 06/05/22 06/05/22 History Triamterene/Hydrochlorothiazid 1 tab PO DAILY 06/05/22 06/05/22 History [Triamterene-Hctz 75-50 mg Tab] Valsartan 320 mg PO DAILY 06/05/22 06/05/22 History Acetaminophen Tab [Tylenol] 650 mg PO Q6HR PRN tab 06/06/22 Rx Allergies Allergy/AdvReac Type Severity Reaction Status Date / Time No Known Allergies Allergy Verified 09/25/22 23:59 Physical Exam Vitals: Vital Signs Temp Pulse Resp BP Pulse Ox 09/25/22 23:55 97.9 F 140 H 20 185/110 96 Intake and Output 09/25/22 09/25/22 09/26/22 14:59 22:59 06:59 Other: Weight 124.738 kg Results CBC & Chem 7: 09/26/22 00:30 09/26/22 00:30 Labs: Abnormal Lab Results - Last 24 Hours (Table) 09/26/22 09/26/22 Range/Units 00:30 00:30 WBC 23.6 H (3.8-10.6) k/uL Neutrophils # 17.1 H (1.3-7.7) k/uL Monocytes # 2.2 H (0-1.0) k/uL Carbon Dioxide 19 L (22-30) mmol/L Glucose 297 H (74-99) mg/dL ALT 50 H (4-49) U/L
[2022-09-26] MEDS ORDERED: DEXAMETHASONE SOD PHOSPHATE 4 MG/ML 1 ML VIAL IVP SCH (08:00)
[2022-09-26] MEDS ORDERED: HEPARIN SODIUM,PORCINE/PF 5,000 UNIT/0.5 ML SYRINGE SQ SCH (08:00)
[2022-09-26] MEDS ORDERED: FAMOTIDINE 20 MG TAB PO SCH (09:00)
[2022-09-26] MEDS ORDERED: hydrOXYzine HCL 25 MG TAB PO SCH (09:00)
[2022-09-26] MEDS ORDERED: hydrOXYzine HCL 25 MG TAB PO PRN (14:10)
--- NOTE | 2022-09-26 14:10 | P.DS ---
Providers Date of admission: 09/26/22 02:56 Expected date of discharge: 09/26/22 Attending physician: Katharina Viramontes MD Consults: 09/26/22 02:56 Consult Physician Routine Consulting Provider: Ladan Sung Consult Reason/Comments: cp Do you want consulting provider notified?: Yes Primary care physician: Michael [facility] Course: Discharge Diagnosis: Atypical chest pain, acute coronary event ruled out. Urticarial Rash with leukocytosis, likely resulting from contact dermatitis. Leukocytosis likely reactive. Rash resolved after administration of Benadryl, Decadron, and Atarax. Hypertension, monitor vital signs and continue daily medication regimen with labetalol and triamterene/hydrochlorothiazide. Hyperlipidemia, continue daily medication regimen with atorvastatin. History of coronary artery disease, continue daily medication regimen with Plavix, atorvastatin, labetalol, spironolactone, and triamterene/hydrochlorothi azide. History of CVA, continue daily Plavix and atorvastatin. COPD, not in acute exacerbation. Continue [facility] [employer] Course: Patient is a very pleasant 51-year-old male with a past medical history of hypertension, hyperlipidemia, coronary artery disease, history of CVAs, and COPD. he presented to the emergency department with a chief complaint of chest pain and a rash. The patient reported that he initially noticed pruritus with a rash on his right thigh 36 hours ago which quickly progressed to involve most of his body. He denied having any fevers, chills, diaphoresis, shortness of breath, nausea, vomiting, consuming any new foods, starting any new skin care products, new laundry detergents or soap, or any new medications. Patient r eported that earlier in the day, he became very anxious due to his worsening rash and had some burning like chest discomfort, intermittent, which resolved completely after resolution of his rash. He underwent full evaluation in the emergency department. Initially upon arrival patient was tachycardic with heart rate of 140 and hypertensive with blood pressure 185/110. EKG revealed sinus tachycardia at 120 bpm. Chest x-ray was unremarkable. Laboratory evaluation was remarkable for leukocytosis of 23.6, glucose 297, and troponin less than 0.012. Patient admitted under our services with consultation to cardiology. Patient's rash, tachycardia, and hypertension all resolved after patient receiving Benadryl, Decadron, and Atarax. Troponins were trended overnight and all negative at less than 0.0123 draws. Patient free from any chest pain or discomfort this morning and reports rash has not returned. He denies having any other complaints or concerns. Patient was evaluated by cardiology clearing patient for discharge and patient recommending to be discharged home at this time. Recommened overnight monitoring for repeat CBC with a.m. labs, patient declined and requesting discharge. Discharge orders placed at this time as patient free from any complaints or concerns and currently hemodynamically stable. Patient instructed to follow up outpatient with PCP in 1-2 days and cardiology in 1 week. No medication changes were made this admission. Physical exam: Vital signs reviewed and stable. General: Nontoxic, no distress and appears stated age. Derm: Skin warm and dry, normal coloration for ethnicity. No rash noted upon examination. Head: Atraumatic, normocephalic and symmetric. Eyes: EOMs intact, no lid lag, and anicteric sclera Mouth: no lip lesions, mucus membranes moist Cardiovascular: regular rate and rhythm with normal S1S2, no murmur, positive posterior tibial pulses bilaterally, and cap refill < 2 seconds. Lungs: Respirations even, regular, and unlabored on room air. Lungs CTA bilaterally, no rhonchi, no rales, no wheezing, and no accessory muscle usage. Abdominal: soft, nontender to palpation, no guarding, no appreciable organomegaly Ext: ROM intact. No gross muscle atrophy, no edema, no contractures Neuro: Speech clear, face symmetrical and CN II-XII grossly intact with no noted focal neuro deficits Psych: Alert and oriented to person, place, time, and situation. Appropriate and pleasant affect. A total of 34 minutes of time were spent preparing this complex discharge summary. Pt was discharged on 10/23/22 at 2:13 PM I reviewed the documentation as provided by the MACKENZIE above, who is the original author of this note. I agree with the documented assessment and plan, with the following changes: none Patient Condition at Discharge: Stable Plan - Discharge Summary New Discharge Prescriptions: Continue Montelukast [Singulair] 10 mg PO DAILY Loratadine 10 mg PO DAILY Clopidogrel Bisulfate [Plavix] 75 mg PO DAILY Atorvastatin [Lipitor] 80 mg PO DAILY Pantoprazole [Protonix] 40 mg PO DAILY Labetalol HCl [Trandate] 600 mg PO BID Tamsulosin HCl [Flomax] 0.4 mg PO DAILY Cariprazine HCl [Vraylar] 6 mg PO DAILY Spironolactone [Aldactone] 25 mg PO DAILY Clobetasol Propionate [Temovate 0.05% Cream] 1 applic TOPICAL BID PRN PRN Reason: Skin Irritation hydrOXYzine HCL [Atarax] 50 mg PO BID PRN PRN Reason: Anxiety lamoTRIgine [LaMICtal] 50 mg PO TID Triamterene/Hydrochlorothiazid [Triamterene-Hctz 75-50 mg Tab] 1 tab PO DAILY traZODone HCL [Desyrel] 50 - 100 mg PO HS PRN PRN Reason: Insomnia Cholecalciferol [Vitamin D3 (125 Mcg = 5000 Iu)] 125 mcg PO DAILY Multivitamins, Thera [Multivitamin (formulary)] 1 tab PO DAILY Sucralfate [Carafate] 1 gm PO ACHS Fluticasone Nasal [place] [Flonase Nasal [place]] 1 spray EA NOSTRIL DAILY Aspirin EC [Ecotrin Low Dose] 81 mg PO BID amLODIPine BES/OLMESARTAN MED [amLODIPine BES/OLMESARTAN MED 10-40 mg] 1 tab PO DAILY No Action Famotidine [Pepcid] 20 mg PO BID #28 tablet predniSONE 50 mg PO DAILY #5 tab diphenhydrAMINE [Benadryl] 50 mg PO QID PRN #20 capsule PRN Reason: allergic reaction Sucralfate [Carafate] 1 gm PO BID #14 tab Discharge Medication List Montelukast [Singulair] 10 mg PO DAILY 11/17/18 [History] Loratadine 10 mg PO DAILY 08/16/19 [History] Atorvastatin [Lipitor] 80 mg PO DAILY 02/23/21 [History] Clopidogrel Bisulfate [Plavix] 75 mg PO DAILY 02/23/21 [History] Pantoprazole [Protonix] 40 mg PO DAILY 07/08/21 [History] lamoTRIgine [LaMICtal] 50 mg PO TID 07/08/21 [History] Labetalol HCl [Trandate] 600 mg PO BID 06/05/22 [History] Tamsulosin HCl [Flomax] 0.4 mg PO DAILY 06/05/22 [History] Triamterene/Hydrochlorothiazid [Triamterene-Hctz 75-50 mg Tab] 1 tab PO DAILY 06/05/22 [History] Aspirin EC [Ecotrin Low Dose] 81 mg PO BID 09/26/22 [History] Cariprazine HCl [Vraylar] 6 mg PO DAILY 09/26/22 [History] Cholecalciferol [Vitamin D3 (125 Mcg = 5000 Iu)] 125 mcg PO DAILY 09/26/22 [History] Clobetasol Propionate [Temovate 0.05% Cream] 1 applic TOPICAL BID PRN 09/26/22 [History] Fluticasone Nasal [place] [Flonase Nasal [place]] 1 spray EA NOSTRIL DAILY 09/26/22 [History] Multivitamins, Thera [Multivitamin (formulary)] 1 tab PO DAILY 09/26/22 [History] Spironolactone [Aldactone] 25 mg PO DAILY 09/26/22 [History] Sucralfate [Carafate] 1 gm PO ACHS 09/26/22 [History] amLODIPine BES/[place]MESART[place] MED [amLODIPine BES/OLMESARTAN MED 10-40 mg] 1 tab PO DAILY 09/26/22 [History] hydrOXYzine HCL [Atarax] 50 mg PO BID PRN 09/26/22 [History] traZODone HCL [Desyrel] 50 - 100 mg PO HS PRN 09/26/22 [History] Famotidine [Pepcid] 20 mg PO BID #28 tablet 09/27/22 [Rx] Sucralfate [Carafate] 1 gm PO BID #14 tab 09/27/22 [Rx] diphenhydrAMINE [Benadryl] 50 mg PO QID PRN #20 capsule 09/27/22 [Rx] predniSONE 50 mg PO DAILY #5 tab 09/27/22 [Rx] Follow up Appointment(s)/Referral(s): Ladan Sung MD [STAFF PHYSICIAN] - 1 Week Michael Styles MD [Primary Care Provider] - 1-2 days Activity/Diet/Wound Care/Special Instructions: Activity: As tolerated. Take breaks as needed. Diet: Heart healthy and carb consistent diet. Avoid salts, or foods with hidden salts such as canned or boxed foods and frozen dinners. Extra salt makes your heart work harder and traps the fluid in your body for longer. Special Instructions: Take all of your medications as directed and remember to keep all of your doctor's appointments and follow-up as needed. Thank you for allowing us to participate in your care, it was truly a pleasure having you for our patient!!! Discharge Disposition: HOME SELF-CARE
[2022-09-26 14:35] VITALS: BP 128/95; PULSE 88; RESP 18
[2022-09-26] MEDS ORDERED: lamoTRIgine 25 MG TAB PO SCH (16:00)
[2022-09-26] MEDS ORDERED: SUCRALFATE 1 GM TAB PO SCH (17:30)
[2022-09-26] MEDS ORDERED: LABETALOL 200 MG TAB PO SCH (21:00)
[2022-09-26] MEDS ORDERED: ASPIRIN 81 MG PO SCH (21:00)
--- NOTE | 2022-09-26 23:16 | CONS ---
CONSULTATION CHIEF COMPLAINT: Skin rash. HISTORY OF PRESENT ILLNESS: Florian is a 51-year-old gentleman with history of prior CVAs, hypertension, who presented to hospital complaining of generalized skin rash suggestive of an urticaria. It initially started on his right side and quickly spread to rest of his body over 36 hours. By the time I evaluated him, his rash had completely resolved. Because of his rash, he became somewhat anxious and had some intermittent chest discomfort associated with it. At the time of my evaluation, he is chest pain free, hemodynamically stable, and is free of symptoms. EKG showed sinus rhythm without significant ST-T wave changes. Cardiac enzymes have all been negative. His white cell count is elevated at 23. PAST MEDICAL HISTORY: Significant for CVA, hypertension, dyslipidemia, CAD, and sleep apnea. PAST SURGICAL HISTORY: Significant for cholecystectomy, tonsillectomy, and sinus surgery. ALLERGIES: As documented. MEDICATIONS: As documented and I reviewed them. FAMILY HISTORY: Negative for premature coronary artery disease. SOCIAL HISTORY: Negative for current smoking, EtOH or drug abuse. REVIEW OF SYSTEMS: HEENT: Unremarkable. CARDIAC: As described above. RESPIRATORY: As described above. GI: Negative. GENITOURINARY: Negative. ALLERGY/IMMUNOLOGY: Negative. SKIN: Negative. MUSCULOSKELETAL: Negative for arthritis. PSYCHOSOCIAL: Negative. DERM: Negative. CONSTITUTIONAL: Negative. ONCOLOGICAL: Negative. SERVICE DESK MANAGER: Negative. Rest of the system review is not relevant. PHYSICAL EXAMINATION: GENERAL: Comfortable at rest. VITAL SIGNS: Stable. NECK: There is jugular venous distention. Carotid upstroke is normal. There is no bruit. CHEST: Reveals good air entry bilaterally. HEART: Reveals first and second heart sounds. No gallop, no murmur. ABDOMEN: Soft. EXTREMITIES: Did not reveal any edema. Peripheral pulses are felt. LABS: Show troponins are negative, potassium is 4.3, creatinine is 0.9, hemoglobin is 16.9, platelet count is 305. ASSESSMENT: 1. Urticaria. 2. Atypical chest pain. PLAN: From cardiac standpoint, the patient is doing well. He does not require any other workup for the chest pain at this time. Discharge and arrange followup with Dr. Mckeon from my standpoint and urticaria management per primary. MMODL / IJN: [id number] /
[2022-09-27] MEDS ORDERED: PANTOPRAZOLE 40 MG TABLET PO SCH (07:30)
[2022-09-27] MEDS ORDERED: LORATADINE 10 MG TAB PO SCH (09:00)
[2022-09-27] MEDS ORDERED: SPIRONOLACTONE 25 MG TAB PO SCH (09:00)
[2022-09-27] MEDS ORDERED: ATORVASTATIN 80 MG TAB PO SCH (09:00)
[2022-09-27] MEDS ORDERED: amLODIPine 10 MG TAB PO SCH (09:00)
[2022-09-27] MEDS ORDERED: CHOLECALCIFEROL 125 MCG (5000 IU) TABLET PO SCH (09:00)
[2022-09-27] MEDS ORDERED: CLOPIDOGREL 75 MG TAB PO SCH (09:00)
[2022-09-27] MEDS ORDERED: TRIAMTERENE-HCTZ 75-50MG 1 EACH TAB PO SCH (09:00)
[2022-09-27] MEDS ORDERED: MULTIVITAMINS, THERA 1 EACH TAB PO SCH (09:00)
[2022-09-27] MEDS ORDERED: TAMSULOSIN 0.4 MG CAP.ER.24H PO SCH (09:00)
[2022-09-27] MEDS ORDERED: MONTELUKAST 10 MG TAB PO SCH (09:00)
[2022-09-27] MEDS ORDERED: LOSARTAN 50 MG TAB PO SCH (09:00)
== END 2022-09-26 14:35 | disposition home or self-care (01) ==
LOC: EC 23:54 → 6NMEDSUR 09-26 02:56
PROVIDERS: ADMIT Internal Medicine; ATTEND Internal Medicine
DX: R07.89 Other chest pain (principal); D72.829 Elevated white blood cell count, unspecified; L50.9 Urticaria, unspecified; K21.9 Gastro-esophageal reflux disease without esophagitis; E78.5 Hyperlipidemia, unspecified; I10 Essential (primary) hypertension; I25.2 Old myocardial infarction; I69.351 Hemiplegia and hemiparesis following cerebral infarction affecting right dominant side; I69.311 Memory deficit following cerebral infarction; I69.398 Other sequelae of cerebral infarction; R26.89 Other abnormalities of gait and mobility; J44.9 Chronic obstructive pulmonary disease, unspecified; E66.9 Obesity, unspecified; G47.33 Obstructive sleep apnea (adult) (pediatric); F32.A Depression, unspecified; I25.10 Atherosclerotic heart disease of native coronary artery without angina pectoris; F41.9 Anxiety disorder, unspecified; F43.10 Post-traumatic stress disorder, unspecified; Z79.899 Other long term (current) drug therapy; Z79.02 Long term (current) use of antithrombotics/antiplatelets; Z90.49 Acquired absence of other specified parts of digestive tract; Z87.891 Personal history of nicotine dependence; Z82.49 Family history of ischemic heart disease and other diseases of the circulatory system; Z68.37 Body mass index [BMI] 37.0-37.9, adult
CPT/HCPCS: 96376; 96361; 96372; 96374; 96375; 99285; 36415; 93005; 83880; 80053; 83690; 83735; 84484; 85025; 85610; 85730; 87040; 71045; G0378; J1200; J1100 ×2; J1885; J1644

== ENCOUNTER 2022-09-27 10:45 | Emergency (ER) | payer OTHER, MEDICARE ==
[2022-09-27] MEDS ORDERED: methylPREDNISolone SOD SUCCI 125 MG/2 ML VIAL IV STA (13:56)
[2022-09-27] MEDS ORDERED: diphenhydrAMINE 50 MG/ML 1 ML VIAL IVP STA (13:56)
[2022-09-27] MEDS ORDERED: FAMOTIDINE 20 MG/2 ML VIAL IV STA (13:57)
[2022-09-27] MEDS ORDERED: MAG HYDROX/AL HYDROX/SIMETH 30 ML, HYOSCYAMINE ELIXIR 10 ML, LIDOCAINE VISCOUS 2% 10 ML PO STA ×3 (13:57)
[2022-09-27] MEDS ORDERED: SODIUM CHLORIDE 0.9% 1,000 ML IV ONE (13:57)
[2022-09-27 14:23] VITALS: BP 136/93; PULSE 87; RESP 16; TEMP 98.9
--- NOTE | 2022-09-27 14:53 | ED ---
General Adult HPI - General Chief complaint: Shortness of Breath Stated complaint: sob Time Seen by Provider: 09/27/22 13:49 Source: patient, RN notes reviewed Mode of arrival: ambulatory Limitations: no limitations - History of Present Illness Initial comments: 51-year-old male presents emergency Department chief complaint ALLERGIC reaction. Patient states he had symptoms a couple days prior was given meds and retracted resolved. Patient is admitted for cardiac rule out everything came back within normal limits. Patient states rash started again today states is very itchy have mild shortness breath, acid reflux. Patient states not any current medications for stomach. Denies any fevers or chills. Patient denies any anterior chest pain no palpitations denies any nausea vomiting diarrhea constipation patient states he has known animal ALLERGIES but states she's not been exposed of recent. - Related Data Home Medications Medication Instructions Recorded Confirmed Montelukast [Singulair] 10 mg PO DAILY 11/17/18 09/26/22 Loratadine 10 mg PO DAILY 08/16/19 09/26/22 Atorvastatin [Lipitor] 80 mg PO DAILY 02/23/21 09/26/22 Clopidogrel Bisulfate [Plavix] 75 mg PO DAILY 02/23/21 09/26/22 Pantoprazole [Protonix] 40 mg PO DAILY 07/08/21 09/26/22 lamoTRIgine [LaMICtal] 50 mg PO TID 07/08/21 09/26/22 Labetalol HCl [Trandate] 600 mg PO BID 06/05/22 09/26/22 Tamsulosin HCl [Flomax] 0.4 mg PO DAILY 06/05/22 09/26/22 Triamterene/Hydrochlorothiazid 1 tab PO DAILY 06/05/22 09/26/22 [Triamterene-Hctz 75-50 mg Tab] Aspirin EC [Ecotrin Low Dose] 81 mg PO BID 09/26/22 09/26/22 Cariprazine HCl [Vraylar] 6 mg PO DAILY 09/26/22 09/26/22 Cholecalciferol [Vitamin D3 (125 125 mcg PO DAILY 09/26/22 09/26/22 Mcg = 5000 Iu)] Clobetasol Propionate [Temovate 1 applic TOPICAL BID PRN 09/26/22 09/26/22 0.05% Cream] Fluticasone Nasal [place] [Flonase 1 spray EA NOSTRIL DAILY 09/26/22 09/26/22 Nasal [place]] Multivitamins, Thera [Multivitamin 1 tab PO DAILY 09/26/22 09/26/22 (formulary)] Spironolactone [Aldactone] 25 mg PO DAILY 09/26/22 09/26/22 Sucralfate [Carafate] 1 gm PO ACHS 09/26/22 09/26/22 amLODIPine BES/[place]MESART[place] MED 1 tab PO DAILY 09/26/22 09/26/22 [amLODIPine BES/OL[place]ESART[place] MED 10-40 mg] hydrOXYzine HCL [Atarax] 50 mg PO BID PRN 09/26/22 09/26/22 traZODone HCL [Desyrel] 50 - 100 mg PO HS PRN 09/26/22 09/26/22 Previous Rx's Medication Instructions Recorded Famotidine [Pepcid] 20 mg PO BID #28 tablet 09/27/22 Sucralfate [Carafate] 1 gm PO BID #14 tab 09/27/22 diphenhydrAMINE [Benadryl] 50 mg PO QID PRN #20 capsule 09/27/22 predniSONE 50 mg PO DAILY #5 tab 09/27/22 Allergies Allergy/AdvReac Type Severity Reaction Status Date / Time No Known Allergies Allergy Verified 09/26/22 11:27 Review of Systems ROS Statement: Those systems with pertinent positive or pertinent negative responses have been documented in the HPI. ROS Other: All systems not noted in ROS Statement are negative. Past Medical History Past Medical History: Chest Pain / Angina, CVA/TIA, GERD/Reflux, Hyperlipidemia, Hypertension, Memory Impairment, Myocardial Infarction ([place]), Sleep Apnea/CPAP/BIPAP Additional Past Medical History / Comment(s): CVAs -pt thinks 4 or 5 with R sided weakness, short term memory loss, balance issures/uses a cane, migraines, bilateral hand tremors, [place] but no longer uses his device stating "it didn't help", occasional low back pain, numbness/tingling bilateral hands/feet, bilateral carpal tunnel syndrome, sinus problems Last Myocardial Infarction Date:: 07/2018 History of Any Multi-Drug Resistant Organisms: None Reported Past Surgical History: Cholecystectomy, Heart Catheterization, Tonsillectomy Additional Past Surgical History / Comment(s): 07/2018 cardiac cath-normal, sinus surgery, colonoscopy, dental extractions. Past Anesthesia/Blood Transfusion Reactions: No Reported Reaction Past Psychological History: Anxiety, Depression, PTSD Smoking Status: Former smoker Past Alcohol Use History: None Reported Past Drug Use History: None Reported - Past Family History Mother Family Medical History: No Reported History Additional Family Medical History / Comment(s): Mother is healthy Father Family Medical History: Coronary Artery Disease (CAD), Myocardial Infarction ([place]) Additional Family Medical History / Comment(s): Father of a [place] at the age of 52 yrs. General Exam Limitations: no limitations General appearance: alert, in no apparent distress Head exam: Present: atraumatic, normocephalic, normal inspection Eye exam: Present: normal appearance, PERRL, EOMI. Absent: scleral icterus, conjunctival injection, periorbital swelling ENT exam: Present: normal exam, normal oropharynx, mucous membranes moist, TM's normal bilaterally Neck exam: Present: normal inspection, full ROM. Absent: tenderness, meningismus, lymphadenopathy Respiratory exam: Present: normal lung sounds bilaterally. Absent: respiratory distress, wheezes, rales, rhonchi, stridor Cardiovascular Exam: Present: normal rhythm, tachycardia, normal heart sounds. Absent: systolic murmur, diastolic murmur, rubs, gallop, clicks GI/Abdominal exam: Present: soft, normal bowel sounds. Absent: distended, tenderness, guarding, rebound, rigid Neurological exam: Present: alert Skin exam: Present: warm, dry, intact, normal color. Absent: rash Course Vital Signs 09/27/22 09/27/22 09/27/22 10:50 13:35 13:41 Temperature 97.5 F L Pulse Rate 121 H 109 H Respiratory 22 18 18 Rate Blood Pressure 142/87 116/70 O2 Sat by Pulse 98 96 Oximetry 09/27/22 09/27/22 14:00 14:22 Temperature 98.9 F Pulse Rate 90 87 Respiratory 17 16 Rate Blood Pressure 132/86 136/93 O2 Sat by Pulse 99 99 Oximetry Medical Decision Making - Medical Decision Making 51-year-old presented for ALLERGIC reaction patient is greatly improved after meds a she does have moderate reflux issues which is result of GI cocktail, Pepcid. Patient discharged with occasions return parameters were discussed. Disposition Clinical Impression: GERD (gastroesophageal reflux disease), Allergic reaction Disposition: HOME SELF-CARE Condition: Stable Instructions (If sedation given, give patient instructions): GERD (Gastroesophageal Reflux Disease) (ED) Additional Instructions: Please return to the Emergency Department if symptoms worsen or any other concerns. Prescriptions: diphenhydrAMINE [Benadryl] 50 mg PO QID PRN #20 capsule PRN Reason: allergic reaction Sucralfate [Carafate] 1 gm PO BID #14 tab Famotidine [Pepcid] 20 mg PO BID #28 tablet predniSONE 50 mg PO DAILY #5 tab Is patient prescribed a controlled substance at d/c from ED?: No Referrals: Michael Styles MD [Primary Care Provider] - 1-2 days Time of Disposition: 14:53
== END 2022-09-27 15:07 | disposition home or self-care (01) ==
LOC: EC 10:45
DX: K52.29 Other allergic and dietetic gastroenteritis and colitis (principal); I10 Essential (primary) hypertension; I25.2 Old myocardial infarction; E78.5 Hyperlipidemia, unspecified; F41.9 Anxiety disorder, unspecified; F32.A Depression, unspecified; G47.30 Sleep apnea, unspecified; K21.9 Gastro-esophageal reflux disease without esophagitis; Z79.82 Long term (current) use of aspirin; Z79.899 Other long term (current) drug therapy; Z79.02 Long term (current) use of antithrombotics/antiplatelets; Z87.891 Personal history of nicotine dependence
CPT/HCPCS: 99285; 96374; 96375 ×2; 96361; J1200; J2930

== ENCOUNTER 2022-10-12 01:47 | Emergency (ER) | payer OTHER, MEDICARE ==
[2022-10-12 01:52] VITALS: TEMP 98.5
--- NOTE | 2022-10-12 02:26 | ED ---
General Adult HPI - General Chief complaint: Abdominal Pain Stated complaint: Chest pain Time Seen by Provider: 10/12/22 02:12 Source: patient, RN notes reviewed Mode of arrival: ambulatory Limitations: no limitations - History of Present Illness Initial comments: This is a 51-year-old male who presents to the emergency Department with complaints of epigastric discomfort that spreads across the entire upper abdomen and radiates into the chest. Describes diffuse pressure of the upper abdomen and chest. Complains of bloating in the abdomen. Patient states when he swallows food he feels as if it is trapped in the lower part of his esophagus and does not pass into his stomach. States this pain is similar to when he had his gallbladder removed, though also reports it has occurred multiple times over the past year. States he feels warm and flushed, but is not experiencing rash and redness as he had during his previous visit. Complains of nausea and occasional diarrhea. states she is concerned that he is taking too many medications. Denies fever, chills, headache, dizziness, vomiting, and dysuria. - Related Data Home Medications Medication Instructions Recorded Confirmed Montelukast [Singulair] 10 mg PO DAILY 11/17/18 09/26/22 Loratadine 10 mg PO DAILY 08/16/19 09/26/22 Atorvastatin [Lipitor] 80 mg PO DAILY 02/23/21 09/26/22 Clopidogrel Bisulfate [Plavix] 75 mg PO DAILY 02/23/21 09/26/22 Pantoprazole [Protonix] 40 mg PO DAILY 07/08/21 09/26/22 lamoTRIgine [LaMICtal] 50 mg PO TID 07/08/21 09/26/22 Labetalol HCl [Trandate] 600 mg PO BID 06/05/22 09/26/22 Tamsulosin HCl [Flomax] 0.4 mg PO DAILY 06/05/22 09/26/22 Triamterene/Hydrochlorothiazid 1 tab PO DAILY 06/05/22 09/26/22 [Triamterene-Hctz 75-50 mg Tab] Aspirin EC [Ecotrin Low Dose] 81 mg PO BID 09/26/22 09/26/22 Cariprazine HCl [Vraylar] 6 mg PO DAILY 09/26/22 09/26/22 Cholecalciferol [Vitamin D3 (125 125 mcg PO DAILY 09/26/22 09/26/22 Mcg = 5000 Iu)] Clobetasol Propionate [Temovate 1 applic TOPICAL BID PRN 09/26/22 09/26/22 0.05% Cream] Fluticasone Nasal [place] [Flonase 1 spray EA NOSTRIL DAILY 09/26/22 09/26/22 Nasal [place]] Multivitamins, Thera [Multivitamin 1 tab PO DAILY 09/26/22 09/26/22 (formulary)] Spironolactone [Aldactone] 25 mg PO DAILY 09/26/22 09/26/22 Sucralfate [Carafate] 1 gm PO ACHS 09/26/22 09/26/22 amLODIPine BES/OLMESARTAN MED 1 tab PO DAILY 09/26/22 09/26/22 [amLODIPine BES/OLMESARTAN MED 10-40 mg] hydrOXYzine HCL [Atarax] 50 mg PO BID PRN 09/26/22 09/26/22 traZODone HCL [Desyrel] 50 - 100 mg PO HS PRN 09/26/22 09/26/22 Previous Rx's Medication Instructions Recorded Famotidine [Pepcid] 20 mg PO BID #28 tablet 09/27/22 Sucralfate [Carafate] 1 gm PO BID #14 tab 09/27/22 diphenhydrAMINE [Benadryl] 50 mg PO QID PRN #20 capsule 09/27/22 predniSONE 50 mg PO DAILY #5 tab 09/27/22 Allergies Allergy/AdvReac Type Severity Reaction Status Date / Time No Known Allergies Allergy Verified 10/12/22 01:52 Review of Systems ROS Statement: Those systems with pertinent positive or pertinent negative responses have been documented in the HPI. ROS Other: All systems not noted in ROS Statement are negative. Past Medical History Past Medical History: Chest Pain / Angina, CVA/TIA, GERD/Reflux, Hyperlipidemia, Hypertension, Memory Impairment, Myocardial Infarction (ID), Sleep Apnea/CPAP/BIPAP Additional Past Medical History / Comment(s): CVAs -pt thinks 4 or 5 with R sided weakness, short term memory loss, balance issures/uses a cane, migraines, bilateral hand tremors, HIL[place] but no longer uses his device stating "it didn't help", occasional low back pain, numbness/tingling bilateral hands/feet, bilateral carpal tunnel syndrome, sinus problems Last Myocardial Infarction Date:: 07/2018 History of Any Multi-Drug Resistant Organisms: None Reported Past Surgical History: Cholecystectomy, Heart Catheterization, Tonsillectomy Additional Past Surgical History / Comment(s): 07/2018 cardiac cath-normal, sinus surgery, colonoscopy, dental extractions. Past Anesthesia/Blood Transfusion Reactions: No Reported Reaction Past Psychological History: Anxiety, Depression, PTSD Smoking Status: Former smoker Past Alcohol Use History: None Reported Past Drug Use History: None Reported - Past Family History Mother Family Medical History: No Reported History Additional Family Medical History / Comment(s): Mother is healthy Father Family Medical History: Coronary Artery Disease (CAD), Myocardial Infarction (ID) Additional Family Medical History / Comment(s): Father of a ID at the age of 52 yrs. General Exam Limitations: no limitations General appearance: alert, in no apparent distress ENT exam: Present: normal exam, normal oropharynx, mucous membranes moist Respiratory exam: Present: normal lung sounds bilaterally. Absent: respiratory distress, wheezes, rales, rhonchi, stridor, chest wall tenderness Cardiovascular Exam: Present: normal rhythm, tachycardia, normal heart sounds GI/Abdominal exam: Present: soft, normal bowel sounds, other (large abdominal habitus). Absent: tenderness, guarding, rebound, rigid Neurological exam: Present: alert, oriented X3, normal gait Psychiatric exam: Present: anxious Skin exam: Present: warm, dry, intact, normal color. Absent: rash Course Vital Signs 10/12/22 10/12/22 01:50 05:04 Temperature 98.5 F Pulse Rate 111 H 80 Respiratory 20 15 Rate Blood Pressure 158/97 137/65 O2 Sat by Pulse 97 98 Oximetry - Reevaluation(s) Reevaluation #1: 10/12/22 04:51 Upon reassessment, patient reports minimal improvement with GI cocktail. Results reviewed with patient and spouse. Gnawing pain persists in the left upper quadrant. Patient will be given Zofran, morphine, and Pepcid and discharged home for follow-up with his PCP. Medical Decision Making - Medical Decision Making This is a 51-year-old male with a past medical history of CVA, hypertension, previous ID, and cholecystectomy who presents to the emergency Department with complaints of epigastric discomfort. Upon exam, patient is somewhat anxious, but in no acute distress. Physical exam findings are unremarkable. EKG is unchanged from baseline. CT of the abdomen and pelvis show no acute findings. Chest x-ray is negative. Laboratory studies do show leukocytosis, though this is likely reactive from recent steroid treatment as patient is afebrile. Machelle tony of laboratory studies are unremarkable. Troponin is negative. Patient was given a GI cocktail with minimal change. Morphine, Pepcid, and Zofran were given with improvement in pain. States he has been taking his Pepcid and Carafate as prescribed in addition to his regular home medications. Patient and spouse are concerned that he is taking too many medications; explained that this will need to be discussed with his primary prescribers that is encouraged to continue taking his home medications as prescribed. Patient will be discharged home to follow up with his PCP for a recheck. Strict return parameters were discussed in detail. Patient and spouse verbalized understanding and agreement with this plan. Attending: [place]. - Lab Data Result diagrams: 10/12/22 02:31 10/12/22 02:31 Lab Results 10/12/22 10/12/22 10/12/22 Range/Units 02:31 02:31 02:31 WBC 16.6 H (3.8-10.6) k/uL RBC 5.39 (4.30-5.90) m/uL Hgb 16.8 (13.0-17.5) gm/dL Hct 48.7 (39.0-53.0) % MCV 90.4 (80.0-100.0) fL MCH 31.2 (25.0-35.0) pg MCHC 34.5 (31.0-37.0) g/dL RDW 13.5 (11.5-15.5) % Plt Count 268 (150-450) k/uL MPV 8.1 Neutrophils % 73 % Lymphocytes % 21 % Monocytes % 4 % Eosinophils % 0 % Basophils % 0 % Neutrophils # 12.1 H (1.3-7.7) k/uL Lymphocytes # 3.5 (1.0-4.8) k/uL Monocytes # 0.7 (0-1.0) k/uL Eosinophils # 0.0 (0-0.7) k/uL Basophils # 0.0 (0-0.2) k/uL PT 10.4 (9.0-12.0) sec INR 1.0 (<1.2) APTT 22.7 (22.0-30.0) sec Sodium 140 (137-145) mmol/L Potassium 4.2 (3.5-5.1) mmol/L Chloride 105 (98-107) mmol/L Carbon Dioxide 24 (22-30) mmol/L Anion Gap 11 mmol/L BUN 15 (9-20) mg/dL Creatinine 1.05 (0.66-1.25) mg/dL Est GFR (CKD-EPI)AfAm >90 (>60 ml/min/1.73 sqM) Est GFR (CKD-EPI)NonAf 83 (>60 ml/min/1.73 sqM) Glucose 134 H (74-99) mg/dL Calcium 9.9 (8.4-10.2) mg/dL Magnesium 1.9 (1.6-2.3) mg/dL Total Bilirubin 0.6 (0.2-1.3) mg/dL AST 41 (17-59) U/L ALT 78 H (4-49) U/L Alkaline Phosphatase 98 (38-126) U/L Troponin I (0.000-0.034) ng/mL Total Protein 7.5 (6.3-8.2) g/dL Albumin 4.7 (3.5-5.0) g/dL 10/12/22 Range/Units 02:31 WBC (3.8-10.6) k/uL RBC (4.30-5.90) m/uL Hgb (13.0-17.5) gm/dL Hct (39.0-53.0) % MCV (80.0-100.0) fL MCH (25.0-35.0) pg MCHC (31.0-37.0) g/dL RDW (11.5-15.5) % Plt Count (150-450) k/uL MPV Neutrophils % % Lymphocytes % % Monocytes % % Eosinophils % % Basophils % % Neutrophils # (1.3-7.7) k/uL Lymphocytes # (1.0-4.8) k/uL Monocytes # (0-1.0) k/uL Eosinophils # (0-0.7) k/uL Basophils # (0-0.2) k/uL PT (9.0-12.0) sec INR (<1.2) APTT (22.0-30.0) sec Sodium (137-145) mmol/L Potassium (3.5-5.1) mmol/L Chloride (98-107) mmol/L Carbon Dioxide (22-30) mmol/L Anion Gap mmol/L BUN (9-20) mg/dL Creatinine (0.66-1.25) mg/dL Est GFR (CKD-EPI)AfAm (>60 ml/min/1.73 sqM) Est GFR (CKD-EPI)NonAf (>60 ml/min/1.73 sqM) Glucose (74-99) mg/dL Calcium (8.4-10.2) mg/dL Magnesium (1.6-2.3) mg/dL Total Bilirubin (0.2-1.3) mg/dL AST (17-59) U/L ALT (4-49) U/L Alkaline Phosphatase (38-126) U/L Troponin I <0.012 (0.000-0.034) ng/mL Total Protein (6.3-8.2) g/dL Albumin (3.5-5.0) g/dL - EKG Data -: EKG Interpreted by Me EKG shows normal: sinus rhythm Rate: tachycardia EKG Comments: EKG obtained at 157 shows sinus tachycardia with nonspecific ST and T-wave abnormality. Ventricular rate 106, CT interval 131, QRS duration 96, QT/QTC 323/385. Interpretation abnormal ECG. EKG compared with those previously obtained; no significant changes. No evidence of acute ischemic changes. No ectopy. - Radiology Data Radiology results: report reviewed, image reviewed Interpreted by me: Chest x-ray was interpreted by me showing no area of consolidation or infiltrate. Noncontrast CT of the abdomen and pelvis was obtained. Report was reviewed in its entirety. Impression per Dr. Lim is there are some minimal colonic diverticulosis without diverticulitis. Normal appendix. No acute abnormality in the abdomen or pelvis. Fatty infiltration of the liver. No adverse change compared to old exam. Gallbladder not seen. Two-view chest x-ray was obtained. Report was reviewed in its entirety. Impression per Dr. Lim normal chest. No change. Disposition Clinical Impression: Abdominal pain, GERD (gastroesophageal reflux disease) Disposition: HOME SELF-CARE Condition: Stable Instructions (If sedation given, give patient instructions): GERD (Gastroesophageal Reflux Disease) (ED) Additional Instructions: Avoid greasy, spicy, and fatty foods. Minimize use of peppermint products which can worsen reflux. Continue taking home medications as prescribed. It is important to follow up with your PCP for further evaluation and ongoing treatment. Return to the emergency department with any new, worsening, or concerning symptoms. Is patient prescribed a controlled substance at d/c from ED?: No Referrals: Michael Styles MD [Primary Care Provider] - 1-2 days Time of Disposition: 04:56
[2022-10-12] MEDS ORDERED: MAG HYDROX/AL HYDROX/SIMETH 30 ML, HYOSCYAMINE ELIXIR 10 ML, LIDOCAINE VISCOUS 2% 10 ML PO STA ×3 (02:42)
[2022-10-12 02:56] LABS: Basophils % (A) 0 %; Eosinophils % (A) 0 %; HCT 48.7 % (39.0-53.0); HGB 16.8 gm/dL (13.0-17.5); Lymphocytes # (A) 3.5 k/uL (1.0-4.8); Lymphocytes % (A) 21 %; MCH 31.2 pg (25.0-35.0); MCHC 34.5 g/dL (31.0-37.0); MCV 90.4 fL (80.0-100.0); Mean Platelet Volume 8.1; Monocytes # (A) 0.7 k/uL (0-1.0); Monocytes % (A) 4 %; Neutrophils # (A) 12.1 k/uL (1.3-7.7); Neutrophils % (A) 73 %; Platelet Count 268 k/uL (150-450); RBC 5.39 m/uL (4.30-5.90); RDW 13.5 % (11.5-15.5); WBC 16.6 k/uL (3.8-10.6)
--- NOTE | 2022-10-12 02:57 | XR ---
EXAMINATION TYPE: XR chest 2V DATE OF EXAM: 10/12/2022 COMPARISON: 09/26/2022 HISTORY: Chest pain TECHNIQUE: FINDINGS: Heart and mediastinum are normal. Lungs are clear. Diaphragm is normal. Bony thorax appears normal. The pulmonary vascularity is normal. IMPRESSION: Normal chest. No change.
[2022-10-12 03:07] LABS: ALT 78 U/L (4-49); AST 41 U/L (17-59); African American GFR (CKD) >90 (>60 ml/min/1.73 sqM); Albumin 4.7 g/dL (3.5-5.0); Alkaline Phosphatase 98 U/L (38-126); Anion Gap 11 mmol/L; Blood Urea Nitrogen 15 mg/dL (9-20); Calcium 9.9 mg/dL (8.4-10.2); Carbon Dioxide 24 mmol/L (22-30); Chloride 105 mmol/L (98-107); Glucose 134 mg/dL (74-99); Magnesium 1.9 mg/dL (1.6-2.3); Non-African American GFR(CKD) 83 (>60 ml/min/1.73 sqM); Potassium 4.2 mmol/L (3.5-5.1); Sodium 140 mmol/L (137-145); Total Bilirubin 0.6 mg/dL (0.2-1.3); Total Protein 7.5 g/dL (6.3-8.2)
[2022-10-12 03:08] LABS: Partial Thromboplastin Time 22.7 sec (22.0-30.0); Prothrombin Time 10.4 sec (9.0-12.0)
--- NOTE | 2022-10-12 04:05 | CT ---
EXAMINATION TYPE: CT abdomen pelvis wo con DATE OF EXAM: 10/12/2022 COMPARISON: 08/28/2019 HISTORY: upper abd pain CT DLP: 1256.2 mGycm Automated exposure control for dose reduction was used. Images obtained from the diaphragm to the floor the pelvis with no contrast. Lung bases are clear. No pleural effusion. There is some mild hypodensity in the liver suggestive of fatty infiltration. Spleen is intact. No pancreatic mass. The stomach is intact. Gallbladder not seng rly seen. There is no adrenal mass. Kidneys have normal size. No hydronephrosis. Ureters are not dilated. No r etroperitoneal adenopathy. Appendix is posterior and appears normal. Bladder distends smoothly. No in guinal hernia. No free fluid in the pelvis. There is no mesenteric edema. No ascites or free air. No bowel obstruction. There are some sigmoid di verticula. No diverticulitis. The lumbar vertebrae have normal alignment. No compression fracture. Th e bony pelvis is intact. No pelvic mass. IMPRESSION: There are some minimal colonic diverticulosis without diverticulitis. Normal appendix. No acute abnor mality in the abdomen pelvis. Fatty infiltration of the liver. No adverse change compared to the old exam. Gallbladder not seen.
[2022-10-12] MEDS ORDERED: FAMOTIDINE 20 MG/2 ML VIAL IV STA (04:50)
[2022-10-12] MEDS ORDERED: ONDANSETRON 4 MG/2 ML VIAL IVP STA (04:50)
[2022-10-12] MEDS ORDERED: MORPHINE SULFATE 4 MG/ML SYRINGE IVP STA (04:50)
[2022-10-12 05:05] VITALS: BP 137/65; PULSE 80; RESP 15
== END 2022-10-12 05:22 | disposition home or self-care (01) ==
LOC: EC 01:47
DX: K21.9 Gastro-esophageal reflux disease without esophagitis (principal); E78.5 Hyperlipidemia, unspecified; I10 Essential (primary) hypertension; I25.2 Old myocardial infarction; F41.9 Anxiety disorder, unspecified; F32.A Depression, unspecified; Z87.891 Personal history of nicotine dependence; Z79.899 Other long term (current) drug therapy
CPT/HCPCS: 36415; 93005; 80053; 83735; 84484; 85025; 85610; 85730; 71046; 74176; 99284; 96374; 96375 ×2; J2270; J2405

== ENCOUNTER → 2022-10-27 | Outpatient (CLI) | payer OTHER, MEDICARE ==
--- NOTE | 2022-10-27 08:53 | US ---
EXAMINATION TYPE: US abdomen complete DATE OF EXAM: 10/27/2022 COMPARISON: CT abdomen and pelvis October 12, 2022 and older studies CLINICAL HISTORY: R10.13 EPIGASTRIC PAIN. chronic epigastric and LUQ pain, burning sensation, cholecy stectomy TECHNIQUE: Multiple sonographic images of the abdomen are obtained. FINDINGS: EXAM MEASUREMENTS: Liver Length: 18.0 cm Gallbladder Wall: Surgically absent CBD: 0.5 cm Spleen: 12.1 cm Right Kidney: 11.1 x 5.2 x 6.9 cm Left Kidney: 12.5 x 5.0 x 6.6 cm FACILITY MAINTENANCE TECHNICIAN NOTES: very difficult to penetrate due to bowel gas and fatty liver Pancreas: obscured by bowel gas Liver: very limited views due to fatty infiltration Gallbladder: Surgically absent Evidence for sonographic Hernandez's sign: no CBD: wnl Spleen: wnl Right Kidney: wnl Left Kidney: wnl Upper IVC: wnl Abd Aorta: wnl The visualized liver is heterogeneously hyperechoic. Evaluation for focal masses suboptimal due to th e heterogeneity. Finding likely on basis of fatty infiltrative hepatocellular disease. No adjacent as cites. The intrahepatic portion of the IVC and visualized abdominal aorta are within normal limits. There is no evidence of cholelithiasis. Common bile duct is unremarkable. Suboptimal evaluation of p ancreas due to overlying bowel gas on initial images. The spleen is unremarkable. Kidneys are symme tric and free of hydronephrosis. No renal lesions are seen. IMPRESSION: Suboptimal study particularly evaluation of the pancreas. No acute findings are evident.
== END | disposition home or self-care (01) ==
LOC: RADUSWWP 07:22
PROVIDERS: ATTEND Family Medicine
DX: R10.13 Epigastric pain (principal)
CPT/HCPCS: 76700

== ENCOUNTER 2022-11-03 08:39 | Day surgery (SDC) | payer OTHER, MEDICARE ==
[2022-10-30 16:14] VITALS: BMI 36.3
[~2022-11-03 08:39] MED LIST changes: +LIDOCAINE 1% (10MG/ML) FOR IV START INTRADERMA PRN
[2022-11-03 09:09] VITALS: RESP 16; TEMP 97.3
[2022-11-03 09:26] LABS: Glucose,Whole Blood 121 mg/dL (70-110)
[2022-11-03] MEDS ORDERED: LACTATED RINGERS 1,000 ML IV ONE (09:28)
[2022-11-03] MEDS ORDERED: LIDOCAINE 2% INJ 20 MG/ML (2 ML VIAL) ONE (10:01)
[2022-11-03] MEDS ORDERED: PROPOFOL 10 MG/ML 20 ML VIAL IV ONE (10:01)
--- NOTE | 2022-11-03 10:12 | P.PCN ---
Date of Procedure: 11/03/22 Procedure(s) Performed: BRIEF HISTORY: Patient is a 52-year-old, pleasant, white male scheduled for an upper endoscopy as a part of evaluation of GERD and epigastric pain for the last 2 months duration.. He is presently on Protonix 40 mg daily, Pepcid 40 mg daily and Carafate 1 g 4 times daily with no help. PROCEDURE PERFORMED: Esophagogastroduodenoscopy with biopsy. PREOPERATIVE DIAGNOSIS: History of GERD and severe epigastric pain of 2 months duration. IV sedation per anesthesia. PROCEDURE: After informed consent was obtained, the patient was brought into the endoscopy unit. IV sedation was administered by Anesthesia under continuous monitoring. Initially the Olympus GIF-140 video endoscope was inserted into the mouth. Esophagus intubated without any difficulty. It was gradually advanced into the stomach and duodenum and carefully examined. The bulb and the second part of the duodenum appeared normal. The scope at this time was withdrawn to the stomach, adequately insufflated with air, and upon careful examination, mucosa of the antrum, had mild gastritis and biopsies were done from this area. Mucosa of the body, cardia and the fundus appeared normal. The scope was then withdrawn into the esophagus. The GE junction was located at 39 cm from the incisors. The esophagus appeared normal. There were no erosions or ulcerations seen, biopsies were done from the distal esophagus and the patient tolerated the procedure well. IMPRESSION: 1. Mild antral gastritis. 2. No evidence of esophagitis or peptic ulcer disease. RECOMMENDATIONS: The findings of this examination were discussed with the patient as well as a family. He was advised to follow with the biopsy results.. Advised to increase the Protonix to 40 mg twice daily and continue with Carafate 1 g 4 times daily and follow antireflux measures.
[2022-11-03 10:32] VITALS: BP 132/91; PULSE 74
== END 2022-11-03 11:12 | disposition home or self-care (01) ==
LOC: ORWHC2ENDO 08:39
PROVIDERS: ATTEND Internal Medicine Gastroenterology
DX: K29.50 Unspecified chronic gastritis without bleeding (principal); K21.00 Gastro-esophageal reflux disease with esophagitis, without bleeding; I10 Essential (primary) hypertension; E78.5 Hyperlipidemia, unspecified; I25.10 Atherosclerotic heart disease of native coronary artery without angina pectoris; I25.2 Old myocardial infarction; G47.33 Obstructive sleep apnea (adult) (pediatric); F17.200 Nicotine dependence, unspecified, uncomplicated; I69.351 Hemiplegia and hemiparesis following cerebral infarction affecting right dominant side; Z99.89 Dependence on other enabling machines and devices; Z79.82 Long term (current) use of aspirin; Z79.1 Long term (current) use of non-steroidal anti-inflammatories (NSAID); Z79.01 Long term (current) use of anticoagulants; Z79.899 Other long term (current) drug therapy
CPT/HCPCS: 88305; 43239; J2704; J2001

== ENCOUNTER 2022-11-10 13:40 | Inpatient (IN) | payer OTHER, MEDICARE ==
[2022-11-10] MEDS ORDERED: SODIUM CHLORIDE 0.9% 1,000 ML IV STA (13:55)
[2022-11-10 13:56] LABS: Glucose,Whole Blood 107 mg/dL (70-110)
--- NOTE | 2022-11-10 14:05 | ED ---
General Adult HPI - General Chief complaint: Neuro Symptoms/Deficit Stated complaint: right side face & body tingling Time Seen by Provider: 11/10/22 13:50 Source: patient, family, RN notes reviewed Mode of arrival: wheelchair Limitations: physical limitation - History of Present Illness Initial comments: Patient is a pleasant 52-year-old male presenting to the emergency department with family with concerns for possible stroke. Patient has had 5 previous strokes with similar symptoms. Last known well was around 1:30 this morning when he went to bed. Patient woke around 10 with symptoms. Patient has increased weakness of both his right arm and leg. Patient feels minimally confused and feels his speech is a little bit slow. Family also noticed patient's smile seem somewhat worse than normal. Patient states no headache however is having a little bit of lightheadedness/possible minimal confusion. - Related Data Home Medications Medication Instructions Recorded Confirmed Montelukast [Singulair] 10 mg PO DAILY 11/17/18 11/03/22 Loratadine 10 mg PO DAILY 08/16/19 11/03/22 Atorvastatin [Lipitor] 80 mg PO DAILY 02/23/21 11/03/22 Clopidogrel Bisulfate [Plavix] 75 mg PO DAILY 02/23/21 11/03/22 Pantoprazole [Protonix] 40 mg PO DAILY 07/08/21 11/03/22 lamoTRIgine [LaMICtal] 50 mg PO TID 07/08/21 11/03/22 Labetalol HCl [Trandate] 600 mg PO BID 06/05/22 11/03/22 Tamsulosin HCl [Flomax] 0.4 mg PO DAILY 06/05/22 11/03/22 Triamterene/Hydrochlorothiazid 1 tab PO DAILY 06/05/22 11/03/22 [Triamterene-Hctz 75-50 mg Tab] Aspirin EC [Ecotrin Low Dose] 81 mg PO BID 09/26/22 11/03/22 Cariprazine HCl [Vraylar] 6 mg PO DAILY 09/26/22 11/03/22 Cholecalciferol [Vitamin D3 (125 125 mcg PO DAILY 09/26/22 11/03/22 Mcg = 5000 Iu)] Clobetasol Propionate [Temovate 1 applic TOPICAL BID PRN 09/26/22 11/03/22 0.05% Cream] Fluticasone Nasal [place] [Flonase 1 spray EA NOSTRIL DAILY 09/26/22 11/03/22 Nasal [place]] Multivitamins, Thera [Multivitamin 1 tab PO DAILY 09/26/22 11/03/22 (formulary)] Spironolactone [Aldactone] 25 mg PO DAILY 09/26/22 11/03/22 Sucralfate [Carafate] 1 gm PO ACHS 09/26/22 11/03/22 amLODIPine BES/OLMESARTAN MED 1 tab PO DAILY 09/26/22 11/03/22 [amLODIPine BES/OLMESARTAN MED 10-40 mg] hydrOXYzine HCL [Atarax] 50 mg PO BID PRN 09/26/22 11/03/22 traZODone HCL [Desyrel] 50 - 100 mg PO HS PRN 09/26/22 11/03/22 Previous Rx's Medication Instructions Recorded Famotidine [Pepcid] 20 mg PO BID #28 tablet 09/27/22 Sucralfate [Carafate] 1 gm PO BID #14 tab 09/27/22 diphenhydrAMINE [Benadryl] 50 mg PO QID PRN #20 capsule 09/27/22 predniSONE 50 mg PO DAILY #5 tab 09/27/22 Allergies Allergy/AdvReac Type Severity Reaction Status Date / Time No Known Allergies Allergy Verified 11/10/22 13:46 Review of Systems ROS Statement: Those systems with pertinent positive or pertinent negative responses have been documented in the HPI. ROS Other: All systems not noted in ROS Statement are negative. Constitutional: Denies: fever Eyes: Denies: eye pain ENT: Denies: ear pain Respiratory: Denies: cough Cardiovascular: Denies: chest pain Endocrine: Denies: fatigue Gastrointestinal: Denies: abdominal pain Genitourinary: Denies: dysuria Neurological: Reports: as per HPI, weakness, confusion Past Medical History Past Medical History: Chest Pain / Angina, CVA/TIA, GERD/Reflux, Hyperlipidemia, Hypertension, Memory Impairment, Myocardial Infarction ([place]), Sleep Apnea/CPAP/BIPAP Additional Past Medical History / Comment(s): CVAs - 5 with R sided weakness, short term memory loss, balance issures/uses a cane, migraines, bilateral hand tremors, occasional low back pain, numbness/tingling bilateral hands/feet, bilateral carpal tunnel syndrome, sinus problems Last Myocardial Infarction Date:: 07/2018 History of Any Multi-Drug Resistant Organisms: None Reported Past Surgical History: Cholecystectomy, Heart Catheterization, Tonsillectomy Additional Past Surgical History / Comment(s): 07/2018 cardiac cath-normal, sinus surgery, colonoscopy, dental extractions. Past Anesthesia/Blood Transfusion Reactions: No Reported Reaction Past Psychological History: Anxiety, Depression, PTSD Smoking Status: Former smoker - Past Family History Mother Family Medical History: No Reported History Additional Family Medical History / Comment(s): Mother is healthy Father Family Medical History: Coronary Artery Disease (CAD), Myocardial Infarction ([place]) Additional Family Medical History / Comment(s): Father of a [place] at the age of 52 yrs. General Exam Limitations: language barrier General appearance: alert, in no apparent distress Head exam: Present: atraumatic, normocephalic Eye exam: Present: normal appearance, PERRL, EOMI ENT exam: Present: normal oropharynx Neck exam: Present: normal inspection Respiratory exam: Present: normal lung sounds bilaterally Cardiovascular Exam: Present: regular rate, normal rhythm GI/Abdominal exam: Present: soft. Absent: tenderness Extremities exam: Present: normal inspection Neurological exam: Present: alert Expanded Neurological exam: Present: other (Mild right facial droop) Cranial nerves: EOM's Intact: Normal Sensory exam: Upper Extremity Light Touch: Abnormal Right, Lower Extremity Light Touch: Abnormal Right Motor strength exam: RUE: 3, LUE: 5, RLE: 2/1, LLE: 5 Eye Response: (4) open spontaneously Motor Response: (6) obeys commands Verbal Response: (5) oriented Psychiatric exam: Present: normal affect, normal mood Skin exam: Present: normal color Course Vital Signs 11/10/22 11/10/22 11/10/22 13:43 13:51 14:05 Temperature 97.9 F Pulse Rate 86 89 94 Respiratory 18 18 18 Rate Blood Pressure 180/110 150/108 158/99 O2 Sat by Pulse 99 98 99 Oximetry - Reevaluation(s) Reevaluation #1: 11/10/22 14:05 niH 8 from nursing staff 11/10/22 14:41 Case was discussed with practitioner Oswaldo Thomas who works with Dr. molina, who agrees patient not TPA candidate and will update him. They will call back if needed EKG Findings - EKG Results: EKG: interpreted by ERMD, sinus rhythm, normal axis, normal QRS, normal ST/T Medical Decision Making - Medical Decision Making Was pt. sent in by a medical professional or institution (, TONY, DIRECTOR OF ACADEMIC, urgent care, hospital, or prison...) When possible be specific @ -No Did you speak to anyone other than the patient for history (EMS, parent, family, police, friend...)? What history was obtained from this source @ -Patient's and other family member are present and helps provide additional history other than the patient. Including last known well which was around 1:30 AM. Did you review nursing and triage notes (agree or disagree)? Why? @ -I reviewed and agree with nursing and triage notes Were old charts reviewed (outside hosp., previous admission, EMS record, old EKG, old radiological studies, urgent care reports/EKG's, prison records)? Report findings @ -No old charts were reviewed Differential Diagnosis (chest pain, altered mental status, abdominal pain women, abdominal pain men, vaginal bleeding, weakness, fever, dyspnea, syncope, headache, dizziness, GI bleed, back pain, seizure, CVA, palpatations, mental health)? @ -Differential Altered Mental Status: Hypoglycemia, DKA, hypercapnia, ETOH, overdose, CO poisoning, trauma, myxedema coma, HTN encephalopathy, infection, encephalitis, psychosis, intercranial hemorrhage, hepatic encephalopathy, meningitis, CVA, this is not meant to be an all-inclusive list EKG interpreted by me (3pts min.). @ -As above X-rays interpreted by me (1pt min.). @ -Chest x-ray shows some mild interstitial changes CT interpreted by me (1pt min.). @ -None done U/S interpreted by me (1pt. min.). @ -None done What testing was considered but not performed or refused? (CT, X-rays, U/S, labs)? Why? @ -None What meds were considered but not given or refused? Why? @ -Consider TPA for patient however patient not felt good candidate, and risks outweigh the benefit, onset of symptoms greater than 4.5 hours. Did you discuss the management of the patient with other professionals (professionals i.e. , PA, DIRECTOR OF ACADEMIC, lab, RT, psych nurse, social and political studies professor, supervising editor news reel, teacher, hydrological technical officer, casework specialist)? Give summary @ -Case was discussed with practitioner with neurology. Case also will be discussed with admitting physician. Was smoking cessation discussed for >3mins.? @ -No Was critical care preformed (if so, how long)? @ -[Total critical care time 32 minutes Were there social determinants of health that impacted care today? How? (Homelessness, low income, unemployed, alcoholism, drug addiction, transportation, low edu. Level, literacy, decrease access to med. care, long term, rehab)? @ -No Was there de-escalation of care discussed even if they declined (Discuss DNR or withdrawal of care, Hospice)? DNR status @ -No What co-morbidities impacted this encounter? (DM, HTN, Smoking, COPD, CAD, Cancer, CVA, ARF, Chemo, Hep., AIDS, mental health diagnosis, sleep apnea, morbid obesity)? @ -Patient does have history of previous strokes. Was patient admitted / discharged? Hospital course, mention meds given and route, prescriptions, significant lab abnormalities, going to OR and other pertinent info. @ -Patient will be admitted. Case was discussed with neurology practitioner. Patient reevaluated. Patient and family updated. Admitting physician has been paged. Undiagnosed new problem with uncertain prognosis? @ -No Drug Therapy requiring intensive monitoring for toxicity (Heparin, Nitro, Insulin, Cardizem)? @ -No Were any procedures done? @ -No Diagnosis/symptom? @ -CVA Acute, or Chronic, or Acute on Chronic? @ -Acute Uncomplicated (without systemic symptoms) or Complicated (systemic symptoms)? @ -Uncomplicated Side effects of treatment? @ -No Exacerbation, Progression, or Severe Exacerbation? @ -No Poses a threat to life or bodily function? How? (Chest pain, [place], [place], pneumonia, PE, COPD, DKA, ARF, appy, cholecystitis, CVA, Diverticulitis, Homicidal, Suicidal, threat to staff... and all critical care pts) @ -Does pose a threat to life and bodily function as well. There has already been decrease in function. - Lab Data Result diagrams: 11/10/22 13:55 11/10/22 13:55 Lab Results 11/10/22 11/10/22 11/10/22 Range/Units 13:53 13:55 13:55 WBC 10.3 (3.8-10.6) k/uL RBC 5.31 (4.30-5.90) m/uL Hgb 16.3 (13.0-17.5) gm/dL Hct 47.3 (39.0-53.0) % MCV 89.2 (80.0-100.0) fL MCH 30.7 (25.0-35.0) pg MCHC 34.5 (31.0-37.0) g/dL RDW 13.2 (11.5-15.5) % Plt Count 264 (150-450) k/uL MPV 7.1 Neutrophils % 59 % Lymphocytes % 33 % Monocytes % 5 % Eosinophils % 1 % Basophils % 1 % Neutrophils # 6.1 (1.3-7.7) k/uL Lymphocytes # 3.4 (1.0-4.8) k/uL Monocytes # 0.5 (0-1.0) k/uL Eosinophils # 0.1 (0-0.7) k/uL Basophils # 0.1 (0-0.2) k/uL PT 10.5 (9.0-12.0) sec INR 1.0 (<1.2) APTT 24.4 (22.0-30.0) sec Sodium (137-145) mmol/L Potassium (3.5-5.1) mmol/L Chloride (98-107) mmol/L Carbon Dioxide (22-30) mmol/L Anion Gap mmol/L BUN (9-20) mg/dL Creatinine (0.66-1.25) mg/dL Est GFR (CKD-EPI)AfAm (>60 ml/min/1.73 sqM) Est GFR (CKD-EPI)NonAf (>60 ml/min/1.73 sqM) Glucose (74-99) mg/dL POC Glucose (mg/dL) 107 (70-110) mg/dL POC Glu Excavator Operator ID Willing, Jeniffer Calcium (8.4-10.2) mg/dL Total Bilirubin (0.2-1.3) mg/dL AST (17-59) U/L ALT (4-49) U/L Alkaline Phosphatase (38-126) U/L Troponin I (0.000-0.034) ng/mL Total Protein (6.3-8.2) g/dL Albumin (3.5-5.0) g/dL 11/10/22 11/10/22 Range/Units 13:55 13:55 WBC (3.8-10.6) k/uL RBC (4.30-5.90) m/uL Hgb (13.0-17.5) gm/dL Hct (39.0-53.0) % MCV (80.0-100.0) fL MCH (25.0-35.0) pg MCHC (31.0-37.0) g/dL RDW (11.5-15.5) % Plt Count (150-450) k/uL MPV Neutrophils % % Lymphocytes % % Monocytes % % Eosinophils % % Basophils % % Neutrophils # (1.3-7.7) k/uL Lymphocytes # (1.0-4.8) k/uL Monocytes # (0-1.0) k/uL Eosinophils # (0-0.7) k/uL Basophils # (0-0.2) k/uL PT (9.0-12.0) sec INR (<1.2) APTT (22.0-30.0) sec Sodium 143 (137-145) mmol/L Potassium 3.8 (3.5-5.1) mmol/L Chloride 109 H (98-107) mmol/L Carbon Dioxide 27 (22-30) mmol/L Anion Gap 7 mmol/L BUN 11 (9-20) mg/dL Creatinine 1.07 (0.66-1.25) mg/dL Est GFR (CKD-EPI)AfAm >90 (>60 ml/min/1.73 sqM) Est GFR (CKD-EPI)NonAf 81 (>60 ml/min/1.73 sqM) Glucose 104 H (74-99) mg/dL POC Glucose (mg/dL) (70-110) mg/dL POC Glu Excavator Operator ID Calcium 9.2 (8.4-10.2) mg/dL Total Bilirubin 0.3 (0.2-1.3) mg/dL AST 28 (17-59) U/L ALT 43 (4-49) U/L Alkaline Phosphatase 91 (38-126) U/L Troponin I <0.012 (0.000-0.034) ng/mL Total Protein 7.4 (6.3-8.2) g/dL Albumin 4.6 (3.5-5.0) g/dL - Radiology Data Radiology results: report reviewed (CT brain and CTA radiologist report reviewed) Interpreted by me: Chest x-ray shows mild interstitial changes Disposition Clinical Impression: Cerebrovascular accident (CVA) Disposition: ADMITTED IP TO THIS HOSP Is patient prescribed a controlled substance at d/c from ED?: No Referrals: Michael Styles MD [Primary Care Provider] - 1-2 days Time of Disposition: 14:59
[2022-11-10 14:07] LABS: Basophils # (A) 0.1 k/uL (0-0.2); Basophils % (A) 1 %; Eosinophils # (A) 0.1 k/uL (0-0.7); Eosinophils % (A) 1 %; HCT 47.3 % (39.0-53.0); HGB 16.3 gm/dL (13.0-17.5); Lymphocytes # (A) 3.4 k/uL (1.0-4.8); Lymphocytes % (A) 33 %; MCH 30.7 pg (25.0-35.0); MCHC 34.5 g/dL (31.0-37.0); MCV 89.2 fL (80.0-100.0); Mean Platelet Volume 7.1; Monocytes # (A) 0.5 k/uL (0-1.0); Monocytes % (A) 5 %; Neutrophils # (A) 6.1 k/uL (1.3-7.7); Neutrophils % (A) 59 %; Platelet Count 264 k/uL (150-450); RBC 5.31 m/uL (4.30-5.90); RDW 13.2 % (11.5-15.5); WBC 10.3 k/uL (3.8-10.6)
--- NOTE | 2022-11-10 14:14 | CT ---
EXAMINATION TYPE: CT brain wo con for TPA DATE OF EXAM: 11/10/2022 COMPARISON: 07/09/2021 HISTORY: Right sided weakness. Hx of [address] DLP: 1104.6 mGycm Automated exposure control for dose reduction was used. FINDINGS: There is a tiny hyperdensity axial image 27 most likely related to the vasculature/basal ganglia calc ification. Retrospectively appears present on the prior exam. This could be confirmed with CTA cahto of [place] to exclude tiny petechial hemorrhage. Ventricular system is midline. Calvarium intact. Orb its are symmetric. Craniocervical junction is maintained. Sella turcica is normal. IMPRESSION: 1. NO DEFINITE ACUTE HEMORRHAGE. TINY HYPERDENSITY SEEN IN THE REGION OF THE LEFT BASAL GANGLIA AXIAL IMAGES 27 WAS PRESENT ON THE PRIOR EXAM AND THEREFORE LIKELY REPRESENTS A BASAL GANGLIER CALCIFICATI ON OR POSSIBLY RELATED TO THE LEFT MIDDLE CEREBRAL ARTERY. DEDICATED MRA YOCHA DEHE OF [place] RECOMMENDED FOR FURTHER EVALUATION. IF SYMPTOMS ARE PERSISTENT CONSIDER MRI WITH DIFFUSION IMAGING..
[2022-11-10 14:16] LABS: Partial Thromboplastin Time 24.4 sec (22.0-30.0); Prothrombin Time 10.5 sec (9.0-12.0)
[2022-11-10 14:19] LABS: ALT 43 U/L (4-49); AST 28 U/L (17-59); African American GFR (CKD) >90 (>60 ml/min/1.73 sqM); Albumin 4.6 g/dL (3.5-5.0); Alkaline Phosphatase 91 U/L (38-126); Anion Gap 7 mmol/L; Blood Urea Nitrogen 11 mg/dL (9-20); Calcium 9.2 mg/dL (8.4-10.2); Carbon Dioxide 27 mmol/L (22-30); Chloride 109 mmol/L (98-107); Glucose 104 mg/dL (74-99); Non-African American GFR(CKD) 81 (>60 ml/min/1.73 sqM); Potassium 3.8 mmol/L (3.5-5.1); Sodium 143 mmol/L (137-145); Total Bilirubin 0.3 mg/dL (0.2-1.3); Total Protein 7.4 g/dL (6.3-8.2)
--- NOTE | 2022-11-10 14:31 | CT ---
EXAMINATION TYPE: CT angio head neck CT DLP: 1150 mGycm, Automated exposure control for dose reduction was used. DATE OF EXAM: 11/10/2022 2:20 PM COMPARISON: CTA head and neck 07/09/2021. CLINICAL INDICATION:Male, 52 years old with history of Neuro deficit, acute, stroke suspected; PHH, R ight sided weakness. History of 5 strokes. TECHNIQUE: Axially acquired helical CT angiogram of the head and neck was obtained with contrast util izing 65 cc of Isovue-370 administered intravenously. Axial images are supplemented with 3D reconstru ctions which were post-processed at an independent workstation. NASCET criteria used. FINDINGS: CTA HEAD: No evidence of acute intracranial hemorrhage, mass effect, or midline shift. The ventricles, sulci, a nd cisterns are unremarkable. The visualized portions of the internal carotid arteries, middle cerebral arteries, anterior cerebral arteries, and posterior cerebral arteries are patent. The basilar and vertebral arteries are patent. CTA NECK: Right Carotid System: The common carotid artery and external carotid artery are patent. The carotid bifurcation demonstrate s no evidence of hemodynamically significant stenosis. The remaining portions of the internal carotid artery demonstrate normal size without significant narrowing. Left Carotid System: The common carotid artery and external carotid artery are patent. The carotid bifurcation demonstrate s no evidence of hemodynamically significant stenosis. The remaining portions of the internal carotid artery demonstrate normal size without significant narrowing. Vertebral arteries are patent without evidence hemodynamically significant stenosis. Left vertebral a rtery is dominant. There is a three-vessel aortic arch. The origins of the great vessels are patent. No evidence of hemo dynamically significant stenosis. IMPRESSION: 1. No evidence of dissection of the cervical internal carotid arteries or vertebral arteries or any e vidence of significant stenosis at the carotid bifurcations. 2. No evidence of high-grade stenosis or intracranial aneurysm.
--- NOTE | 2022-11-10 14:33 | XR ---
EXAMINATION TYPE: XR chest 2V DATE OF EXAM: 11/10/2022 COMPARISON: NONE TECHNIQUE: PA and lateral views submitted. HISTORY: Altered mental status FINDINGS: The lungs are clear and there is no pneumothorax, pleural effusion, or focal pneumonia. Heart size normal and no overt failure. Osseous structures demonstrate hypertrophic and degenerative changes of the spine. There is a coarsened interstitium. IMPRESSION: 1. Correlate for bronchitis or interstitial pneumonitis.
[2022-11-10] MEDS ORDERED: ASPIRIN 325 MG TAB PO STA (15:01)
[2022-11-10] MEDS ORDERED: NALOXONE 0.4 MG/ML 1 ML VIAL IV PRN (16:17)
[2022-11-10] MEDS: SODIUM CHLORIDE 0.9% 1,000 ML IV SCH ×2 (16:29→23:53)
--- NOTE | 2022-11-10 16:45 | P.HPIM ---
History of Present Illness H&P Date: 11/10/22 Chief Complaint: stroke Patient is a 52-year-old male with history of multiple CVAs with residual deficit, hypertension, dyslipidemia, CAD presenting with strokelike symptoms. Patient's last well-known was around 1:30 AM prior to him going to bed. This morning, patient reportedly woke up around 9-10 with increased weakness in both his right arm and right leg. Patient's also felt that he had difficulty with his speech. Patient's family had noticed that there was some facial droop as well. He denies any recent chest pain, shortness of breath, abdominal pain, palpitations, lightheadedness, diarrhea, constipation, nausea, vomiting, or urinary complaints. Denies any travel history, or sick contacts. He is a former smoker, denies alcohol use, or illicit drug use. In the ED, patient was initially hypertensive up to 180/110, respiratory signs were otherwise negative. Laboratory workup was mostly unremarkable. CT head showed no definite acute hemorrhage, tiny hyperdensity seen in the region of left basal ganglia which was previously seen. It could possibly be basal ganglia calcification or related to medical cerebral artery on the left side. CTA showed no evidence of dissection of internal carotid arteries or vertebral arteries, or any evidence of significant stenosis, or intracranial aneurysm or high-grade intracranial artery stenosis. EKG showed normal sinus rhythm reviewed by me. Chest x-ray reported as possible bronchitis versus interstitial pneumonitis. Patient seen and examined at bedside. Pertinent positives and negatives as discussed in HPI, a complete review of systems was performed and all other systems are negative. Vital signs reviewed General: nontoxic, no distress, appears at stated age Derm: warm, dry Head: atraumatic, normocephalic, symmetric Eyes: EOMI, no lid lag, anicteric sclera, pupils equal round reactive to light ENT: Nose and ears atraumatic Neck: No thyromegaly, supple Mouth: no lip lesion, mucus membranes moist Cardiovascular: S1S2 reg, no murmur, no edema Lungs: clear to auscultation bilateral, no rhonchi, no rales, no wheeze, no accessory muscle use Abdominal: soft, nontender to palpation, no guarding, no appreciable organomegaly Ext: no gross muscle atrophy, muscle strength muscle strength 3 out of 5 in right extremities, no contractures Neuro: right sided facial droop, diminished sensation on the right face and extremities Psych: Alert, oriented, appropriate affect Assessment/Plan: CVA Right facial droop Right arm and leg weakness History of multiple CVAs -Neuro checks -Neurology consult -Lipid panel, TSH, A1c -Continue aspirin and statin -Permissive hypertension -telemetry, echo, carotid ultrasound -PT/OT -Speech therapy Hx of Hypertension - holding home medications Chronic medical problems: Dyslipidemia History of CAD COPD/asthma Mood/psychotic disorder -Continue home medications The patient is admitted with an anticipated greater than 2 midnight stay for evaluation of stroke. Surrogate decision-maker: CODE STATUS: Full code DVT prophylaxis: Subcu heparin Anticipated discharge date: Pending clinical course Anticipated discharge place: Pending clinical course A total of 55 minutes was spent on the care of this complex patient more than 50% of the time was spent in counseling and care coordination. Past Medical History Past Medical History: Chest Pain / Angina, CVA/TIA, GERD/Reflux, Hyperlipidemia, Hypertension, Memory Impairment, Myocardial Infarction ([place]), Sleep Apnea/CPAP/BIPAP Additional Past Medical History / Comment(s): CVAs - 5 with R sided weakness, short term memory loss, balance issures/uses a cane, migraines, bilateral hand tremors, occasional low back pain, numbness/tingling bilateral hands/feet, bilateral carpal tunnel syndrome, sinus problems Last Myocardial Infarction Date:: 07/2018 History of Any Multi-Drug Resistant Organisms: None Reported Past Surgical History: Cholecystectomy, Heart Catheterization, Tonsillectomy Additional Past Surgical History / Comment(s): 07/2018 cardiac cath-normal, sinus surgery, colonoscopy, dental extractions. Past Anesthesia/Blood Transfusion Reactions: No Reported Reaction Past Psychological History: Anxiety, Depression, PTSD Smoking Status: Former smoker - Past Family History Mother Family Medical History: No Reported History Additional Family Medical History / Comment(s): Mother is healthy Father Family Medical History: Coronary Artery Disease (CAD), Myocardial Infarction ([place]) Additional Family Medical History / Comment(s): Father of a [place] at the age of 52 yrs. Medications and Allergies Home Medications Medication Instructions Recorded Confirmed Type Montelukast [Singulair] 10 mg PO DAILY 11/17/18 11/10/22 History Loratadine 10 mg PO DAILY 08/16/19 11/10/22 History Atorvastatin [Lipitor] 80 mg PO DAILY 02/23/21 11/10/22 History Clopidogrel Bisulfate [Plavix] 75 mg PO DAILY 02/23/21 11/10/22 History Pantoprazole [Protonix] 40 mg PO DAILY 07/08/21 11/10/22 History lamoTRIgine [LaMICtal] 50 mg PO TID 07/08/21 11/10/22 History Labetalol HCl [Trandate] 600 mg PO BID 06/05/22 11/10/22 History Tamsulosin HCl [Flomax] 0.4 mg PO DAILY 06/05/22 11/10/22 History Triamterene/Hydrochlorothiazid 1 tab PO DAILY 06/05/22 11/10/22 History [Triamterene-Hctz 75-50 mg Tab] Aspirin EC [Ecotrin Low Dose] 81 mg PO BID 09/26/22 11/10/22 History Cariprazine HCl [Vraylar] 6 mg PO DAILY 09/26/22 11/10/22 History Cholecalciferol [Vitamin D3 (125 125 mcg PO DAILY 09/26/22 11/10/22 History Mcg = 5000 Iu)] Clobetasol Propionate [Temovate 1 applic TOPICAL BID PRN 09/26/22 11/10/22 History 0.05% Cream] Fluticasone Nasal [place] [Flonase 1 spray EA NOSTRIL DAILY 09/26/22 11/10/22 History Nasal [place]] Multivitamins, Thera [Multivitamin 1 tab PO DAILY 09/26/22 11/10/22 History (formulary)] Spironolactone [Aldactone] 25 mg PO DAILY 09/26/22 11/10/22 History Sucralfate [Carafate] 1 gm PO ACHS 09/26/22 11/10/22 History amLODIPine BES/OLMESARTAN MED 1 tab PO DAILY 09/26/22 11/10/22 History [amLODIPine BES/OLMESARTAN MED 10-40 mg] hydrOXYzine HCL [Atarax] 50 mg PO BID PRN 09/26/22 11/10/22 History traZODone HCL [Desyrel] 50 - 100 mg PO HS PRN 09/26/22 11/10/22 History Famotidine [Pepcid] 20 mg PO BID #28 tablet 09/27/22 11/10/22 Rx diphenhydrAMINE [Benadryl] 50 mg PO QID PRN #20 capsule 09/27/22 11/10/22 Rx Metoclopramide HCl [Reglan] 10 mg PO Q6H PRN 11/10/22 11/10/22 History Allergies Allergy/AdvReac Type Severity Reaction Status Date / Time No Known Allergies Allergy Verified 11/10/22 15:20 Physical Exam Vitals: Vital Signs Temp Pulse Resp BP Pulse Ox 11/10/22 14:05 94 18 158/99 99 11/10/22 13:51 89 18 150/108 98 11/10/22 13:43 97.9 F 86 18 180/110 99 Intake and Output 11/10/22 11/10/22 11/10/22 06:59 14:59 22:59 Other: Weight 122.47 kg Results CBC & Chem 7: 11/10/22 13:55 11/10/22 13:55 Labs: Abnormal Lab Results - Last 24 Hours (Table) 11/10/22 Range/Units 13:55 Chloride 109 H (98-107) mmol/L Glucose 104 H (74-99) mg/dL
[2022-11-10] MEDS ORDERED: TICAGRELOR 90 MG TAB PO STA (17:23)
--- NOTE | 2022-11-10 17:41 | P.CNNES ---
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 Patient last normal state was around 1:30 AM prior to going to bed then when he woke up around the between 9:51 AM today he noticed that he has worsening weakness over the right upper and lower extremity. He also noticed that he's having right facial droop with numbness over the right face. Patient stated that he is taking his aspirin 81 and Plavix on a daily basis as well as he takes Lipitor 80 mg daily. He is compliant taking his medication. Patient feels his symptoms is somewhat better currently compared to initial presentation but denies a resolution of his symptoms. He uses a walker at baseline for his residual right-sided weakness. He stated that he had multiple MRIs in the past which revealed a stroke. He follows up with a neurologist (Dr. Ching's office) for his strokes. He denies any history of seizures. Denies tobacco use. Some of the workup during his hospital visit consisted of: CBC with differential and comprehensive metabolic panel is unremarkable CT of the head is reported as no definite of acute hemorrhage. Tiny hyperd ensities seen in the region of the left basal ganglia I so image a 27 was present on the prior exam and therefore likely represent basal ganglia calcification or possibly related to the left middle cerebral artery. Dedicated MRA [place] recommended for further evaluation. His symptoms are persistent consider MRI with diffusion and images. I personally reviewed the CT and I do not appreciate any acute or subacute ischemia or any bleed. I feel the patient has bilateral basal ganglia calcification the are small in size. CT angiography of the head and neck was reported as no evidence of dissection of the cervical internal carotid arteries or vertebral artery or any evidence of significant stenosis in the carotid bifurcation. No evidence of high-grade stenosis or intracranial aneurysm. EKG is reported as sinus rhythm. Normal EKG Patient did not get IV TPA in the ED since it was felt the patient the last normal is more than 4.5 hours and the risk outweighed the benefit Covid 2 PCR/RSV PCR and influenza A/B is nondetected Review of Systems Review of system: The 12 point system was reviewed and apparent positive and negative per HPI. Past Medical History Past Medical History: Chest Pain / Angina, CVA/TIA, GERD/Reflux, Hyperlipidemia, Hypertension, Memory Impairment, Myocardial Infarction (NH), Sleep Apnea/CPAP/BIPAP Additional Past Medical History / Comment(s): CVAs - 5 with R sided weakness, short term memory loss, balance issures/uses a cane, migraines, bilateral hand tremors, occasional low back pain, numbness/tingling bilateral hands/feet, bilateral carpal tunnel syndrome, sinus problems Last Myocardial Infarction Date:: 07/2018 History of Any Multi-Drug Resistant Organisms: None Reported Past Surgical History: Cholecystectomy, Heart Catheterization, Tonsillectomy Additional Past Surgical History / Comment(s): 07/2018 cardiac cath-normal, sinu s surgery, colonoscopy, dental extractions. Past Anesthesia/Blood Transfusion Reactions: No Reported Reaction Past Psychological History: Anxiety, Depression, PTSD Smoking Status: Former smoker - Past Family History Mother Family Medical History: No Reported History Additional Family Medical History / Comment(s): Mother is healthy Father Family Medical History: Coronary Artery Disease (CAD), Myocardial Infarction (NH) Additional Family Medical History / Comment(s): Father of a NH at the age of 52 yrs. Medications and Allergies Home Medications Medication Instructions Recorded Confirmed Type Montelukast [Singulair] 10 mg PO DAILY 11/17/18 11/10/22 History Loratadine 10 mg PO DAILY 08/16/19 11/10/22 History Atorvastatin [Lipitor] 80 mg PO DAILY 02/23/21 11/10/22 History Clopidogrel Bisulfate [Plavix] 75 mg PO DAILY 02/23/21 11/10/22 History Pantoprazole [Protonix] 40 mg PO DAILY 07/08/21 11/10/22 History lamoTRIgine [LaMICtal] 50 mg PO TID 07/08/21 11/10/22 History Labetalol HCl [Trandate] 600 mg PO BID 06/05/22 11/10/22 History Tamsulosin HCl [Flomax] 0.4 mg PO DAILY 06/05/22 11/10/22 History Triamterene/Hydrochlorothiazid 1 tab PO DAILY 06/05/22 11/10/22 History [Triamterene-Hctz 75-50 mg Tab] Aspirin EC [Ecotrin Low Dose] 81 mg PO BID 09/26/22 11/10/22 History Cariprazine HCl [Vraylar] 6 mg PO DAILY 09/26/22 11/10/22 History Cholecalciferol [Vitamin D3 (125 125 mcg PO DAILY 09/26/22 11/10/22 History Mcg = 5000 Iu)] Clobetasol Propionate [Temovate 1 applic TOPICAL BID PRN 09/26/22 11/10/22 History 0.05% Cream] Fluticasone Nasal [place] [Flonase 1 spray EA NOSTRIL DAILY 09/26/22 11/10/22 History Nasal Gilbert] Multivitamins, Thera [Multivitamin 1 tab PO DAILY 09/26/22 11/10/22 History (formulary)] Spironolactone [Aldactone] 25 mg PO DAILY 09/26/22 11/10/22 History Sucralfate [Carafate] 1 gm PO ACHS 09/26/22 11/10/22 History amLODIPine BES/OLMESARTAN MED 1 tab PO DAILY 09/26/22 11/10/22 History [amLODIPine BES/OLMESARTAN MED 10-40 mg] hydrOXYzine HCL [Atarax] 50 mg PO BID PRN 09/26/22 11/10/22 History traZODone HCL [Desyrel] 50 - 100 mg PO HS PRN 09/26/22 11/10/22 History Famotidine [Pepcid] 20 mg PO BID #28 tablet 09/27/22 11/10/22 Rx diphenhydrAMINE [Benadryl] 50 mg PO QID PRN #20 capsule 09/27/22 11/10/22 Rx Metoclopramide HCl [Reglan] 10 mg PO Q6H PRN 11/10/22 11/10/22 History Allergies Allergy/AdvReac Type Severity Reaction Status Date / Time No Known Allergies Allergy Verified 11/10/22 15:20 Physical Examination - Vital Signs Vital Signs: Vital Signs Temp Pulse Resp BP Pulse Ox 11/10/22 14:05 94 18 158/99 99 11/10/22 13:51 89 18 150/108 98 11/10/22 13:43 97.9 F 86 18 180/110 99 Intake and Output 11/10/22 11/10/22 11/10/22 06:59 14:59 22:59 Other: Weight 122.47 kg GENERAL: The patient is lying in bed and is not in acute distress. CHEST: The heart rate is regular rate rhythm. No murmurs to auscultation. LUNG: Clear to auscultation bilaterally no wheezing noted throughout. Not labored breathing. ABDOMEN/GI: Bowel sounds present in all 4 quadrants. No tenderness to palpation throughout. NEUROLOGICAL: Higher mental function: The patient is awake, alert, oriented to self, place and time. Patient is following commands. No aphasia and no neglect. Cranial nerves: The pupils are round, equal and reactive to light and accommodation. Visual hearn are full to confrontation throughout. Extraocular movement is intact no nystagmus is noted. Facial sensation is decreased sensation over the right lower face to touch. The facial strength is normal throughout. Hearing is normal bilaterally to hand rub. Tongue is midline and moved [id number] without any difficulty. No dysarthria is noted. Shoulder shrug is normal bilaterally. Motor: The strength is right upper extremity is 4- with hand ear specialist 3-4. Right lower is 4+. Left side is 5 over 5 throughout. Slightly decreased tone over the right upper. Otherwise normal tone and bulk. Cerebellum: Normal finger to nose bilaterally but perform the right side slower because of weakness.. Sensation: Sensation is normal to touch throughout. Reflexes (right/left): 2+ throughout.. Plantars are mute bilaterally. Results - Laboratory Findings CBC and BMP: 11/10/22 13:55 11/10/22 13:55 Abnormal Lab Findings: Abnormal Labs 11/10/22 13:55 Chloride 109 H Glucose 104 H Assessment and Plan Assessment: Acute worsening of the right-sided weakness with numbness and facial janice op/facial numbness likely due to acute subacute stroke History of multiple strokes (per patient he had 5 strokes from 2012 to 2016) with residual right hemiparesis History of short-term memory loss/cognitive impairment: Patient can have a component of vascular dementia especially with multiple strokes/TIAs Hypertension Hyperlipidemia History of myocardial infarction Sleep apnea Depression Anxiety PTSD Plan: * Patient was continued on his home dose of aspirin 81 mg daily. I stop the Plavix since the patient failed the medication and I started the patient on Brilinta 90mg bid with loading 180mg daily. * On his home dose of Lipitor 80 mg daily for second or so prophylaxis. * I ordered MRI of the brain without. * 2-D echo, carotid duplex, lipid panel, TSH, hemoglobin A1c are ordered by the primary team and are pending * Continue neuro checks * On cardiac monitoring * PT, OT and AUDIT PARTNER are consulted * Recommend permissive hypertension for 24 hours then after that gradually bring the blood pressure down to normotensive. * I feel the patient is too young to have strokes especially since his strokes began in his early 40s. I highly recommend a young stroke workup/hypercoagulable workup. I am not sure if patient had a detailed young stroke work-up in past. Will get more info tomorrow. * Recommend an event monitor for 30 days and consider having placed prior to his discharge * * We'll defer the rest of the medical management to primary team * For DVT prophylaxis the patient is on subcu heparin 5000 units every 8 hours. The plan was discussed with the patient and his was at bedside Thank you for the consultation Time with Patient: Greater than 30
[2022-11-10] MEDS: SUCRALFATE 1 GM TAB PO SCH ×3 (17:57→21:38)
--- NOTE | 2022-11-10 21:30 | US ---
EXAMINATION TYPE: US carotid duplex BILAT DATE OF EXAM: 11/10/2022 COMPARISON: CTA: Today CLINICAL HISTORY: stroke. stroke TECHNIQUE: Carotid duplex ultrasound examination. Indirect Doppler criteria was utilized. FINDINGS: EXAM MEASUREMENTS: RIGHT: Peak Systolic Velocity (PSV) cm/sec ----- Right CCA: 70.3 ----- Right ICA: 65.8 ----- Right ECA: 62.5 ICA/CCA ratio: 0.9 RIGHT: End Diastole cm/sec ----- Right CCA: 18.1 ----- Right ICA: 27.4 ----- Right ECA: 12.0 LEFT: Peak Systolic Velocity (PSV) cm/sec ----- Left CCA: 82.7 ----- Left ICA: 66.9 ----- Left ECA: 80.1 ICA/CCA ratio: 0.8 LEFT: End Diastole cm/sec ----- Left CCA: 23.2 ----- Left ICA: 24.1 ----- Left ECA: 17.5 VERTEBRALS (direction of flow): Right Vertebral: Antegrade Left Vertebral: Antegrade Rhythm: Normal KENO DEALER NOTES: No plaque or elevated velocities visualized IMPRESSION: There is antegrade flow in the vertebral arteries. The images and measurements suggest 0% stenosis in both internal carotid arteries. Criteria for Assigning % of Stenosis / Diameter reduction (Estimation based on the indirect measurements of the internal carotid artery velocities (ICA PSV). 1. Normal (no stenosis)=ICA PSV < 125 cm/s: ratio < 2.0: ICA EDV<40 cm/s. 2. Less than 50% stenosis=ICA PSV < 125 cm/s: ratio < 2.0: ICA EDV<40 cm/s. 3. 50 to 69% stenosis=ICA PSV of 125 to 230 cm/s: ration 2.0 ? 4.0: ICA EDV 40-100 cm/s. 4. Greater than 70% stenosis to near occlusion= ICA PSV > 230 cm/s: ratio > 4.0: ICA EDV > 100 cm/s. 5. Near occlusion= ICA PSV velocities may be low or undetectable: variable ratio and ICA EDV. 6. Total occlusion=unable to detect flow.
[2022-11-10] MEDS: lamoTRIgine 25 MG TAB PO SCH (21:35)
[2022-11-10] MEDS: FAMOTIDINE 20 MG TAB PO SCH (21:35)
[2022-11-10] MEDS: LABETALOL 200 MG TAB PO SCH (21:35)
[2022-11-10] MEDS: HEPARIN SODIUM,PORCINE/PF 5,000 UNIT/0.5 ML SYRINGE SQ SCH (23:43)
[2022-11-11] MEDS: SUCRALFATE 1 GM TAB PO SCH ×4 (06:52→20:40)
[2022-11-11] MEDS: TICAGRELOR 90 MG TAB PO SCH ×2 (08:57→20:39)
[2022-11-11] MEDS: TRIAMTERENE-HCTZ 75-50MG 1 EACH TAB PO SCH (08:57)
[2022-11-11] MEDS: CHOLECALCIFEROL 125 MCG (5000 IU) TABLET PO SCH (08:57)
[2022-11-11] MEDS: TAMSULOSIN 0.4 MG CAP.ER.24H PO SCH (08:57)
[2022-11-11] MEDS: lamoTRIgine 25 MG TAB PO SCH ×3 (08:57→20:39)
[2022-11-11] MEDS: PANTOPRAZOLE 40 MG TABLET PO SCH (08:57)
[2022-11-11] MEDS: amLODIPine 10 MG TAB PO SCH (08:57)
[2022-11-11] MEDS: ATORVASTATIN 80 MG TAB PO SCH (08:58)
[2022-11-11] MEDS: LOSARTAN 50 MG TAB PO SCH (08:58)
[2022-11-11] MEDS: LABETALOL 200 MG TAB PO SCH ×2 (08:58→20:40)
[2022-11-11] MEDS: MONTELUKAST 10 MG TAB PO SCH (08:58)
[2022-11-11] MEDS: FAMOTIDINE 20 MG TAB PO SCH ×2 (08:58→20:40)
[2022-11-11] MEDS: ASPIRIN 81 MG PO SCH (08:58)
[2022-11-11] MEDS: MULTIVITAMINS, THERA 1 EACH TAB PO SCH (08:58)
[2022-11-11] MEDS: HEPARIN SODIUM,PORCINE/PF 5,000 UNIT/0.5 ML SYRINGE SQ SCH ×2 (08:59→16:18)
[2022-11-11] MEDS: SPIRONOLACTONE 25 MG TAB PO SCH (08:59)
[2022-11-11] MEDS: CARIPRAZINE HCL 6 MG PO SCH (08:59)
[2022-11-11] MEDS: LORATADINE 10 MG TAB PO SCH (08:59)
[2022-11-11] MEDS: FLUTICASONE 50MCG/SPRAY NASAL 16GM EA NOSTRIL SCH (08:59)
[2022-11-11] MEDS ORDERED: CLOPIDOGREL 75 MG TAB PO SCH (09:00)
[2022-11-11] MEDS ORDERED: ASPIRIN 325 MG TAB PO SCH (09:00)
--- NOTE | 2022-11-11 12:07 | P.PN ---
Subjective Progress Note Date: 11/11/22 Principal diagnosis: stroke Hospital Course: 52-year-old male with history of multiple CVAs with residual deficit, hypertension, dyslipidemia, CAD presenting with strokelike symptoms. In the ED, patient was initially hypertensive up to 180/110, respiratory signs were otherwise negative. Laboratory workup was mostly unremarkable. CT head showed no definite acute hemorrhage, tiny hyperdensity seen in the region of left basal ganglia which was previously seen. It could possibly be basal ganglia calcification or related to medical cerebral artery on the left side. CTA showed no evidence of dissection of internal carotid arteries or vertebral arteries, or any evidence of significant stenosis, or intracranial aneurysm or high-grade intracranial artery stenosis. EKG showed normal sinus rhythm reviewed by me. Chest x-ray reported as possible bronchitis versus interstitial pneumonitis, no acute pulmonary symptoms. Subjective: Pertinent positives and negatives as discussed above, a complete review of systems was performed and all other systems are negative. Vitals Signs Reviewed. General: nontoxic, no distress, appears at stated age Derm: warm, dry Head: atraumatic, normocephalic, symmetric Eyes: EOMI, no lid lag, anicteric sclera Mouth: no lip lesion, mucus membranes moist Cardiovascular: S1S2 reg, no murmur Lungs: CTA bilateral, no rhonchi, no rales , no accessory muscle use Abdominal: soft, nontender to palpation, no guarding, no appreciable organomegaly Ext: no gross muscle atrophy, no edema, no contractures Neuro: CN II-XI grossly intact, muscle strength muscle strength 4 out of 5 in right extremities, right sided facial droop, diminished sensation on the right face and extremities Psych: Alert, oriented, appropriate affect Assessment and Plan: CVA Right facial droop Right arm and leg weakness History of multiple CVAs -Neuro checks -Neurology consult -Lipid panel, A1c -TSH normal -Continue aspirin, brilinta and statin -carotid ultrasound - wnls -telemetry, echo -PT/OT -Speech therapy -Patient will likely need an event monitor, cardiology consulted Chronic medical problems: Dyslipidemia History of CAD COPD/asthma Mood/psychotic disorder -Continue home medications DVT ppx: Subcu heparin Code status: Full code Anticipated discharge place: Likely home Anticipated discharge time: 1-2 days Objective - Vital Signs Vital signs: Vital Signs Temp 97.8 F 11/11/22 08:00 Pulse 82 11/11/22 08:00 Resp 20 11/11/22 08:00 BP 126/85 11/11/22 08:00 Pulse Ox 98 11/11/22 08:00 FiO2 Intake & Output 11/10/22 11/11/22 11/11/22 18:59 06:59 18:59 Intake Total 200 Output Total 250 Balance -250 200 Weight 122.47 kg 122.47 kg Intake: Oral 200 Output: Urine 250 Other: Voiding Method Urinal Urinal - Labs CBC & Chem 7: 11/10/22 13:55 11/10/22 13:55 Labs: Abnormal Lab Results - Last 24 Hours (Table) 11/10/22 Range/Units 13:55 Chloride 109 H (98-107) mmol/L Glucose 104 H (74-99) mg/dL
[2022-11-11] MEDS: SODIUM CHLORIDE 0.9% 1,000 ML IV SCH ×3 (12:08→23:54)
--- NOTE | 2022-11-11 14:31 | P.CRDCN ---
History of Present Illness Consult date: 11/11/22 Reason for Consult (text): Recurrent strokes History of present illness: History of present illness: This is a 52-year-old male patient of Dr. Mckeon with past medical history of hypertension, hyperlipidemia and multiple strokes in the past with minimal residual right-sided weakness. He has a history of smoking and quit about 6-7 years ago. History of sleep apnea and is noncompliant with use of the CPAP. We have been asked see the patient due to recurrent strokes. Patient states he developed right upper and lower extremity weakness along with slurred speech. He denies any syncopal episodes or loss of consciousness. No chest pain. He states he has been taking all his medications as directed. Patient states he has recorded his blood pressure 160 or 180 at home although it has been normal here and while in the office. Weakness and slurred speech have resolved. Patient has been seen by neurology EKG is sinus rhythm with no acute ST changes. CBC unremarkable. Troponin negative 1. TSH 2.1. Chest x-ray reveals bronchitis or interstitial pneumonitis Carotid ultrasound reveals no stenosis bilateral internal carotid arteries Cardiac catheterization in 2017 revealed normal coronary arteries Lexiscan Cardiolite in June 2021 showed no evidence of ischemia and his echocardiogram showed a normal LV systolic function. Home cardiac medications: Amlodipine/olmesartan 10-40 mg daily, aspirin 81 mg daily, Lipitor 80 mg daily, Plavix 75 mg daily, labetalol 600 mg twice daily, spironolactone 25 mg daily, triamterene hydrochlorothiazide 7050 milligrams daily Review Of Systems: At the time of my evaluation: Constitutional: No fever, no chills. No weakness, fatigue or lethargy. EENT: No headache. No dizziness. Lungs: No shortness of breath, cough, no sputum production. No wheezing. Cardiovascular: No chest pain, no lower extremity edema. No palpitations. No paroxysmal nocturnal dyspnea. No orthopnea. No lightheadedness or dizziness. No syncopal episodes. Abdominal: No abdominal pain. No nausea, vomiting. No diarrhea. No constipation. No bloody or tarry stools. Genitourinary: No dysuria.. No urinary retention. Musculoskeletal: No myalgias. No muscle weakness, no frequent falls. No back pain. No neck pain. Integumentary: No wounds. No rash. No unusual bruising. Neurologic: No aphasia. No facial droop. No change in mentation. No head injury. No headache. Psychiatric: No depression. No anxiety. Endocrine: No abnormal blood sugars. Physical examination: Gen: This is a 52-year-old male. He is resting in bed and appears to be comfortable and in no acute distress VS: reviewed HEENT: Head is atraumatic, normocephalic. Pupils equal, round. Sclerae is anicteric. NECK: Supple. No JVD. LUNGS: Clear to auscultation. No wheezes or rhonchi. No intercostal retractions. HEART: Regular rate and rhythm. No murmur. ABDOMEN: Soft. No tenderness. EXTREMITIES: No pedal edema. NEUROLOGICAL: Patient is awake, alert and oriented x3. Assessment: Right sided weakness and slurred speech, resolved Recurrent CVA Resistant hypertension, possible mask hypertension. Hypertension may be uncontrolled and required adjustment of medications. Discussed options of possible outpatient ambulatory blood pressure monitoring. Hyperlipidemia Prior tobacco use and dependence Plan: Continue patient's home cardiac medications The patient has been transitioned off Plavix to Brilinta per neurology Patient will be nothing by mouth after midnight for possible IVORY To rule out paroxysmal atrial fibrillation, we will plan for event monitor for 4 weeks and if no arrhythmia is seen, possible loop recorder to follow Further recommendations to follow based upon clinical course Thank you kindly for this consultation. Nurse practitioner note has been reviewed, I agree with documented findings and plan of care. Patient was seen and examined. Past Medical History Past Medical History: Chest Pain / Angina, CVA/TIA, GERD/Reflux, Hyperlipidemia, Hypertension, Memory Impairment, Myocardial Infarction (NM), Sleep Apnea/CPAP/BIPAP Additional Past Medical History / Comment(s): CVAs - 5 with R sided weakness, short term memory loss, balance issures/uses a cane, migraines, bilateral hand tremors, occasional low back pain, numbness/tingling bilateral hands/feet, bilateral carpal tunnel syndrome, sinus problems Last Myocardial Infarction Date:: 07/2018 History of Any Multi-Drug Resistant Organisms: None Reported Past Surgical History: Cholecystectomy, Heart Catheterization, Tonsillectomy Additional Past Surgical History / Comment(s): 07/2018 cardiac cath-normal, sinus surgery, colonoscopy, dental extractions. Past Anesthesia/Blood Transfusion Reactions: No Reported Reaction Past Psychological History: Anxiety, Depression, PTSD Additional Psychological History / Comment(s): He speaks Telugu quite well. His primary language is Bosnian but states while hospitalized he perfers to communicate in Telugu and literature in Telugu. Smoking Status: Never smoker Past Alcohol Use History: None Reported Additional Past Alcohol Use History / Comment(s): pt states he never was a smoker Past Drug Use History: None Reported - Past Family History Mother Family Medical History: No Reported History Additional Family Medical History / Comment(s): Mother is healthy Father Family Medical History: Coronary Artery Disease (CAD), Myocardial Infarction (NM) Additional Family Medical History / Comment(s): Father of a NM at the age of 52 yrs. Medications and Allergies Home Medications Medication Instructions Recorded Confirmed Type Montelukast [Singulair] 10 mg PO DAILY 11/17/18 11/10/22 History Loratadine 10 mg PO DAILY 08/16/19 11/10/22 History Atorvastatin [Lipitor] 80 mg PO DAILY 02/23/21 11/10/22 History Clopidogrel Bisulfate [Plavix] 75 mg PO DAILY 02/23/21 11/10/22 History Pantoprazole [Protonix] 40 mg PO DAILY 07/08/21 11/10/22 History lamoTRIgine [LaMICtal] 50 mg PO TID 07/08/21 11/10/22 History Labetalol HCl [Trandate] 600 mg PO BID 06/05/22 11/10/22 History Tamsulosin HCl [Flomax] 0.4 mg PO DAILY 06/05/22 11/10/22 History Triamterene/Hydrochlorothiazid 1 tab PO DAILY 06/05/22 11/10/22 History [Triamterene-Hctz 75-50 mg Tab] Aspirin EC [Ecotrin Low Dose] 81 mg PO BID 09/26/22 11/10/22 History Cariprazine HCl [Vraylar] 6 mg PO DAILY 09/26/22 11/10/22 History Cholecalciferol [Vitamin D3 (125 125 mcg PO DAILY 09/26/22 11/10/22 History Mcg = 5000 Iu)] Clobetasol Propionate [Temovate 1 applic TOPICAL BID PRN 09/26/22 11/10/22 History 0.05% Cream] Fluticasone Nasal [place]ike [Flonase 1 spray EA NOSTRIL DAILY 09/26/22 11/10/22 History Nasal [place]dike] Multivitamins, Thera [Multivitamin 1 tab PO DAILY 09/26/22 11/10/22 History (formulary)] Spironolactone [Aldactone] 25 mg PO DAILY 09/26/22 11/10/22 History Sucralfate [Carafate] 1 gm PO ACHS 09/26/22 11/10/22 History amLODIPine BES/OLMESARTAN MED 1 tab PO DAILY 09/26/22 11/10/22 History [amLODIPine BES/OLMESARTAN MED 10-40 mg] hydrOXYzine HCL [Atarax] 50 mg PO BID PRN 09/26/22 11/10/22 History traZODone HCL [Desyrel] 50 - 100 mg PO HS PRN 09/26/22 11/10/22 History Famotidine [Pepcid] 20 mg PO BID #28 tablet 09/27/22 11/10/22 Rx diphenhydrAMINE [Benadryl] 50 mg PO QID PRN #20 capsule 09/27/22 11/10/22 Rx Metoclopramide HCl [Reglan] 10 mg PO Q6H PRN 11/10/22 11/10/22 History Allergies Allergy/AdvReac Type Severity Reaction Status Date / Time No Known Allergies Allergy Verified 11/10/22 15:20 Physical Exam Vitals: Vital Signs Temp Pulse Pulse Resp BP BP Pulse Ox 11/11/22 12:03 97.6 F 67 20 128/81 97 11/11/22 12:00 97.6 F 67 22 128/81 97 11/11/22 08:00 97.8 F 82 20 126/85 98 11/11/22 04:00 77 19 119/72 96 11/11/22 02:27 98.0 F 87 19 127/78 95 11/11/22 00:00 97.7 F 75 17 119/71 97 11/10/22 20:00 97.5 F L 71 17 138/89 99 11/10/22 19:00 73 20 133/87 98 11/10/22 18:00 76 20 135/91 99 11/10/22 17:30 18 119/85 97 11/10/22 16:00 18 139/90 100 11/10/22 15:00 76 18 152/95 98 01/17/23 14:05 94 18 158/99 99 11/10/22 13:51 89 18 150/108 98 11/10/22 13:43 97.9 F 86 18 180/110 99 Intake and Output 11/10/22 11/11/22 11/11/22 22:59 06:59 14:59 Intake Total 200 Output Total 250 Balance -250 200 Intake: Oral 200 Output: Urine 250 Other: Voiding Method Urinal Urinal Urinal Weight 122.47 kg Results 11/10/22 13:55 11/10/22 13:55 Cardiac Enzymes 11/10/22 11/10/22 Range/Units 13:55 13:55 AST 28 (17-59) U/L Troponin I <0.012 (0.000-0.034) ng/mL Coagulation 11/10/22 Range/Units 13:55 PT 10.5 (9.0-12.0) sec APTT 24.4 (22.0-30.0) sec CBC 11/10/22 Range/Units 13:55 WBC 10.3 (3.8-10.6) k/uL RBC 5.31 (4.30-5.90) m/uL Hgb 16.3 (13.0-17.5) gm/dL Hct 47.3 (39.0-53.0) % Plt Count 264 (150-450) k/uL Comprehensive Metabolic Panel 11/10/22 Range/Units 13:55 Sodium 143 (137-145) mmol/L Potassium 3.8 (3.5-5.1) mmol/L Chloride 109 H (98-107) mmol/L Carbon Dioxide 27 (22-30) mmol/L BUN 11 (9-20) mg/dL Creatinine 1.07 (0.66-1.25) mg/dL Glucose 104 H (74-99) mg/dL Calcium 9.2 (8.4-10.2) mg/dL AST 28 (17-59) U/L ALT 43 (4-49) U/L Alkaline Phosphatase 91 (38-126) U/L Total Protein 7.4 (6.3-8.2) g/dL Albumin 4.6 (3.5-5.0) g/dL Current Medications Generic Name Dose Route Start Last Admin Trade Name Freq PRN Reason Stop Dose Admin Amlodipine Besylate 10 mg 11/11/22 09:00 11/11/22 08:57 Amlodipine 10 Mg Tab PO 10 mg DAILY AJITH Administration Aspirin 81 mg 11/11/22 09:00 11/11/22 08:58 Aspirin 81 Mg PO 81 mg DAILY AJITH Administration Atorvastatin Calcium 80 mg 11/11/22 09:00 11/11/22 08:58 Atorvastatin 80 Mg Tab PO 80 mg DAILY AJITH Administration Cholecalciferol 125 mcg 11/11/22 09:00 11/11/22 08:57 Cholecalciferol 125 Mcg (5000 Iu) Tablet PO 125 mcg DAILY AJITH Administration Famotidine 20 mg 11/10/22 21:00 11/11/22 08:58 Famotidine 20 Mg Tab PO 20 mg BID AJITH Administration Fluticasone Propionate 1 spray 11/11/22 09:00 11/11/22 08:59 Fluticasone 50mcg/Thorndike Nasal 16gm EA NOSTRIL 1 spray DAILY AJITH Administration Heparin Sodium (Porcine) 5,000 unit 11/11/22 00:00 11/11/22 08:59 Heparin Sodium,Porcine/Pf 5,000 Unit/0.5 Ml Syringe SQ 5,000 unit Q8HR AJITH Administration Sodium Chloride 1,000 mls @ 100 mls/hr 11/10/22 15:15 11/11/22 12:08 Saline 0.9% IV 100 mls/hr .Q10H AJITH Administration Labetalol HCl 600 mg 11/10/22 21:00 11/11/22 08:58 Labetalol 200 Mg Tab PO 600 mg BID AJITH Administration Lamotrigine 50 mg 11/10/22 22:00 11/11/22 08:57 Lamotrigine 25 Mg Tab PO 50 mg TID AJITH Administration Loratadine 10 mg 11/11/22 09:00 11/11/22 08:59 Loratadine 10 Mg Tab PO 10 mg DAILY AJITH Administration Losartan Potassium 150 mg 11/11/22 09:00 11/11/22 08:58 Losartan 50 Mg Tab PO 150 mg DAILY AJITH Administration Montelukast Sodium 10 mg 11/11/22 09:00 11/11/22 08:58 Montelukast 10 Mg Tab PO 10 mg DAILY AJITH Administration Multivitamins 1 each 11/11/22 09:00 11/11/22 08:58 Multivitamins, Thera 1 Each Tab PO 1 each DAILY AJITH Administration Naloxone HCl 0.2 mg 11/10/22 16:17 Naloxone 0.4 Mg/Ml 1 Ml Vial IV Q2M PRN Opioid Reversal Patient's Own ( 6 mg 11/11/22 09:00 11/11/22 08:59 Cariprazine Hcl [ PO Not Given Vraylar] 6 Mg DAILY AJITH Capsule) Pantoprazole Sodium 40 mg 11/11/22 09:00 11/11/22 08:57 Pantoprazole 40 Mg Tablet PO 40 mg DAILY AJITH Administration Spironolactone 25 mg 11/11/22 09:00 11/11/22 08:59 Spironolactone 25 Mg Tab PO 25 mg DAILY AJITH Administration Sucralfate 1 gm 11/10/22 17:30 11/11/22 12:07 Sucralfate 1 Gm Tab PO 1 gm ACHS AJITH Administration Tamsulosin HCl 0.4 mg 11/11/22 09:00 11/11/22 08:57 Tamsulosin 0.4 Mg Cap.Er.24h PO 0.4 mg DAILY AJITH Administration Ticagrelor 90 mg 11/11/22 09:00 11/11/22 08:57 Ticagrelor 90 Mg Tab PO 90 mg BID AJITH Administration Triamterene/Hydrochlorothiazide 1 each 11/11/22 09:00 11/11/22 08:57 Triamterene-Hctz 75-50mg 1 Each Tab PO 1 each DAILY AJITH Administration Intake and Output 11/10/22 11/11/22 11/11/22 22:59 06:59 14:59 Intake Total 200 Output Total 250 Balance -250 200 Intake: Oral 200 Output: Urine 250 Other: Voiding Method Urinal Urinal Urinal Weight 122.47 kg 11/10/22 13:55 11/10/22 13:55
--- NOTE | 2022-11-11 16:22 | MR ---
EXAMINATION TYPE: MR brain wo con DATE OF EXAM: 11/11/2022 4:12 PM COMPARISON: CT brain 11/10/2022, CTA head neck 11/10/2022. CLINICAL INDICATION:Male, 52 years old with history of stroke. right sided weakness and numbness; PH H, TECHNIQUE: Multi planar, multi sequence imaging was performed through the brain. No gadolinium was gi allison. FINDINGS: The troy-white junctions, ventricular system, and cisterns appear unremarkable. Few foci of T2/FLAIR 6 high signal intensity seen within the periventricular subcortical white matter with largest in the left frontal lobe periventricular white matter measuring 6 mm (series 501, image 19). Other foci are demonstrated within the right frontal lobe subcortical white matter measuring 3 murmurs (series 5 an d 1, image 19) and measuring 4 mm (series 501, image 20).Midline structures show no abnormality. Diff usion-weighted imaging shows no evidence of restricted diffusion. The susceptibility weighted images do not reveal any evidence for micro-hemorrhage. The bone marrow signal is within normal limits. The paranasal sinuses and globes are unremarkable. IMPRESSION: 1. No evidence of acute/subacute infarct. 2. A few nonspecific white matter foci which may be related to chronic microangiopathy versus [place] versus chronic migraines.
--- NOTE | 2022-11-11 16:44 | P.PN ---
Subjective Progress Note Date: 11/11/22 The patient is seen at bedside and feels doing about the same. No new neurological issues. Objective - Vital Signs Vital signs: Vital Signs Temp 98.2 F 11/11/22 16:01 Pulse 67 11/11/22 16:01 Resp 18 11/11/22 16:01 BP 127/76 11/11/22 16:01 Pulse Ox 97 11/11/22 16:01 FiO2 Intake & Output 11/10/22 11/11/22 11/11/22 18:59 06:59 18:59 Intake Total 580 Output Total 250 Balance -250 580 Weight 122.47 kg 122.47 kg Intake: Oral 580 Output: Urine 250 Other: Voiding Method Urinal Toilet - Exam GENERAL: The patient is lying in bed and is not in acute distress. NEUROLOGICAL: Higher mental function: The patient is awake, alert, oriented to self, place and time. Patient is following commands. No aphasia and no neglect. Cranial nerves: The pupils are round, equal and reactive to light and accommodation. Visual hearn are full to confrontation throughout. Extraocular movement is intact no nystagmus is noted. Facial sensation is decreased sensation over the right lower face to touch. The facial strength is normal throughout. Hearing is normal bilaterally to hand rub. Tongue is midline and moved [id number] without any difficulty. No dysarthria is noted. Shoulder shrug is normal bilaterally. Motor: The strength is right upper extremity is 4- with hand weapons and tactics instructor 3-4. Right lower is 4+. Left side is 5 over 5 throughout. Slightly decreased tone over the right upper. Otherwise normal tone and bulk. Cerebellum: Normal finger to nose bilaterally but perform the right side slower because of weakness.. Sensation: Sensation is normal to touch throughout. Reflexes (right/left): 2+ throughout.. Plantars are mute bilaterally. Some of the workup during his hospital visit consisted of: CBC with differential and comprehensive metabolic panel is unremarkable CT of the head is reported as no definite of acute hemorrhage. Tiny hyperdensities seen in the region of the left basal ganglia I so image a 27 was present on the prior exam and therefore likely represent basal ganglia calcification or possibly related to the left middle cerebral artery. Dedicated MRA yocha dehe of [place] recommended for further evaluation. His symptoms are persistent consider MRI with diffusion and images. I personally reviewed the CT and I do not appreciate any acute or subacute ischemia or any bleed. I feel the patient has bilateral basal ganglia calcification the are small in size. CT angiography of the head and neck was reported as no evidence of dissection of the cervical internal carotid arteries or vertebral artery or any evidence of significant stenosis in the carotid bifurcation. No evidence of high-grade stenosis or intracranial aneurysm. EKG is reported as sinus rhythm. Normal EKG Patient did not get IV TPA in the ED since it was felt the patient the last normal is more than 4.5 hours and the risk outweighed the benefit Covid 2 PCR/RSV PCR and influenza A/B is nondetected TSH: 2.10 - Labs CBC & Chem 7: 11/10/22 13:55 11/10/22 13:55 Assessment and Plan Assessment: * Acute worsening of the right-sided weakness with numbness and facial droop/facial numbness probable due to acute subacute stroke * History of multiple strokes (per patient he had 5 strokes from 2012 to 2015) with residual right hemiparesis (according to patient he has multiple MRI's that revealed stroke but in our facility he had three MRI Brain (2013, 2014 and 2016 and all are reported as negative for ischemic stroke). * History of short-term memory loss/cognitive impairment: Patient can have a component of vascular dementia especially with multiple strokes/TIAs * Hypertension * Hyperlipidemia * History of myocardial infarction * Sleep apnea * Depression * Anxiety * PTSD Plan: * Patient was continued on his home dose of aspirin 81 mg daily. I stop the Plavix since the patient failed the medication and I started the patient on Brilinta 90mg bid with loading 180mg daily. * On his home dose of Lipitor 80 mg daily for second or so prophylaxis. * Pending MRI of the brain without. * 2-D echo with bubble, lipid panel,hemoglobin A1c are ordered by the primary team and are pending * Continue neuro checks * On cardiac monitoring * PT, OT and SHEET ROCKER are consulted * Recommend normotensive. * I feel the patient is too young to haves strokes especially since his strokes began in his early 40s. I highly recommend a young stroke workup/hypercoagulable workup as an outpatient. Patient stated he has multiple strokes that show up on his MRI Brain in the past but he had three MRI's in our facility (2013, 2014 and 2016 and all are reported as no acute ischemic stroke). Consider further investigation as outpatient's symptoms such as MRI C-spine and demylinating disease. * Recommend an event monitor for 30 days and consider having placed prior to his discharge. Cardiology is consulted. * We'll defer the rest of the medical management to primary team * For DVT prophylaxis the patient is on subcu heparin 5000 units every 8 hours. * Recommend the patient to follow-up with his neurologist as outpatient within 1-2 weeks (he was following-up with Dr. Domingo's team in the past). The plan was discussed with the patient and his was at bedside as well primary team. UPDATE: MRI brain is reported as no evidence of acute/subacute infarct. If you nonspecific white matter foci may be related to chronic micro-angiopathy vs demyelination vs chronic migraine. I did review the MRI and I do agree there is no acute or subacute ischemia. I feel the patient has nonspecific white matter foci. Spoke with the patient's primary team and he stated that he felt the patient early the morning and he had deficits on the right side but then the when he spoke to physical therapy team he was notified that he was walk-in the without any issues and they cleared him. Time with Patient: Less than 30
[2022-11-12] MEDS: HEPARIN SODIUM,PORCINE/PF 5,000 UNIT/0.5 ML SYRINGE SQ SCH ×2 (01:08→08:37)
[2022-11-12] MEDS: SUCRALFATE 1 GM TAB PO SCH ×2 (06:30→11:40)
[2022-11-12] MEDS: FLUTICASONE 50MCG/SPRAY NASAL 16GM EA NOSTRIL SCH (08:32)
[2022-11-12] MEDS: SODIUM CHLORIDE 0.9% 1,000 ML IV SCH (08:37)
[2022-11-12] MEDS: CARIPRAZINE HCL 6 MG PO SCH (10:01)
[2022-11-12] MEDS: MONTELUKAST 10 MG TAB PO SCH (10:08)
[2022-11-12] MEDS: SPIRONOLACTONE 25 MG TAB PO SCH (10:08)
[2022-11-12] MEDS: PANTOPRAZOLE 40 MG TABLET PO SCH (10:08)
[2022-11-12] MEDS: ASPIRIN 81 MG PO SCH (10:08)
[2022-11-12] MEDS: MULTIVITAMINS, THERA 1 EACH TAB PO SCH (10:08)
[2022-11-12] MEDS: FAMOTIDINE 20 MG TAB PO SCH (10:08)
[2022-11-12] MEDS: lamoTRIgine 25 MG TAB PO SCH (10:08)
[2022-11-12] MEDS: LOSARTAN 50 MG TAB PO SCH (10:08)
[2022-11-12] MEDS: ATORVASTATIN 80 MG TAB PO SCH (10:08)
[2022-11-12] MEDS: LABETALOL 200 MG TAB PO SCH (10:09)
[2022-11-12] MEDS: TICAGRELOR 90 MG TAB PO SCH (10:09)
[2022-11-12] MEDS: TRIAMTERENE-HCTZ 75-50MG 1 EACH TAB PO SCH (10:09)
[2022-11-12] MEDS: amLODIPine 10 MG TAB PO SCH (10:09)
[2022-11-12] MEDS: TAMSULOSIN 0.4 MG CAP.ER.24H PO SCH (10:09)
[2022-11-12] MEDS: CHOLECALCIFEROL 125 MCG (5000 IU) TABLET PO SCH (10:09)
[2022-11-12] MEDS: LORATADINE 10 MG TAB PO SCH (10:09)
[2022-11-12] MEDS ORDERED: metFORMIN 500 MG TAB PO SCH (11:30)
--- NOTE | 2022-11-12 11:42 | P.DS ---
Providers Date of admission: 11/10/22 15:01 Expected date of discharge: 11/12/22 Attending physician: Kaitlin Ventura, Consults: 11/10/22 15:02 Consult Physician Urgent Consulting Provider: Husam Recinos Consult Reason/Comments: cva Do you want consulting provider notified?: Yes 11/11/22 11:40 Consult Physician Urgent Consulting Provider: Jimmy Mckeon Consult Reason/Comments: recurrent strokes, young patient, may need 30 day monitor or loop Do you want consulting provider notified?: Yes Primary care physician: Michael Styles Hospital Course: Discharge Diagnosis: Right-sided hemiparesis Right facial droop CVA New-onset type 2 diabetes History of multiple CVAs Dyslipidemia History of CAD COPD/asthma Mood/psychotic disorder Hospital Course: 52-year-old male with history of multiple CVAs with residual deficit, hypertension, dyslipidemia, CAD presenting with strokelike symptoms. In the ED, patient was initially hypertensive up to 180/110, respiratory signs were otherwise negative. Laboratory workup was mostly unremarkable. CT head showed no definite acute hemorrhage, tiny hyperdensity seen in the region of left basal ganglia which was previously seen. It could possibly be basal ganglia calcification or related to medical cerebral artery on the left side. CTA showed no evidence of dissection of internal carotid arteries or vertebral arteries, or any evidence of significant stenosis, or intracranial aneurysm or high-grade intracranial artery stenosis. EKG showed normal sinus rhythm reviewed by me. Chest x-ray reported as possible bronchitis versus interstitial pneumonitis, no acute pulmonary symptoms. Carotid ultrasound within normal limits. Neurology consulted. Patient started on aspirin, Brilinta, and statin. Brain MRI showed no evidence of acute/subacute infarct. A few nonspecific white matter foci which may be related to chronic microangiopathic versus demyelination versus chronic migraines. Neurology also reviewed past MRIs from 2014, 2015, in 2017 and all of them reported no acute ischemic stroke. Unclear if current neurological deficits are secondary to ischemic strokes or another neurological process. However, given patient's age, he should have hypercoagulable workup as an outpatient. Cardiology also consulted. Patient will get echocardiogram as well as event monitor as an outpatient. Patient will follow-up with neurology as an outpatient. Patient also has new onset diabetes with A1c of 6.6, will be discharged on metformin 500 twice a day, and follow-up as an outpatient. Spironolactone also discontinued as patient was already on triamterene. Patient seen and examined at bedside.[] Vital signs reviewed and stable. General: nontoxic, no distress, appears at stated age Derm: warm, dry Head: atraumatic, normocephalic, symmetric Eyes: EOMI, no lid lag, anicteric sclera Mouth: no lip lesion, mucus membranes moist Cardiovascular: S1S2 reg, no murmur Lungs: CTA bilateral, no rhonchi, no rales , no accessory muscle use Abdominal: soft, nontender to palpation, no guarding, no appreciable organomegaly Ext: no gross muscle atrophy, no edema, no contractures Neuro: CN II-XI grossly intact, muscle strength muscle strength 4 out of 5 in right extremities Psych: Alert, oriented, appropriate affect A total of 45 minutes of time were spent preparing this complex discharge summary. Patient was discharged on 11/12/22 at 11:40. Patient Condition at Discharge: Stable Plan - Discharge Summary Discharge Rx Participant: No New Discharge Prescriptions: New Ticagrelor [Brilinta] 90 mg PO BID #60 tab metFORMIN HCL [Glucophage] 500 mg PO BID-W/MEALS #60 tab Continue Montelukast [Singulair] 10 mg PO DAILY Loratadine 10 mg PO DAILY Atorvastatin [Lipitor] 80 mg PO DAILY Pantoprazole [Protonix] 40 mg PO DAILY Labetalol HCl [Trandate] 600 mg PO BID Tamsulosin HCl [Flomax] 0.4 mg PO DAILY Cariprazine HCl [Vraylar] 6 mg PO DAILY Clobetasol Propionate [Temovate 0.05% Cream] 1 applic TOPICAL BID PRN PRN Reason: Skin Irritation Famotidine [Pepcid] 20 mg PO BID #28 tablet lamoTRIgine [LaMICtal] 50 mg PO TID Triamterene/Hydrochlorothiazid [Triamterene-Hctz 75-50 mg Tab] 1 tab PO DAILY Cholecalciferol [Vitamin D3 (125 Mcg = 5000 Iu)] 125 mcg PO DAILY Multivitamins, Thera [Multivitamin (formulary)] 1 tab PO DAILY Sucralfate [Carafate] 1 gm PO ACHS Fluticasone Nasal [place] [Flonase Nasal [place]] 1 spray EA NOSTRIL DAILY Aspirin EC [Ecotrin Low Dose] 81 mg PO BID amLODIPine BES/OLMESARTAN MED [amLODIPine BES/OLMESARTAN MED 10-40 mg] 1 tab PO DAILY Discontinued Clopidogrel Bisulfate [Plavix] 75 mg PO DAILY Spironolactone [Aldactone] 25 mg PO DAILY hydrOXYzine HCL [Atarax] 50 mg PO BID PRN PRN Reason: Anxiety traZODone HCL [Desyrel] 50 - 100 mg PO HS PRN PRN Reason: Insomnia diphenhydrAMINE [Benadryl] 50 mg PO QID PRN #20 capsule PRN Reason: allergic reaction Metoclopramide HCl [Reglan] 10 mg PO Q6H PRN PRN Reason: Nausea And Vomiting Discharge Medication List Montelukast [Singulair] 10 mg PO DAILY 11/17/18 [History] Loratadine 10 mg PO DAILY 08/16/19 [History] Atorvastatin [Lipitor] 80 mg PO DAILY 02/23/21 [History] Pantoprazole [Protonix] 40 mg PO DAILY 07/08/21 [History] lamoTRIgine [LaMICtal] 50 mg PO TID 07/08/21 [History] Labetalol HCl [Trandate] 600 mg PO BID 06/05/22 [History] Tamsulosin HCl [Flomax] 0.4 mg PO DAILY 06/05/22 [History] Triamterene/Hydrochlorothiazid [Triamterene-Hctz 75-50 mg Tab] 1 tab PO DAILY 06/05/22 [History] Aspirin EC [Ecotrin Low Dose] 81 mg PO BID 09/26/22 [History] Cariprazine HCl [Vraylar] 6 mg PO DAILY 09/26/22 [History] Cholecalciferol [Vitamin D3 (125 Mcg = 5000 Iu)] 125 mcg PO DAILY 09/26/22 [History] Clobetasol Propionate [Temovate 0.05% Cream] 1 applic TOPICAL BID PRN 09/26/22 [History] Fluticasone Nasal [place] [Flonase Nasal [place]] 1 spray EA NOSTRIL DAILY 09/26/22 [History] Multivitamins, Thera [Multivitamin (formulary)] 1 tab PO DAILY 09/26/22 [History] Sucralfate [Carafate] 1 gm PO ACHS 09/26/22 [History] amLODIPine BES/OLMESARTAN MED [amLODIPine BES/OLMESARTAN MED 10-40 mg] 1 tab PO DAILY 09/26/22 [History] Famotidine [Pepcid] 20 mg PO BID #28 tablet 09/27/22 [Rx] Ticagrelor [Brilinta] 90 mg PO BID #60 tab 11/12/22 [Rx] metFORMIN HCL [Glucophage] 500 mg PO BID-W/MEALS #60 tab 11/12/22 [Rx] Follow up Appointment(s)/Referral(s): Jimmy Mckeon MD [STAFF PHYSICIAN] - 1 Week Michael Styles MD [Primary Care Provider] - 1-2 days Patient Instructions/Handouts: Ischemic Stroke (GEN) Activity/Diet/Wound Care/Special Instructions: Please see neurologist and store detective as soon as possible. You will need further work up to evaluate your stroke like symptoms, including Echocardiogram and event monitor. Also please see your PCP as soon as possible. Discharge Disposition: HOME SELF-CARE
[2022-11-12 12:18] VITALS: BP 150/82; PULSE 80; RESP 18; TEMP 98
[2022-11-12 13:25] LABS: Chol/HDL Ratio 5.91 Ratio; LDL Cholesterol,Calculated 108.6 mg/dL (0.0-131.0)
--- NOTE | 2022-11-12 14:30 | P.PN ---
Subjective Progress Note Date: 11/12/22 History of present illness: This is a 52-year-old male patient of Dr. Mckeon with past medical history of hy pertension, hyperlipidemia and multiple strokes in the past with minimal residual right-sided weakness. He has a history of smoking and quit about 6-7 years ago. History of sleep apnea and is noncompliant with use of the CPAP. We have been asked see the patient due to recurrent strokes. Patient states he developed right upper and lower extremity weakness along with slurred speech. He denies any syncopal episodes or loss of consciousness. No chest pain. He states he has been taking all his medications as directed. Patient states he has recorded his blood pressure 160 or 180 at home although it has been normal here and while in the office. Weakness and slurred speech have resolved. Zeeshan rooney has been seen by neurology EKG is sinus rhythm with no acute ST changes. CBC unremarkable. Troponin negative 1. TSH 2.1. Chest x-ray reveals bronchitis or interstitial pneumonitis Carotid ultrasound reveals no stenosis bilateral internal carotid arteries Cardiac catheterization in 2017 revealed normal coronary arteries Lexiscan Cardiolite in June 2021 showed no evidence of ischemia and his echocardiogram showed a normal LV systolic function. Home cardiac medications: Amlodipine/olmesartan 10-40 mg daily, aspirin 81 mg daily, Lipitor 80 mg daily, Plavix 75 mg daily, labetalol 600 mg twice daily, spironolactone 25 mg daily, triamterene hydrochlorothiazide 7050 milligrams daily 11/12 The patient denies any new complaints today. His blood pressures been stable overnight. cardiac monitor technician is sinus rhythm with no arrhythmias. MRI of the brain revealed no acute findings. Physical examination: Gen: This is a 52-year-old male. He is resting in bed and appears to be comfortable and in no acute distress VS: reviewed HEENT: Head is atraumatic, normocephalic. Pupils equal, round. Sclerae is anicteric. NECK: Supple. No JVD. LUNGS: Clear to auscultation. No wheezes or rhonchi. No intercostal retractions. HEART: Regular rate and rhythm. No murmur. ABDOMEN: Soft. No tenderness. EXTREMITIES: No pedal edema. NEUROLOGICAL: Patient is awake, alert and oriented x3. Assessment: Right sided weakness and slurred speech, resolved Recurrent CVA Resistant hypertension, possible mask hypertension. Hypertension may be uncontrolled and required adjustment of medications. Discussed options of possible outpatient ambulatory blood pressure monitoring. Hyperlipidemia Prior tobacco use and dependence Plan: Continue patient's home cardiac medications The patient has been transitioned off Plavix to Brilinta per neurology No IVORY planned To rule out paroxysmal atrial fibrillation, we will plan for event monitor for 4 weeks and if no arrhythmia is seen, possible loop recorder to follow Patient is cleared for discharge from cardiology and will follow up in the office with Dr. Mckeon. Nurse practitioner note has been reviewed, I agree with documented findings and plan of care. Patient was seen and examined. Objective - Vital Signs Vital signs: Vital Signs Temp 97.8 F 11/12/22 04:00 Pulse 69 11/12/22 04:00 Resp 18 11/12/22 04:00 BP 126/78 11/12/22 04:00 Pulse Ox 97 11/12/22 04:00 FiO2 21 11/12/22 01:00 Intake & Output 11/11/22 11/12/22 11/12/22 18:59 06:59 18:59 Intake Total 580 270 Balance 580 270 Intake: Oral 580 270 Other: Voiding Method Toilet Toilet # Voids 2 - Labs CBC & Chem 7: 11/10/22 13:55 11/10/22 13:55 Labs: Abnormal Lab Results - Last 24 Hours (Table) 11/11/22 Range/Units 09:11 Hemoglobin A1c 6.6 H (0.0-6.0) %
--- NOTE | 2022-11-12 15:02 | P.PN ---
Subjective Progress Note Date: 11/12/22 The patient seen at bedside and he continues to have weakness over the right side but stated that it's improving but not back to baseline now. He denies of any new neurological deficit. Objective - Vital Signs Vital signs: Vital Signs Temp 98 F 11/12/22 12:00 Pulse 80 11/12/22 12:00 Resp 18 11/12/22 12:00 BP 150/82 11/12/22 12:00 Pulse Ox 97 11/12/22 12:00 FiO2 21 11/12/22 01:00 Intake & Output 11/11/22 11/12/22 11/12/22 18:59 06:59 18:59 Intake Total 580 510 Balance 580 510 Intake: Oral 580 510 Other: Voiding Method Toilet Toilet Toilet # Voids 2 1 - Exam GENERAL: The patient is lying in bed and is not in acute distress. NEUROLOGICAL: Higher mental function: The patient is awake, alert, oriented to self, place and time. Patient is following commands. No aphasia and no neglect. Cranial nerves: The pupils are round, equal and reactive to light and accommodation. Visual hearn are full to confrontation throughout. Extraocular movement is intact no nystagmus is noted. Facial sensation is decreased sensation over the right lower face to touch. The facial strength is normal throughout. Hearing is normal bilaterally to hand rub. Tongue is midline and moved [id number] without any difficulty. No dysarthria is noted. Shoulder shrug is normal bilaterally. Motor: The strength is right upper extremity is 4- with hand outreach specialist 3-4. Right lower is 4+. Left side is 5 over 5 throughout. Slightly decreased tone over the right upper. Otherwise normal tone and bulk. Cerebellum: Normal finger to nose bilaterally but perform the right side slower because of weakness.. Sensation: Sensation is normal to touch throughout. Reflexes (right/left): 2+ throughout.. Plantars are mute bilaterally. Some of the workup during his hospital visit consisted of: Lipid panel triglycerides 213, cholesterol is 182, LDLs 108 and HDL is 30 Hemoglobin A1c is 6.6 TSH is 2.10 CBC with differential and comprehensive metabolic panel is unremarkable CT of the head is reported as no definite of acute hemorrhage. Tiny hyperdensities seen in the region of the left basal ganglia I so image a 27 was present on the prior exam and therefore likely represent basal ganglia calcification or possibly related to the left middle cerebral artery. Dedicated M[facility] [place] [facility] [place] recommended for further evaluation. His symptoms are persistent consider MRI with diffusion and images. I personally reviewed the CT and I do not appreciate any acute or subacute ischemia or any bleed. I feel the patient has bilateral basal ganglia calcification the are small in size. CT angiography of the head and neck was reported as no evidence of dissection of the cervical internal carotid arteries or vertebral artery or any evidence of significant stenosis in the carotid bifurcation. No evidence of high-grade stenosis or intracranial aneurysm. EKG is reported as sinus rhythm. Normal EKG Patient did not get IV TPA in the ED since it was felt the patient the last normal is more than 4.5 hours and the risk outweighed the benefit Covid 2 PCR/RSV PCR and influenza A/B is nondetected MRI brain is reported as no evidence of acute/subacute infarct. If you nonspecific white matter foci may be related to chronic micro-angiopathy vs demyelination vs chronic migraine. I did review the MRI and I do agree there is no acute or subacute ischemia. I feel the patient has nonspecific white matter foci. - Labs CBC & Chem 7: 11/10/22 13:55 11/10/22 13:55 Labs: Abnormal Lab Results - Last 24 Hours (Table) 11/11/22 11/11/22 Range/Units 09:11 09:11 Hemoglobin A1c 6.6 H (0.0-6.0) % Triglycerides 213.00 H (0.00-149.00) mg/dL VLDL Cholesterol, Calc 42.60 H (5.00-40.00) mg/dL HDL Cholesterol 30.80 L (40.00-60.00) mg/dL Assessment and Plan Assessment: * Acute worsening of the right-sided weakness with numbness and facial droop/facial numbness. MRI Brain is negative for acute or subacute stroke. Rule out underlying stress/depression provoking his symptoms * History of multiple strokes (per patient he had 5 strokes from 2012 to 2015) with residual right hemiparesis (according to patient he has multiple MRI's that revealed stroke but in our facility he had three MRI Brain (2013, 2014 and 2016 and all are reported as negative for ischemic stroke). * History of short-term memory loss/cognitive impairment: Patient can have a component of vascular dementia especially with multiple strokes/TIAs * Hypertension * Hyperlipidemia * History of myocardial infarction * Sleep apnea * Depression * Anxiety * PTSD Plan: * MRI brain is reported as no evidence of acute/subacute infarct. If you nonspecific white matter foci may be related to chronic micro-angiopathy vs d emyelination vs chronic migraine. I did review the MRI and I do agree there is no acute or subacute ischemia. I feel the patient has nonspecific white matter foci. * Patient was continued on his home dose of aspirin 81 mg daily. I stop the Plavix since the patient failed the medication and I started the patient on Brilinta 90mg bid with loading 180mg daily. * On his home dose of Lipitor 80 mg daily for second or so prophylaxis. * Continue neuro checks * On cardiac monitoring * PT, OT and JOURNEYMAN PIPE WELDER are consulted * Recommend normotensive. * I feel the patient is too young to haves strokes especially since his strokes began in his early 40s. I highly recommend a young stroke workup/hyp ercoagulable workup as an outpatient. Patient stated he has multiple strokes that show up on his MRI Brain in the past but he had three MRI's in our facility (2013, 2014 and 2016 and all are reported as no acute ischemic stroke). Consider further investigation as outpatient's symptoms such as MRI C-spine and demylinating disease. * Recommend an event monitor for 30 days and consider having placed prior to his discharge. Cardiology is consulted. * We'll defer the rest of the medical management to primary team * For DVT prophylaxis the patient is on subcu heparin 5000 units every 8 hours. * Recommend the patient to follow-up with his neurologist as outpatient within 1-2 weeks (he was following-up with Dr. Domingo's team in the past). The plan was discussed with the patient and his was at bedside. No new neurological work-up is needed. Time with Patient: Less than 30
== END 2022-11-12 12:59 | disposition home or self-care (01) | DRG 65 ==
LOC: EC 13:40 → 3SCARD 15:01
PROVIDERS: ADMIT Internal Medicine; ATTEND Internal Medicine
DX: I63.9 Cerebral infarction, unspecified (principal); I69.351 Hemiplegia and hemiparesis following cerebral infarction affecting right dominant side; J44.0 Chronic obstructive pulmonary disease with (acute) lower respiratory infection; I25.2 Old myocardial infarction; G47.30 Sleep apnea, unspecified; R29.810 Facial weakness; Z20.822 Contact with and (suspected) exposure to COVID-19; G56.03 Carpal tunnel syndrome, bilateral upper limbs; I69.311 Memory deficit following cerebral infarction; Z79.02 Long term (current) use of antithrombotics/antiplatelets; Z79.82 Long term (current) use of aspirin; Z79.899 Other long term (current) drug therapy; F29 Unspecified psychosis not due to a substance or known physiological condition; Z82.49 Family history of ischemic heart disease and other diseases of the circulatory system; Z91.199 Patient's noncompliance with other medical treatment and regimen due to unspecified reason; I10 Essential (primary) hypertension; I25.10 Atherosclerotic heart disease of native coronary artery without angina pectoris; F43.10 Post-traumatic stress disorder, unspecified; F32.A Depression, unspecified; E78.5 Hyperlipidemia, unspecified; Z28.311 Partially vaccinated for COVID-19; Z28.21 Immunization not carried out because of patient refusal; Z79.52 Long term (current) use of systemic steroids
CPT/HCPCS: 36415; 70450; 70496; 70498; 70551; 71046; 80053; 80061; 83036; 83880; 84443; 84484; 85025; 85610; 85730; 87636; 93005; 93880; 94760; 96360; 96361; 99291

== ENCOUNTER 2024-06-02 00:55 | Inpatient (IN) | payer MEDICARE ==
[~2024-06-02 00:55] MED LIST changes: +ASPIRIN 81 MG ONE; -LACTATED RINGERS 1,000 ML IV SCH; -LIDOCAINE 1% (10MG/ML) FOR IV START INTRADERMA PRN; +NITROGLYCERIN SL TABS 0.4 MG TAB SUBLINGUAL ONE
[2024-06-02] MEDS ORDERED: SODIUM CHLORIDE 0.9% 500 ML BAG ONE (01:17)
[2024-06-02] MEDS ORDERED: MORPHINE SULFATE 4 MG/ML SYRINGE ONE (03:59)
[2024-06-02] MEDS ORDERED: amLODIPine 10 MG TAB ONE (09:27)
[2024-06-02] MEDS ORDERED: HEPARIN SODIUM,PORCINE 5,000 UNIT/ML 1 ML VIAL ONE (09:27)
[2024-06-02] MEDS ORDERED: ASPIRIN 81 MG ONE (09:27)
[2024-06-02] MEDS ORDERED: CLOPIDOGREL 75 MG TAB ONE (09:27)
[2024-06-02] MEDS ORDERED: EZETIMIBE 10 MG TAB ONE (09:28)
[2024-06-02] MEDS ORDERED: PANTOPRAZOLE 40 MG TABLET PO ONE (09:28)
[2024-06-02] MEDS ORDERED: HEPARIN SODIUM 1,000 UN/ML (10ML VL) ONE (12:20)
[2024-06-02] MEDS ORDERED: VERAPAMIL 2.5 MG/ML 2 ML AMP ONE (12:20)
[2024-06-02] MEDS ORDERED: LIDOCAINE 1% INJ 10MG/ML (20 ML MDV) ONE (12:20)
[2024-06-02] MEDS ORDERED: MIDAZOLAM 2 MG/2 ML VIAL ONE (12:21)
[2024-06-02] MEDS ORDERED: SODIUM CHLORIDE 0.9% 1,000 ML BAG ONE (12:50)
[2024-06-02] MEDS ORDERED: IOPAMIDOL-370 100ML BTL ONE (12:50)
--- NOTE | 2024-07-01 07:42 | US ---
Florian Egan : 1970 EXAMINATION TYPE: US abdomen limited, left upper quadrant DATE OF EXAM: 06/02/2024 Comparison: None available during downtime Clinical History: 53-year-old male with left upper quadrant pain Findings: Spleen is normal size measuring 11.2 cm and with normal homogeneous appearance. Left kidney is normal size at 11.6 cm without hydronephrosis. No discrete sonographic modalities identified in the left upper quadrant. Impression: Left kidney and spleen assessed. Spleen is normal size. No hydronephrosis.
--- NOTE | 2024-07-10 12:39 | XR ---
Patient: Florian Egan Ordering Physician: Unknown, Unknown ID: [id number] Phone, Pager: Phone: N/A Pager: N/A : 1970 Age/Gender: 53Y, M Primary Location: N/A Procedure: XR chest 2V Study Date: 06/01/2024 9:57:43 PM EXAMINATION TYPE: XR chest 2V DATE OF EXAM: 06/18/2024 11:42 AM CLINICAL INDICATION: Chest pain COMPARISON: Chest radiographs from TECHNIQUE: XR chest 2V Frontal view of the chest. FINDINGS: Lungs/Pleura: There is no evidence of pleural effusion, focal consolidation, or pneumothorax. Pulmonary vascularity: Unremarkable. Heart/mediastinum: Cardiomediastinal silhouette is unremarkable. Musculoskeletal: No acute osseous pathology. Other findings: None IMPRESSION: No acute cardiopulmonary disease/process.
== END 2024-06-02 18:12 | disposition home or self-care (01) | DRG 313 ==
LOC: 6NMEDSUR 00:55
PROVIDERS: ADMIT Internal Medicine; ATTEND Internal Medicine
DX: R07.9 Chest pain, unspecified (principal); I25.2 Old myocardial infarction; E78.5 Hyperlipidemia, unspecified; Z90.49 Acquired absence of other specified parts of digestive tract; I25.10 Atherosclerotic heart disease of native coronary artery without angina pectoris; Z86.73 Personal history of transient ischemic attack (TIA), and cerebral infarction without residual deficits; D75.1 Secondary polycythemia; J45.909 Unspecified asthma, uncomplicated; E11.9 Type 2 diabetes mellitus without complications; Z87.19 Personal history of other diseases of the digestive system
CPT/HCPCS: 71046; 76705; 80061; 93005; 99285

== ENCOUNTER 2025-05-23 22:55 | Emergency (ER) | payer MEDICARE ==
[2025-05-23 23:10] VITALS: TEMP 98.3
--- NOTE | 2025-05-23 23:35 | ED ---
Back Pain HPI - General Chief Complaint: Back Pain/Injury Stated Complaint: Back pain Time Seen by Provider: 05/23/25 23:00 Source: patient, RN notes reviewed, old records reviewed Mode of arrival: ambulatory Limitations: no limitations - History of Present Illness Initial Comments: 54 male presented the ER for evaluation of back pain. Patient reports for the past 10 to 15 days he has been experiencing a left lumbar sharp achy back pain with radiation down his left lower extremity. He states ambulation does increase pain. He denies any known injuries or traumas. Patient does report a history of back pain without prior surgical intervention. He has taken [id number] ibuprofen and Tylenol without relief of symptoms. Patient was seen at PCP and prescribed steroids which have not affected pain. Patient reports he is following up with Dr. Castillo regarding right lower back pain. He has received injections in the past last injection 3 months prior. He denies any bowel or bladder incontinence/retention, saddle paresthesias, fevers or history of IV drug abuse. Patient does report prior to arrival he was experiencing an achy epigastric pain without radiation. He denies diaphoresis, shortness of breath, nausea or vomiting. He does report a history of CVA and MIs. No other complaints. - Related Data Home Medications Medication Instructions Recorded Confirmed Montelukast [Singulair] 10 mg PO DAILY 11/17/18 11/10/22 Loratadine 10 mg PO DAILY 08/16/19 11/10/22 Atorvastatin [Lipitor] 80 mg PO DAILY 02/23/21 11/10/22 Pantoprazole [Protonix] 40 mg PO DAILY 07/08/21 11/10/22 lamoTRIgine [LaMICtal] 50 mg PO TID 07/08/21 11/10/22 Labetalol HCl [Trandate] 600 mg PO BID 06/05/22 11/10/22 Tamsulosin HCl [Flomax] 0.4 mg PO DAILY 06/05/22 11/10/22 Triamterene/Hydrochlorothiazid 1 tab PO DAILY 06/05/22 11/10/22 [Triamterene-Hctz 75-50 mg Tab] Aspirin EC [Ecotrin Low Dose] 81 mg PO BID 09/26/22 11/10/22 Cariprazine HCl [Vraylar] 6 mg PO DAILY 09/26/22 11/10/22 Cholecalciferol [Vitamin D3 (125 125 mcg PO DAILY 09/26/22 11/10/22 Mcg = 5000 Iu)] Clobetasol Propionate [Temovate 1 applic TOPICAL BID PRN 09/26/22 11/10/22 0.05% Cream] Fluticasone Nasal [place] [Flonase 1 spray EA NOSTRIL DAILY 09/26/22 11/10/22 Nasal [place]] Multivitamins, Thera [Multivitamin 1 tab PO DAILY 09/26/22 11/10/22 (formulary)] Sucralfate [Carafate] 1 gm PO ACHS 09/26/22 11/10/22 amLODIPine BES/OLMESARTAN MED 1 tab PO DAILY 09/26/22 11/10/22 [amLODIPine BES/OLMESARTAN MED 10-40 mg] Previous Rx's Medication Instructions Recorded Famotidine [Pepcid] 20 mg PO BID #28 tablet 09/27/22 Ticagrelor [Brilinta] 90 mg PO BID #60 tab 11/12/22 metFORMIN HCL [Glucophage] 500 mg PO BID-W/MEALS #60 tab 11/12/22 Cyclobenzaprine [Flexeril] 10 mg PO HS PRN #15 tab 05/24/25 Lidocaine 4% Patch 1 patch TOPICAL DAILY PRN #30 patch 05/24/25 Allergies Allergy/AdvReac Type Severity Reaction Status Date / Time No Known Allergies Allergy Verified 11/10/22 15:20 Review of Systems ROS Statement: Those systems with pertinent positive or pertinent negative responses have been documented in the HPI. ROS Other: All systems not noted in ROS Statement are negative. Past Medical History Past Medical History: Chest Pain / Angina, CVA/TIA, GERD/Reflux, Hyperlipidemia, Hypertension, Memory Impairment, Myocardial Infarction (DE), Sleep Apnea/CPAP/BIPAP Additional Past Medical History / Comment(s): CVAs - 7 with R sided weakness, short term memory loss, balance issures/uses a cane, migraines, bilateral hand tremors, occasional low back pain, numbness/tingling bilateral hands/feet, bilateral carpal tunnel syndrome, sinus problems Last Myocardial Infarction Date:: 07/2018 History of Any Multi-Drug Resistant Organisms: None Reported Past Surgical History: Cholecystectomy, Heart Catheterization, Tonsillectomy Additional Past Surgical History / Comment(s): 07/2018 cardiac cath-normal, sinus surgery, colonoscopy, dental extractions. Past Anesthesia/Blood Transfusion Reactions: No Reported Reaction Past Psychological History: Anxiety, Depression, PTSD Smoking Status: Never smoker Past Alcohol Use History: None Reported Past Drug Use History: None Reported - Past Family History Mother Family Medical History: No Reported History Additional Family Medical History / Comment(s): Mother is healthy Father Family Medical History: Coronary Artery Disease (CAD), Myocardial Infarction (DE) Additional Family Medical History / Comment(s): Father of a DE at the age of 52 yrs. General Exam Limitations: no limitations General appearance: alert, in no apparent distress Neck exam: Present: normal inspection. Absent: tenderness, meningismus, lymphadenopathy Respiratory exam: Present: normal lung sounds bilaterally. Absent: respiratory distress, wheezes, rales, rhonchi, stridor Cardiovascular Exam: Present: regular rate, normal rhythm, normal heart sounds. Absent: systolic murmur, diastolic murmur, rubs, gallop, clicks Extremities exam: Present: normal inspection, full ROM, normal capillary refill (2+ bilateral PT pulses.), other (Pain with straight leg raise left). Absent: tenderness, pedal edema, joint swelling, calf tenderness Back exam: Present: normal inspection, full ROM, tenderness (Left paraspinal muscles) Neurological exam: Present: alert, oriented X3, CN II-XII intact Skin exam: Present: warm, dry, intact, normal color. Absent: rash Course Vital Signs 05/23/25 05/23/25 05/24/25 23:05 23:24 00:20 Temperature 98.3 F Pulse Rate 111 H 104 H Pulse Rate [ 98 Bilateral Radial] Respiratory 22 18 Rate Blood Pressure 180/129 149/94 O2 Sat by Pulse 98 98 Oximetry 05/24/25 05/24/25 03:00 03:32 Temperature Pulse Rate 66 78 Pulse Rate [ Bilateral Radial] Respiratory 18 17 Rate Blood Pressure 147/101 145/99 O2 Sat by Pulse 97 97 Oximetry Medical Decision Making - Medical Decision Making Was pt. sent in by a medical professional or institution (, PA, SITE ENGINEER, urgent care, hospital, or halfway...) When possible be specific @ -No Did you speak to anyone other than the patient for history (EMS, parent, family, police, friend...)? What history was obtained from this source @ -Patient's , bedside, aiding in HPI and past medical history. Did you review nursing and triage notes (agree or disagree)? Why? @ -I reviewed and agree with nursing and triage notes Were old charts reviewed (outside hosp., previous admission, EMS record, old EKG, old radiological studies, urgent care reports/EKG's, halfway records)? Report findings @ -No old charts were reviewed Differential Diagnosis (chest pain, altered mental status, abdominal pain women, abdominal pain men, vaginal bleeding, weakness, fever, dyspnea, syncope, headache, dizziness, GI bleed, back pain, seizure, CVA, palpatations, mental health, musculoskeletal)? @ -Differential Back Pain:Strain, zoster, cauda equina syndrome, epidural abscess, vertebral osteomyelitis, discitis, fracture, subluxation, disc herniation, DJD, spinal stenosis, dissection, AAA, pancreatitis, peptic ulcer disease, pyelonephritis, kidney stone, this is not meant to be an all-inclusive list. EKG interpreted by me (3pts min.). @ -As above X-rays interpreted by me (1pt min.). @ -CXR interpreted me negative for focal consolidations or pneumothorax. Lumbar spine x-raysNegative for acute fractures or dislocations. CT interpreted by me (1pt min.). @ -None done U/S interpreted by me (1pt. min.). @ -None done What testing was considered but not performed or refused? (CT, X-rays, U/S, labs)? Why? @ -None What meds were considered but not given or refused? Why? @ -None Did you discuss the management of the patient with other professionals (professionals i.e. , PA, SITE ENGINEER, lab, RT, psych nurse, social insurance administrator, filter tip catcher, teacher, homicide squad commanding officer, residential case manager)? Give summary @ -No Was smoking cessation discussed for >3mins.? @ -No Was critical care preformed (if so, how long)? @ -No Were there social determinants of health that impacted care today? How? (Homelessness, low income, unemployed, alcoholism, drug addiction, transportation, low edu. Level, literacy, decrease access to med. care, correction, rehab)? @ -No Was there de-escalation of care discussed even if they declined (Discuss DNR or withdrawal of care, Hospice)? DNR status @ -No What co-morbidities impacted this encounter? (DM, HTN, Smoking, COPD, CAD, Cancer, CVA, ARF, Chemo, Hep., AIDS, mental health diagnosis, sleep apnea, morbid obesity)? @ -History of CVA, history DE, obese Was patient admitted / discharged? Hospital course, mention meds given and route, prescriptions, significant lab abnormalities, going to OR and other pertinent info. @ -Discharge. 54 oh male presented to ER for evaluation of back pain.Upon arrival patient hypertensive at 180/129 with tachycardia at 111 bpm. This did not prove. Patient is neurovascularly intact with no red flag back pain sym ptoms indicative of cauda equina syndrome. Laboratory studies obtained remarkable for WBC 17.2 with a left shift likely due to recent steroid use. Hyperglycemia patient is diabetic. Troponin undetectable. Urinalysis with 3+ glucose no infection or blood. Lumbar spine x-rays negative for acute process. Chest x-ray negative. Patient provided with symptomatic treatment in the emergency department. Pain believed to be musculoskeletal in nature. Upon reevaluation, patient educated on today's findings, all questions answered. Patient is eager for discharge and will be discharged in stable condition advised follow-up closely with orthopedic printing specialist, contact information provided at discharge. Flexeril and lidocaine patches prescribed. Strict return parameters discussed. Patient discharged in stable condition advised follow-up with orthopedics. Patient and patient's verbally expressed understanding agree with care plan. Case discussed with ED attending by Dr. Engel Undiagnosed new problem with uncertain prognosis? @ -No Drug Therapy requiring intensive monitoring for toxicity (Heparin, Nitro, Insulin, Cardizem)? @ -No Were any procedures done? @ -No Diagnosis/symptom? @ -Back pain Acute, or Chronic, or Acute on Chronic? @ -Acute Uncomplicated (without systemic symptoms) or Complicated (systemic symptoms)? @ -Uncomplicated Side effects of treatment? @ -No Exacerbation, Progression, or Severe Exacerbation? @ -No Poses a threat to life or bodily function? How? (Chest pain, [place], DE, pneumonia, PE, COPD, DKA, ARF, appy, cholecystitis, CVA, Diverticulitis, Homicidal, Suicidal, threat to staff... and all critical care pts) @ -No - Lab Data Result diagrams: 05/24/25 00:00 05/24/25 00:00 Lab Results 05/24/25 05/24/25 05/24/25 Range/Units 00:00 00:00 00:00 WBC 17.02 H (4.50-10.00) 10*3/uL RBC 5.30 (4.40-5.60) 10*6/uL Hgb 16.6 (13.0-17.0) g/dL Hct 47.2 (39.6-50.0) % MCV 89.1 (80.0-97.0) fL MCH 31.3 (27.0-32.0) pg MCHC 35.2 (32.0-37.0) g/dL Plt Count 262 (140-440) 10*3/uL MPV 9.7 (9.5-12.2) fL Immature Gran % (Auto) 0.4 % Neutrophils % 75.1 % Lymphocytes % 18.7 % Monocytes % 5.5 % Eosinophils % 0.1 % Basophils % 0.2 % Immature Gran # 0.07 H (0.00-0.04) 10*3/uL Neutrophils # 12.78 H (1.80-7.70) 10*3/uL Lymphocytes # 3.18 (0.90-5.00) 10*3/uL Monocytes # 0.94 (0.20-1.00) 10*3/uL Eosinophils # 0.02 L (0.04-0.35) 10*3/uL Basophils # 0.03 (0.00-0.10) 10*3/uL PT 11.7 (10.0-12.5) sec INR 1.1 (<1.2) APTT 24.4 (22.0-30.0) sec Sodium 142 (137-145) mmol/L Potassium 4.1 (3.5-5.1) mmol/L Chloride 107 (98-107) mmol/L Carbon Dioxide 23 (22-30) mmol/L Anion Gap 12 mmol/L BUN 16 (9-20) mg/dL Creatinine 0.95 (0.66-1.25) mg/dL Est GFR (CKD-EPI)AfAm >90 (>60 ml/min/1.73 sqM) Est GFR (CKD-EPI)NonAf >90 (>60 ml/min/1.73 sqM) Glucose 237 H (74-99) mg/dL Calcium 9.9 (8.4-10.2) mg/dL Magnesium 1.9 (1.6-2.3) mg/dL Total Bilirubin 0.5 (0.2-1.3) mg/dL AST 34 (17-59) U/L ALT 52 H (4-49) U/L Alkaline Phosphatase 94 (38-126) U/L Troponin I (0.000-0.034) ng/mL Total Protein 7.3 (6.3-8.2) g/dL Albumin 4.6 (3.5-5.0) g/dL Urine Color Urine Appearance (Clear) Urine pH (5.0-8.0) Ur Specific [place] (1.001-1.035) Urine Protein (Negative) Urine Glucose (UA) (Negative) Urine Ketones (Negative) Urine Blood (Negative) Urine Nitrite (Negative) Urine Bilirubin (Negative) Urine Urobilinogen (<2.0) mg/dL Ur Leukocyte Esterase (Negative) Urine WBC (0-5) /hpf Urine Bacteria (None) /hpf Urine Mucus (None) /hpf 05/24/25 05/24/25 Range/Units 00:00 00:10 WBC (4.50-10.00) 10*3/uL RBC (4.40-5.60) 10*6/uL Hgb (13.0-17.0) g/dL Hct (39.6-50.0) % MCV (80.0-97.0) fL MCH (27.0-32.0) pg MCHC (32.0-37.0) g/dL Plt Count (140-440) 10*3/uL MPV (9.5-12.2) fL Immature Gran % (Auto) % Neutrophils % % Lymphocytes % % Monocytes % % Eosinophils % % Basophils % % Immature Gran # (0.00-0.04) 10*3/uL Neutrophils # (1.80-7.70) 10*3/uL Lymphocytes # (0.90-5.00) 10*3/uL Monocytes # (0.20-1.00) 10*3/uL Eosinophils # (0.04-0.35) 10*3/uL Basophils # (0.00-0.10) 10*3/uL PT (10.0-12.5) sec INR (<1.2) APTT (22.0-30.0) sec Sodium (137-145) mmol/L Potassium (3.5-5.1) mmol/L Chloride (98-107) mmol/L Carbon Dioxide (22-30) mmol/L Anion Gap mmol/L BUN (9-20) mg/dL Creatinine (0.66-1.25) mg/dL Est GFR (CKD-EPI)AfAm (>60 ml/min/1.73 sqM) Est GFR (CKD-EPI)NonAf (>60 ml/min/1.73 sqM) Glucose (74-99) mg/dL Calcium (8.4-10.2) mg/dL Magnesium (1.6-2.3) mg/dL Total Bilirubin (0.2-1.3) mg/dL AST (17-59) U/L ALT (4-49) U/L Alkaline Phosphatase (38-126) U/L Troponin I <0.012 (0.000-0.034) ng/mL Total Protein (6.3-8.2) g/dL Albumin (3.5-5.0) g/dL Urine Color Light Yellow Urine Appearance Cloudy (Clear) Urine pH 6.5 (5.0-8.0) Ur Specific [place] 1.020 (1.001-1.035) Urine Protein Negative (Negative) Urine Glucose (UA) 3+ H (Negative) Urine Ketones Negative (Negative) Urine Blood Negative (Negative) Urine Nitrite Negative (Negative) Urine Bilirubin Negative (Negative) Urine Urobilinogen <2.0 (<2.0) mg/dL Ur Leukocyte Esterase Negative (Negative) Urine WBC 1 (0-5) /hpf Urine Bacteria Rare H (None) /hpf Urine Mucus Rare H (None) /hpf - EKG Data -: EKG Interpreted by Me EKG Comments: EKG taken at 23: 21 showing a sinus rhythm no ST segment elevations or depressions. Nonspecific T wave abnormality. Ventricular rate 98, TX interval 139, QRS duration 117, QT/QTc 306/361. - Radiology Data Radiology results: report reviewed, image reviewed Disposition Clinical Impression: Back pain Disposition: HOME SELF-CARE Condition: Stable Instructions (If sedation given, give patient instructions): Acute Low Back Pain (ED) Additional Instructions: You may take [id number] ibuprofen and Tylenol with pain control. You can take Flexeril as prescribed please be aware this medication may make you sleepy or drowsy. Follow-up with PCP. Return to the ER for any new or worse concerns. Prescriptions: Cyclobenzaprine [Flexeril] 10 mg PO HS PRN #15 tab PRN Reason: Muscle Spasm Lidocaine 4% Patch 1 patch TOPICAL DAILY PRN #30 patch PRN Reason: Muscle Pain Is patient prescribed a controlled substance at d/c from ED?: No Referrals: Michael Styles MD [Primary Care Provider] - 1-2 days Damir Morales DO [Doctor of Osteopathic Medicine] - 1-2 days Time of Disposition: 03:15
[2025-05-24] MEDS: HYDROmorphone 1 MG/ML 1 ML SYRINGE IVP STA ×2 (00:16→03:04)
[2025-05-24] MEDS: LIDOCAINE 4% PATCH TOPICAL ONE (00:19)
[2025-05-24 00:32] LABS: INR 1.1 (<1.2); Partial Thromboplastin Time 24.4 sec (22.0-30.0); Prothrombin Time 11.7 sec (10.0-12.5)
[2025-05-24 00:37] LABS: Bacteria,Urine Rare /hpf; Bilirubin,Urine Negative (Negative); Blood,Urine Negative (Negative); Color,Urine Light Yellow; Glucose,Urine (UA) 3+ (Negative); Ketones,Urine Negative (Negative); Leukocyte Esterase,Urine Negative (Negative); Mucus,Urine Rare /hpf; Nitrite,Urine Negative (Negative); PH, Urine 6.5 (5.0-8.0); Protein,Urine Negative (Negative); Specific Gravity,Urine 1.020 (1.001-1.035); Urobilinogen,Urine <2.0 mg/dL (<2.0); WBC,Urine 1 /hpf (0-5)
[2025-05-24 00:38] LABS: ALT 52 U/L (4-49); AST 34 U/L (17-59); African American GFR (CKD) >90 (>60 ml/min/1.73 sqM); Albumin 4.6 g/dL (3.5-5.0); Alkaline Phosphatase 94 U/L (38-126); Anion Gap 12 mmol/L; Blood Urea Nitrogen 16 mg/dL (9-20); Calcium 9.9 mg/dL (8.4-10.2); Carbon Dioxide 23 mmol/L (22-30); Chloride 107 mmol/L (98-107); Glucose 237 mg/dL (74-99); Magnesium 1.9 mg/dL (1.6-2.3); Non-African American GFR(CKD) >90 (>60 ml/min/1.73 sqM); Potassium 4.1 mmol/L (3.5-5.1); Sodium 142 mmol/L (137-145); Total Protein 7.3 g/dL (6.3-8.2)
[2025-05-24 00:39] LABS: Basophils # (A) 0.03 10*3/uL (0.00-0.10); Basophils % (A) 0.2 %; Eosinophils # (A) 0.02 10*3/uL (0.04-0.35); Eosinophils % (A) 0.1 %; HCT 47.2 % (39.6-50.0); HGB 16.6 g/dL (13.0-17.0); Lymphocytes # (A) 3.18 10*3/uL (0.90-5.00); Lymphocytes % (A) 18.7 %; MCH 31.3 pg (27.0-32.0); MCHC 35.2 g/dL (32.0-37.0); MCV 89.1 fL (80.0-97.0); Monocytes # (A) 0.94 10*3/uL (0.20-1.00); Monocytes % (A) 5.5 %; Neutrophils # (A) 12.78 10*3/uL (1.80-7.70); Neutrophils % (A) 75.1 %; Platelet Count 262 10*3/uL (140-440); RBC 5.30 10*6/uL (4.40-5.60); RDW 13.6 % (11.5-14.5); WBC 17.02 10*3/uL (4.50-10.00)
--- NOTE | 2025-05-24 03:00 | XR ---
EXAM: XR Lumbosacral Spine, 2 or 3 Views CLINICAL HISTORY: ITS.REASON XR Reason: left sided back pain TECHNIQUE: Frontal and lateral views of the lumbar spine and sacrum. COMPARISON: Prior plain film images of the lumbar spine from November 23, 2015. FINDINGS: Vertebrae: There is a mild generalized curved to the left and normal lumbar lordosis. No acute fracture. Normal alignment. Sacrum/coccyx: Unremarkable as visualized. No acute fracture. Disc spaces: No acute findings. No significant narrowing. Soft tissues: Unremarkable. IMPRESSION: No evidence of acute lumbar spine pathology. If there is continued clinical concern, a CT scan may be of benefit for further evaluation.
--- NOTE | 2025-05-24 03:01 | XR ---
EXAM: XR Chest, 2 Views CLINICAL HISTORY: ITS.REASON XR Reason: cp TECHNIQUE: Frontal and lateral views of the chest. COMPARISON: Prior chest x-ray from June 01, 2024. FINDINGS: Lungs: Mild to moderate peribronchial thickening of the central bronchi. No consolidation. Pleural space: Unremarkable. No pneumothorax. Heart: Unremarkable. No cardiomegaly. Mediastinum: Unremarkable. Normal mediastinal contour. Bones/joints: Unremarkable. No acute fracture. IMPRESSION: Bronchitis, which may be of infectious or inflammatory etiologies. No consolidation or pleural effusion.
[2025-05-24 03:34] VITALS: BP 145/99; PULSE 78; RESP 17
== END 2025-05-24 03:34 | disposition home or self-care (01) ==
LOC: EC 22:55
DX: M54.50 Low back pain, unspecified (principal); E66.9 Obesity, unspecified; Z86.73 Personal history of transient ischemic attack (TIA), and cerebral infarction without residual deficits; Z68.43 Body mass index [BMI] 50.0-59.9, adult
CPT/HCPCS: 36415; 93005; 80053; 83735; 84484; 85025; 85610; 85730; 81001; 72100; 71046; 99284; 96374; 96376; J1171